=== PATIENT | female | born 1965 | race American Indian/Alaskan Native ===

== ENCOUNTER 2018-02-20 12:47 | Outpatient (CLI) | payer MEDICAID, SELFPAY ==
--- NOTE | 2018-02-20 12:09 | DI.RAD_ITS ---
SYMPTOMS/DIAGNOSIS: RT KNEE WEAKNESS, PAIN, M25.861 RIGHT KNEE: Three views were obtained. No bony or soft tissue abnormality seen.
== END 2018-02-20 13:07 ==
PROVIDERS: PCP Nurse Practitioner Family; Visit Provider Nurse Practitioner Family
DX: M25.561 Pain in right knee (principal); M25.861 Other specified joint disorders, right knee
CPT/HCPCS: 73562

== ENCOUNTER 2018-03-20 09:13 | Outpatient (CLI) | payer MEDICAID, SELFPAY ==
--- NOTE | 2018-03-20 09:06 | DI.RAD_ITS ---
SYMPTOM/DIAGNOSIS: PAIN RIGHT KNEE: AP and lateral and bilateral Merchant projections are provided. No bony or joint abnormality is seen.
== END 2018-03-20 09:33 ==
PROVIDERS: PCP Nurse Practitioner Family; Visit Provider Orthopaedic Surgery
DX: M25.561 Pain in right knee (principal)
CPT/HCPCS: 73562

== ENCOUNTER 2018-03-23 11:49 | Emergency (ER) | payer MEDICAID, SELFPAY ==
[2018-03-23 11:54] VITALS: BP 154/101; PULSE 75; RESP 24; TEMP 36.4; O2SAT 97
[2018-03-23 12:00] VITALS: RESP 19; RESP 8
[2018-03-23] MEDS: Albuterol/Ipratropium 3 ML UPD VIAL 9 ML UPD (12:00)
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
[2018-03-23] MEDS: methylPREDNISolone SUCC 125 MG VIAL IM (12:05)
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
--- NOTE | 2018-03-23 12:15 | DI.RAD_ITS ---
SYMPTOMS/DIAGNOSIS: SEVERE COUGH, ASTHMA PA AND LATERAL CHEST: Comparison is made with December,. The heart size is normal. The lungs are well inflated and clear. No infiltrate or effusion is seen. IMPRESSION: Negative chest x-ray.
[2018-03-23 12:30] VITALS: PULSE 70; TEMP 36.6; O2SAT 98
--- NOTE | 2018-03-23 13:07 | DI.VRAD_ITS ---
EXAM: XR Chest, 2 Views EXAM DATE/TIME: 03/23/2018 11:57 AM CLINICAL HISTORY: 52 years old, female; Signs and symptoms; Cough; Patient HX: Severe cough x 3 days, asthma TECHNIQUE: XR of the chest, 2 views. COMPARISON: CR CHEST 2 VIEWS PA,LAT 12/19/2015 6:48 PM FINDINGS: Lungs: Unremarkable. No consolidation. Pleural space: Unremarkable. No pleural effusion. No pneumothorax. Heart/Mediastinum: Unremarkable. No cardiomegaly. Bones/joints: Unremarkable. IMPRESSION: No acute findings. Dictated and Authenticated by: Jerry Flor MD. Ordering:PRINCE NEWMAN MD
[2018-03-23] MEDS: Albuterol/Ipratropium 3 ML UPD VIAL 9 ML (20:02)
== END 2018-03-23 13:15 | disposition home or self-care (01) ==
PROVIDERS: Emergency Provider Student in an Organized Health Care Education/Training Program; PCP Nurse Practitioner Family
DX: J45.901 Unspecified asthma with (acute) exacerbation (principal); I10 Essential (primary) hypertension; E11.9 Type 2 diabetes mellitus without complications; Z79.84 Long term (current) use of oral hypoglycemic drugs; F17.210 Nicotine dependence, cigarettes, uncomplicated
CPT/HCPCS: 93005; 94640; 96372; 99284; 71046; 93010; J2930; J7620

== ENCOUNTER 2018-03-28 11:38 | Emergency (ER) | payer MEDICAID, SELFPAY ==
[2018-03-28 11:42] VITALS: BP 155/97; PULSE 72; RESP 16; TEMP 36.1; O2SAT 99
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
[2018-03-28] MEDS: Acetaminophen 325 MG TAB 650 MG PO (12:00)
[2018-03-28] MEDS: Ibuprofen 600 MG TAB PO (12:04)
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
[2018-03-28 13:12] VITALS: BP 155/97; PULSE 72; RESP 16; TEMP 36.1; O2SAT 99
== END 2018-03-28 13:07 | disposition home or self-care (01) ==
PROVIDERS: Emergency Provider Physician Assistant; PCP Nurse Practitioner Family
DX: M25.541 Pain in joints of right hand (principal)
CPT/HCPCS: 29125; 99283; 73130; 99282; L3807

== ENCOUNTER 2018-07-12 11:25 | Outpatient (REF) | payer MEDICAID, SELFPAY | END 2018-07-12 11:45 | LOC: NCHCN 11:25 | PROVIDERS: PCP Nurse Practitioner Family; Visit Provider Nurse Practitioner Family | DX: N89.8 Other specified noninflammatory disorders of vagina (principal) | CPT/HCPCS: 87480; 87510; 87660 ==

== ENCOUNTER 2018-12-19 17:18 | Emergency (ER) | payer MEDICAID, SELFPAY ==
[2018-12-19 17:26] VITALS: BP 124/92; PULSE 80; RESP 16; TEMP 36.2; O2SAT 97
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
== END 2018-12-19 18:51 | disposition home or self-care (01) ==
PROVIDERS: Emergency Provider Nurse Practitioner Family
DX: B37.0 Candidal stomatitis (principal); E11.9 Type 2 diabetes mellitus without complications; Z79.84 Long term (current) use of oral hypoglycemic drugs; I10 Essential (primary) hypertension
CPT/HCPCS: 99283

== ENCOUNTER 2019-01-03 06:26 | Emergency (ER) | payer MEDICAID, SELFPAY ==
[2019-01-03 06:29] VITALS: BP 151/77; PULSE 97; RESP 20; TEMP 36.4; O2SAT 97
--- NOTE | 2019-01-03 06:34 | W.ED.GENAD ---
Discharge Plan Disposition Patient Disposition: HOME Condition: Improving Discharge Details Chief Complaint: RespSymp Clinical Impression: Asthma exacerbation in COPD, Cough Primary Care Provider: None,None ED Provider: Jessica Villegas Home Meds and New Rx's Prescriptions: New prednisone 20 mg tablet See Rx Instructions .ROUTE .COMPLEX Qty: 18 RF: 0 doxycycline hyclate 100 mg tablet 100 mg PO BID 5 Days Qty: 10 RF: 0 Continued omeprazole [Prilosec] 40 MG capsule,delayed release(DR/EC) 40 mg PO DAILY RF: 0 Flovent HFA 120 PUFF HFA aerosol inhaler 2 puff Inhalation BID RF: 0 risperidone 1 MG tablet 1 mg PO DAILY RF: 0 metformin 500 mg tablet extended release 24 hr 1,000 mg PO BID RF: 0 cyclobenzaprine 10 MG tablet 10 mg PO Q8H PRN (Reason: Muscle Spasm) Qty: 15 RF: 0 nystatin 100,000 unit/mL suspension 500,000 unit PO Q6H Qty: 200 RF: 0 clonazepam [Klonopin] 1 mg Tablet 1 mg PO TID RF: 0 Discharge Instructions Instructions: COPD (Chronic Obstructive Pulmonary Disease) (ED), Acute Cough (ED) Additional Instructions: Take the steroids and antibiotics until finished. Use the albuterol inhaler as needed and directed for wheezing or shortness of breath. Take Hycodan syrup 5mL orally every 4-6 hours as needed for cough. Drink plenty of fluids and get plenty of rest. You will receive a call from care management regarding a follow up appointment with a primary care doctor next week. Return immediately to the emergency department with any worsening or new concerning symptoms. Discharge Data Discharge Physician: Jessica Villegas Medical Decision Making <Ran Crawford DO - Last Filed: 01/03/19 07:57> This is a 53-year-old female with a past medical history of COPD, hypertension, high cholesterol who presents today for evaluation of 3 days of cough with productive sputum, fevers and chills, mild shortness of breath. She denies any cardiac history in the past. Physical exam demonstrates notable wheezes throughout, no significant hypoxemia, mild tachypnea. Oxygen saturations appear stable. Radial pulses equal bilaterally. She did have a small speck of blood in her most recent coughing episode, but otherwise denies any other hemoptysis. No history of PEs. Physical exam appears clinically consistent with COPD exacerbation. Differential also does include pneumonia. ACS less likely. Will perform cardiac work-up, give breathing treatments, mildly hydrate, get an x-ray and reassess. EKG at this time is benign with no evidence of significant ACS. 7:56 AM Laboratory work-up is returned relatively benign, significant white count or leukocytosis. VBG is normal, electrolytes and renal function stable. Troponin normal, d-dimer is elevated. We will add a CT angios for PE evaluation. Pending these results and continue treatments the patient will be signed out to my colleague Dr. Villegas for final disposition peer EKG 6: 33 Rate 96, intervals normal, sinus rhythm, notable Q waves in lead II, III and aVF. Inverted T wave in lead III. No significant ST elevations or depressions. Review of prior EKG from 03/21 reveals equivalent findings. <Jessica Villegas, - Last Filed: 01/03/19 12:22> Please see Dr. Crawford's note for initial presentation, exam and plan. Patient is a 53-year-old female with history of diabetes, hypertension, obesity, depression, PTSD, anxiety and COPD who presents for cough with yellow sputum and shortness of breath for the past 3 days. She admits to yellow sputum with blood-tinged this morning. She was given 3 nebs, Solu-Medrol and small bolus of IV fluids per Dr. Crawford. Labs reviewed and note an elevated d-dimer, mildly elevated BNP, normal troponin. EKG noted Q waves in inferior leads and T wave inversion in lead III but no acute ST elevation or depression and unchanged from previous EKG. Case endorsed to follow-up on CT chest and final disposition. Upon my assessment, patient denies any relief of her symptoms. Apparently patient was seen at [facility] yesterday for the same symptoms and states she was given steroids and one neb treatment and no prescriptions upon discharge. She has diffuse wheezing and rhonchi throughout. Patient offered another neb treatment but declines. She is frequently coughing and notes pain with coughing up on exam. Will give nebulized lidocaine and reassess. 0920 --patient admits to some chest pain while receiving nebulized lidocaine. Will stop at this time. CT chest negative for any acute findings. Patient feels much better and she is requesting to go home. She has an allergy to codeine and states that she has received Hycodan syrup before for her cough and requests a dose. 2 doses given for home. Respiratory also gave patient an Acapella to help with her mucus congestion. She was given albuterol inhaler for home, a prescription for steroids as well as a prescription for doxycycline due to her smoking history. Patient states that she did not her primary care doctor. Her previous doctor was Padmini Gaines but she moved. Patient placed on care management list to help arrange for follow-up appointment with her primary care doctor's office in 1 week for COPD. Patient also stated that she was aware that she had a history of asthma but not a history of COPD. Discussed with respiratory and PFT ordered upon discharge to help with diagnosis. Medical Records Medical records reviewed: Yes I reviewed the patient's medical records. Imaging Data Radiologic Study: Radiologist's impression: CT ANGIOGRAPHY OF THE CHEST: CT angiography was performed with multi slice acquisition and multi planar and 3D reconstruction. Routine examination was performed. No priors for comparison. There is atherosclerosis of the thoracic aorta. No evidence of a thoracic aortic dissection. Heart size is within normal limits. No significant pericardial effusion is seen. No evidence of right ventricular dysfunction is present. No pleural effusion, pneumothorax or significant thoracic adenopathy is appreciated. There is no evidence of a pulmonary embolus. There are atelectatic changes seen in the lungs. No focal consolidating infiltrates are present. The tracheobronchial tree is unremarkable. In the upper abdomen there are bilateral adrenal nodules. The patient is status post cholecystectomy. Degenerative changes are seen in the spine. There is patient motion artifact present. IMPRESSION: No evidence of a pulmonary embolus, thoracic dissection or aneurysm. Lab Data Lab results reviewed: Yes I reviewed the patient's lab results. ECG Data Attestation: I personally reviewed and interpreted this ECG (s) as follows: HPI <Ran Crawford DO - Last Filed: 01/03/19 07:57> General Date/Time Provider Initiated Documentation: 01/03/19 06:27. HPI Narrative: This is a 53-year-old female with past medical history of COPD, diabetes, GERD hypertension and high cholesterol who presents today for evaluation of shortness of breath. She has a regular tobacco user, she notes for the last 3 days she has had a cough with productive sputum, occasional fever and chills, notable shortness of breath. She denies any significant chest tightness, chest heaviness, or significant pleuritic chest pain. She does admit to a single small speckle of blood on her most recent episode of productive cough, but denies any mando hemoptysis or any other abnormality otherwise. Denies PE risk factors such as recent long car rides, immobilization, recent surgery, prior history of DVT or PE, family history of PE or DVT, morbid obesity, exogenous estrogen and smoking, history of cancer. She denies any recent hospitalizations or antibiotic use. She denies any other complaints. Patient has been taking breathing treatments at home but has had significant improvement. No other modifying factors. Related Data Home Medications Medication Instructions Recorded Confirmed Flovent HFA 2 puff INHALATION BID 12/28/13 01/03/19 omeprazole [Prilosec] 40 mg PO DAILY 12/28/13 01/03/19 risperidone 1 mg PO DAILY 12/28/13 01/03/19 cyclobenzaprine 10 mg PO Q8H PRN #15 tab 08/29/16 01/03/19 metformin 500 mg tablet,extended 1,000 mg PO BID tab 03/20/18 01/03/19 release 24 hr nystatin 500,000 unit PO Q6H #200 ml 12/19/18 01/03/19 clonazepam [Klonopin] 1 mg PO TID 01/03/19 01/03/19 doxycycline hyclate 100 mg PO BID 5 Days #10 tab 01/03/19 prednisone See Rx Instructions .ROUTE 01/03/19 .COMPLEX #18 tab Previous Rx's Medication Instructions Recorded cyclobenzaprine 10 mg PO Q8H PRN #15 tab 08/29/16 nystatin 500,000 unit PO Q6H #200 ml 12/19/18 doxycycline hyclate 100 mg PO BID 5 Days #10 tab 01/03/19 prednisone See Rx Instructions .ROUTE 01/03/19 .COMPLEX #18 tab Allergies Allergy/AdvReac Type Severity Reaction Status Date / Time sulfamethoxazole Allergy Severe Anaphylaxsi Verified 01/03/19 06:35 [From Bactrim] s trimethoprim [From Bactrim] Allergy Severe Anaphylaxsi Verified 01/03/19 06:35 s povidone-iodine Allergy Intermediate Hives Verified 01/03/19 06:35 [From Betadine] soap [From Betadine] Allergy Intermediate Hives Verified 01/03/19 06:35 ginseng Allergy Mild Hives Verified 01/03/19 06:35 terconazole [From Terazol 3] Allergy Unknown unknown Verified 01/03/19 06:35 acetaminophen [From Percocet] AdvReac Intermediate vomiting Verified 01/03/19 06:35 oxycodone HCl [From Percocet] AdvReac Intermediate vomiting Verified 01/03/19 06:35 nicotine [From Nicoderm CQ] AdvReac Mild Topical Verified 01/03/19 06:35 Irritation latex powdered gloves AdvReac Mild rash Uncoded 01/03/19 06:35 General Stated Complaint: RespSymp PATRICIA: 3 Review of Systems <Ran Crawford DO - Last Filed: 01/03/19 07:57> Review of Systems All systems reviewed & are unremarkable except as noted in HPI and below PFSH <Ran Crawford DO - Last Filed: 01/03/19 07:57> Social History Smoking/Tobacco Use Status: Current every day Alcohol Intake: never Drug use: Occasionally Substance use type: marijuana Do you feel safe at home: Yes Do you feel safe in your relationship?: Yes Exam <Ran Crawford DO - Last Filed: 01/03/19 07:57> Narrative Exam Narrative: 1.Const: Well-nourished, Well-developed, appearing stated age 2.Eyes: PERRL, no conjunctival injection, and symmetrical lids. 3.ENT: Atraumatic external nose and ears. Moist MM. Neck: Symmetric, trachea midline, No thyromegaly. 4.CVS: +S1/S2, No murmurs or gallops. Peripheral pulses 2+ and equal in all extremities. Brisk capillary refill in all extremities. Radial pulses +2 bilaterally. 5.RESP: Mild tachypnea, notable wheezes throughout, no significant crackles. No rhonchi 6.GI: Soft, Nontender/Nondistended, No hepatosplenomegaly. No guarding or rebound. 7.MSK: Normocephalic/Atraumatic, Extremities w/o deformity or ttp No cyanosis or clubbing, Normal movement of all extremities. No calf tenderness 8.Skin: Warm, Dry. No rashes or lesions. 9.Neuro: thread winder automatic II-XII grossly intact. Sensation grossly intact, no focal neurologic deficits. 10.Psych: (AAO) x3. Appropriate mood and affect Course <Ran Crawford DO - Last Filed: 01/03/19 07:57> Vital Signs Temperature 36.4 C L 01/03/19 06:29 Pulse 97 H 01/03/19 06:29 Respiratory Rate 20 01/03/19 06:29 Blood Pressure 151/77 H 01/03/19 06:29 Pulse Oximetry 97 01/03/19 06:29 Temperature 36.4 C L 01/03/19 06:29 Temperature Source Temporal Artery Scan 01/03/19 06:29 Pulse 97 H 01/03/19 06:29 Respiratory Rate 20 01/03/19 06:29 Respiratory Effort Labored 01/03/19 06:29 Blood Pressure 151/77 H 01/03/19 06:29 Pulse Oximetry 97 01/03/19 06:29 Oxygen Delivery Method Room Air 01/03/19 06:29 Oxygen Flow Rate 0 01/03/19 06:29 Pain Level 3 01/03/19 06:29 Sign Out <Ran Crawford DO - Last Filed: 01/03/19 07:57> Sign Out Data: Sign Out Comment: COPD exacerbation. Pending CTA for evaluation of PE. Vital signs stable. Last updated by Ran Crawford DO at 01/03/19 07:59
[2019-01-03 06:49] VITALS: PULSE 83; RESP 20; RESP 4; O2SAT 99
[2019-01-03] MEDS: Albuterol/Ipratropium 3 ML UPD VIAL 9 ML UPD (06:49)
[2019-01-03 06:50] LABS: BE (Venous) 1.9 mmol/L (-3-3); HCO3 (Venous) 27 mmol/L (22-28); O2 Sat (Venous) 71 % (70-80); TCO2 (Venous) 24 mmol/L (22-29); pCO2 (Venous) 43 mm/Hg (34-47); pO2 (Venous) 36 mm/Hg (28-44)
[2019-01-03] MEDS: methylPREDNISolone SUCC 125 MG VIAL IVP (06:50)
[2019-01-03] MEDS: Normal Saline 1,000 ML 1000 ML IV (06:55)
[2019-01-03 07:03] LABS: Abs Immature Grans 0.04 k/cumm (0.0-0.09); Absolute Basophil Count 0.01 k/cumm (0.0-0.2); Absolute Eosinophil Count 0.03 k/cumm (0.0-0.7); Absolute Lymphocyte Count 0.99 k/cumm (1.2-3.4); Absolute Monocyte Count 1.18 k/cumm (0.11-0.7); Absolute Neutrophil Count 7.68 k/cumm (1.2-6.7); Basophils % 0.1; Eosinophils % 0.3; HCT 44.1 % (36.0-46.0); HGB 15.2 g/dL (12.0-15.5); Immature Grans % 0.4; Mean Corp. HGB Concentration 34.5 g/dL (32.0-36.0); Mean Corpuscular Hemoglobin 32.5 pg (27.0-33.0); Mean Corpuscular Volume 94.2 fL (80-95); Mean Platelet Volume 9.8 fL (8.0-11.0); Monocytes % 11.9; Neutrophils % 77.3; Platelet Count 235 x1000/uL (130-400); RBC 4.68 m/cumm (4.00-5.20); RBC Distribution Width 13.2 % (11.7-14.6); White Blood Cell Count 9.93 k/cumm (4.4-10.8)
[2019-01-03 07:14] LABS: ALT 13 U/L (12-78); AST 7 U/L (15-37); Albumin 3.6 g/dL (3.4-5.0); Alkaline Phosphatase 40 U/L (46-116); Anion Gap 9.8 mmol/L (3-11); BUN 12 mg/dL (7-18); Bilirubin, Total 0.3 mg/dL (0.2-1.0); CO2 26.2 mmol/L (21.0-32.0); CREATININE 1.01 mg/dL (0.55-1.02); Calcium 9.3 mg/dL (8.5-10.1); Chloride 102 mmol/L (98-107); Estimated GFR 57.12 (mL/min/1.73m2); Glucose 186 mg/dL (70-100); NT-proBNP 513 pg/mL; Potassium 4.1 mmol/L (3.5-5.1); Sodium 138 mmol/L (136-145); Total Protein 7.7 g/dL (6.4-8.2); Troponin I < 0.05 ng/mL (0.00-0.06)
[2019-01-03] MEDS: MAGNESIUM SULFATE 2 GM/50 ML BAG IVPB (07:14)
[2019-01-03 07:25] LABS: D-Dimer 1000 ng/mlFEU (<500)
--- NOTE | 2019-01-03 07:39 | DI.CT_ITS ---
SYMPTOM/DIAGNOSIS: HEMOPTYSIS, COUGH CT ANGIOGRAPHY OF THE CHEST: CT angiography was performed with multi slice acquisition and multi planar and 3D reconstruction. Routine examination was performed. No priors for comparison. There is atherosclerosis of the thoracic aorta. No evidence of a thoracic aortic dissection. Heart size is within normal limits. No significant pericardial effusion is seen. No evidence of right ventricular dysfunction is present. No pleural effusion, pneumothorax or significant thoracic adenopathy is appreciated. There is no evidence of a pulmonary embolus. There are atelectatic changes seen in the lungs. No focal consolidating infiltrates are present. The tracheobronchial tree is unremarkable. In the upper abdomen there are bilateral adrenal nodules. The patient is status post cholecystectomy. Degenerative changes are seen in the spine. There is patient motion artifact present. IMPRESSION: No evidence of a pulmonary embolus, thoracic dissection or aneurysm.
--- NOTE | 2019-01-03 07:58 | NUR.NOTE ---
Nursing Note: Pt resting in stretcher. DI staff at bedside with wheelchair to transport patient to x-ray. Pt requested to walk. Steady gait noted
[2019-01-03] MEDS: Omnipaque 350 MG/ML 100 ML BTL IJ (08:16)
[2019-01-03 08:42] VITALS: BP 155/85; PULSE 88; RESP 18; O2SAT 91
--- NOTE | 2019-01-03 09:24 | NUR.NOTE ---
Nursing Note: PT reported right sided chest discomfort while using the nebulized lidocaine. MD Villegas made aware. Orders received to stop the neb treatment.
[2019-01-03] MEDS: Albuterol HFA 8 GM 60 PUFF INH IH (10:35)
[2019-01-03 10:36] VITALS: BP 142/93; PULSE 83; RESP 14; TEMP 36.7; O2SAT 92
--- NOTE | 2019-01-03 13:06 | NUR.NOTE ---
Nursing Note: Confirmed with [facility] that the patient was still current as a patient at their office. Referral faxed for follow up from the Emergency Dept. Nuvia Styles.
== END 2019-01-03 10:37 | disposition home or self-care (01) ==
PROVIDERS: Student in an Organized Health Care Education/Training Program; Emergency Provider Physician Assistant
DX: R06.02 Shortness of breath (principal); J45.901 Unspecified asthma with (acute) exacerbation; J44.9 Chronic obstructive pulmonary disease, unspecified; F17.210 Nicotine dependence, cigarettes, uncomplicated; R79.1 Abnormal coagulation profile; R07.9 Chest pain, unspecified; E11.9 Type 2 diabetes mellitus without complications; Z79.84 Long term (current) use of oral hypoglycemic drugs
CPT/HCPCS: 36415; 71275; 80053; 82805; 93005; 94640; 96361; 96365; 96375; 99285; 83880; 84484; 85025; 85379; 93010; J2930; J3490; J7620

== ENCOUNTER 2019-02-13 13:41 | Outpatient (REF) | payer MEDICAID, SELFPAY ==
--- NOTE | 2019-02-13 11:30 | SKI_PTH ---
PATIENT: Chika Santos LOC: [facility] U#:[id number] AGE/SX: 53/F ROOM: RE02/13/[address]: Ottoniel Jovel : 1965 BED: DIS: 02/13/2019 SPEC #: [id number] RECD: 02/13/19 18:00 STATUS: ISELA SPENCE #: [id number] CHRISTINE: 02/13/19 11:[address]: Ottoniel Jovel DEPT: Surgical Specimen RECD BY: Asha Meraz Tissues: 1 - SKIN BIOPSY(SHAVE/PUNCH) Procedures: SKIN LEVEL 4 Comments: [id number]
== END 2019-02-13 14:01 ==
LOC: NCHCN 13:41
PROVIDERS: PCP Nurse Practitioner Family; Visit Provider Nurse Practitioner Family
DX: L91.8 Other hypertrophic disorders of the skin (principal)
CPT/HCPCS: 80048; 80061; 85027; 82043; 82565; 82570; 84156; 84443; 88305

== ENCOUNTER 2019-02-13 15:16 | Outpatient (REF) | payer MEDICAID, SELFPAY ==
[2019-02-13 18:56] LABS: HCT 42.6 % (36.0-46.0); HGB 14.3 g/dL (12.0-15.5); Mean Corp. HGB Concentration 33.6 g/dL (32.0-36.0); Mean Corpuscular Hemoglobin 32.1 pg (27.0-33.0); Mean Corpuscular Volume 95.7 fL (80-95); Mean Platelet Volume 9.7 fL (8.0-11.0); Platelet Count 264 x1000/uL (130-400); RBC 4.45 m/cumm (4.00-5.20); RBC Distribution Width 13.1 % (11.7-14.6); White Blood Cell Count 6.67 k/cumm (4.4-10.8)
[2019-02-13 19:10] LABS: PROTEIN 9.4 mg/dL
[2019-02-13 19:14] LABS: COMMENT (LAB VIEW ONLY) 63.24 mg/dL; Microalb ug/mg Crea 6.8 ug/mg Cr
[2019-02-13 19:46] LABS: Anion Gap 8.4 mmol/L (3-11); BUN 9 mg/dL (7-18); CO2 27.6 mmol/L (21.0-32.0); CREATININE 0.96 mg/dL (0.55-1.02); Calculated LDL 176 mg/dL; Chloride 101 mmol/L (98-107); Cholesterol 259 mg/dL (50-200); Glucose 107 mg/dL (70-100); HDL Cholesterol 45 mg/dL (40-60); Potassium 3.9 mmol/L (3.5-5.1); Sodium 137 mmol/L (136-145); TSH (W/Ref FT4) 1.75 uIU/mL (0.36-3.74); Triglyceride 191 mg/dL (30-150)
[2019-02-13 20:49] LABS: COMMENT (LAB VIEW ONLY) 62.64 mg/dL; Prot/Crea Ur Ratio 0.15
== END 2019-02-13 15:36 ==
LOC: NCHCN 15:16
PROVIDERS: PCP Nurse Practitioner Family; Visit Provider Nurse Practitioner Family
DX: E11.9 Type 2 diabetes mellitus without complications (principal); I10 Essential (primary) hypertension; E78.5 Hyperlipidemia, unspecified
CPT/HCPCS: 80048; 80061; 85027; 82043; 82565; 82570; 84156; 84443

== ENCOUNTER 2019-02-17 00:54 | Outpatient (CLI) | payer MEDICAID, SELFPAY ==
--- NOTE | 2019-02-17 14:00 | DI.US_ITS ---
SYMPTOMS/DIAGNOSIS: PELVIC PAIN, R10.2 PELVIC ULTRASOUND: A transabdominal and transvaginal examination was carried out. The patient is status post hysterectomy. The ovaries are not visualized. The right kidney measures 10.7 x 4.3 x 5.4 cm, the left kidney measures 11.8 x 4.6 x 5.2 cm. Both kidneys are acoustically normal. SUMMARY: The patient is status post hysterectomy. Neither the right nor left ovary is identified.
== END 2019-02-17 01:14 ==
PROVIDERS: PCP Nurse Practitioner Family; Visit Provider Nurse Practitioner Family
DX: R10.2 Pelvic and perineal pain (principal); Z90.710 Acquired absence of both cervix and uterus
CPT/HCPCS: 76830; 76856

== ENCOUNTER 2019-03-24 10:02 | Outpatient (REF) | payer MEDICAID, SELFPAY ==
[2019-04-03 15:58] LABS: Creatinine, U 61.2 mg/dL; Specific Gravity 1.008; pH 6.5
[2019-04-03 16:22] LABS: Codeine Not Detected ng/mL (Cutoff: 25); Comment Normal
[2019-04-03 16:23] LABS: 6-monoacetylmorphine Not Detected ng/mL (Cutoff: 25); Dihydrocodeine Not Detected ng/mL (Cutoff: 25); Hydrocodone Not Detected ng/mL (Cutoff: 25); Hydromorphone Not Detected ng/mL (Cutoff: 25); Morphine Not Detected ng/mL (Cutoff: 25); Norhydrocodone Not Detected ng/mL (Cutoff: 25)
[2019-04-03 16:24] LABS: Fentanyl Not Detected ng/mL (Cutoff: 2); Hydromorphone-3-beta-glucuroni Not Detected ng/mL (Cutoff: 100); Meperidine Not Detected ng/mL (Cutoff: 25); Naloxone Not Detected ng/mL (Cutoff: 25); Norfentanyl Not Detected ng/mL (Cutoff: 2); Normeperidine Not Detected ng/mL (Cutoff: 25); Noroxycodone Not Detected ng/mL (Cutoff: 25); Noroxymorphone Not Detected ng/mL (Cutoff: 25)
[2019-04-03 16:25] LABS: EDDP Not Detected ng/mL (Cutoff: 25); Methadone Not Detected ng/mL (Cutoff: 25); O-desmethyltramadol Not Detected ng/mL (Cutoff: 25); Propoxyphene Not Detected ng/mL (Cutoff: 25); Tramadol Not Detected ng/mL (Cutoff: 25)
[2019-04-03 16:26] LABS: Buprenorphine Not Detected ng/mL (Cutoff: 5); N-desmethyltapentadol Not Detected ng/mL (Cutoff: 50); Norbuprenorphine Not Detected ng/mL (Cutoff: 5); Tapentadol Not Detected ng/mL (Cutoff: 25)
[2019-04-03 16:29] LABS: Opioid Interpretation See Comments
[2019-04-03 16:30] LABS: Amphetamines See Comments ng/mL (Cutoff: 500); Barbiturates Negative ng/mL (Cutoff: 200); Cocaine Negative ng/mL (Cutoff: 150)
[2019-04-03 16:31] LABS: Alpha-Hydroxyalprazolam Not Detected (Cutoff: 10); Alpha-OH-alprazolam Glucuronid Not Detected (Cutoff: 50); Alprazolam Not Detected (Cutoff: 10); Chlordiazepoxide Not Detected (Cutoff: 10); Clobazam Not Detected (Cutoff: 10); N-Desmethylclobazam Not Detected (Cutoff: 200); Phencyclidine Negative ng/mL (Cutoff: 25); Tetrahydrocannabinol Negative ng/mL (Cutoff: 50)
[2019-04-03 16:32] LABS: 2-Hydroxy Ethyl Flurazepam Not Detected (Cutoff: 10); Alpha-Hydroxy Midazolam Not Detected (Cutoff: 10); Diazepam Not Detected (Cutoff: 10); Flurazepam Not Detected (Cutoff: 10); Lorazepam Not Detected (Cutoff: 10); Lorazepam Glucuronide Not Detected (Cutoff: 50); Midazolam Not Detected (Cutoff: 10); Oxazepam Glucuronide Not Detected (Cutoff: 50); Prazepam Not Detected (Cutoff: 10)
[2019-04-03 16:33] LABS: Alpha-Hydroxy Triazolam Not Detected (Cutoff: 10); Temazepam Not Detected (Cutoff: 10); Temazepam Glucuronide Not Detected (Cutoff: 50); Triazolam Not Detected (Cutoff: 10); Zolpidem Phenyl-4-Carboxy acid Not Detected (Cutoff: 10)
[2019-04-03 16:40] LABS: Clonazepam Present (Cutoff: 10)
[2019-04-03 16:43] LABS: Benzodiazepines Interpretation See Comments
[2019-04-04 08:20] LABS: Amphetamine 6466 ng/mL (Cutoff: 25); MDA (Ecstasy Metabolite) Negative ng/mL (Cutoff: 25); MDMA (Ecstasy) Negative ng/mL (Cutoff: 25); Methamphetamine Negative ng/mL (Cutoff: 25); Phentermine Negative ng/mL (Cutoff: 25); Pseudoephedrine/Ephedrine Negative ng/mL (Cutoff: 25)
[2019-04-04 08:22] LABS: Amphetamines Interpretation Positive
== END 2019-03-24 10:22 ==
LOC: LBN 10:02
PROVIDERS: PCP Nurse Practitioner Family; Visit Provider Nurse Practitioner Family
DX: M54.5 Low back pain (principal); G89.29 Other chronic pain
CPT/HCPCS: 80307; 80324; 80364

== ENCOUNTER 2019-04-06 09:32 | Emergency (ER) | payer MEDICAID, SELFPAY ==
[2019-04-06 09:38] VITALS: BP 151/105; PULSE 63; RESP 16; TEMP 36.6; O2SAT 98
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
[2019-04-06] MEDS: Ketorolac 30 MG/ML VIAL IM (10:00)
== END 2019-04-06 10:13 | disposition home or self-care (01) ==
PROVIDERS: Emergency Provider Emergency Medicine; PCP Nurse Practitioner Family
DX: M54.5 Low back pain (principal); L03.011 Cellulitis of right finger
CPT/HCPCS: 96372; 99284; J1885

== ENCOUNTER 2019-08-14 12:19 | Outpatient (REF) | payer MEDICAID, SELFPAY ==
[2019-08-14 13:14] LABS: HGB 14.3 g/dL (12.0-15.5); Mean Corp. HGB Concentration 33.3 g/dL (32.0-36.0); Mean Corpuscular Volume 96.2 fL (80-95); Platelet Count 288 x1000/uL (130-400); RBC 4.47 m/cumm (4.00-5.20); White Blood Cell Count 8.58 k/cumm (4.4-10.8)
[2019-08-14 13:15] LABS: Anion Gap 8.2 mmol/L (3-11); BUN 11 mg/dL (7-18); CO2 29.8 mmol/L (21.0-32.0); CREATININE 0.85 mg/dL (0.55-1.02); Calcium 8.8 mg/dL (8.5-10.1); Chloride 104 mmol/L (98-107); Glucose 83 mg/dL (74-106); Potassium 4.4 mmol/L (3.5-5.1); Sodium 142 mmol/L (136-145)
== END 2019-08-14 12:39 ==
LOC: NCHCN 12:19
PROVIDERS: PCP Nurse Practitioner Family; Visit Provider Nurse Practitioner Family
DX: G47.00 Insomnia, unspecified (principal); R25.2 Cramp and spasm; R82.90 Unspecified abnormal findings in urine
CPT/HCPCS: 80048; 85027

== ENCOUNTER 2019-12-10 09:17 | Outpatient (REF) | payer MEDICAID, SELFPAY ==
[2019-12-10 16:18] LABS: Bilirubin Negative (Negative); Blood Negative (Negative); Clarity Sl Cloudy (Clear); Glucose Negative (Negative); Ketones Trace mg/dL (Negative); Leukocyte Esterase Trace (Negative); Nitrite Negative (Negative); Urobilinogen 0.2 EU/dL (Up TO 0.2)
[2019-12-10 16:44] LABS: RBC Negative HPF (0-2); WBC 0-2 HPF (0-5)
[2019-12-10 16:45] LABS: Bacteria Moderate HPF (Negative); C & S Indicated? No/Sq. Contamination; Epithelial Cells Many HPF (Negative)
[2019-12-11 09:47] LABS: HBs Antibody, Quant <3.1 mIU/mL (See Note); Hepatitis B Surface Ab Negative (See Note)
[2019-12-11 09:57] LABS: Hepatitis B Surface Ag Negative (Negative)
[2019-12-11 10:36] LABS: Hepatitis C Ab w Rflx HCV PCR Negative (Negative)
[2019-12-11 10:56] LABS: HIV-1/2 Ag & Ab Screen Negative (Negative)
[2019-12-11 11:25] LABS: Syphilis Serology (RPR) Negative (Negative)
[2019-12-11 13:52] LABS: Chlamydia Result Negative (Negative); GC Result Negative (Negative)
== END 2019-12-10 09:37 ==
LOC: NCHCN 09:17
PROVIDERS: PCP Nurse Practitioner Family; Visit Provider Nurse Practitioner Family
DX: Z11.3 Encounter for screening for infections with a predominantly sexual mode of transmission (principal); Z11.59 Encounter for screening for other viral diseases; Z11.4 Encounter for screening for human immunodeficiency virus [HIV]; G47.00 Insomnia, unspecified; R25.2 Cramp and spasm; R82.90 Unspecified abnormal findings in urine
CPT/HCPCS: 86706; 86803; 87340; 87389; 87491; 87591; 81003; 81015; 86592

== ENCOUNTER 2019-12-25 10:27 | Outpatient (REF) | payer MEDICAID, SELFPAY ==
[2019-12-25 21:02] LABS: HCT 42.1 % (36.0-46.0); HGB 14.2 g/dL (12.0-15.5); Mean Corp. HGB Concentration 33.7 g/dL (32.0-36.0); Mean Corpuscular Hemoglobin 32.3 pg (27.0-33.0); Mean Corpuscular Volume 95.7 fL (80-95); Mean Platelet Volume 10.1 fL (8.0-11.0); Platelet Count 303 x1000/uL (130-400); White Blood Cell Count 9.48 k/cumm (4.4-10.8)
[2019-12-25 21:10] LABS: Albumin 3.4 g/dL (3.4-5.0); Anion Gap 9.7 mmol/L (3-11); BUN 15 mg/dL (7-18); CO2 27.3 mmol/L (21.0-32.0); CREATININE 1.03 mg/dL (0.55-1.02); Calcium 8.9 mg/dL (8.5-10.1); Chloride 101 mmol/L (98-107); Estimated GFR 55.63 (mL/min/1.73m2); Glucose 126 mg/dL (74-106); Magnesium 1.5 mg/dL (1.8-2.4); PHOSPHORUS 4.2 mg/dL (2.6-4.7); Potassium 4.3 mmol/L (3.5-5.1); Sodium 138 mmol/L (136-145)
== END 2019-12-25 10:47 ==
LOC: NCHCN 10:27
PROVIDERS: PCP Nurse Practitioner Family; Visit Provider Nurse Practitioner Family
DX: R25.2 Cramp and spasm (principal)
CPT/HCPCS: 80048; 80069; 85027; 83735

== ENCOUNTER 2020-01-15 22:14 | Outpatient (REF) | payer MEDICAID, SELFPAY ==
[2020-01-15 15:23] LABS: Anion Gap 9.3 mmol/L (3-11); BUN 13 mg/dL (7-18); CO2 26.7 mmol/L (21.0-32.0); CREATININE 1.13 mg/dL (0.55-1.02); Chloride 101 mmol/L (98-107); Estimated GFR 49.99 (mL/min/1.73m2); Glucose 155 mg/dL (74-106); Sodium 137 mmol/L (136-145)
[2020-01-15 16:40] LABS: Magnesium 1.9 mg/dL (1.8-2.4)
[2020-01-18 06:34] LABS: SARS-CoV-2 RNA Undetected (Undetected)
== END 2020-01-15 22:34 ==
LOC: NCHCN 22:14
PROVIDERS: PCP Nurse Practitioner Family; Visit Provider Nurse Practitioner Family
DX: R05 Cough (principal); I10 Essential (primary) hypertension; E83.42 Hypomagnesemia
CPT/HCPCS: 80048; U0003; 83735

== ENCOUNTER 2020-03-16 11:22 | Outpatient (REF) | payer MEDICAID, SELFPAY ==
[2020-03-16 19:10] LABS: Anion Gap 6.4 mmol/L (3-11); BUN 11 mg/dL (7-18); CO2 29.6 mmol/L (21.0-32.0); CREATININE 1.02 mg/dL (0.55-1.02); Chloride 101 mmol/L (98-107); Estimated GFR 56.26 (mL/min/1.73m2); Glucose 105 mg/dL (74-106); Potassium 4.8 mmol/L (3.5-5.1); Sodium 137 mmol/L (136-145)
[2020-03-16 19:38] LABS: Hemoglobin A1C 6.3 % (<5.7)
== END 2020-03-16 11:42 ==
LOC: NCHCN 11:22
PROVIDERS: PCP Nurse Practitioner Family; Visit Provider Nurse Practitioner Family
DX: E11.9 Type 2 diabetes mellitus without complications (principal); I10 Essential (primary) hypertension; N25.9 Disorder resulting from impaired renal tubular function, unspecified
CPT/HCPCS: 80048; 83036

== ENCOUNTER 2020-03-29 00:38 | Outpatient (CLI) | payer MEDICAID, SELFPAY ==
--- NOTE | 2020-03-29 | DI.CT_ITS ---
EXAM: CT CHEST W CLINICAL HISTORY: PANLOBULAR EMPHYSEMA,J43.1,SMOKER,F17.210,COUGH,R05,DYSPNEA, TECHNIQUE: COMPARISON: CT CT CHEST PE CTA from 01/03/2019 FINDINGS: CT examination of chest was performed with bolus infusion of 70 cc of Omnipaque 350. Images obtained through the upper abdomen show hepatic steatosis and a prior cholecystectomy. There is a [address] in diameter left adrenal nodule and 18 millimeter in diameter right adrenal nodule, these are unc hanged from prior chest CT of January 2019 and at that time on an early arterial phase examination [place] low attenuation consistent with bilateral adrenal adenomas. Visualized portions of kidneys and pancreas appear normal. No mediastinal adenopathy is seen, there is no evidence thoracic aortic aneurysm or dissection. No e vidence pulmonary embolic disease. Tracheobronchial tree appears intact. There are predominantly li near areas of presumed scarring bilaterally. No consolidation or mass. No significant intrapulmonar y nodule. No pleural effusion. Moderate central lobular emphysema noted. IMPRESSION: Central lobular pulmonary emphysematous changes and pulmonary scarring. No evidence of acute process . Stable small bilateral adrenal adenomas. RADIATION DOSE DELIVERED: 1,001.65mGy.cm Total DLP
[2020-03-29 13:23] LABS: CREATININE 0.96 mg/dL (0.55-1.02)
[2020-03-29] MEDS: Omnipaque 350 MG/ML 100 ML BTL IJ (14:30)
[2020-03-29] MEDS: Normal Saline - Diluent 50 ML VIAL IV (14:31)
[2020-03-29] MEDS: Normal Saline Flush 10 ML SYR IVP (14:32)
== END 2020-03-29 00:58 ==
PROVIDERS: PCP Nurse Practitioner Family; Visit Provider Nurse Practitioner Family
DX: J43.1 Panlobular emphysema (principal); F17.210 Nicotine dependence, cigarettes, uncomplicated; R05 Cough; D35.02 Benign neoplasm of left adrenal gland; D35.01 Benign neoplasm of right adrenal gland; N25.9 Disorder resulting from impaired renal tubular function, unspecified
CPT/HCPCS: 71260; 82565; J3490

== ENCOUNTER 2020-04-08 10:15 | Outpatient (REF) | payer MEDICAID, SELFPAY ==
--- NOTE | 2020-04-08 09:15 | PAPFT_PTH ---
PAT[facility]: Ch[facility] Santos [id number] AGE/SX: 54/F ROOM: RE04/08/[address]: Ottoniel Jovel : 1965 BED: DIS: 04/08/2020 SPEC #: [id number] RECD: 04/08/20 17:45 STATUS: ISELA REQ #: [id number] CHRISTINE: 04/08/20 09:[address]: Ottoniel Jovel DEPT: [facility] Cytology RECD BY: Asha Meraz Tissues: 1 - CX/ENDOCX FOR PAP SMEARS Procedures: PAP THIN PREP/UVM Screening HPV DNA PROBE Comments: [id number] ([facility])
== END 2020-04-08 10:35 ==
LOC: NCHCN 10:15
PROVIDERS: PCP Nurse Practitioner Family; Visit Provider Nurse Practitioner Family
DX: Z00.00 Encounter for general adult medical examination without abnormal findings (principal); Z12.4 Encounter for screening for malignant neoplasm of cervix; Z11.51 Encounter for screening for human papillomavirus (HPV)
CPT/HCPCS: 88142; 87624

== ENCOUNTER 2020-04-12 00:41 | Outpatient (CLI) | payer MEDICAID, SELFPAY ==
--- NOTE | 2020-04-12 | DI.US_ITS ---
EXAM: US HERNIA CLINICAL HISTORY: HERNIA,K46.9 TECHNIQUE: Ultrasound performed using standard protocol. COMPARISON: US US PELVIS TRANSVAGINAL from 02/17/2019 FINDINGS: Ultrasound examination was performed to evaluate question ???bulging??? in right abdomen. There is n o evidence of a hernia in the region surveyed, examination was somewhat limited due to the patient's body habitus. If there is a high clinical suspicion of hernia or mass, additional evaluation with CT would be recommended. IMPRESSION: DATA REPOSITORY:
== END 2020-04-12 01:01 ==
PROVIDERS: PCP Nurse Practitioner Family; Visit Provider Nurse Practitioner Family
DX: K46.9 Unspecified abdominal hernia without obstruction or gangrene (principal)
CPT/HCPCS: 76857

== ENCOUNTER 2020-07-22 15:26 | Outpatient (REF) | payer MEDICAID, SELFPAY ==
[2020-07-22 15:46] LABS: Abs Immature Grans 0.04 10^3/uL (0.0-0.06); Absolute Basophil Count 0.08 10^3/uL (0.0-0.2); Absolute Eosinophil Count 0.22 10^3/uL (0.0-0.7); Absolute Lymphocyte Count 3.11 10^3/uL (1.2-3.4); Absolute Monocyte Count 1.01 10^3/uL (0.1-0.8); Absolute Neutrophil Count 5.79 10^3/uL (1.2-6.7); Basophils % 0.8; Eosinophils % 2.1; HCT 45.1 % (36.0-46.0); HGB 14.8 g/dL (11.2-15.7); Immature Grans % 0.4; Lymphocytes % 30.3; MCH 31.2 pg (27.0-33.0); MCHC 32.8 % (32.0-36.0); MCV 94.9 fL (80-95); MPV 9.9 fL (8.0-11.0); Monocytes % 9.9; Neutrophils % 56.5; Nucleated RBC 0 %; Platelet Count 310 10^3/uL (130-400); RBC 4.75 10^6/uL (3.93-5.22); RDW 13.1 % (11.7-14.6); RDW-SD 46.4 fL; WBC 10.25 10^3/uL (4.4-10.8)
[2020-07-22 16:05] LABS: Hemoglobin A1C 6.9 % (<5.7)
[2020-07-22 16:18] LABS: Iron 77 ug/dL (50-170); Total Iron Binding Capacity 331 ug/dL (250-450); Transferrin Sat 23 % (15-50)
[2020-07-22 16:19] LABS: ALT 40 U/L (14-59); AST 20 U/L (15-37); Albumin 3.8 g/dL (3.4-5.0); Alkaline Phosphatase 64 U/L (46-116); Anion Gap 9.2 mmol/L (3-11); BUN 10 mg/dL (7-18); Bilirubin, Total 0.4 mg/dL (0.2-1.0); CO2 29.8 mmol/L (21.0-32.0); CREATININE 0.8 mg/dL (0.55-1.02); Calcium 9.2 mg/dL (8.5-10.1); Calculated LDL 92 mg/dL (<100); Chloride 100 mmol/L (98-107); Cholesterol 176 mg/dL (<200); Glucose 114 mg/dL (74-106); HDL Cholesterol 44 mg/dL (40-60); Potassium 4.1 mmol/L (3.5-5.1); Sodium 139 mmol/L (136-145); Total Protein 7.4 g/dL (6.4-8.2); Triglyceride 203 mg/dL (<150)
== END 2020-07-22 15:27 | disposition home or self-care (01) ==
LOC: NCHCN 15:26
PROVIDERS: PCP Nurse Practitioner Family; Visit Provider Nurse Practitioner Family
DX: E83.42 Hypomagnesemia (principal); E11.9 Type 2 diabetes mellitus without complications; I10 Essential (primary) hypertension; Z68.41 Body mass index [BMI] 40.0-44.9, adult
CPT/HCPCS: 80053; 80061; 83036; 83540; 83550; 83735; 85025

== ENCOUNTER 2020-08-08 11:38 | Emergency (ER) | payer MEDICAID, SELFPAY ==
[2020-08-08 11:53] VITALS: BP 158/110; PULSE 70; RESP 16; TEMP 36.7; O2SAT 98
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
== END 2020-08-08 12:54 | disposition home or self-care (01) ==
PROVIDERS: Emergency Provider Physician Assistant; PCP Nurse Practitioner Family
DX: S61.412A Laceration without foreign body of left hand, initial encounter (principal); W26.0XXA Contact with knife, initial encounter
CPT/HCPCS: 12001; 90471

== ENCOUNTER 2020-10-15 11:20 | Outpatient (REF) | payer MEDICAID, SELFPAY ==
[2020-10-15 16:15] LABS: Hemoglobin A1C 7.1 % (<5.7)
[2020-10-15 16:29] LABS: Anion Gap 7.1 mmol/L (3-11); BUN 10 mg/dL (7-18); CO2 28.9 mmol/L (21.0-32.0); CREATININE 0.9 mg/dL (0.55-1.02); Calcium 9.2 mg/dL (8.5-10.1); Chloride 102 mmol/L (98-107); Ferritin 27 ng/mL (8-252); Glucose 117 mg/dL (74-106); Potassium 4.3 mmol/L (3.5-5.1); Sodium 138 mmol/L (136-145)
== END 2020-10-15 11:21 | disposition home or self-care (01) ==
LOC: NCHCN 11:20
PROVIDERS: PCP Nurse Practitioner Family; Visit Provider Nurse Practitioner Family
DX: R63.5 Abnormal weight gain (principal); R25.2 Cramp and spasm; R73.09 Other abnormal glucose; R79.89 Other specified abnormal findings of blood chemistry
CPT/HCPCS: 80048; 82728; 83036; 84443

== ENCOUNTER 2020-11-25 16:48 | Outpatient (REF) | payer MEDICAID, SELFPAY ==
[2020-11-27 14:14] LABS: COVID-19 RT-PCR UVMMC Result Negative (Negative)
== END 2020-11-25 16:49 | disposition home or self-care (01) ==
LOC: LBN 16:48
PROVIDERS: PCP Nurse Practitioner Family; Visit Provider Physician Assistant Medical
DX: Z20.822 Contact with and (suspected) exposure to COVID-19 (principal); R05 Cough
CPT/HCPCS: U0003

== ENCOUNTER 2020-11-28 21:40 | Emergency (ER) | payer MEDICAID, SELFPAY ==
--- NOTE | 2020-11-28 21:45 | RT.EKG_ITS ---
APPROVED REPORT Exam: Resting ECG Reason for Exam: SOB, Patient Location: E HR:73 bpm ECG Measurements Heart Rate 73 AXIS IA 183 P 40 QRSd 87 QRS 35 QT 397 T 42 QTc 437 Conclusion Sinus rhythm...normal P axis, V-rate 60- 99 Nonspecific T abnormalities, lateral leads...T <-0.10mV, I aVL V5 V6
[2020-11-28 22:03] VITALS: BP 138/66; PULSE 78; RESP 20; TEMP 36.3; O2SAT 95
--- NOTE | 2020-11-28 22:15 | DI.RAD_ITS ---
Exam(s) XR CHEST 2V PA LATERAL EXAM: XR CHEST 2V PA LATERAL CLINICAL HISTORY: Cough, R/O Pneumonia. TECHNIQUE: 2D digital imaging was performed. COMPARISON: Prior chest x-ray 03/23/2018 FINDINGS: Heart size is normal. The mediastinum is not widened. Lungs are clear. No obvious infiltrates evident on the frontal view. However, on the lateral view t here are some increased markings posteriorly in upper lobe, possibly early infiltrate. There are no pleural effusions. IMPRESSION: Very subtle increased markings in the posterior segment of 1 of the upper lobes seen only on the late ral view. Not evident on the frontal view. Followup recommend rule out developing subtle infiltrate . DATA REPOSITORY: RADIATION DOSE DELIVERED:
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
[2020-11-28 22:58] VITALS: PULSE 82; RESP 18; RESP 4; RESP 5; O2SAT 95
[2020-11-28] MEDS: Albuterol/Ipratropium 3 ML UPD VIAL UPD (22:58)
[2020-11-28 23:04] LABS: Abs Immature Grans 0.14 10^3/uL (0.0-0.06); Absolute Basophil Count 0.05 10^3/uL (0.0-0.2); Absolute Eosinophil Count 0.04 10^3/uL (0.0-0.7); Absolute Monocyte Count 1.34 10^3/uL (0.1-0.8); Absolute Neutrophil Count 8.16 10^3/uL (1.2-6.7); Basophils % 0.4; Eosinophils % 0.3; HCT 42.1 % (36.0-46.0); HGB 13.8 g/dL (11.2-15.7); Lymphocytes % 28.6; MCH 31.4 pg (27.0-33.0); MCHC 32.8 % (32.0-36.0); MCV 95.7 fL (80-95); MPV 9.4 fL (8.0-11.0); Monocytes % 9.8; Neutrophils % 59.9; Nucleated RBC 0 %; Platelet Count 271 10^3/uL (130-400); RDW 13.2 % (11.7-14.6); RDW-SD 46.7 fL; WBC 13.63 10^3/uL (4.4-10.8)
[2020-11-28 23:17] LABS: ALT 34 U/L (14-59); AST 13 U/L (15-37); Albumin 3.3 g/dL (3.4-5.0); Alkaline Phosphatase 51 U/L (46-116); Anion Gap 9.4 mmol/L (3-11); BUN 15 mg/dL (7-18); Bilirubin, Total 0.3 mg/dL (0.2-1.0); CO2 26.6 mmol/L (21.0-32.0); Calcium 8.5 mg/dL (8.5-10.1); Chloride 104 mmol/L (98-107); Estimated GFR 57.35 (mL/min/1.73m2); Glucose 217 mg/dL (74-106); Potassium 3.8 mmol/L (3.5-5.1); Sodium 140 mmol/L (136-145); Total Protein 7.2 g/dL (6.4-8.2)
[2020-11-28] MEDS: Amoxicillin 875/Clav. 125 TAB PO (23:47)
--- NOTE | 2020-11-29 00:18 | DI.VRAD_ITS ---
PROCEDURE INFORMATION: Exam: XR Chest Exam date and time: 11/28/2020 10:25 PM Age: 55 years old Clinical indication: Pain; Other: ? Pneumonia cough TECHNIQUE: Imaging protocol: XR of the chest. Views: 2 views. COMPARISON: CT CHEST W 03/29/2020 2:22 PM FINDINGS: Lungs: Lungs are adequately inflated and symmetric. No focal consolidation or pulmonary edema. Tapering hazy opacity of the lung bases attributed to overlying soft tissue artifact. Pleural spaces: No visible pleural effusion. No pneumothorax. Heart/Mediastinum: Cardiomediastinal contours within normal limits. Bones/joints: No acute osseous finding. IMPRESSION: No acute cardiopulmonary finding. Dictated and Authenticated by: Esvin Nava MD. Ordering:LITTLE Harris MD
== END 2020-11-29 00:30 | disposition home or self-care (01) ==
PROVIDERS: Emergency Provider Registered Nurse Emergency; PCP Nurse Practitioner Family
DX: J06.9 Acute upper respiratory infection, unspecified (principal); F17.210 Nicotine dependence, cigarettes, uncomplicated
CPT/HCPCS: 80053; 93005; 94640; 99283; 71046; 85025; 93010; J7620

== ENCOUNTER 2021-01-17 15:38 | Outpatient (REF) | payer MEDICAID, SELFPAY | END 2021-01-17 15:39 | disposition home or self-care (01) | LOC: NCHCN 15:38 | PROVIDERS: PCP Nurse Practitioner Family; Visit Provider Physician Assistant Medical | DX: N76.0 Acute vaginitis (principal) | CPT/HCPCS: 87480; 87510; 87660 ==

== ENCOUNTER 2021-02-01 14:15 | Outpatient (REF) | payer MEDICAID, SELFPAY | END 2021-02-01 14:16 | disposition home or self-care (01) | LOC: NCHCN 14:15 | PROVIDERS: PCP Nurse Practitioner Family; Visit Provider Physician Assistant Medical | DX: N76.0 Acute vaginitis (principal) | CPT/HCPCS: 87480; 87510; 87660 ==

== ENCOUNTER 2021-04-08 16:18 | Outpatient (REF) | payer MEDICAID, SELFPAY ==
[2021-04-08 19:09] LABS: Abs Immature Grans 0.05 10^3/uL (0.0-0.06); Absolute Basophil Count 0.08 10^3/uL (0.0-0.2); Absolute Eosinophil Count 0.35 10^3/uL (0.0-0.7); Absolute Lymphocyte Count 2.87 10^3/uL (1.2-3.4); Absolute Monocyte Count 0.83 10^3/uL (0.1-0.8); Absolute Neutrophil Count 6.17 10^3/uL (1.2-6.7); Basophils % 0.8; Eosinophils % 3.4; HCT 43.6 % (36.0-46.0); HGB 14.1 g/dL (11.2-15.7); Immature Grans % 0.5; Lymphocytes % 27.7; MCHC 32.3 % (32.0-36.0); MCV 95.8 fL (80-95); MPV 10.1 fL (8.0-11.0); Neutrophils % 59.6; Nucleated RBC 0 %; Platelet Count 272 10^3/uL (130-400); RBC 4.55 10^6/uL (3.93-5.22); RDW 13.4 % (11.7-14.6); RDW-SD 47.4 fL; WBC 10.35 10^3/uL (4.4-10.8)
[2021-04-08 19:38] LABS: ALT 29 U/L (14-59); AST 20 U/L (15-37); Albumin 3.6 g/dL (3.4-5.0); Alkaline Phosphatase 52 U/L (46-116); Anion Gap 9.6 mmol/L (3-11); BUN 15 mg/dL (7-18); Bilirubin, Total 0.4 mg/dL (0.2-1.0); CO2 27.4 mmol/L (21.0-32.0); CREATININE 0.9 mg/dL (0.55-1.02); Calcium 9.4 mg/dL (8.5-10.1); Calculated LDL 86 mg/dL (<100); Chloride 104 mmol/L (98-107); Cholesterol 155 mg/dL (<200); Glucose 103 mg/dL (74-106); HDL Cholesterol 39 mg/dL (40-60); Magnesium 1.7 mg/dL (1.8-2.4); Potassium 4.2 mmol/L (3.5-5.1); Sodium 141 mmol/L (136-145); Total Protein 7.1 g/dL (6.4-8.2); Triglyceride 152 mg/dL (<150)
== END 2021-04-08 16:19 | disposition home or self-care (01) ==
LOC: NCHCN 16:18
PROVIDERS: PCP Nurse Practitioner Family; Visit Provider Physician Assistant Medical
DX: E11.9 Type 2 diabetes mellitus without complications (principal)
CPT/HCPCS: 80053; 80061; 83036; 83735; 85025

== ENCOUNTER 2021-08-19 00:15 | Outpatient (CLI) | payer MEDICAID, SELFPAY ==
--- NOTE | 2021-08-19 12:00 | DI.MAMMO_ITS ---
Exam(s) MAMMO SCREENING EXAM: MAMMO SCREENING CLINICAL HISTORY: SCREENING, HEALTH MAINTENANCE EXAM, Z00.8 TECHNIQUE: Mammograms were interpreted according to the usual protocol including computer analysis w [employer] CAD system, tomosynthesis and C-view imaging. COMPARISON: FINDINGS: The breasts are of moderate density with fairly symmetrical distribution of fibroglandular tissue. N o dominant mass or clumped microcalcification is identified in either breast. The current examinatio n is compared with previous examination of March 2017 and there has been no gross interval change i n appearance comparison with the prior study. IMPRESSION: No specific evidence of malignancy at this time. Routine screening examinations are suggested at yea rly intervals in this age group according to the ACS ACR guidelines. BI-RADS Category 1 - Negative Breast Density - Category B - Scattered areas of fibroglandular density
== END 2021-08-19 00:35 ==
PROVIDERS: PCP Nurse Practitioner Family; Visit Provider Physician Assistant Medical
DX: Z12.31 Encounter for screening mammogram for malignant neoplasm of breast (principal)
CPT/HCPCS: 77063; 77067

== ENCOUNTER 2022-01-02 13:54 | Outpatient (REF) | payer MEDICAID, SELFPAY | END 2022-01-02 13:55 | disposition home or self-care (01) | LOC: NCHCN 13:54 | PROVIDERS: PCP Nurse Practitioner Family; Visit Provider Physician Assistant Medical | DX: R33.9 Retention of urine, unspecified (principal) | CPT/HCPCS: 87086 ==

== ENCOUNTER 2022-02-01 11:34 | Outpatient (REF) | payer MEDICAID, SELFPAY ==
[2022-02-01 17:52] LABS: ALT 50 U/L (14-59); AST 34 U/L (15-37); Albumin 3.4 g/dL (3.4-5.0); Alkaline Phosphatase 46 U/L (46-116); Anion Gap 8.6 mmol/L (3-11); BUN 10 mg/dL (7-18); Bilirubin, Total 0.5 mg/dL (0.2-1.0); CO2 27.4 mmol/L (21.0-32.0); CREATININE 0.9 mg/dL (0.55-1.02); Chloride 105 mmol/L (98-107); Estimated GFR 74.57 (mL/min/1.73m2); Glucose 111 mg/dL (74-106); Magnesium 1.7 mg/dL (1.8-2.4); Potassium 3.9 mmol/L (3.5-5.1); Sodium 141 mmol/L (136-145); TSH (W/Ref FT4) 1.86 uIU/mL (0.36-3.74); Total Protein 7.5 g/dL (6.4-8.2)
[2022-02-01 18:11] LABS: Abs Immature Grans 0.03 10^3/uL (0.0-0.06); Absolute Basophil Count 0.05 10^3/uL (0.0-0.2); Absolute Eosinophil Count 0.17 10^3/uL (0.0-0.7); Absolute Lymphocyte Count 2.32 10^3/uL (1.2-3.4); Absolute Monocyte Count 0.82 10^3/uL (0.1-0.8); Absolute Neutrophil Count 6.07 10^3/uL (1.2-6.7); Basophils % 0.5; Eosinophils % 1.8; HCT 44.6 % (36.0-46.0); HGB 14.9 g/dL (11.2-15.7); Immature Grans % 0.3; Lymphocytes % 24.5; MCH 31.8 pg (27.0-33.0); MCHC 33.4 % (32.0-36.0); MCV 95 fL (80-95); MPV 10.6 fL (8.0-11.0); Monocytes % 8.7; Neutrophils % 64.2; Platelet Count 270 10^3/uL (130-400); RBC 4.69 10^6/uL (3.93-5.22); RDW-SD 45.3 fL; WBC 9.46 10^3/uL (4.4-10.8)
== END 2022-02-01 11:35 | disposition home or self-care (01) ==
LOC: NCHCN 11:34
PROVIDERS: PCP Nurse Practitioner Family; Visit Provider Physician Assistant Medical
DX: R07.89 Other chest pain (principal); E11.9 Type 2 diabetes mellitus without complications; I10 Essential (primary) hypertension
CPT/HCPCS: 80053; 83735; 84443; 85025

== ENCOUNTER → 2022-02-27 01:33 | Outpatient (CLI) | payer MEDICAID, SELFPAY ==
--- NOTE | 2022-02-27 08:00 | ETT_ITS ---
APPROVED REPORT Exam: Exercise Treadmill Patient Location: Out-Patient Room/Bed: Stress Nurse: Magui Marie RN Ordering Provider:NATHALIE FELDMAN, Contact Number: [phone] BMI: 45.49 Baseline Rhythm: Sinus Tachycardia Indications: EXERTIONAL CHEST PAIN Medical History Medical History: HTN, HLD, Hypomagnesmia, GERD, Obesity, Chest pain, Tobacco abuse, ETOH abuse, COPD, DM II, Dyspnea Cardiac Medications: Amlodipine, Lisinopril, Lovastatin, Metoformin, Propranolol, Prednisone, Albuter ol Allergies: Cyproheptadine, Iodine, Codeine, Protonix, Percocet, Latex, Sulfamethoxazole, Trimethoprim Cardiac Risk Factors: HTN, Hyperlipidemia, DM, Asthma, COPD, Smoking (current), Obesity Previous Cardiac Procedures: None Pretest Chest Pain Characteristics: No chest pain Exercise History: Sedentary Physical Disabilities: Knees I can't walk on an incline Lung Sounds: Clear to auscultation Heart Sounds: Regular Stress Test Details Test: Exercise stress testing was performed using a modified Bhanu protocol. Rest Stress HR Resting HR Supine: 110 bpm Max Heart Rate (APMHR): 163 bpm Resting HR Standin bpm Target HR (85% APMHR): 138 bpm Max HR Achieved: 145 bpm % of APMHR: 88 Recovery HR: 107 bpm HR response to stress: Accelerated HR response to stress Comment: Tachycardiac at baseline. Propranolol held for 48 hrs prior to test. BP Resting BP Supine: 132/88 mmHg Resting BP Standin/88 mmHg Max BP: 146/82 mmHg Recovery BP: 112/82 mmHg BP response to stress: Normal blood pressure response to stress. ECG Resting ECG: Sinus Tachycardia Ectopy: PVCs Stress ECG: Sinus Tachycardia ST Change: No significant ST segment changes noted Arrhythmia: PVCs Recovery ECG: Sinus Tachycardia Recovery ST Change: No significant ST segment changes noted Recovery Arrhythmia: PVCs Clinical Reason for Termination: Knee pain Stress Symptoms: General Fatigue Exercise duration: 3 min27 sec Exercise capacity: 2.39 METs Palafox Treadmill Score: 2.8 Rate Pressure Product: 23054 Stress ECG Conclusion 1. The resting electrocardiogram showed vertical axis, otherwise normal 2. Patient exercised on a modified protocol and completed a workload of 2.39 METS, stopping due to fa tigue 3. Resting sinus tachycardia. Accelerated heart rate response to exercise. The patient achieved 88% of predicted heart rate for age 4. There was no electrocardiographic evidence of myocardial ischemia 5. There were no significant dysrhythmias Palafox Treadmill Score is 2.8 which is Moderate risk. Stress Test Summary STAGE Time (mins) Speed (mph) Grade (%) HR BP SpO2 SYMPTOMS METS Supine 110 132/88 Standing 115 120/88 96% 0 3 1.7 0 138 146/82 95% 2.3 1/2 6 1.7 5 my knees are going to buckle 3.4 1 min recovery 136 114/80 3 min recovery 111 132/80 6 min recovery 107 112/82 Patient started walking using the modified bhanu protocol, which was further modified into stage 2 du e to patient stating she is unable to walk on any incline. For stage 2 speed was increased to 2.4 mph with no incline. Patient denies any chest pain or shortness of breath during testing period.
== END ==
PROVIDERS: Visit Provider Physician Assistant Medical
DX: R07.89 Other chest pain (principal)
CPT/HCPCS: 93017

== ENCOUNTER 2022-04-07 13:31 | Outpatient (REF) | payer MEDICAID, SELFPAY ==
[2022-04-07 15:37] LABS: Abs Immature Grans 0.05 10^3/uL (0.0-0.06); Absolute Basophil Count 0.07 10^3/uL (0.0-0.2); Absolute Eosinophil Count 0.25 10^3/uL (0.0-0.7); Absolute Lymphocyte Count 3.04 10^3/uL (1.2-3.4); Absolute Monocyte Count 1.04 10^3/uL (0.1-0.8); Basophils % 0.6; Eosinophils % 2.3; HGB 13.9 g/dL (11.2-15.7); Immature Grans % 0.5; Lymphocytes % 27.8; MCHC 33.1 % (32.0-36.0); MCV 97 fL (80-95); MPV 10.5 fL (8.0-11.0); Monocytes % 9.5; Neutrophils % 59.3; Platelet Count 285 10^3/uL (130-400); RBC 4.34 10^6/uL (3.93-5.22); RDW 12.7 % (11.7-14.6); RDW-SD 45.4 fL; WBC 10.95 10^3/uL (4.4-10.8)
[2022-04-07 15:39] LABS: Absolute Neutrophil Count 6.49 10^3/uL (1.2-6.7)
[2022-04-07 15:54] LABS: Hemoglobin A1C 6.4 % (<5.7)
[2022-04-07 16:10] LABS: ALT 32 U/L (14-59); AST 20 U/L (15-37); Albumin 3.3 g/dL (3.4-5.0); Alkaline Phosphatase 56 U/L (46-116); Anion Gap 7.5 mmol/L (3-11); BUN 12 mg/dL (7-18); Bilirubin, Total 0.3 mg/dL (0.2-1.0); CO2 28.5 mmol/L (21.0-32.0); Calcium 9.2 mg/dL (8.5-10.1); Chloride 104 mmol/L (98-107); Estimated GFR 65.71 (mL/min/1.73m2); Glucose 87 mg/dL (74-106); Magnesium 1.9 mg/dL (1.8-2.4); Potassium 4.2 mmol/L (3.5-5.1); Sodium 140 mmol/L (136-145); Total Protein 7.3 g/dL (6.4-8.2)
== END 2022-04-07 13:32 | disposition home or self-care (01) ==
LOC: NCHCN 13:31
PROVIDERS: PCP Physician Assistant Medical; Visit Provider Physician Assistant Medical
DX: R00.2 Palpitations (principal); R06.2 Wheezing; R05.1 Acute cough; E11.9 Type 2 diabetes mellitus without complications
CPT/HCPCS: 80053; 83036; 83735; 85025

== ENCOUNTER → 2022-04-10 01:42 | Outpatient (CLI) | payer MEDICAID, SELFPAY ==
--- NOTE | 2022-04-10 | DI.RAD_ITS ---
Exam(s) XR CHEST 2V PA LATERAL EXAM: XR CHEST 2V PA LATERAL CLINICAL HISTORY: ACUTE COUGH, R05.1. TECHNIQUE: 2D digital imaging was performed. COMPARISON: CR,XR XR CHEST 2V PA LATERAL from 11/28/2020 FINDINGS: 2 views: Heart size is normal. The mediastinum is not widened. Lungs are clear. No infiltrates nor pleural effusions. IMPRESSION: No acute pulmonary findings. DATA REPOSITORY: RADIATION DOSE DELIVERED:
== END ==
PROVIDERS: PCP Physician Assistant Medical; Visit Provider Physician Assistant Medical
DX: R05.1 Acute cough (principal)
CPT/HCPCS: 71046

== ENCOUNTER 2022-05-08 08:54 | Outpatient (CLI) | payer MEDICAID, SELFPAY ==
--- NOTE | 2022-05-08 09:09 | W.CARDEVENT ---
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 Rhythm throughout was sinus with an average heart rate 80. Minimum was 42, maximum 128 There were very rare isolated atrial and ventricular ectopic beats There was no atrial fibrillation, no supraventricular tachycardia, no high-grade AV block, no pauses greater than 3 seconds Patient symptoms were reported. Most of these corresponded to sinus rhythm. Several corresponded to isolated premature ventricular contractions
== END 2022-05-08 08:55 | disposition home or self-care (01) ==
LOC: CARDOPNVT 08:54
PROVIDERS: PCP Physician Assistant Medical; Visit Provider Internal Medicine Cardiovascular Disease
DX: R00.2 Palpitations (principal)
CPT/HCPCS: 93248

== ENCOUNTER 2022-07-05 15:53 | Outpatient (REF) | payer MEDICAID, SELFPAY ==
[2022-07-05 15:38] LABS: Cholesterol 209 mg/dL (<200); HDL Cholesterol 34 mg/dL (40-60); Magnesium 1.7 mg/dL (1.8-2.4); Triglyceride 451 mg/dL (<150)
[2022-07-05 16:15] LABS: LDL CHOLESTEROL 116 mg/dL (<100)
== END 2022-07-05 15:54 | disposition home or self-care (01) ==
LOC: NCHCN 15:53
PROVIDERS: PCP Physician Assistant Medical; Visit Provider Physician Assistant Medical
DX: E78.5 Hyperlipidemia, unspecified (principal); E83.42 Hypomagnesemia
CPT/HCPCS: 80061; 83721; 83735

== ENCOUNTER 2022-07-07 13:27 | Outpatient (REF) | payer MEDICAID, SELFPAY ==
[2022-07-10 20:48] LABS: Pancreatic Elastase, F >500 mcg/g
== END 2022-07-07 13:28 | disposition home or self-care (01) ==
LOC: NCHCN 13:27
PROVIDERS: PCP Physician Assistant Medical; Visit Provider Physician Assistant Medical
DX: R19.7 Diarrhea, unspecified (principal)
CPT/HCPCS: 82656

== ENCOUNTER 2022-11-21 13:41 | Outpatient (REF) | payer MEDICAID, SELFPAY ==
[2022-11-21 15:24] LABS: ALT 27 U/L (14-59); AST 24 U/L (15-37); Albumin 3.5 g/dL (3.4-5.0); Alkaline Phosphatase 61 U/L (46-116); Anion Gap 10.3 mmol/L (3-11); BUN 10 mg/dL (7-18); Bilirubin, Total 0.4 mg/dL (0.2-1.0); CO2 28.7 mmol/L (21.0-32.0); CREATININE 0.9 mg/dL (0.55-1.02); Calcium 9.2 mg/dL (8.5-10.1); Calculated LDL 154 mg/dL (<100); Chloride 101 mmol/L (98-107); Cholesterol 257 mg/dL (<200); Glucose 130 mg/dL (74-106); HDL Cholesterol 34 mg/dL (40-60); Potassium 4.4 mmol/L (3.5-5.1); Sodium 140 mmol/L (136-145); Total Protein 7.4 g/dL (6.4-8.2); Triglyceride 349 mg/dL (<150)
[2022-11-21 21:22] LABS: Magnesium 1.9 mg/dL (1.8-2.4)
[2022-11-21 21:34] LABS: Hemoglobin A1C 8.2 % (<5.7)
== END 2022-11-21 13:42 | disposition home or self-care (01) ==
LOC: NCHCN 13:41
PROVIDERS: PCP Physician Assistant Medical; Visit Provider Physician Assistant Medical
DX: E83.42 Hypomagnesemia (principal); E78.5 Hyperlipidemia, unspecified; E11.9 Type 2 diabetes mellitus without complications
CPT/HCPCS: 80053; 80061; 83036; 83735

== ENCOUNTER 2022-12-22 15:03 | Outpatient (REF) | payer MEDICAID, SELFPAY | END 2022-12-22 15:04 | disposition home or self-care (01) | LOC: NCHCN 15:03 | PROVIDERS: PCP Physician Assistant Medical; Visit Provider Physician Assistant Medical | DX: R10.2 Pelvic and perineal pain (principal); N76.0 Acute vaginitis | CPT/HCPCS: 87480; 87510; 87660 ==

== ENCOUNTER 2023-03-06 11:36 | Outpatient (REF) | payer MEDICAID, SELFPAY ==
[2023-03-06 15:49] LABS: ALT 18 U/L (14-59); AST 16 U/L (15-37); Albumin 3.2 g/dL (3.4-5.0); Alkaline Phosphatase 66 U/L (46-116); Anion Gap 6.3 mmol/L (3-11); BUN 7 mg/dL (7-18); Bilirubin, Total 0.3 mg/dL (0.2-1.0); CO2 29.7 mmol/L (21.0-32.0); Calcium 9.2 mg/dL (8.5-10.1); Calculated LDL 88 mg/dL (<100); Chloride 98 mmol/L (98-107); Cholesterol 195 mg/dL (<200); Glucose 168 mg/dL (74-106); HDL Cholesterol 33 mg/dL (40-60); Magnesium 1.9 mg/dL (1.8-2.4); Sodium 134 mmol/L (136-145); Total Protein 7.5 g/dL (6.4-8.2); Triglyceride 373 mg/dL (<150)
[2023-03-06 15:57] LABS: Hemoglobin A1C 7.7 % (<5.7)
== END 2023-03-06 11:37 | disposition home or self-care (01) ==
LOC: NCHCN 11:36
PROVIDERS: PCP Physician Assistant Medical; Visit Provider Physician Assistant Medical
DX: E11.9 Type 2 diabetes mellitus without complications (principal); E78.5 Hyperlipidemia, unspecified; E83.42 Hypomagnesemia; R33.9 Retention of urine, unspecified
CPT/HCPCS: 80053; 80061; 83036; 83735; 87086

== ENCOUNTER 2023-05-03 13:58 | Emergency (ER) | payer MEDICAID, SELFPAY ==
[2023-05-03 14:06] VITALS: BP 114/76; PULSE 79; RESP 16; O2SAT 98
--- NOTE | 2023-05-03 14:15 | DI.RAD_ITS ---
Exam(s) XR ANKLE LT COMPLETE EXAM: XR ANKLE LT COMPLETE CLINICAL HISTORY: slip on ice. TECHNIQUE: 2D digital imaging was performed. COMPARISON: No exams were available for comparison FINDINGS: 3 views No evidence of fracture or widening of the ankle mortise. Talar dome unremarkable. No obvious degen erative changes. Moderate size inferior calcaneal spur noted. No osseous tarsal coalition. No prom inent soft tissue swelling. IMPRESSION: No acute osseous findings in the ankle. DATA REPOSITORY: RADIATION DOSE DELIVERED:
--- NOTE | 2023-05-03 14:15 | DI.RAD_ITS ---
Exam(s) XR FOOT LT COMPLETE EXAM: XR FOOT LT COMPLETE CLINICAL HISTORY: slip on ice, midfoot pain swelling. TECHNIQUE: 2D digital imaging was performed. COMPARISON: No exams were available for comparison FINDINGS: 3 views No evidence of fracture or diastasis of the Lisfranc joint. Mild degenerative changes are noted in t he great toe metatarsophalangeal joint. No pes planus. Inferior calcaneal spur noted. No osseous l esions nor erosions. IMPRESSION: Mild moderate degenerative changes at the metatarsophalangeal joint of the great toe. No other signi ficant osseous findings in the foot. No fracture evident. DATA REPOSITORY: RADIATION DOSE DELIVERED:
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
[2023-05-03] MEDS: Ketorolac 15 MG/ML VIAL IM (14:38)
== END 2023-05-03 15:31 | disposition home or self-care (01) ==
PROVIDERS: Emergency Provider Emergency Medicine; PCP Physician Assistant Medical
DX: S93.602A Unspecified sprain of left foot, initial encounter; W00.0XXA Fall on same level due to ice and snow, initial encounter; E11.9 Type 2 diabetes mellitus without complications; I10 Essential (primary) hypertension; Z79.899 Other long term (current) drug therapy; K21.9 Gastro-esophageal reflux disease without esophagitis; Z72.0 Tobacco use
CPT/HCPCS: 96372; 99284; 73610; 73630; 99283; J1885

== ENCOUNTER 2023-07-06 14:58 | Outpatient (REF) | payer MEDICAID, SELFPAY ==
[2023-07-06 15:15] LABS: Abs Immature Grans 0.04 10^3/uL (0.0-0.06); Absolute Basophil Count 0.08 10^3/uL (0.0-0.2); Absolute Eosinophil Count 0.38 10^3/uL (0.0-0.7); Absolute Lymphocyte Count 3.34 10^3/uL (1.2-3.4); Absolute Monocyte Count 0.76 10^3/uL (0.1-0.8); Absolute Neutrophil Count 4.96 10^3/uL (1.2-6.7); Basophils % 0.8; HCT 43.6 % (36.0-46.0); HGB 14.6 g/dL (11.2-15.7); Immature Grans % 0.4; Lymphocytes % 34.9; MCHC 33.5 % (32.0-36.0); MCV 90 fL (80-95); MPV 9.9 fL (8.0-11.0); Monocytes % 7.9; Platelet Count 281 10^3/uL (130-400); RBC 4.86 10^6/uL (3.93-5.22); RDW 13.2 % (11.7-14.6); RDW-SD 43.4 fL; WBC 9.56 10^3/uL (4.4-10.8)
[2023-07-06 15:53] LABS: Hemoglobin A1C 6.1 % (<5.7)
== END 2023-07-06 14:59 | disposition home or self-care (01) ==
LOC: NCHCN 14:58
PROVIDERS: PCP Physician Assistant Medical; Visit Provider Physician Assistant Medical
DX: I10 Essential (primary) hypertension (principal); E11.9 Type 2 diabetes mellitus without complications
CPT/HCPCS: 83036; 85025

== ENCOUNTER 2023-09-29 08:03 | Emergency (ER) | payer MEDICAID, SELFPAY ==
--- NOTE | 2023-09-29 08:00 | RT.EKG_ITS ---
APPROVED REPORT Exam: Resting ECG Reason for Exam: hurts to breathe Patient Location: E HR:71 bpm ECG Measurements Heart Rate 71 AXIS TX 220 P 67 QRSd 90 QRS 50 QT 404 T 10 QTc 439 Conclusion Sinus rhythm. 71 no stemi
[2023-09-29 08:06] VITALS: BP 155/91; PULSE 66; RESP 18; TEMP 36.2; O2SAT 99
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
[2023-09-29 08:30] VITALS: BP 155/91; PULSE 66; RESP 18; TEMP 36.2; O2SAT 99
[2023-09-29 08:54] LABS: HCT 44.3 % (36.0-46.0); HGB 14.7 g/dL (11.2-15.7); MCH 30.6 pg (27.0-33.0); MCHC 33.2 % (32.0-36.0); MCV 92 fL (80-95); MPV 9.3 fL (8.0-11.0); Platelet Count 279 10^3/uL (130-400); RBC 4.81 10^6/uL (3.93-5.22); RDW 12.8 % (11.7-14.6); RDW-SD 43.6 fL; WBC 10.03 10^3/uL (4.4-10.8)
[2023-09-29 08:54] LABS: Bilirubin Negative (Negative); Blood Negative (Negative); Clarity Clear (Clear); Glucose Negative (Negative); Ketones Negative (Negative); Leukocyte Esterase Trace (Negative); Nitrite Negative (Negative); Specific Gravity 1.015 (1.005-1.025); Urobilinogen 0.2 mg/dL (Up to 0.2); pH 6.5 (5-8)
[2023-09-29] MEDS: Ketorolac 15 MG/ML VIAL IVP (08:56)
[2023-09-29 09:04] LABS: WBC 0-2 HPF (0-5)
[2023-09-29 09:05] LABS: Bacteria Rare HPF (Negative); C & S Indicated? No; Crystals Negative HPF (Negative); Epithelial Cells Rare HPF (Negative); Mucus Negative (Negative); RBC Negative HPF (0-2)
[2023-09-29 09:10] LABS: ALT 22 U/L (14-59); AST 13 U/L (15-37); Albumin 3.4 g/dL (3.4-5.0); Alkaline Phosphatase 65 U/L (46-116); Anion Gap 6.1 mmol/L (3-11); BUN 9 mg/dL (7-18); Bilirubin, Total 0.3 mg/dL (0.2-1.0); CO2 29.9 mmol/L (21.0-32.0); Chloride 102 mmol/L (98-107); Glucose 92 mg/dL (74-106); Lipase 66 U/L (16-77); Potassium 4.2 mmol/L (3.5-5.1); Sodium 138 mmol/L (136-145); Total Protein 7.6 g/dL (6.4-8.2)
--- NOTE | 2023-09-29 09:19 | DI.CT_ITS ---
Exam(s) CT ABDOMEN PELVIS WO EXAM: CT ABDOMEN PELVIS WO CLINICAL HISTORY: hematuria, L sided flank pain, RUQ tenderness. TECHNIQUE: Imaging Protocol: Axial computed tomography images with coronal and sagittal reformatted images were created and reviewed CONTRAST MATERIAL: Intravenous: none Oral: None COMPARISON: CT CT CHEST PE CTA from 01/03/2019 FINDINGS: VISUALIZED LUNG BASES: There is subpleural scarring in the lateral basal segment of the left lower lo be noted on the uppermost image of this study, not previously present on the study of 2019. No pleur al effusions.. ABDOMEN: There is no ascites. LIVER: There are no obvious focal hepatic lesions evident of this noninfused study. GALLBLADDER/BILIARY: Gallbladder surgically absent. CBD is not dilated. PANCREAS: No evidence of pancreatic mass nor dilatation of the pancreatic duct. SPLEEN: Spleen is not enlarged. No obvious intrasplenic lesions. ADRENALS: There hypodense nodules in both adrenal glands again noted, these appearing unchanged from January 2019 and therefore most probably benign adenomas. KIDNEYS:No cysts evident. No solid renal masses. No calculi nor hydronephrosis. . ABDOMINAL AORTA: Calcified but not enlarged. Common iliac arteries are also calcified but not enlarg ed. LYMPH NODES: There is no retroperitoneal nor paraaortic adenopathy. ABDOMINAL WALL: Anterior abdominal hernia mesh. No active hernia seen at this time. No abnormal flu id collections. GI: There is no evidence of bowel obstruction, free air, nor abscess. PELVIS: LYMPH NODES: There is no intrapelvic nor inguinal adenopathy. GI: Appendix not seen. No evidence of appendicitis.Sigmoid diverticuli. No evidence of acute divert iculitis. Fat halo sign line evident throughout the colon and distal small bowel loops. URINARY BLADDER: No calculi nor obvious masses evident REPRODUCTIVE: Uterus surgically absent. No abnormal adnexal masses. No free fluid in the pelvis. OSSEOUS: No fractures. No significant osseous lesions. IMPRESSION: 1. No evidence of urinary tract calculi nor obstruction of the urinary tracts. No calculi seen in th e urinary bladder. 2. Previous cholecystectomy and hysterectomy. Appendix not seen and may be surgically absent. No ev idence of bowel obstruction. 3. There is a fat halo sign throughout the entire colon as well as some small bowel loops. This may be within normal limits but can also be associated with chronic inflammatory bowel disease. 4. Anterior abdominal hernia mesh. No hernia nor abnormal fluid collection. RADIATION DOSE DELIVERED: 1,153.84mGy.cm Total DLP DATA REPOSITORY: All CT scans at this facility are submitted to the National Radiology Data Registry (NRDR) Dose Index Registry (DIR) with the [employer] (ACR). RADIATION OPTIMIZATION: All CT scans at this facility use at least one of these dose optimization te chniques: automated exposure control; mA and/or kV adjustment per patient size (includes targeted exa ms where dose is matched to clinical indication); or iterative reconstruction.
--- NOTE | 2023-09-29 09:25 | DI.RAD_ITS ---
Exam(s) XR CHEST 2V PA LATERAL EXAM: XR CHEST 2V PA LATERAL CLINICAL HISTORY: pain to L ribs with cough. TECHNIQUE: 2D digital imaging was performed. COMPARISON: CR XR CHEST 2V PA LATERAL from 04/10/2022 FINDINGS: 2 views: Heart size is normal. The mediastinum is not widened. Lungs are clear. No infiltrates nor pleural effusions. IMPRESSION: No acute pulmonary findings. DATA REPOSITORY: RADIATION DOSE DELIVERED:
--- NOTE | 2023-09-29 09:43 | DI.VRAD_ITS ---
PROCEDURE INFORMATION: Exam: XR Chest Exam date and time: 09/29/2023 9:20 AM Age: 58 years old Clinical indication: Other: Pain to L ribs with cough TECHNIQUE: Imaging protocol: Radiologic exam of the chest. Views: 2 views. COMPARISON: CR XR CHEST 2V PA LATERAL 12/12/2021 09:34 FINDINGS: Lungs: Lungs are clear with no infiltrate or nodule. Pleural spaces: Unremarkable. No pleural effusion. No pneumothorax. Heart/Mediastinum: Cardiomediastinal silhouette is normal. Vasculature: Aortic calcification. Bones/joints: Unremarkable. IMPRESSION: No active cardiopulmonary disease. Dictated and Authenticated by: Jerald Hernandez MD. Ordering:STEPHANIE Akers MD
--- NOTE | 2023-09-29 09:46 | DI.VRAD_ITS ---
PROCEDURE INFORMATION: Exam: CT Abdomen And Pelvis Without Contrast Exam date and time: 09/29/2023 9:17 AM Age: 58 years old Clinical indication: Other: Hematuria, L sided flank pain, ruq tenderness TECHNIQUE: Imaging protocol: Computed tomography of the abdomen and pelvis without contrast. COMPARISON: US PELVIS TRANSVAGINAL 17/02/2019 13:15 FINDINGS: Lungs: Visualized lung bases are clear. Liver: Normal. No mass or intrahepatic biliary ductal dilatation. Gallbladder and bile ducts: Gallbladder has been removed. Pancreas: Normal. No mass or ductal dilation. Spleen: Normal. No splenomegaly. Adrenal glands: 2.1 cm right adrenal nodule and 2.1 cm left adrenal nodule. Kidneys and ureters: Normal. No hydronephrosis, calculus, cyst or mass. Stomach and bowel: Unremarkable. No significant dilatation or obstruction. No mucosal thickening or visible mass. Appendix: No evidence of appendicitis. Intraperitoneal space: Unremarkable. No free air. No significant fluid collection. Vasculature: Mild aortoiliac atherosclerosis. Lymph nodes: No enlarged retroperitoneal or mesenteric lymph nodes. Urinary bladder: No mass or wall thickening. Reproductive: Uterus is absent. No adnexal cyst or mass. Bones/joints: Unremarkable. No acute fracture. No lytic lesion. Soft tissues: Previous ventral hernia repair. IMPRESSION: No acute abnomality in the abdomen or pelvis. No renal calculus or obstruction. Bilateral adrenal adenomas noted. Dictated and Authenticated by: Jerald Hernandez MD. Ordering:STEPHANIE Akers MD
[2023-09-29 10:04] VITALS: BP 148/84; PULSE 66; RESP 18; TEMP 36.2; O2SAT 99
--- NOTE | 2023-09-29 10:16 | NUR.NOTE ---
Referral faxed to PCP for back pain, for next available appt. Nursing Note:
== END 2023-09-29 10:05 | disposition home or self-care (01) ==
PROVIDERS: Emergency Provider Nurse Practitioner Family; PCP Physician Assistant Medical
DX: D35.02 Benign neoplasm of left adrenal gland (principal); D35.01 Benign neoplasm of right adrenal gland; M62.830 Muscle spasm of back; J44.9 Chronic obstructive pulmonary disease, unspecified; I10 Essential (primary) hypertension; E78.5 Hyperlipidemia, unspecified; E11.9 Type 2 diabetes mellitus without complications; Z90.49 Acquired absence of other specified parts of digestive tract; Z90.710 Acquired absence of both cervix and uterus; Z79.85 Long-term (current) use of injectable non-insulin antidiabetic drugs; F17.210 Nicotine dependence, cigarettes, uncomplicated
CPT/HCPCS: 36415; 80053; 83690; 85027; 93005; 96374; 99285; 71046; 74176; 81003; 81015; 93010; 99284; J1885

== ENCOUNTER 2024-01-22 16:11 | Outpatient (REF) | payer MEDICAID, SELFPAY ==
--- OUTSIDE RECORDS SUMMARY | 2024-01-22 16:14 | XMS_ITS | Encounter Summary ---
Author Organization [facility] Address [address] [place] [address] Care Team Providers Care Clinical Appeals Rn Name Role Phone Unknown, Provider Primary Care Provider [phone] Debbie Webber RESTORATIVE AIDE Unavailable [phone] Encounter Details Date Type Department Care Team (Late st Contact Info) Description 12/10/[address] [facility] Pathology & Laboratory Medicine - [facility] [address] [place] [address] Outr Resulting Lab, Provider Social History Tobacco Use Types Packs/Day Years Used Date Smoking Tobacco: Never Assessed Sex and Gender Information Value Date Recorded Sex Assigned at Not on file Gender Identity Not on file Sexual Orientation Not on file documented as of this encounter Plan of Treatment Not on file documented as of this encounter Procedures Procedure Name Priority Date/Time Associated Diagnosis Comments HEPATITIS C AB W REFLEX TO HCV RNA BY PCR Routine 12/10/2019 9:00 EDT HEPATITIS B SURFACE ANTIBODY Routine 12/10/2019 9:00 EDT HEPATITIS B SURFACE ANTIGEN Routine 12/10/2019 9:00 EDT documented in this encounter Results * HEPATITIS B SURFACE ANTIBODY (12/10/2019 9:00 EDT) Hep B Surface Ab, Quantitative <3.1 See Note mIU/mL 12/11/2019 9:43 EDT [facility] Comment: Reference Range for Hep B Surface Ab, Quant: Positive: >= 10.0 mIU/mL Negative: ??< 10.0 mIU/mL Patient is presumed to not be immune to infection with Hepatitis B Virus. Hep B Surface Ab, Qualitative Negative See Note 12/11/2019 9:43 EDT [facility] Comment: Reference Range for Hep B Surface Ab, Qual: Unvaccinated: ??Negative Vaccinated: ??Positive Blood VENOUS BLOOD / Unknown 12/10/2019 9:00 EDT 12/10/2019 21:13 EDT Provider Outr Resulting Lab CHEMISTRY & BLOOD GAS ORDERABLES [facility] [address] [place] [address] * HEPATITIS B SURFACE ANTIGEN (12/10/2019 9:00 EDT) Hep B Surface Ag Negative Negative 12/11/2019 9:51 EDT [facility] Blood VENOUS BLOOD / Unknown 12/10/2019 9:00 EDT 12/10/2019 21:13 EDT Provider Outr Resulting Lab CHEMISTRY & BLOOD GAS ORDERABLES Performing Organization Address [facility]/ZIP Co de Phone Number [facility] [address] [place] [address] * HEPATITIS C AB W REFLEX TO HCV RNA BY PCR (12/10/2019 9:00 EDT) Hep C Antibody Negative Negative 12/11/2019 10:32 EDT [facility] Blood VENOUS BLOOD / Unknown 12/10/2019 9:00 EDT 12/10/2019 21:12 EDT Provider Outr Resulting Lab CHEMISTRY & BLOOD GAS ORDERABLES Performing Organization Address [place]/[facility]/ZIP Co de Phone Number [facility] [address] [place] [address] documented in this encounter Visit Diagnoses Not on filedocumented in this encounter Care Teams Clinical Appeals Rn Relationship Specialty Start Date End Date Unknown, Provider, PCP - General 02/18/19 Debbie Webber NP [address] [place] [address] [address] [place] [id number] 02/18/19 documented as of this encounter
--- OUTSIDE RECORDS SUMMARY | 2024-01-22 16:14 | XMS_ITS | Encounter Summary ---
Author Organization [facility] Address [address] [place] [address] Care Team Providers Care Substation Technician Name Role Phone Leandro Cullen MD Primary Care Provider [phone] Encounter Details Date Type Department Care Team (Late st Contact Info) Description 09/01/2011 Results Only [facility] - [facility] ([facility] [place] [facility]) [address], [place] [id number] Isidro Pulido, DO [address] [facility] ,[address] [place], [place] [id number] Social History Tobacco Use Types Packs/Day Years Used Date Smoking Tobacco: Never Assessed Sex and Gender Information Value Date Recorded Sex Assigned at Not on file Gender Identity Not on file Sexual Orientation Not on file documented as of this encounter Plan of Treatment Not on file documented as of this encounter Procedures Procedure Name Priority Date/Time Associated Diagnosis Comments SURGICAL PATHOLOGY Routine 09/01/2011 0:00 EDT documented in this encounter Results * SURGICAL PATHOLOGY (09/01/2011 0:00 EDT) Pathology Report: SURGICAL PATHOLOGY REPORT Reports generated via electronic interface contain original data; however they are lacking the format of the original report. Caution should be taken when reading/interpreti ng unformatted reports. Name: ? PRISCILLA SANTOS ? Accession #: ? [id number] ? : ? 1965 (Age: 45) ??F ? Collect Date: ? 09/01/2011 ? Location: ? [facility] ? Receive Date: ? 09/01/2011 ? Provider: ISIDRO PULIDO DO Copy to: JOHNATHAN ROMERO [employer] LOAN [employer]ER ? Final Pathologic Diagnosis: A. ?Colon, 60 cm, polyp, biopsy: 1. ?Hyperplastic polyp. B. ?Colon, 40 cm, polyp, biopsy: 1. ?Surface hyperplastic changes. ??See comment. C. ?Colon, 20 cm, polyp, biopsies: 1. ?Hyperplastic polyp. Comment: ? Deeper levels were examined on specimen (B). ??(Rob Boyd/cali Document reviewed and electronically signed by: ANDREA PERDOMO MD Report ??Date: 09/05/2011 16:40 By the signature above, the attending physician certifies that he/she has personally conducted a gross and/or microscopic examination of the described specimens and rendered or confirmed the above diagnosis. Specimen(s) Received: A. ?Polyp at 60 cm (#1) B. ? Polyp at 40 cm (#2) C. ? Polyp at 20 cm (#3) Clinical History: ? Hx of hyperplastic polyps Gross Description: ? Received in formalin labelled Priscilla Santos and 1 ??polyp at 60 cm is a portion of pepe soft tissue which measures 0.6 x 0.2 cm. ??The margin is inked in black. ??The specimen is bisected and submitted entirely as (A1). Received in formalin labelled Priscilla Santos and 2 ??polyp at 40 cm is a pepe fragment of soft tissue which measures 0.5 x 0.2 x 0.1 cm. ??The specimen is bisected and submitted entirely as (B). Received in formalin labelled Priscilla Santos and 3 ??polyp at 20 cm are two pepe, polypoid fragments of skin which measures 0.3 x 0.2 x 0.2 cm and 0.2 x 0.1 x 0.1 cm. ??Submitted entirely as (C). ??(Dr. Quinones)/kmm ?? End of Report SINAI GONZALEZ 09/01/2011 09/01/2011 16: 30 EDT Isidro Pulido DO PATHOLOGY ORDER JAELYN SINAI GONZALEZ [address] [place] [address] documented in this encounter Visit Diagnoses Not on filedocumented in this encounter Care Teams Substation Technician Relationship Specialty Start Date End Date Leandro Cullen MD [address] [place] [address] PCP - General 08/01/11 09/03/11 documented as of this encounter
--- OUTSIDE RECORDS SUMMARY | 2024-01-22 16:14 | XMS_ITS | Encounter Summary ---
Author Organization [facility] Address [address] [place] [address] Care Team Providers Care Form Presser Name Role Phone Debbie Webber NP Primary Care Provider [phone] Encounter Details Date Type Department Care Team (Late st Contact Info) Description 02/13/2019 Results Only [facility] [place] [facility] [phone] Ernesto Crawford, DNP [address] [place] [address] Social History Tobacco Use Types Packs/Day Years Used Date Smoking Tobacco: Never Assessed Sex and Gender Information Value Date Recorded Sex Assigned at Not on file Gender Identity Not on file Sexual Orientation Not on file documented as of this encounter Plan of Treatment Not on file documented as of this encounter Procedures Procedure Name Priority Date/Time Associated Diagnosis Comments SURGICAL PATHOLOGY Routine 02/13/2019 21 :58 EDT documented in this encounter Results * SURGICAL PATHOLOGY (02/13/2019 21:58 EDT) Pathology Report: SURGICAL PATHOLOGY REPORT Reports generated via electronic interface contain original data; however they are lacking the format of the original report. Caution should be taken when reading/interpret ing unformatted reports. Name: ? PRISCILLA SANTOS ? Accession #: ? [id number] ? : ? 1965 (Age: 53) ??F ? Collect Date: ? 02/13/2019 ? Location: ? [facility] ? Receive Date: ? 02/13/2019 ? Provider: ERNESTO JOVEL DNP Copy to: ? Final Pathologic Diagnosis: SKIN OF CHEST, LEFT ANTERIOR, SHAVE BIOPSY: - Acrochordon. ?? Document reviewed and electronically signed by: MARIA DEL ROSARIO PITT MD Report ??Date: 02/14/2019 15:54 By the signature above, the attending physician certifies that he/she has personally conducted a gross and/or microscopic examination of the described specimens and rendered or confirmed the above diagnosis. Specimen(s) Received: Skin lesion left anterior chest Clinical History: Fax results to [phone]; clinical diagnosis code: ??L98.9, Z00.00 Gross Description: ? Received in formalin labelled with proper patient identification (initials G, L) and L anterior chest is a pale pepe-white skin shave that measures 0.3 x 0.2 x 0.1 cm that has a raised pale pepe papule that measures 0.2 x 0.2 x 0.1 cm. The margin is inked blue and the specimen is submitted intact in 1. [facility] 02/14/2019 8:27 AM End of Report [facility] 02/13/2019 21:5 8 EDT 02/13/2019 21:58 EDT Ernesto Jovel DNP PATHOLOGY ORDERAB LES [facility] [address] [place] [address] documented in this encounter Visit Diagnoses Not on filedocumented in this encounter Care Teams Form Presser Relationship Specialty Start Date End Date Debbie Webber NP [address] [place] [phone] PCP - General 09/04/11 02/17/19 documented as of this encounter
--- OUTSIDE RECORDS SUMMARY | 2024-01-22 16:14 | XMS_ITS | Encounter Summary ---
[place] [address] Care Team Providers Care Produce Inspector Name Role Phone Mi Tyler Primary Care Provider [phone] Encounter Details Date Type Department Care Team (Latest Contact Info) Description 09/10/2022 Travel Social History Tobacco Use Types Packs/Day Years Used Date Smoking Tobacco: Every Day Cigarettes 1 47 Smokeless Tobacco: Never Alcohol Use Standard Drinks/Week Comments No 0 (1 standard drink = 0.6 oz pur e alcohol) Sex and Gender Information Value Date Recorded Sex Assigned at Female 09/10/2022 6:48 AM EDT Gender Identity Female 09/10/2022 6:48 AM EDT Sexual Orientation Straight 09/10/2022 6: 48 AM EDT documented as of this encounter Plan of Treatment Not on file documented as of this encounter Visit Diagnoses Not on filedocumented in this encounter Care Teams Produce Inspector Relationship Specialty Start Date End Date Mi Tyler PA [address] [place] [address] PCP - General Family Medicine 05/05/21 documented as of this encounter
--- OUTSIDE RECORDS SUMMARY | 2024-01-22 16:14 | XMS_ITS | Encounter Summary ---
Author Organization [facility] Address [facility] [place] [address] Care Team Providers Care Correction Officer Supervisor Name Role Phone Mi Tyler Primary Care Provider [phone] Reason for Visit * Reason Comments Establish Care Palpitations Encounter Details Date Type Department Care Team (Late st Contact Info) Description 09/14/2022 2:40 PM EDT Office Visit Cardiology at [address] [place] [address] Francis Flood MD [facility] [place] [address] Palpitations Social History Tobacco Use Types Packs/Day Years Used Date Smoking Tobacco: Every Day Cigarettes 0.5 47 Smokeless Tobacco: Never Tobacco Cessation:Ready to Q uit: Not Asked; Counseling Given: Not Answered Alcohol Use Standard Drinks/Week Comments No 0 (1 standard drink = 0.6 oz pur e alcohol) Sex and Gender Information Value Date Recorded Sex Assigned at Female 09/10/2022 6:48 AM EDT Gender Identity Female 09/10/2022 6:48 AM EDT Sexual Orientation Straight 09/10/2022 6: 48 AM EDT documented as of this encounter Last Filed Vital Signs Vital Sign Reading Time Taken Comments Blood Pressure 112/77 09/14/2022 2:56 PM EDT Pulse 72 09/14/2022 2:56 PM EDT ECG Temperature - - Respiratory Rate - - Oxygen Saturation - - Inhaled Oxygen Concentration - - Weight 108.5 kg (239 lb 3.2 oz) 09/14/2022 2:56 PM EDT Height 152.4 cm (5') 09/14/2022 2:56 PM EDT Body Mass Index 46.72 09/14/2022 2:56 PM EDT documented in this encounter Progress Notes * Francis Flood MD - 09/14/2022 2:40 PM EDT Images from the original note were not included. CARDIOLOGY NEW OUTPATIENT PRIMARY CARE PROVIDER: HEATH Flores PROBLEM LIST: Patient Active Problem List Diagnosis ??? Palpitations ??? Chronic diarrhea ??? Urinary retention ??? Psoriasis-eczema overlap condition ??? Chronic pain syndrome ??? Hearing loss, left ??? Borderline personality disorder ??? Asthma-COPD overlap syndrome ??? BRENT and COPD overlap syndrome ??? Nicotine dependence, cigarettes, uncomplicated ??? Marijuana use ??? Anxiety ??? Type 2 diabetes mellitus ??? Panlobular emphysema ??? Posttraumatic stress disorder ??? Umbilical hernia ??? Osteoarthrosis ??? Memory impairment ??? Gastroesophageal reflux disease ??? ADHD (attention deficit hyperactivity disorder), combined type ??? Acanthosis nigricans ??? Morbid obesity ??? Essential hypertension ??? Bipolar disorder Cyclothymic disorder ??? Fibromyalgia ??? Hyperlipidemia ??? Tobacco user cigarette MEDICATIONS: Current Outpatient Medications Medication Instructions ??? clotrimazole (LOTRIMIN) 1 % Cream 1 Dose, Topical (Top), 2 TIMES DAILY PRN ??? dextroamphetamine-amphetamine (Adderall XR) 10 mg ER 24 hr capsule 10 mg, afternoon ??? dextroamphetamine-amphetamine XR (Adderall XR) 20 mg ER 24 hr capsule 20 mg, Oral, DAILY, am ??? hydrOXYzine (ATARAX) 25 mg, Oral, 2 TIMES DAILY PRN ??? ipratropium-albuteroL (Duoneb) 0.5 mg-3 mg(2.5 mg base)/3 mL Solution for Nebulization 3 mLs, Nebulization, 4 TIMES DAILY ??? lisinopriL (Prinivil;Zestril) 20 mg Tablet TAKE 1 TABLET BY MOUTH DAILY ??? magnesium oxide (Mag-Ox) 400 mg (241.3 mg magnesium) Tablet 1 tablet, Oral, DAILY ??? omeprazole (PriLOSEC) 40 mg Capsule, Delayed Release(E.C.) TAKE 1 CAPSULE BY MOUTH DAILY ??? ProAir HFA 90 mcg/actuation HFA Aerosol Inhaler 2 puffs, Inhalation, EVERY 4 HOURS PRN, Use with spacer ??? propranoloL (INDERAL) 40 mg, Oral, 2 TIMES DAILY ??? RED YEAST RICE ORAL 1 Dose, Oral, DAILY ??? risperiDONE (RISPERDAL) 4 mg, Oral, NIGHTLY ??? SITagliptin phosphate (JANUVIA) 100 mg, Oral, DAILY Subjective: Patient ID: Chika Santos is a 56 y.o. female. HPI: 56 f presents on referral from gp for palpitations. Patient has a rather lengthy history of tachypalpitations, which are somewhat increasing in frequency over the past several months. She had a Holter performed late last year for such, which was without significant findings. She notes the tachypalpitations to last for several minutes, and can be associated with chest pressure and LH. No abortive maneuvers trialed. These episodes occur perhaps a couple times per week to month. The associated symptoms and palpitations seem to coincide chronic nyha ii dyspnea. No angina Objective: BP 112/77 (BP Location (NBP): Right arm, Patient Position: Sitting, BP Cuff Sizes: Large Adult (32-43 cm)) Pulse 72 Comment: ECG Ht 152.4 cm (5') Wt 108.5 kg (239 lb 3.2 oz) BMI 46.72 kg/m?? Gen: pleasant female in NAD Cor: rrr, s1/s2 of nl character and amplitude, no m/r/g. Estimated RAP not elevated. Carotids without bruit. Pulm: CTAB. Normal diaphragmatic movement without use of accessory muscles EKG: nsr with pvc ETT 02/2022: 3 minutes on treadmill. Stopped due to knee pain. No ekg changes Assessment and Plan: Palpitations Palpitation cause has not been clearly defined yet, per patient. I think a 30 day monitor would confirm/refute presence of an arrhythmia-symptom link. further management pending such RTC pending ELR Francis Flood MD documented in this encounter Miscellaneous Notes * Assessment & Plan Note - Francis Flood MD - 09/20/2022 8:17 AM EDT Associated Problem(s): Palpitations Palpitation cause has not been clearly defined yet, per patient. I think a 30 day monitor would confirm/refute presence of an arrhythmia-symptom link. further management pending such documented in this encounter Plan of Treatment Not on file documented as of this encounter Visit Diagnoses Diagnosis Palpitations documented in this encounter Care Teams Correction Officer Supervisor Relationship Specialty Start Date End Date Mi Tyler PA [address] [place] [address] PCP - General Family Medicine 05/05/21 documented as of this encounter
--- OUTSIDE RECORDS SUMMARY | 2024-01-22 16:14 | XMS_ITS | Data Portability ---
Author Organization [facility] Address [address] [place] [address] Care Team Providers Care Vp Patient Name Role Phone NATHALIE FELDMAN Primary Care Provider Assessment No assessment recorded. Plan of Treatment Reminders Order Date Submit Date Provider Last Modified By Organization Details Last Modified Time Details Appointments Follow Up 30 2023 09:00A M Not available Not available Not available Lab CBC w/ auto diff 2023 024 [facility] (Registration ), [address] [place] [address] [place], [address], 07/06/2023 15:23:15 HbA1c (hemog lobin A1c), blood [address] [facility] (Registration ), [address] [place] [address] [place], [address], 12/03/2023 12:52:54 hemogl obin A1C, finger stick [address], [address] [place] [address], [address], 10/16/2023 15:57:13 magnes ium, serum or plasma [address] [facility] (Registration ), [address] [place] [address] [place], [address], 01/22/2024 11:22:15 HbA1c (hemog lobin A1c), blood [address] [facility] (Registration ), [address] [place] [address] [place], [address], 01/22/2024 11:22:15 microa lbumin , urine [address], [address] [place] [address], [place], [address], 01/22/2024 11:20:45 lipid panel, serum [address] [facility] (Registration ), [address] [place] [address] [place], [address], 01/22/2024 11:22:15 CMP, serum or plasma [address] [facility] (Registration ), [address] [place] [address] [place], [address], 01/22/2024 11:22:15 Referral dermat charlieogis t referr al 2023 [email or web address] Juan Alberto Nuñez MD, [address] [place] [address] B, [place], [address], 01/16/2024 12:49:33 Procedures None record ed. Surgeries None record ed. Imaging None record ed. Medication Orders celeco xib 200 mg capsul e 2023 [facility] #[id number], [address] [place] [address], [id number], 10/01/2023 10:50:16 Victoz a 3-Xavier 0.6 mg/0.1 mL (18 mg/3 mL) subcut aneous pen inject or 2023 [facility] #68329, [address] [place] [address], [id number], 07/06/2023 09:05:52 cyclob enzapr ine 10 mg tablet 04/05/ 2024 04/15/2 024 [facility] #97007, [address] [place] [address], [id number], 09/17/2023 08:57:51 Rybels us 3 mg tablet 2023 024 [email or web address] [facility] #02416, [address] [place] [address], [id number], 10/01/2023 09:58:40 lisino pril 20 mg tablet 2023 024 [facility] #47611, [address] [place] [address], [id number], 12/19/2023 11:36:56 propra nolol 40 mg tablet 2023 [facility]24 [facility]43357, [address] [place] [address], [id number], 09/17/2023 16:20:35 lovast atin 20 mg tablet 2023 024 [facility] #18379, [address] [place] [address], [id number], 09/17/2023 08:57:53 ketoro lac 10 mg tablet 2023 024 [facility] #85030, [address] [place] [address], [id number], 01/22/2024 06:17:31 ketoro lac 60 mg/2 mL intram uscula r soluti on 2023 024 [email or web address] [facility] #53465, [address] [place] [address], [id number], 01/22/2024 06:17:33 lisino pril 10 mg tablet 2023 024 [facility] #45756, [address] [place], [place], [id number], 10/16/2023 15:57:31 Victoz a 3-Xavier 0.6 mg/0.1 mL (18 mg/3 mL) subcut aneous pen inject or 2023 024 [facility] #93465, [address] [place], [place], [id number], 10/16/2023 15:57:31 doxycy ashby hyclat e 100 mg capsul e 2023 024 [facility], [address] [place] [address], [id number], 01/22/2024 11:20:47 triamc inolon e aceton kb 0.5 % topica l cream 2023 024 [email or web address] [facility], [address] [place] [address], [id number], 01/22/2024 11:22:15 Patient TargetsNo targets recorded. Patient Instructions Encounter Date Encounter Id Patient Instructions Last Modified By Organization Details Last Modified Time 10/01/2023 [id number] You received a TORADOL injection today. This is an anti-inflammtory /pain medicine. After 11am tomorrow (10/01), start oral ketorolac (pill version of Toradol) every 6 hours for the next 5 days. Do NOT take any NSAIDS (ibuprofen/Advil /Motrin or naproxen/Aleve today or for the 5 days you are taking to ketorolac. As we discussed, this medicine can increase your blood pressure and bleeding risk, and affect your kidneys. Your kidney function looked very good last week, your blood pressure is under good control, and you do not have underlying stomach/GI issues. Schedule a follow up office visit next week for re-evaluation, which you can cancel if you are feeling completely better. Please do consider letting us refer you to physical therapy to try to address the underlying muscular issues that are likely causing your back pain. [email or web address] Not available 10/01/2023 11:10:45 Reason for Referral Secondary Teacher Referral for C andidal intertrigo Referring Physician: Nathalie Feldman, Family Medicine, Encounter Date: 10/16/2023 Results Created Date Observation Date Name Description Value Unit Range Abnormal Flag LastModifiedBy Organization Detail LastModifiedTime 07/06/19 24 07/06/2023 COMPL ETE BLOOD COUNT W/DIF F WBC 9.56 10_3/ uL 4.4-10 .8 normal Not Available [address] [place], [address] 07/06/2023 15:23:15 07/06/1907/06/2023 COMPL ETE BLOOD COUNT W/DIF F RBC 4.86 10_6/ uL 3.93-5 .22 normal Not Available [address] [place], [address] 07/06/2023 15:23:15 07/06/19 24 07/06/2023 COMPL ETE BLOOD COUNT W/DIF F HGB 14.6 g/dL 11.2-1 5.7 normal Not Available [address] [place], [address] 07/06/2023 15:23:15 07/06/19 24 07/06/2023 COMPL ETE BLOOD COUNT W/DIF F HCT 43.6 % 36.0-4 6.0 normal Not Available [address] [place], [address] 07/06/2023 15:23:15 07/06/19 24 07/06/2023 COMPL ETE BLOOD COUNT W/DIF F MCV 90 fL 80-95 normal Not Available [facility] [address] [place], [address] 07/06/2023 15:23:15 07/06/19 24 07/06/2023 COMPL ETE BLOOD COUNT W/DIF F MCH 30.0 pg 27.0-3 3.0 normal Not Available [address] [place], [address] 07/06/2023 15:23:15 07/06/19 24 07/06/2023 COMPL ETE BLOOD COUNT W/DIF F MCHC 33.5 % 32.0-3 6.0 normal Not Available [address] [place], [address] 07/06/2023 15:23:15 07/06/19 24 07/06/2023 COMPL ETE BLOOD COUNT W/DIF F RDW 13.2 % 11.7-1 4.6 normal Not Available [address] [place], [address] 07/06/2023 15:23:15 07/06/19 24 07/06/2023 COMPL ETE BLOOD COUNT W/DIF F platelet count 281 10_3/ uL 130-40 0 normal Not Available [address] [place], [address] 07/06/2023 15:23:15 07/06/19 24 07/06/2023 COMPL ETE BLOOD COUNT W/DIF F MPV 9.9 fL 8.0-11 .0 normal Not Available [address] [place], [address] 07/06/2023 15:23:15 07/06/19 24 07/06/2023 COMPL ETE BLOOD COUNT W/DIF F neutrophils % 52.0 Not Available [address] [place], [address] 07/06/2023 15:23:15 07/06/19 24 07/06/2023 COMPL ETE BLOOD COUNT W/DIF F lymphocytes % 34.9 Not Available [address] [place], [address] 07/06/2023 15:23:15 07/06/19 24 07/06/2023 COMPL ETE BLOOD COUNT W/DIF F monocytes % 7.9 Not Available Kody tatum [address] [place], [address] 07/06/2023 15:23:15 07/06/19 24 07/06/2023 COMPL ETE BLOOD COUNT W/DIF F eosinophils % 4.0 Not Available [address] [place], [address] 07/06/2023 15:23:15 07/06/19 24 07/06/2023 COMPL ETE BLOOD COUNT W/DIF F basophils % 0.8 Not Available Kody jonolilly [address] [place], [address] 07/06/2023 15:23:15 07/06/19 24 07/06/2023 COMPL ETE BLOOD COUNT W/DIF F immature grans % 0.4 Not Available [address] [place], [address] 07/06/2023 15:23:15 07/06/19 24 07/06/2023 COMPL ETE BLOOD COUNT W/DIF F nucleated RBC 0.0 % 0.0-0. 3 normal Not Available [address] [place], [address] 07/06/2023 15:23:15 07/06/19 24 07/06/2023 COMPL ETE BLOOD COUNT W/DIF F absolute neutrophil count 4.96 10_3/ uL 1.2-6. 7 normal Not Available [address] [place], [address] 07/06/2023 15:23:15 07/06/19 24 07/06/2023 COMPL ETE BLOOD COUNT W/DIF F absolute lymphocyte count 3.34 10_3/ uL 1.2-3. 4 normal Not Available [address] [place], [address] 07/06/2023 15:23:15 07/06/19 24 07/06/2023 COMPL ETE BLOOD COUNT W/DIF F absolute monocyte count 0.76 10_3/ uL 0.1-0. 8 normal Not Available [address] [place], [address] 07/06/2023 15:23:15 07/06/19 24 07/06/2023 COMPL ETE BLOOD COUNT W/DIF F absolute eosinophil count 0.38 10_3/ uL 0.0-0. 7 normal Not Available [address] [place], [address] 07/06/2023 15:23:15 07/06/19 24 07/06/2023 COMPL ETE BLOOD COUNT W/DIF F absolute basophil count 0.08 10_3/ uL 0.0-0. 2 normal Not Available [address] [place], [address] 07/06/2023 15:23:15 07/06/19 24 07/06/2023 HEMOG LOBIN A1C hemoglobin A1C 6.1 % <5.7 high Not Available [address] [place], [address] 07/06/2023 15:57:24 09/29/19 24 09/29/2023 URINA LYSIS color Yellow yellow Not Available [address] [place], [address] 09/29/2023 09:02:21 09/29/19 24 09/29/2023 URINA LYSIS clarity Clear clear Not Available [address] [place], [address] 09/29/2023 09:02:21 09/29/19 24 09/29/2023 URINA LYSIS specific gravity 1.015 1.005- 1.025 normal Not Available [address] [place], [address] 09/29/2023 09:02:21 09/29/19 24 09/29/2023 URINA LYSIS pH 6.5 5-8 normal Not Available [address] [place], [address] 09/29/2023 09:02:21 09/29/19 24 09/29/2023 URINA LYSIS leukocyte esterase Trace negati ve abnormal Not Available [address] [place], [address] 09/29/2023 09:02:21 09/29/19 24 09/29/2023 URINA LYSIS nitrite Negati ve negati ve Not Available [address] [place], [address] 09/29/2023 09:02:21 09/29/19 24 09/29/2023 URINA LYSIS protein Negati ve mg/dL neg-tr anam Not Available [address] [place], [address] 09/29/2023 09:02:21 09/29/19 24 09/29/2023 URINA LYSIS glucose Negati ve mg/dL negati ve Not Available [address] [place], [address] 09/29/2023 09:02:21 09/29/19 24 09/29/2023 URINA LYSIS ketones Negati ve mg/dL negati ve Not Available [address] [place], [address] 09/29/2023 09:02:21 09/29/19 24 09/29/2023 URINA LYSIS urobilinogen 0.2 mg/dL up to 0.2 Not Available [address] [place], [address] 09/29/2023 09:02:21 09/29/1909/29/2023 URINA LYSIS bilirubin Negati ve negati ve Not Available [address] [place], [address] 09/29/2023 09:02:21 09/29/1909/29/2023 URINA LYSIS blood Negati ve negati ve Not Available [address] [place], [address] 09/29/2023 09:02:21 09/29/19 24 09/29/2023 COMPL ETE BLOOD COUNT NO DIFF WBC 10.03 10_3/ uL 4.4-10 .8 normal Not Available [address] [place], [address] 09/29/2023 09:03:21 09/29/19 24 09/29/2023 COMPL ETE BLOOD COUNT NO DIFF RBC 4.81 10_6/ uL 3.93-5 .22 normal Not Available [address] [place], [address] 09/29/2023 09:03:21 09/29/19 24 09/29/2023 COMPL ETE BLOOD COUNT NO DIFF HGB 14.7 g/dL 11.2-1 5.7 normal Not Available [address] [place], [address] 09/29/2023 09:03:21 09/29/1925 0909/29/2023 COMPL ETE BLOOD COUNT NO DIFF HCT 44.3 % 36.0-4 6.0 normal Not Available [address] [place], [address] 09/29/2023 09:03:21 09/29/19 24 09/29/2023 COMPL ETE BLOOD COUNT NO DIFF MCV 92 fL 80-95 normal Not Available [facility] [address] [place], [address] 09/29/2023 09:03:21 09/29/19 24 09/29/2023 COMPL ETE BLOOD COUNT NO DIFF MCH 30.6 pg 27.0-3 3.0 normal Not Available [address] [place], [address] 09/29/2023 09:03:21 09/29/19 24 09/29/2023 COMPL ETE BLOOD COUNT NO DIFF MCHC 33.2 % 32.0-3 6.0 normal Not Available [address] [place], [address] 09/29/2023 09:03:21 09/29/19 24 09/29/2023 COMPL ETE BLOOD COUNT NO DIFF RDW 12.8 % 11.7-1 4.6 normal Not Available [address] [place], [address] 09/29/2023 09:03:21 09/29/19 24 09/29/2023 COMPL ETE BLOOD COUNT NO DIFF platelet count 279 10_3/ uL 130-40 0 normal Not Available [address] [place], [address] 09/29/2023 09:03:21 09/29/19 24 09/29/2023 COMPL ETE BLOOD COUNT NO DIFF MPV 9.3 fL 8.0-11 .0 normal Not Available [address] [place], [address] 09/29/2023 09:03:21 09/29/19 24 09/29/2023 URINA LYSIS color Yellow yellow Not Available [facility] [address] [place], [address] 09/29/2023 09:07:23 09/29/19 24 09/29/2023 URINA LYSIS clarity Clear clear Not Available Kirill carr [address] [place], [address] 09/29/2023 09:07:23 09/29/19 24 09/29/2023 URINA LYSIS specific gravity 1.015 1.005- 1.025 normal Not Available [address] [place], [address] 09/29/2023 09:07:23 09/29/19 24 09/29/2023 URINA LYSIS pH 6.5 5-8 normal Not Available Kirill carr [address] [place], [address] 09/29/2023 09:07:23 09/29/19 24 09/29/2023 URINA LYSIS leukocyte esterase Trace negati ve abnormal Not Available [address] [place], [address] 09/29/2023 09:07:23 09/29/19 24 09/29/2023 URINA LYSIS nitrite Negati ve negati ve Not Available [address] [place], [address] 09/29/2023 09:07:23 09/29/19 24 09/29/2023 URINA LYSIS protein Negati ve mg/dL neg-tr anam Not Available [address] [place], [address] 09/29/2023 09:07:23 09/29/19 24 09/29/2023 URINA LYSIS glucose Negati ve mg/dL negati ve Not Available [address] [place], [address] 09/29/2023 09:07:23 09/29/19 24 09/29/2023 URINA LYSIS ketones Negati ve mg/dL negati ve Not Available [address] [place], [address] 09/29/2023 09:07:23 09/29/19 24 09/29/2023 URINA LYSIS urobilinogen 0.2 mg/dL up to 0.2 Not Available [address] [place], [address] 09/29/2023 09:07:23 09/29/19 24 09/29/2023 URINA LYSIS bilirubin Negati ve negati ve Not Available [address] [place], [address] 09/29/2023 09:07:23 09/29/19 24 09/29/2023 URINA LYSIS blood Negati ve negati ve Not Available [address] [place], [address] 09/29/2023 09:07:23 09/29/19 24 09/29/2023 MICRO SCOPI C FINDI NGS WBC 0-2 hpf 0-5 Not Available [address] [place], [address] 09/29/2023 09:07:24 09/29/19 24 09/29/2023 MICRO SCOPI C FINDI NGS RBC Negati ve hpf 0-2 Not Available [address] [place], [address] 09/29/2023 09:07:24 09/29/19 24 09/29/2023 MICRO SCOPI C FINDI NGS epithelial cells Rare hpf negati ve Not Available [address] [place], [address] 09/29/2023 09:07:24 09/29/19 24 09/29/2023 MICRO SCOPI C FINDI NGS bacteria Rare hpf negati ve Not Available [address] [place], [address] 09/29/2023 09:07:24 09/29/19 24 09/29/2023 MICRO SCOPI C FINDI NGS crystals Negati ve hpf negati ve Not Available [address] [place], [address] 09/29/2023 09:07:24 09/29/19 24 09/29/2023 MICRO SCOPI C FINDI NGS mucus Negati ve negati ve Not Available [address] [place], [address] 09/29/2023 09:07:24 09/29/19 24 09/29/2023 MICRO SCOPI C FINDI NGS C S indicated? No Not Available [facility] [place], [address] 09/29/2023 09:07:24 09/29/19 24 09/29/2023 COMPR EHENS MCKENZIE METAB OLIC PANEL calcium 9.0 mg/dL 8.5-10 .1 normal Not Available [address] [place], [address] 09/29/2023 09:16:23 09/29/19 24 09/29/2023 COMPR EHENS MCKENZIE METAB OLIC PANEL glucose 92 mg/dL 74-106 normal Not Available [address] [place], [address] 09/29/2023 09:16:23 09/29/19 24 09/29/2023 COMPR EHENS MCKENZIE METAB OLIC PANEL BUN 9 mg/dL 7-18 normal Not Available [address] [place], [address] 09/29/2023 09:16:23 09/29/19 24 09/29/2023 COMPR EHENS MCKENZIE METAB OLIC PANEL creatinine 1.0 mg/dL 0.55-1 .02 normal Not Available [address] [place], [address] 09/29/2023 09:16:23 09/29/19 24 09/29/2023 COMPR EHENS MCKENZIE METAB OLIC PANEL estimated GFR 64.90 mL/min /1.73m 2 Not Available [address] [place], [address] 09/29/2023 09:16:23 09/29/19 24 09/29/2023 COMPR EHENS MCKENZIE METAB OLIC PANEL total protein 7.6 g/dL 6.4-8. 2 normal Not Available [address] [place], [address] 09/29/2023 09:16:23 09/29/19 24 09/29/2023 COMPR EHENS MCKENZIE METAB OLIC PANEL albumin 3.4 g/dL 3.4-5. 0 normal Not Available [address] [place], [address] 09/29/2023 09:16:23 09/29/19 24 09/29/2023 COMPR EHENS MCKENZIE METAB OLIC PANEL bilirubin, total 0.3 mg/dL 0.2-1. 0 normal Not Available [address] [place], [address] 09/29/2023 09:16:23 09/29/19 24 09/29/2023 COMPR EHENS MCKENZIE METAB OLIC PANEL alk phos 65 U/L 46-116 normal Not Available [address] [place], [address] 09/29/2023 09:16:23 09/29/19 24 09/29/2023 COMPR EHENS MCKENZIE METAB OLIC PANEL sodium 138 mmol/ L 136-14 5 normal Not Available [address] [place], [address] 09/29/2023 09:16:23 09/29/19 24 09/29/2023 COMPR EHENS MCKENZIE METAB OLIC PANEL potassium 4.2 mmol/ L 3.5-5. 1 normal Not Available [address] [place], [address] 09/29/2023 09:16:23 09/29/19 24 09/29/2023 COMPR EHENS MCKENZIE METAB OLIC PANEL chloride 102 mmol/ L 98-107 normal Not Available [address] [place], [address] 09/29/2023 09:16:23 09/29/19 24 09/29/2023 COMPR EHENS MCKENZIE METAB OLIC PANEL CO2 29.9 mmol/ L 21.0-3 2.0 normal Not Available [address] [place], [address] 09/29/2023 09:16:23 09/29/19 24 09/29/2023 COMPR EHENS MCKENZIE METAB OLIC PANEL anion gap 6.1 mmol/ L 3-11 normal Not Available [address] [place], [address] 09/29/2023 09:16:23 09/29/19 24 09/29/2023 COMPR EHENS MCKENZIE METAB OLIC PANEL AST 13 U/L 15-37 low Not Available [facility] [address] [place], [address] 09/29/2023 09:16:23 09/29/19 24 09/29/2023 COMPR EHENS MCKENZIE METAB OLIC PANEL ALT 22 U/L 14-59 normal Not Available [facility] [address] [place], [address] 09/29/2023 09:16:23 09/29/19 24 09/29/2023 LIPAS E lipase 66 U/L 16-77 normal Not Available [facility] [address] [place], [address] 09/29/2023 09:16:23 10/16/19 24 10/16/2023 hemog lobin A1C, finge rstic k hemoglobin A1C 6.1 % <5.7 Not Available [facility] [address] [place], [address], 10/14/2023 20:14:17 01/22/20 24 01/22/2024 micro album in, urine microalbumin 0 mg/dL Not Available [facility] [address] [place], [address], 01/22/2024 09:40:52 09/29/19 24 09/29/2023 godfrey winston Name: Chika Santos Unit #: [id number] Loc: ER Orderi [facility] er: Accjames t #: [id number] Status : REG ER Primar y Care Provid er: Praveen serrano,Destiny JOE Date of Exa m: Sex: F : 1965 Age: 58 Exam(s ) PROCED URE INFORM ATION: Exam: XR Chest Exam date and time: 024 9:20 AM Age: 58 years old Clinic al indica tion: Other: Pain to L ribs with cough TECHNI QUE: Imagin g protoc ol: Radiol ogic exam of the chest. Views: 2 views. COMPAR ULISES: CR XR CHEST 2V PA LATERA L 2021 09:34 FINDIN GS: Lungs: Lungs are clear with no infilt rate or nodule . Pleura l spaces : Unrema rkable . No pleura l effusi on. No pneumo thorax . Heart/ Medias tinum: Cardio medias tinal silhou ette is normal . Vascul ature: Aortic calcif icatio n. Bones/ joints : Unrema rkable . IMPRES BART: No active cardio pulmon shweta diseas e. Dictat ed and Authen ticate d by: Errol Hernandez MD. Orderi ng:Steph garrido MD Access ion#=[id number] Ordere d By: CC: ------ ------ ------ ------ ------ ------ ------ ------ ------ ------ ------ ------ ---- Dictat ed By: Report s vrad [id number] Transc ribed By: Freda Merge 919 This is privil eged, confid ential inform ation intend ed only for the provid er named. Any use or distri bution by any person other than this provid er is strict ly prohib ited. If you receiv e this report in error, please notify us immedi ately at and return the origin al report to us at the addres s above. Thank- you. [email or web address] [facility] [address], [place], [address] 10/01/2023 08:56:09 09/29/19 24 09/29/2023 vrad repor t Patien t Name: Chika Santos Unit #: [id number] Loc: ER Orderi ng Provid er: Accoun t #: [id number] Status : REG ER Primar y Care Provid er: Praveen serrano,Destiny JOE Date of Exa m: Sex: F : 1965 Age: 58 Exam(s ) PROCED URE INFORM ATION: Exam: CT Abdome n And Pelvis Withou t Contra st Exam date and time: 024 9:17 AM Age: 58 years old Clinic al indica tion: Other: Hematu sanjuanita, L sided flank pain, ruq tender ness TECHNI QUE: Imagin g protoc ol: Comput ed tomogr aphy of the abdome n and pelvis withou t contra st. COMPAR ULISES: US PELVIS TRANSV AGINAL 2018 13:15 FINDIN GS: Lungs: Visual ized lung bases are clear. Liver: Normal . No mass or intrah epatic biliar y ductal dilata tion. Gallbl adder and bile ducts: Gallbl adder has been remove d. Pancre as: Normal . No mass or ductal dilati on. Spleen : Normal . No spleno megaly . Adrena l glands : 2.1 cm right adrena l nodule and 2.1 cm left adrena l nodule . Kidney s and ureter s: Normal . No hydron ephros is, calcul us, cyst or mass. Stomac h and bowel: Unrema rkable . No signif icant dilata tion or obstru ction. No mucosa l thicke gena or visibl e mass. Append ix: No eviden ce of append icitis . Intrap eriton eal space: Unrema rkable . No free air. No signif icant fluid collec tion. Vascul ature: Mild aortoi liac athero sclero sis. Lymph nodes: No enlarg ed retrop eriton eal or mesent rhonda lymph nodes. Urinar y bladde r: No mass or wall thicke gena. Reprod uctive : Uterus is absent . No adnexa l cyst or mass. Bones/ joints : Unrema rkable . No acute fractu re. No lytic lesion . Soft tissue s: Previo us ventra l hernia repair . IMPRES BART: No acute abnoma lity in the abdome n or pelvis . No renal calcul us or obstru ction. Bilate ral adrena l adenom as noted. Dictat ed and Authen ticate d by: Errol Hernandez MD. Orderi ng:Steph garrido MD Access ion#=[id number] Ordere d By: CC: ------ ------ ------ ------ ------ ------ ------ ------ ------ ------ ------ ------ ---- Dictat ed By: Report s vrad [id number] Transc ribed By: Freda Sanchez 916 This is privil eged, confid ential inform ation intend ed only for the provid er named. Any use or distri bution by any person other than this provid er is strict ly prohib ited. If you receiv e this report in error, please notify us immedi bijally at and return the origin al report to us at the addres s above. Thank- you. [email or web address] [facility] [address] [place] [address] [place], [address] 10/01/2023 08:56:09 09/29/19 24 09/29/2023 x-ray imagi ng repor t Patievelyne t Name: Chika Santos Unit #: [id number] Loc: ER Orderi ng Provid er: Leslie Valenzuela Accoun t #: [id number] Status : DEP ER Primar y Care Provid er: Praveen serrano,Destiny Cintron PA Date of Exa m: Sex: F Admiss ion Date: : 1965 Age: 58 Exam(s ) XR CHEST 2V PA LATERA L EXAM: XR CHEST 2V PA LATERA L CLINIC AL HISTOR Y: pain to L ribs with cough. TECHNI QUE: 2D digita l imagin g was perfor med. COMPAR ULISES: CR XR CHEST 2V PA LATERA L from 2021 FINDIN GS: 2 views: Heart size is normal . The medias tinum is not widene d. Lungs are clear. No infilt rates nor pleura l effusi ons. IMPRES BART: No acute pulmon shweta findin gs. DATA REPOSI TORY: RADIAT ION DOSE DELIVE RED: Ordere d By: Leslie Valenzuela CC: ------ ------ ------ ------ ------ ------ ------ ------ ------ ------ ------ ------ - Dictat ed By: Rosendo Tuttle M.D. [id number] Transc ribed By: Marry WILCOX,Toya pollo [id number] This is privil eged, confid ential inform ation intend ed only for the provid er named. Any use or distri bution by any person other than this provid er is strict ly prohib ited. If you receiv e this report in error, please notify us immedi bijally at and return the origin al report to us at the addres s above. Thank- you. [email or web address] [facility] [address], [place], [address] 10/01/2023 08:56:10 09/29/19 24 09/29/2023 CT imagi ng repor t Patievelyne t Name: Chika Santos Unit #: [id number] Loc: ER Orderi ng Provid er: Leslie Valenzuela Accoun t #: [id number] Status : DEP ER Primar y Care Provid er: Praveen serrano,Destiny JOE Date of Exa m: Sex: F : 1965 Age: 58 Exam(s ) a CT:CT abdome n pelvis wo Exam(s ) CT ABDOME N PELVIS WO EXAM: CT ABDOME N PELVIS WO CLINIC AL HISTOR Y: hematu sanjuanita, L sided flank pain, RUQ tender ness. TECHNI QUE: Imagin g Protoc ol: Axial comput ed tomogr aphy images with stewart l and sagitt al reform atted images were create d and review ed CONTRA ST MATERI AL: Intrav enous: none Oral: None COMPAR ULISES: CT CT CHEST PE CTA from 2018 WHIT GS: VISUAL IZED LUNG BASES: There is subple ural scarri ng in the latera l basal segmen t of the left lower lobe noted on the upperm ost image of this study, not previo usly presen t on the study of 2019. No pleura l effusi ons.. ABDOME N: There is no ascite s. LIVER: There are no obviou s focal hepati c lesion s eviden t of this noninf used study. GALLBL ADDER/ BILIAR Y: Gallbl adder surgic ally absent . CBD is not dilate d. PANCRE : No eviden ce of pancre atic mass nor dilata tion of the pancre atic duct. SPLEEN : Spleen is not enlarg ed. No obviou s intras plenic lesion s. ADRENA LS: There hypode nse nodule s in both adrena l glands again noted, these appear ing unchan ged from January 2019 and theref ore most probab ly benign adenom as. KIDNEY S:No cysts eviden t. No solid renal masses . No calcul i nor hydron ephros is. . ABDOMI NAL AORTA: Calcif ied but not enlarg ed. Common iliac arteri es are also calcif ied but not enlarg ed. LYMPH NODES: There is no retrop eriton eal nor paraao rtic adenop athy. ABDOMI NAL WALL: Anteri or abdomi nal hernia mesh. No active hernia seen at this time. No abnorm al fluid collec tions. GI: There is no eviden ce of bowel obstru ction, free air, nor absces s. PELVIS : LYMPH NODES: There is no intrap elvic nor inguin al adenop athy. GI: Append ix not seen. No eviden ce of append icitis .Sigmo id divert iculi. No eviden ce of acute divert iculit is. Fat halo sign line eviden t throug hout the colon and distal small bowel loops. URINAR Y BLADDE R: No calcul i nor obviou s masses eviden t REPROD UCTIVE : Uterus surgic ally absent . No abnorm al adnexa l masses . No free fluid in the pelvis . OSSEOU S: No fractu res. No signif icant osseou s lesion s. IMPRES BART: 1. No eviden ce of urinar y tract calcul i nor obstru ction of the urinar y tracts . No calcul i seen in the urinar y bladde r. 2. Previo us cholec ystect gary and hyster ectomy . Append ix not seen and may be surgic ally absent . No eviden ce of bowel obstru ction. 3. There is a fat halo sign throug hout the entire colon as well as some small bowel loops. This may be within normal limits but can also be associ ated with chroni c inflam matory bowel diseas e. 4. Anteri or abdomi nal hernia mesh. No hernia nor abnorm al fluid collec tion. RADIAT ION DOSE DELIVE RED: 1,153. 84mGy. cm Total DLP DATA REPOSI TORY: All CT scans at this facili ty are submit chandrakant to the Nation al Radiol ogy Data Regist ry (NRDR) Dose Index Regist ry (DIR) with the [place] n[place] of Radiol ogy (ACR). RADIAT ION OPTIMI ZATION : All CT scans at this facili ty use at least one of these dose optimi zation techni ques: automa chandrakant exposu re contro l; mA and/or kV adjust ment per patien t size (inclu nakita target ed exams where dose is matche d to clinic al indica tion); or iterat mckenzie recons tructi on. 0427-0 004: Total DLP = 0.00 mGy-cm Ordere d By: Leslie Valenzuela CC: ------ ------ ------ ------ ------ ------ ------ ------ ------ ------ ------ ------ ---- Dictat ed By: Rosendo Tuttle M.D. 1829 Transc ribed By: Marry WILCOX,Toya abad 1829 This is privil eged, confid ential inform ation intend ed only for the provid er named. Any use or distri bution by any person other than this provid er is strict ly prohib ited. If you receiv e this report in error, please notify us immedi ately at [phone] and return the origin al report to us at the addres s above. Thank- you. [email or web address] [facility] [address] [place], [address] 10/01/2023 08:56:10 Result Notes None recorded. Problems Name Status Onset Date Resolution Date Notes Provider Name and Address Organization Details Recorded Time Essential hypertension Active 201601/08/2023 - Comments only - Nathalie Feldman PA-C - - HTN Today's BP well WNLs. To continue on PROPRANOLOL 40mg BID and LISINOPRIL 20mg QD as RXd. Problem Code: I10; Problem Code Type: ICD-10; Not Available [facility] 3 04:03:15 Type 2 diabetes mellitus without complication Active 201605/22/2022 - Comments only - Nathalie Feldman PA-C - As per patient request, [facility] Will plan to repeat HBA1C in 3m as monitoring. Problem Code: E11.9; Problem Code Type: ICD-10; Not Available [facility] 3 04:03:15 Panacinar emphysema Active 2016 Problem Code: J43.1; Problem Code Type: ICD-10; Not Available [facility] 3 04:03:15 Gastroesophag eal reflux disease without esophagitis Active 201604/09/2022 - Comments only - Nathalie Feldman PA-C - Offered for patient to trial alternative PPI therapy for improved symptom control, however, she is opting to continue with PRILOSEC 40mg QD as RXd for now. Problem Code: K21.9; Problem Code Type: ICD-10; Not Available [facility] 3 04:03:15 Posttraumatic stress disorder Active 201611/21/2022 - Comments only - Nathalie Feldman PA-C - - CYCLOTHYMIC DISORDER, PTSD, BPD, INSOMNIA Patient encouraged to touch base with [facility] RXing provider re: desire to increase TRAZODONE. She will otherwise continue on current treatment regimen (RISPERDAL, ADDERALL XR, HYDROXYZINE) as RXd. Problem Code: F43.10; Problem Code Type: ICD-10; Not Available [facility] 3 04:03:15 Tobacco dependence caused by cigarettes Active 201608/10/2020 - Comments only - Leandro Mendes MD - He is precontemplat mckenzie. Discussed her motivation to quit, including wound healing. Problem Code: F17.210; Problem Code Type: ICD-10; Not Available [facility] 3 04:03:15 Adult health examination Active 201605/18/2021 - Comments only - Nathalie Feldman PA-C - Mammogram order reprinted to allow for scheduling at [facility] at next available. Problem Code: Z00.00; Problem Code Type: ICD-10; Not Available [facility] 3 04:03:16 Acquired absence of cervix and uterus Active 2016 Problem Code: Z90.710; Problem Code Type: ICD-10; Not Available [facility] 3 04:03:16 Hyperlipidemi a Active 201601/08/2023 - Comments only - Nathalie Feldman PA-C - Maintained on LOVASTATIN 20mg QD. Will plan to repeat lipid profile and CMP in early March as monitoring. Problem Code: E78.5; Problem Code Type: ICD-10; Not Available [facility] 3 04:03:16 Otitis media Completed 201605/28/2017 Problem Code: H66.90; Problem Code Type: ICD-10; Not Available [facility] 3 04:03:16 Wheezing Active 2017 Problem Code: R06.2; Problem Code Type: ICD-10; Not Available [facility] 3 04:03:16 Body mass index 40+ - severely obese Active 2017 Problem Code: Z68.41; Problem Code Type: ICD-10; Not Available [facility] 3 04:03:16 Cough Completed 201710/15/2017 Problem Code: R05; Problem Code Type: ICD-10; Not Available [facility] 3 04:03:16 Insomnia Active 2017 Problem Code: G47.00; Problem Code Type: ICD-10; Not Available [facility] 3 04:03:16 Dyspnea Completed 201704/02/2018 Problem Code: R06.02; Problem Code Type: ICD-10; Not Available [facility] 3 04:03:17 Upper respiratory tract infection caused by Influenza A Completed 201807/21/2018 Problem Code: J09.x2; Problem Code Type: ICD-10; Not Available [facility] 3 04:03:17 Otitis media Completed 201807/21/2018 Problem Code: H66.90; Problem Code Type: ICD-10; Not Available [facility] 3 04:03:17 Attention deficit hyperactivity disorder, predominantly hyperactive impulsive type Active 2018 Problem Code: F90.1; Problem Code Type: ICD-10; Not Available [facility] 3 04:03:17 Borderline personality disorder Active 201802/01/2022 - Comments only - Nathalie Feldman PA-C - - CYCLOTHYMIC DISORDER, PTSD, BPD Well established with [facility]. To continue on current treatment regimen (RISPERDAL, ADDERALL XR, SEROQUEL, KLONOPIN) as RXd by specialty service provider. Problem Code: F60.3; Problem Code Type: ICD-10; Not Available [facility] 3 04:03:17 Localized eruption of skin Completed 201808/04/2018 Problem Code: R21; Problem Code Type: ICD-10; Not Available [facility] 3 04:03:17 Acute vaginitis Completed 201808/11/2018 Problem Code: N76.0; Problem Code Type: ICD-10; Not Available [facility] 3 04:03:18 Dyspnea Completed 201808/15/2018 Problem Code: R06.02; Problem Code Type: ICD-10; Not Available [facility] 3 04:03:18 Acute upper respiratory infection Completed 201808/22/2018 08/08/2018 - Comments only - Alaina Hayward APRN - Sxs for 24 hours, assume viral. Exacerbating poorly controlled COPD. Problem Code: J06.9; Problem Code Type: ICD-10; Not Available [facility] 3 04:03:18 Low back pain Active 201802/01/2022 - Comments only - Nathalie Feldman PA-C - Once patient has completed requested cardiac testing, will reconsider to trial previously RXd MOBIC 7.5mg QD. Problem Code: M54.5; Problem Code Type: ICD-10; Not Available [facility] 3 04:03:18 Hearing loss of left ear Active 2018 Problem Code: H91.92; Problem Code Type: ICD-10; Not Available [facility] 3 04:03:18 Disorder of skin and/or subcutaneous tissue Completed 201802/27/2019 Problem Code: L98.9; Problem Code Type: ICD-10; Not Available [facility] 3 04:03:18 Polyp of colon Active 2011 Problem Code: K63.5; Problem Code Type: ICD-10; Not Available [facility] 3 04:03:18 Muscle pain Completed 202008/30/2020 08/23/2020 - Comments only - Sherry Carmona APRN RN, L.AC - No bony tenderness. No JOSE ANGEL or exam findings indicating XR or other imaging at this time. Sxs most c/w piriformis syndrome. We discussed OTC topical analgesics, ice, heat and stretching. Problem Code: M79.18; Problem Code Type: ICD-10; Not Available [facility] 3 04:03:19 Localized eruption of skin Completed 202008/30/2020 08/23/2020 - Comments only - Sherry Carmona APRN, RN, L.AC - No s/s c/w infectious process. Most c/w contact dermatitis. We discussed use of mask ear loop extenders to reduce contact of mask loop fabric with skin, I printed a picture of this product, available at [employer]. Return precautions discussed. Problem Code: R21; Problem Code Type: ICD-10; Not Available [facility] 3 04:03:19 Counseling Completed 202001/17/2021 01/03/2021 - Comments only - Nathalie Feldman PA-C - Old records from previous provider reviewed. Problem Code: Z71.89; Problem Code Type: ICD-10; Not Available [facility] 3 04:03:19 Tinea pedis Completed 202001/17/2021 01/03/2021 - Comments only - Nathalie Feldman PA-C - Will treat with RXd CLOTRIMAZOLE 1% CREAM BID Problem Code: B35.3; Problem Code Type: ICD-10; Not Available [facility] 3 04:03:19 Cyclothymia Active 202009/29/2022 - Comments only - Nathalie Feldman PA-C - Patient encouraged to touch base with [facility] RXing provider re: desire to RS TRAZODONE at time of next scheduled visit. She will otherwise continue on current treatment regimen (RISPERDAL, ADDERALL XR, HYDROXYZINE) as RXd. Problem Code: F34.0; Problem Code Type: ICD-10; Not Available [facility] 3 04:03:19 Acute vaginitis Completed 202001/31/2021 01/17/2021 - Comments only - Nathalie Feldman PA-C - While awaiting results of today's VPS, will treat empirically with RXd DIFLUCAN 150mg x 1. Will reconsider FARXIGA as component of antiglycemic regimen if with recurren vaginal complaints. Problem Code: N76.0; Problem Code Type: ICD-10; Not Available [facility] 3 04:03:20 Acute vaginitis Completed 202002/15/2021 02/09/2021 - Comments only - Nathalie Feldman PA-C - Improved, although not fully resolved. Given GI issues, will forgo further ABX treatment at present. Chika agrees to continue with OTC DESITIN +/- VAGISIL +/- ice for symptomatic relief. Although she declines offered PRODUCT/INDUSTRY CONSULTANT refer today, she agrees to reconsider if sxs ongoing with 2 week recheck. Problem Code: N76.0; Problem Code Type: ICD-10; Not Available [facility] 3 04:03:20 Chronic pain syndrome Active 202009/29/2022 - Comments only - Nathalie Feldman PA-C - Patient to begin on RXd CELEBREX @ 200mg QD (h/o GERD on PPI; failed NAPROXEN, DICLOFENAC, IBUPROFEN, MELOXICAM). Problem Code: G89.4; Problem Code Type: ICD-10; Not Available [facility] 3 04:03:20 Localized eruption of skin Completed 202003/08/2021 02/23/2021 - Comments only - Nathalie Feldman PA-C - Suspect eczema > psoriasis. Will treat with RFd TRIAMCINOLONE 0.5% CREAM BID. Problem Code: R21; Problem Code Type: ICD-10; Not Available [facility] 3 04:03:20 Spasm Completed 202004/22/2021 Problem Code: R25.2; Problem Code Type: ICD-10; Not Available [facility] 3 04:03:20 Disorder of skin and/or subcutaneous tissue Completed 202004/22/2021 04/11/2021 - Comments only - Nathalie Feldman PA-C - - RASH PX continues to support DX eczema > psoriasis, however, in that Chika experienced better effect with use of topical antifungal therapy than routinely TRIAMCINOLONE 0.5% CREAM, will trial PO treatment with KETOCONAZOLE 200mg QD x 14d. OK to supplement with HYDROXYZINE 25mg BID PRN itch. Problem Code: L98.9; Problem Code Type: ICD-10; Not Available [facility] 3 04:03:20 Blood in urine Completed 202005/09/2021 04/25/2021 - Comments only - Nathalie Feldman PA-C - Resolved. Will continue to monitor and maintain low index to schedule for outpatient CT imaging if recurrent. Problem Code: R31.9; Problem Code Type: ICD-10; Not Available [facility] 3 04:03:21 Cough Completed 202005/09/2021 04/25/2021 - Comments only - Nathalie Feldman PA-C - Patient reassured PX findings fairly benign. Suggested patient to treat with OTC MUCINEX and RFd XOPENEX MDI PRN for relief of congestion and wheeze respectively. Will consider for repeat COVID testing +/- CXR if sxs prove ongoing. Problem Code: R05; Problem Code Type: ICD-10; Not Available [facility] 3 04:03:21 Psoriasis Active 2020 Problem Code: L40.8; Problem Code Type: ICD-10; Not Available [facility] 3 04:03:21 Lumbosacral radiculopathy Completed 202006/01/2021 05/18/2021 - Comments only - Nathalie Feldman PA-C - Suspect lumbosacral radiculopathy @ L5-S1/2 level. Will reconsider to schedule for imaging studies as confirmation with future visits. For acute management, if with good response to today's TORADOL injection, patient to call tomorrow to obtain RX 10mg PO Q6h PRN (#20 with no RFs) to use as alternative to IBUPROFEN. Additionally, will ask that Chika begin on LYRICA to titrate to 25mg BID. Problem Code: M54.16; Problem Code Type: ICD-10; Not Available [facility] 3 04:03:21 Furuncle Completed 202106/19/2023 Problem Code: L02.92; Problem Code Type: ICD-10; NATHALIE FELDMAN PA-C [address], [place], [address] , [facility]. 4 07:38:13 Retention of urine Completed 202101/16/2022 Problem Code: R33.9; Problem Code Type: ICD-10; Not Available [facility] 3 04:03:22 Stomatitis Completed 202101/14/2022 01/13/2022 - Comments only - Zahraa JOE - Prescription for nystatin swish and spit 5 mL 4 times a day for 10 to 14 days. Advised to replace her toothbrush and tongue brush. Patient handout given on thrush. Discussed signs and symptoms to return or contact PCP. Patient understands and agrees with plan. Not Available [facility] 3 04:03:22 Chest pain Active 202103/01/2022 - Comments only - Nathalie Feldman PA-C - Recent stress testing OK. In an effort to better control palpitation sxs, to increase PROPRANOLOL to 60mg BID. Problem Code: R07.89; Problem Code Type: ICD-10; Not Available [facility] 3 04:03:22 Acute pharyngitis Completed 202103/15/2022 03/01/2022 - Comments only - Nathalie Feldman PA-C - In office strep, flu, and COVID testing NEGATIVE. Will cover for left OM with RXd ZITHROMAX as ZPAK. Patient encouraged to continue to use OTC MUCINEX and PROAIR MDI PRN for relief of PM chest congestion and SOB/wheeze respectively. Problem Code: J02.9; Problem Code Type: ICD-10; Not Available [facility] 3 04:03:22 Cough Active 202104/09/2022 - Comments only - Nathalie Feldman PA-C - While awaiting results of today's laboratory testing and requested CXR, patient to begin on RXd PREDNISONE as directed on extended taper. OK to continue to supplement with OTC MUCINEX +/- ALBUTEROL MDI PRN for relief of chest congestive sxs and wheezing/bron choconstricti on respectively. Problem Code: R05.1; Problem Code Type: ICD-10; Not Available [facility] 3 04:03:23 Did not wait for treatment Completed 202106/19/2023 03/27/2022 - Comments only - Ling Kingston SALES DEPARTMENT SUPERVISOR - Patient left [facility] before provider able to assess. Attempted to reach patient by phone, voicemail box full. Problem Code: Z53.21; Problem Code Type: ICD-10; NATHALIE FELDMAN PA-C [address], [place], [address] , [facility]. 4 07:38:03 Palpitations Active 202108/28/2022 - Comments only - Nathalie Feldman PA-C - As per patient request, [place] [facility] [place] [facility]. To continue on PROPRANOLOL 40mg BID (did not tolerate increase in dose) and LISINOPRIL 20mg QD as RXd. Problem Code: R00.2; Problem Code Type: ICD-10; Not Available [facility] 3 04:03:23 Hypomagnesemi a Active 202108/28/2022 - Comments only - Nathalie Feldman PA-C - Patient now tolerating OTC MAGNESIUM supplement without ASE concerns. Will plan to repeat magnesium level with next set of labs as monitoring. Problem Code: E83.42; Problem Code Type: ICD-10; Not Available [facility] 3 04:03:23 Diarrhea Active 202201/08/2023 - Comments only - Nathalie Feldman PA-C - - CHRONIC DIARRHEA Patient to f/u for colonoscopy as rescheduled in late March ([facility]). In the interim, to continue to use OTC IMMODIUM PRN for symptom control. Problem Code: R19.7; Problem Code Type: ICD-10; Not Available [facility] 3 04:03:23 General examination of patient Active 2022 Problem Code: Z00.8; Problem Code Type: ICD-10; Not Available [facility] 3 04:03:24 Tinnitus of left ear Active 2022 Problem Code: H93.12; Problem Code Type: ICD-10; Not Available [facility] 3 04:03:24 Peripheral vascular disease Active 202211/21/2022 - Comments only - Nathalie Feldman PA-C - With concern for PVD contributing to claudication and poor cirulation, will refer to [facility] for ABIs Problem Code: I73.9; Problem Code Type: ICD-10; Not Available [facility] 3 04:03:24 Pelvic and perineal pain Active 202212/22/2022 - Comments only - Nathalie Feldman PA-C - In-office U/A OK (NEGATIVE for blood). Assuming benign findings with today's collected VPS, will consider to schedule for pelvic x-ray. Problem Code: R10.2; Problem Code Type: ICD-10; Not Available [facility] 3 04:03:24 Cough Completed 202201/19/2023 01/08/2023 - Comments only - Nathalie Feldman PA-C - Given patient responded well to in-office updraft treatment, will forgo PO steroid dosing at this time. Instead, will treat with RXd ZITHROMAX as ZPAK and ask that Chika continue to use ALBUTEROL via MDI +/- nebulizer liberally. Will consider to obtain CXR +/- laboratory testing (CBC, CMP) if sxs fail to improve as expected over course of this upcoming weekend. 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 201807/22/2020 Problem Code: F52.31; Problem Code Type: ICD-10; Not Available [facility] 3 04:03:25 Disorder of tongue Completed 201804/29/2019 Problem Code: K14.8; Problem Code Type: ICD-10; Not Available [facility] 3 04:03:26 Acute exacerbation of chronic obstructive pulmonary disease Completed 201912/09/2019 Problem Code: J44.1; Problem Code Type: ICD-10; Not Available [facility] 3 04:03:26 Spasm Completed 201907/22/2020 Problem Code: R25.2; Problem Code Type: ICD-10; Not Available [facility] 3 04:03:26 Localized eruption of skin Completed 201907/22/2020 Problem Code: R21; Problem Code Type: ICD-10; Not Available [facility] 3 04:03:26 Jones - lesion Completed 201709/12/2017 Problem Code: L84; Problem Code Type: ICD-10; Not Available [facility] 3 04:03:27 Headache Completed 201702/27/2019 Problem Code: R51; Problem Code Type: ICD-10; Not Available [facility] 3 04:03:27 Arthropathy of right knee joint Completed 201702/27/2019 Problem Code: M25.861; Problem Code Type: ICD-10; Not Available [facility] 3 04:03:27 Nocturnal enuresis Completed 201907/22/2020 Problem Code: N39.44; Problem Code Type: ICD-10; Not Available [facility] 3 04:03:27 Hernia of abdominal cavity Completed 201902/09/2021 Problem Code: K46.9; Problem Code Type: ICD-10; Not Available [facility] 3 04:03:28 Abnormal urine Completed 201911/03/2019 Problem Code: R82.90; Problem Code Type: ICD-10; Not Available [facility] 3 04:03:28 Screening for malignant neoplasm of breast Completed 201804/29/2019 Problem Code: Z12.39; Problem Code Type: ICD-10; Not Available [facility] 3 04:03:28 Idiopathic osteoarthriti s Completed 201602/28/2023 Problem Code: M19.91; Problem Code Type: ICD-10; Not Available [facility] 3 04:03:29 Onychomycosis due to dermatophyte Completed 201702/27/2019 Problem Code: B35.1; Problem Code Type: ICD-10; Not Available [facility] 3 04:03:29 Insect bite Completed 202012/01/2020 Not Available [facility] 3 04:03:29 Atopic dermatitis Completed 202012/01/2020 Problem Code: L20.9; Problem Code Type: ICD-10; Not Available [facility] 3 04:03:29 Nausea Completed 201609/12/2017 Problem Code: R11.0; Problem Code Type: ICD-10; Not Available [facility] 3 04:03:30 Nicotine dependence Completed 201802/27/2019 Problem Code: F17.209; Problem Code Type: ICD-10; Not Available [facility] 3 04:03:30 Adjustment disorder Completed 201909/12/2019 Problem Code: F43.20; Problem Code Type: ICD-10; Not Available [facility] 3 04:03:30 Abnormal weight gain Completed 202002/09/2021 Problem Code: R63.5; Problem Code Type: ICD-10; Not Available [facility] 3 04:03:30 Diarrhea Completed 201706/24/2020 Problem Code: R19.7; Problem Code Type: ICD-10; Not Available [facility] 3 04:03:31 Umbilical hernia Completed 201602/27/2019 Problem Code: K42.9; Problem Code Type: ICD-10; Not Available [facility] 3 04:03:31 Acute exacerbation of chronic obstructive pulmonary disease Completed 201702/09/2021 Problem Code: J44.1; Problem Code Type: ICD-10; Not Available [facility] 3 04:03:31 Localized eruption of skin Completed 201702/20/2018 Problem Code: R21; Problem Code Type: ICD-10; Not Available [facility] 3 04:03:32 Intertrigo Completed 201712/17/2017 Problem Code: L30.4; Problem Code Type: ICD-10; Not Available [facility] 3 04:03:32 Swollen abdomen Completed 201906/24/2020 Not Available [facility] 3 04:03:32 Amnesia Completed 201602/09/2021 Problem Code: R41.3; Problem Code Type: ICD-10; Not Available [facility] 3 04:03:32 Hand pain Completed 202012/01/2020 Problem Code: M79.643; Problem Code Type: ICD-10; Not Available [facility] 3 04:03:33 Dyspnea Completed 201907/22/2020 Problem Code: R06.00; Problem Code Type: ICD-10; Not Available [facility] 3 04:03:33 Fatigue Completed 201804/29/2019 Problem Code: R53.83; Problem Code Type: ICD-10; Not Available [facility] 3 04:03:33 Follicular cysts of skin and subcutaneous tissue Completed 201802/09/2021 Problem Code: L72.9; Problem Code Type: ICD-10; Not Available [facility] 3 04:03:34 Suicidal thoughts Completed 201802/09/2021 Problem Code: R45.851; Problem Code Type: ICD-10; Not Available [facility] 3 04:03:34 Migraine without aura, not refractory Completed 201602/27/2019 Problem Code: G43.009; Problem Code Type: ICD-10; Not Available [facility] 3 04:03:34 Chest pain Completed 201702/27/2019 Problem Code: R07.9; Problem Code Type: ICD-10; Not Available [facility] 3 04:03:34 Pelvic and perineal pain Completed 201804/29/2019 Problem Code: R10.2; Problem Code Type: ICD-10; Not Available [facility] 3 04:03:35 Itching of skin Completed 201804/29/2019 Problem Code: L29.8; Problem Code Type: ICD-10; Not Available [facility] 3 04:03:35 Right upper quadrant pain Completed 201708/23/2017 Problem Code: R10.11; Problem Code Type: ICD-10; Not Available [facility] 3 04:03:35 Pain in thoracic spine Completed 201802/28/2023 Problem Code: M54.89; Problem Code Type: ICD-10; Not Available [facility] 3 04:03:36 Pain of breast Completed 201907/22/2020 Problem Code: N64.4; Problem Code Type: ICD-10; Not Available [facility] 3 04:03:36 Contact dermatitis Completed 201902/09/2021 Problem Code: L25.9; Problem Code Type: ICD-10; Not Available [facility] 3 04:03:36 Arthropathy of joint of hand Completed 201602/09/2021 Problem Code: M12.849; Problem Code Type: ICD-10; Not Available [facility] 3 04:03:37 Eczema Completed 201907/25/2019 Problem Code: L30.9; Problem Code Type: ICD-10; Not Available [facility] 3 04:03:37 Generalized abdominal pain Completed 201906/24/2020 Problem Code: R10.84; Problem Code Type: ICD-10; Not Available [facility] 3 04:03:37 Diarrhea Completed 202009/16/2020 Problem Code: R19.7; Problem Code Type: ICD-10; Not Available [facility] 3 04:03:38 Pain of breast Completed 201604/13/2017 Problem Code: N64.4; Problem Code Type: ICD-10; Not Available [facility] 3 04:03:38 Severe obesity Completed 201609/12/2017 Problem Code: E66.01; Problem Code Type: ICD-10; Not Available [facility] 3 04:03:38 Venereal disease screening Completed 201906/24/2020 Problem Code: Z11.3; Problem Code Type: ICD-10; Not Available [facility] 3 04:03:39 Family problems Completed 201704/29/2019 Problem Code: Z63.79; Problem Code Type: ICD-10; Not Available [facility] 3 04:03:39 Noninflammato ry disorder of the vagina Completed 201802/28/2023 Problem Code: N89.8; Problem Code Type: ICD-10; Not Available [facility] 3 04:03:39 Pain of right lower leg Completed 201906/24/2020 Problem Code: M79.661; Problem Code Type: ICD-10; Not Available [facility] 3 04:03:40 Candidiasis of skin Completed 202203/02/2023 02/16/2023 - Comments only - Nathalie Feldman PA-C - Will treat with RXd TERBINAFINE CREAM BID. Otherwise patient encouraged to keep area as clean and dry as posssible (consider dental chairside assistant on low after showering) to promote skin healing. Problem Code: B37.2; Problem Code Type: ICD-10; Not Available [facility] 4 05:34:22 Candidiasis of skin Completed 202203/20/2023 03/08/2023 - Comments only - Nathalie Feldman PA-C - Given lack of response to topical antifungal treatments to present, will cover with RXd DIFLUCAN 100mg QD x 7d. Chika will otherwise continue efforts to keep the area clean and dry (consider dental chairside assistant after showering) and use OTC zinc oxide containing DESITIN to promote skin healing. Problem Code: B37.2; Problem Code Type: ICD-10; Not Available [facility] 4 05:34:22 Bilateral adenoma of adrenal glands Active [address] abdomen/pelvi s at [facility] 09/29/23 ADRIANA PADILLA, OWNER/PHOTOGRAPHER-BC [address], [place], [address] , [facility] - [facility] 4 18:59:52 Chronic eczema Active 2023 ARNOLDO DICKERSON LPN null, [place] - [facility] 4 09:13:42 Problem Notes None recorded. Procedures Surgical History None recorded. Imaging Results Imaging Date Name Status LastModified by Organiz ation Details LastModified Time 09/29/2023 vrad report completed [address] [place], [id number] 10/01/2023 08:56:09 09/29/2023 vrad report completed [address] [place], [id number] 10/01/2023 08:56:09 09/29/2023 x-ray imaging report completed [address] [place], [id number] 10/01/2023 08:56:10 09/29/2023 CT imaging report completed [address] [place], [id number] 10/01/2023 08:56:10 Procedure Notes None recorded. Medical Equipment None Reported. Allergies Allergen ID Allergen Name Allergen Category Reaction Reaction Severity Criticality Documentation Date Start Date Code Code System Note Provider Name and Address Organization Details Recorded Time Bactrim medicatio n Not available Not available Not available 04/13/20232016 51870 9 RxNorm Not Available [facility] 3 16:11:46 iodine medicatio n Not available Not available Not available 04/13/20232016 5933 RxNorm Not Available [facility] 3 16:11:47 simvastat in medicatio n rash moderate Not available 04/13/20232019 58979 RxNorm rash Not Available [facility] 3 16:11:47 Augmentin medicatio n Not available Not available Not available 04/13/20232016 90698 2 RxNorm Not Available [facility] 3 16:11:47 codeine medicatio n vomiting moderate Not available 04/13/20232017 2670 RxNorm vomit ing Aller gyCod e: '0040 17707 32'; Aller gyNam e: 'CODE INE'; Aller gyCon ceptT ype: 'NDC' ; Not Available [facility] 3 16:11:47 Betadine medicatio n rash moderate Not available 04/13/20232016 70903 0 RxNorm skin rash Aller gyRea ction : 'skin rash' ; Aller gyCod e: '0053 37942 80'; Aller gyNam e: 'BETA DINE' ; Aller gyCon ceptT ype: 'NDC' ; Not Available [facility] 3 16:11:47 Protonix medicatio n other moderate Not available 04/13/20232016 58602 4 RxNorm sick Aller gyRea ction : 'sick '; Aller gyCod e: '8852 57'; Aller gyNam e: 'PROT MILDRED' ; Aller gyCon ceptT ype: 'RX Norm' ; Not Available [facility] 3 16:11:47 cyprohept adine hydrochlo ride medicatio n Not available Not available Not available 04/13/20232016 65800 2 RxNorm Aller gyCod e: '8660 21'; Aller gyNam e: 'CYPR OHEPT ADINE HCL'; Aller gyCon ceptT ype: 'RX Norm' ; Not Available [facility] 3 16:11:47 71577 Rybelsus medicatio n rash moderate low 10/16/2023 34434 45 RxNorm Dulce Maria garrido LPN [facility], [place] - [facility]. 4 14:44:29 Medications Name Sig Start Date Stop Date Status Note LastModified by Organization Details LastModified Time Hydromet 5 mg-1.5 mg/5 mL oral syrup 5 mL prn q 6 hrs 11/16 completed Not Available Not Available Not Available celecoxib 200 mg capsule TAKE 1 CAPSULE BY MOUTH EVERY DAY 09/30 completed Not Available Not Available Not Available cyclobenz aprine 10 mg tablet TAKE 1 TABLET BY MOUTH TWICE DAILY NEEDED FOR MUSCLE PAIN active Not Available Not Available No t Available Inderal LA 80 mg capsule,e xtended release take 1 tablet every morning 09/22 completed this replaces proprano lol 40mg QHS Not Available Not Available Not Available fluconazo le 100 mg tablet TAKE 1 TABLET BY MOUTH ONCE DAILY 05/16 completed Not Available Not Available Not Available hydrocort isone 0.5 % topical cream apply twice a day to affected area 07/22 completed Not Available Not Available Not Available terbinafi ne HCl 1 % topical cream APPLY 1 GRAM TO THE AFFECTED AREA TWICE DAILY NEEDED FOR GROIN RASH 05/16 completed Not Available Not Available Not Available metformin 500 mg tablet Take 1 tablet by mouth twice a day 11/25 completed Not Available Not Available Not Available diclofena c 3 % topical gel apply to affected area BID 04/19 completed Not Available Not Available Not Available Adderall 20 mg tablet NEKHS 09/30 completed Not Available Not Available Not Available nystatin 100,000 unit/mL oral suspensio n Take 5 ml by mouth four times a day Swish and hold in mouth for 30 to 60 seconds, then swallow 01/25 completed Not Available Not Available Not Available prednison e 10 mg tablet Take 4 tablet by mouth as directed 4 tab qd for 4 days, 3 tab qd for 3 days, 2 tab qd for 2 days, 1 tab qd po x1 day. 05/22 completed Not Available Not Available Not Available doxycycli ne hyclate 100 mg capsule Take 1 capsule twice a day by oral route for 7 days. 2023 active Not Available Not Available Not Avai lable propranol ol 80 mg tablet Take 1 tab by mouth twice daily 2017 active this replaces proprano lol 80mg dose Not Available Not Available Not Available ipratropi um 0.5 mg-albute rol 3 mg (2.5 mg base)/3 mL nebulizat ion soln Take 3 ml using nebulize r every four hours as needed 2021 active Not Available Not Available Not Avai lable clindamyc in HCl 300 mg capsule Take 1 capsule by mouth twice a day 12/29 completed Not Available Not Available Not Available albuterol sulfate 2.5 mg/3 mL (0.083 %) solution for nebulizat ion Inhale 1 ampul every four to six hours as needed 10/20 completed Not Available Not Available Not Available trazodone 50 mg tablet 3 tablet by mouth at bedtime 06/17 completed prescrib ed by [facility] Not Available Not Available Not Available triamcino lone acetonide 0.5 % topical cream Apply a small amount to affected area twice a day scalp, under skin folds. 2023 active Not Available Not Available Not Avai lable ketoconaz ole 200 mg tablet Take 1 tablet by mouth once a day 04/22 completed Not Available Not Available Not Available Risperdal 1 mg tablet Take 1 tab by mouth every morning. Take two by mouth every evening 10/17 completed Not Available Not Available Not Available azithromy daysi 250 mg tablet Take 1 tablet by mouth once a day Take 2 tablets on day 1. 05/16 completed Not Available Not Available Not Available ibuprofen 800 mg tablet Take 1 tablet by mouth three times a day as needed 2019 active Not Available Not Available Not Avai lable Risperdal 2 mg tablet Take 1 tab by mouth QHS 2016 active Not Available Not Available Not Avai lable nystatin 100,000 unit/gram topical ointment APPLY TOPICALL Y TO THE AFFECTED AREA TWICE DAILY 05/29 completed Not Available Not Available Not Available risperido ne 4 mg tablet TAKE ONE TABLET BY MOUTH AT BEDTIME active Not Available Not Available No t Available hydrocodo ne 5 mg-acetam inophen 325 mg tablet Take 1/2 tablet Q8H PRN 02/20 completed Not Available Not Available Not Available prazosin 1 mg capsule Take one capsule at HS 07/05 completed Not Available Not Available Not Available meloxicam 15 mg tablet Take 1 tablet by mouth once a day 04/07 completed Not Available Not Available Not Available lisinopri l 20 mg tablet TAKE 1 TABLET BY MOUTH EVERY DAY active Not Available Not Available No t Available prednison e 20 mg tablet Take 2 tablet by mouth once a day 11/30 completed Not Available Not Available Not Available lovastati n 40 mg tablet Take 1 tablet by mouth every night 03/24 completed Not Available Not Available Not Available quetiapin e 200 mg tablet Take 1 tablet by mouth at bedtime 2021 active Not Available Not Available Not Avai lable clonazepa m 1 mg tablet TAKE 1 TABLET BY MOUTH DAILY 05/29 completed Not Available Not Available Not Available clindamyc in HCl 150 mg capsule Take 3 capsule by mouth three times a day 450 mg PO TID x 7 days 07/06 completed Not Available Not Available Not Available Diflucan 150 mg tablet Take 1 tablet by mouth single dose 01/18 completed Not Available Not Available Not Available propranol ol 60 mg tablet Take 1 tablet by mouth twice a day 2020 active Not Available Not Available Not Avai lable hydroxyzi ne HCl 50 mg tablet Take 1 tablet by mouth three times a day as needed 10/15 completed Not Available Not Available Not Available amlodipin e 5 mg tablet Take 1 tablet by mouth once a day 11/25 completed Not Available Not Available Not Available omeprazol e 40 mg capsule,d elayed release TAKE 1 CAPSULE BY MOUTH EVERY DAY active Not Available Not Available No t Available quetiapin e 100 mg tablet Take 1 tablet by mouth at bedtime 08/25 completed Not Available Not Available Not Available triamcino lone acetonide 0.1 % topical cream APPLY A SMALL AMOUNT TOPICALL Y TO THE AFFECTED AREA TWICE DAILY NEEDED UNDER SKIN FOLD FOR ECZEMA TWICE DAILY 01/21 completed 0.1% does not work, will be switched to 0.5% cream Not Available Not Available Not Available Medrol 4 mg tablet take per package instruct ions 06/27 completed Not Available Not Available Not Available simvastat in 40 mg tablet Take 1 tab by mouth daily at bedtime 07/25 completed Not Available Not Available Not Available Adderall XR 20 mg capsule,e xtended release TAKE ONE CAPSULE BY MOUTH EVERY DAY; COMBINE WITH 10MG CAPSULE FOR TOTAL DAILY DOSE OF 30MG active Not Available Not Available No t Available ketorolac 10 mg tablet TAKE 1 TABLET BY MOUTH EVERY 6 HOURS FOR 5 DAYS FOR LOWER BACK PAIN 01/21 completed Not Available Not Available Not Available Macrobid 100 mg capsule Take 1 cap by mouth twice daily 12/17 completed Not Available Not Available Not Available Zofran 4 mg tablet take 1 tablet Q8H PRN 05/29 completed Not Available Not Available Not Available Tessalon Perles 100 mg capsule take 1 tab po TID prn cough 03/26 completed Not Available Not Available Not Available clonidine HCl 0.2 mg tablet 05/16 completed Not Available Not Available Not Available propranol ol 40 mg tablet Take 1 tablet by mouth twice a day 2023 active Not Available Not Available Not Avai lable magnesium oxide 400 mg (241.3 mg magnesium ) tablet TAKE ONE TABLET BY MOUTH EVERY DAY active Not Available Not Available No t Available hydrocodo ne-homatr opine 5 mg-1.5 mg tablet 5 ml po HS prn for coughing - enough for 4 days 05/29 completed Not Available Not Available Not Available trazodone 100 mg tablet TAKE TWO TABLETS BY MOUTH EVERY EVENING AT BEDTIME active Not Available Not Available No t Available Flagyl 500 mg tablet Take 1 tablet by mouth twice a day 02/05 completed Not Available Not Available Not Available baclofen 10 mg tablet TAKE 1-2 TABLETS BY MOUTH TWICE DAILY NEEDED FOR PAIN 01/02 completed Not Available Not Available Not Available cephalexi n 500 mg capsule Take one tab by mouth three times daily. 04/18 completed Not Available Not Available Not Available diphenhyd ramine 25 mg capsule Take one tab PO BID prn 07/22 completed Not Available Not Available Not Available neomycin- polymyxin -dexameth 3.5 mg/mL-10, 000 unit/mL-0 .1% eye drops SHAKE WELL AND INSTILL 1 DROP INTO BOTH EYES FOUR TIMES DAILY FOR 7 DAYS. 05/16 completed Not Available Not Available Not Available Cipro 500 mg tablet 1 tablet by mouth twice a day 01/05 completed Not Available Not Available Not Available nystatin 100,000 unit/gram topical cream apply twice daily to affected area: groin, breast. 12/17 completed Not Available Not Available Not Available lisinopri l 10 mg tablet TAKE ONE TABLET BY MOUTH EVERY DAY active Not Available Not Available No t Available prednison e 50 mg tablet take 1 tablet PO QD 03/28 completed [facility] Not Available Not Available Not Available polymyxin B sulfate 10,000 unit-trim ethoprim 1 mg/mL eye drops INSTILL 1 DROP IN BOTH EYES FOUR TIMES DAILY FOR 5 TO 7 DAYS 05/16 completed Not Available Not Available Not Available indometha daysi 50 mg capsule Take 1 tablet BID for back pain. Take with food. 05/05 completed Not Available Not Available Not Available nicotine 21 mg/24 hr daily transderm al patch Apply to hairless skin daily, rotate sites 07/17 completed Not Available Not Available Not Available Risperdal 3 mg tablet Take 1 tab by mouth QHS 2016 active Not Available Not Available Not Avai lable Magnesium -Oxide 400 mg tablet Take 1 tablet by mouth once a day 01/03 completed Not Available Not Available Not Available Adderall XR 10 mg capsule,e xtended release TAKE ONE CAPSULE BY MOUTH EVERY DAY IN THE MORNING WITH 20MG CAPSULE FOR TOTAL DAILY DOSE OF 30MG active Not Available Not Available No t Available Actos 15 mg tablet 1 tab po qd. Cannot take metformi n. DC glipizid e 02/25 completed Not Available Not Available Not Available cephalexi n 500 mg tablet Take 1 tab by mouth two times daily for 6 more days 03/22 completed Not Available Not Available Not Available hydroxyzi ne HCl 25 mg tablet TAKE ONE TO TWO TABLETS BY MOUTH TWICE A DAY NEEDED active Not Available Not Available No t Available Imitrex 100 mg tablet Take 1 tab as needed for headache . May repeat x1 after 2 hr. Do not exceed 200mg in a 24 hrs period. 12/17 completed Not Available Not Available Not Available nystatin 100,000 unit/gram topical powder APPLY TOPICALL Y TO THE AFFECTED AREA TWICE DAILY 07/06 completed Not Available Not Available Not Available fluocinol one 0.01 % topical solution Apply to skin twice a day 2020 active Not Available Not Available Not Avai labmayur irbesarta n 150 mg tablet Take 0.5 tab by mouth daily 2018 active Not Available Not Available Not Avjovi labmayur lovastati n 20 mg tablet TAKE ONE TABLET BY MOUTH EVERY DAY active Not Available Not Available No t Available albuterol sulfate HFA 90 mcg/actua tion aerosol inhaler INHALE 1 TO 2 PUFFS BY MOUTH EVERY 4 TO 6 HOURS NEEDED FOR WHEEZING active Not Available Not Available No t Available Adderall 7.5 mg tablet One tab PO BID per MHS 07/05 completed Not Available Not Available Not Available ketorolac 60 mg/2 mL intramusc ular solution inject 2l now 01/21 completed Not Available Not Available Not Available dextroamp hetamine- amphetami ne ER 30 mg 24hr capsule,e xtend release TAKE 1 CAPSULE BY MOUTH EVERY DAY IN THE MORNING 05/16 completed Not Available Not Available Not Available fluocinon kb 0.05 % topical cream Apply 1 a small amount to affected area twice a day 02/22 completed Not Available Not Available Not Available clotrimaz ole 1 % topical cream APPLY SMALL AMOUNT TOPICALL Y TO THE AFFECTED AREA TWICE DAILY 05/29 completed Not Available Not Available Not Available irbesarta n 300 mg tablet take one po qd 05/29 completed Not Available Not Available Not Available glipizide 5 mg tablet Take 1 tab by mouth twice daily 01/22 completed Not Available Not Available Not Available naproxen 500 mg tablet Take 1 tab by mouth twice daily as needed for H/A. Take with food 01/16 completed Not Available Not Available Not Available tobramyci n 0.3 %-dexamet hasone 0.1 % eye drops,jonathon pension SHAKE WELL AND INSTILL 1 DROP INTO BOTH EYES FOUR TIMES A DAY FOR 7 DAYS 05/16 completed Not Available Not Available Not Available hydroxyzi ne pamoate 25 mg capsule TAKE 1 CAPSULE BY MOUTH DAILY NEEDED FOR ACUTE ANXIETY. MAY TAKE 2 CAPSULES IF NEEDED 05/29 completed Not Available Not Available Not Available Adderall XR 25 mg capsule,e xtended release 1 tab qd in morning for ADHD 2018 active prescrib ed by [facility] Not Available Not Available Not Available BD Ultra-Fin e Mini Pen Needle 31 gauge x 3/16 ONE EVERY DAY FOR VICTOZA active Not Available Not Available No t Available Flovent HFA 110 mcg/actua tion aerosol inhaler Inhale 2 puff twice a day with spacer. Rinse mouth after each use 04/07 completed Not Available Not Available Not Available BreatheRi te MDI Spacer Use in conjunct ion with albutero l inhaler. 11/26 completed Not Available Not Available Not Available Lyrica 25 mg capsule TAKE 1 TAB BY MOUTH AT BEDTIME x 1 WEEK THEN INCREASE TO TWICE DAILY 06/17 completed Not Available Not Available Not Available red yeast rice 600 mg capsule 12/22 completed Not Available Not Available Not Available OneTouch UltraMini kit Test blood glucose daily as directed . (Dispens e 1 glucomet er) 06/13 completed DX: E11.9 Not Available Not Available Not Available Advair HFA 230 mcg-21 mcg/actua tion aerosol inhaler Inhale 1 puff by mouth twice daily 05/29 completed Not Available Not Available Not Available Xopenex HFA 45 mcg/actua tion aerosol inhaler Inhale 2 puff using inhaler every six hours as needed 04/27 completed Not Available Not Available Not Available Januvia 100 mg tablet 05/16 completed Not Available Not Available Not Available Symbicort 160 mcg-4.5 mcg/actua tion HFA aerosol inhaler 1 inhalati on by mouth twice daily 06/24 completed Not Available Not Available Not Available FreeStyle Lite Strips TEST ONCE DAILY 08/13 completed Not Available Not Available Not Available Voltaren 1 % topical gel apply twice daily to affected area as needed 03/09 completed Not Available Not Available Not Available diclofena c 1.5 % topical drops apply to affected area twice a day 07/22 completed Not Available Not Available Not Available Dulera 200 mcg-5 mcg/actua tion HFA aerosol inhaler Inhale 2 inhalati ons by mouth twice daily 11/04 completed Not Available Not Available Not Available Chantix Continuin g Month Box 1 mg tablet Take 1 tab by mouth twice daily 12/17 completed Not Available Not Available Not Available Chantix Starting Month Box 0.5 mg (11)-1 mg (42) tablets in dose pack 0.5mg qd x3, then 0.5mg bid x4, then 1mg bid 06/24 completed Not Available Not Available Not Available OneTouch Delica Lancets 30 gauge test twice daily. E11.9 2016 active Not Available Not Available Not Avai lable Victoza 3-Xavier 0.6 mg/0.1 mL (18 mg/3 mL) subcutane ous pen injector INJECT 1.8MG UNDER THE SKIN ONCE DAILY active Not Available Not Available No t Available Breo Ellipta 100 mcg-25 mcg/dose powder for inhalatio n Inhale 1 puff once a day 06/17 completed [facility] Not Available Not Available Not Available Farxiga 10 mg tablet Take 1/2 tablet by mouth once a day 02/08 completed Not Available Not Available Not Available Anoro Ellipta 62.5 mcg-25 mcg/actua tion powder for inhalatio n Inhale 1 puff using inhaler once a day 01/03 completed Not Available Not Available Not Available Trulicity 0.75 mg/0.5 mL subcutane ous pen injector 1 pen injector subcutan eously once a week 11/21 completed Not Available Not Available Not Available Spiriva Respimat 2.5 mcg/actua tion solution for inhalatio n 2 puffs once daily 08/27 completed Not Available Not Available Not Available Saxenda 3 mg/0.5 mL (18 mg/3 mL) subcutane ous pen injector Inject 0.6 mg subcutan eously once a day Increase dose by 0.6 mg weekly as tolerate d to a max dose of 3.0 mg daily 01/13 completed Not Available Not Available Not Available Stiolto Respimat 2.5 mcg-2.5 mcg/actua tion solution for inhalatio n 2 puffs daily (increas ed potency) 11/04 completed Not Available Not Available Not Available Bevespi Aerospher e 9 mcg-4.8 mcg HFA aerosol inhaler 2 inhalati ons BID 03/30 completed Not Available Not Available Not Available Trelegy Ellipta 100 mcg-62.5 mcg-25 mcg powder for inhalatio n 1 puff once daily (has failed Spiriva and Qvar) 06/24 completed Not Available Not Available Not Available Qvar RediHaler 40 mcg/actua tion HFA breath activated aerosol 1 puff ih twice daily 07/22 completed Not Available Not Available Not Available pen needle, diabetic, safety 31 gauge x 3/16 Use 1 needle subcutan eously once a day FOR VICTOZA 2023 active Not Available Not Available Not Avai lable Rybelsus 3 mg tablet Take 1 tablet by mouth once a day for diabetes . Take with <4 oz water 30 min before first food/dri nk/med. 09/30 completed Not Available Not Available Not Available Vitals Date Recorded Body height Oxygen saturation Oxygen saturation in Arterial blood by Pulse oximetry Heart rate Body mass index (BMI) Body weight Systolic blood pressure Diastolic blood pressure Provider Name and Address Organization Details Last Updated DateTime 4 153.67 cm 96 % 96 % 78 /min 42.3 kg/m2 10514.3 2 g 114 mm[Hg] 70 mm[Hg] PEDRO RIOJAS MA [facility] 4 08:14:21 Date Recorded Body height Body mass index (BMI) Body weight Heart rate Systolic blood pressure Diastolic blood pressure Provider Name and Address Organization Details Last Updated DateTime 4 153.67 cm 42.1 kg/m2 72283.4 5 g 72 /min 108 mm[Hg] 76 mm[Hg] SAUL MANUEL RN [facility] 4 08:27:21 Date Recorded Body height Body mass index (BMI) Body weight Body temperature Heart rate Systolic blood pressure Diastolic blood pressure Provider Name and Address Organization Details Last Updated DateTime 4 153.67 cm 41.5 kg/m2 56374.4 g 96.4 [degF] 88 /min 110 mm[Hg] 70 mm[Hg] Dulce Maria garrido [employer] [facility] 4 09:55:34 Date Recorded Body height Body mass index (BMI) Body weight Heart rate Systolic blood pressure Diastolic blood pressure Provider Name and Address Organization Details Last Updated DateTime 4 153.67 cm 41.6 kg/m2 83158.3 9 g 75 /min 102 mm[Hg] 60 mm[Hg] Dulce Maria garrido [employer] [facility] 4 14:43:28 Date Recorded Body height Body mass index (BMI) Body weight Heart rate Body temperature Systolic blood pressure Diastolic blood pressure Provider Name and Address Organization Details Last Updated DateTime 4 152.4 cm 42.1 kg/m2 19437.4 6 g 68 /min 97.3 [degF] 104 mm[Hg] 66 mm[Hg] ARNOLDO DICKERSON LPN [facility] 4 09:09:40 Social History Question Answer Notes LastModified by Organizat ion Details LastModified Time Tobacco Smoking Status Current Every Day Smoker ROOPA SAHU, [facility] 05/29/2023 08:00:26 What Was The Date Of Your Most Recent Tobacco Screening? 10/01/2023 [email or web address] Information not available 10/01/2023 What Is Your Current Pack Years? 30ormorepack years Information not available 05/29/2023 At What Age Did You Start Smoking Tobacco? 6 Information not available 05/29/2023 How Much Tobacco Do You Smoke? 0.5 PPD Information not available 05/29/2023 Has Tobacco Cessation Counseling Been Provided? No Information not available 05/29/2023 How Many Years Have You Smoked Tobacco? 52 [email or web address] Information not available 10/01/2023 Do You Or Have You Ever Used Any Other Forms Of Tobacco Or Nicotine? No Information not available 05/29/2023 Sex: Female Functional Status None recorded. Mental Status None recorded. Family History Relationship Description Onset Age of this Age Resolved Age Notes Mother Family history of malignant neoplasm of uterus Paternal Grandmother Family history of heart failure Notes:*Problem: 2 kids - [place] only to daughter, not son Medical History No medical history recorded. Gynecological HistoryNo gynecological history recorded. Obstetrics History GPAL:G 0 P 0 0 0 0 Immunizations Vaccine Type Date Status Provider Name and Address Organization Details Recorded Time Hep B, adolescent or pediatric 05/07/2017 completed Not Available [facility] 04/13/2023 06:16:25 Tdap 08/08/2020 completed Not Available [facility] 06:16:26 Tdap 10/19/2014 completed Not Available [facility] 06:16:26 Influenza, split virus, quadrivalent, PF 03/08/2021 completed Not Available [facility] 04/13/2023 06:16:26 Influenza, split virus, quadrivalent, PF 05/22/2022 completed Not Available [facility] 04/13/2023 06:16:26 COVID-19, mRNA, LNP-S, PF, 100 mcg/0.5mL dose or 50 mcg/0.25mL dose 06/17/2021 completed Not Available [facility] 04/13/2023 06:16:26 COVID-19, mRNA, LNP-S, PF, 100 mcg/0.5mL dose or 50 mcg/0.25mL dose 10/12/2020 completed Not Available [facility] 04/13/2023 06:16:26 COVID-19, mRNA, LNP-S, PF, 100 mcg/0.5mL dose or 50 mcg/0.25mL dose 11/09/2020 completed Not Available [facility] 04/13/2023 06:16:26 COVID-19, mRNA, LNP-S, bivalent, PF, 30 mcg/0.3 mL dose 05/22/2022 completed Not Available [facility] 04/13/20 06:16:26 pneumococcal polysaccharide PPV23 03/04/2008 completed Not Available [facility] 2022 06:16:26 Hep B, adult 03/08/2021 completed Not Available [facility] 04/13/2023 06:16:27 Hep B, adult 03/16/2020 completed Not Available [facility] 04/13/2023 06:16:27 Hep A, adult 03/16/2020 completed Not Available [facility] 04/13/2023 06:16:27 Hep A, adult 05/07/2017 completed Not Available [facility] 04/13/2023 06:16:27 influenza, unspecified formulation 02/10/2014 completed Not Available [facility] 04/13/2023 06:16:27 influenza, unspecified formulation 03/06/2023 completed ROOPA Ames, [facility] 05/26/2023 20:27:38 Influenza, split virus, quadrivalent, PF 03/06/2023 completed Not Available [facility] 06/15/2023 05:33:04 Pneumococcal conjugate PCV20, polysaccharide [id number] conjugate, adjuvant, PF 03/06/2023 completed Not Available [facility] 06/15/2023 05:33:04 Past Encounters Encounter ID Performer Location Encounter Start Date Encounter Closed Date Diagnosis/Indication Diagnosis SNOMED-CT Code [id number] MYRANDA STAPLES [address] [address] 05/16/2023 09:14:42 05/16/2023 09:49:08 Intertrigo [id number] NATHALIE FELDMAN PA-C [address] [address] 05/29/2023 07:48:40 05/29/2023 08:41:36 Candidal intertrigo [id number] NATHALIE FELDMAN PA-C [address] [address] 07/06/2023 08:06:56 07/06/2023 09:15:46 Essential hypertension 62328973 Hyperlipidemia 27914539 Type 2 claudio betes mellitus without complication 553728227 Candidal intertrigo 2661 [address]83[address] Pain of le ft hip joint 592630710296621 [id number] NATHALIE FELDMAN PA-C [address] [address] 09/07/2023 08:06:23 09/07/2023 09:47:45 Essential hypertension 45228306 Hyperlipidemia 83106438 Type 2 claudio betes mellitus without complication 278957324 Chronic pain syndrome 37 3574588 Candidal intertrigo 2661 [address] [id number] ADRIANA PADILLA, [facility]-[address] [address] 10/01/2023 09:27:34 10/01/2023 11:23:55 Low back pain 004918748 Bilateral adenoma of adrenal glands 763885767502157 00 [id number] NATHALIE FELDMAN PA-C [address] [address] 10/16/2023 14:34:38 10/16/2023 15:45:41 Type 2 diabetes mellitus without complication 921726562 Chronic back pain 247078 002 Bilateral adenoma of adrenal glands 111821288817762 00 Hyperlipidemia 21162706 Essential hypertension 55951676 Candidal intertrigo 2661 46910 [id number] NATHALIE FELDMAN PA-C [address] [address] 01/22/2024 08:50:39 01/22/2024 10:04:59 Type 2 diabetes mellitus without complication 264741692 Hyperlipidemia 73384315 Essential hypertension 72111593 Candidal intertrigo 2661 44630 Hypomagnesemia 839254401 Chronic eczema 27245814 Furuncle of groin 603905 03 Health Concerns Section Related Observation LastModified by Organization Detai ls LastModified Time None Recorded Concern Status LastModified by Organization Details LastModified Time None Recorded Advance Directives Directive None Recorded Payers Encounter Date Sequence Insurance Name Policy Number Policy Richard Covered Member ID Richard Member ID Guarantor Name 07/06/2023 1 [employer] ([employer]ICAID) Chika Santos [id number] Chika Santos 09/07/2023 1 [employer] ([employer]ICA[employer]) Chika Santos [id number] Chika Santos 10/01/2023 1 [employer] ([employer]ICAID) Chika Santos [id number] Chika Santos 10/16/2023 1 [facility] (MEDICAID) Chika Santos [id number] Chika Santos 01/22/2024 1 [facility] (MEDICAID) Chika Santos [id number] Chika Santos Notes Date Note Type Note Provider Name and Address Organization Details Recorded Time 07/06/2023 text/html HPI Notes: 57y/o female presenting for 3m f/u DM2, HTN, HPL, chronic diarrhea, and bipolar disorder. [address], [place], [address], [facility] 07/06/2023 09:05:57 09/07/2023 text/html HPI Notes: 57y/o female presenting for f/u DM2, HTN, HPL, and chronic pain. [address], [place], [address], [facility] 09/17/2023 08:57:38 10/01/2023 text/html HPI Notes: Seen at [facility] ED 09/29/23 for L mid/low back pain, which responded well to IV Toradol. ED workup reassuring, including CBC, CMP, lipase, urinalysis, EKG, and CT abd/pelvis, and her symptoms were attributed to muscle spasm. She was discharged with instructions to use cyclobenzaprine and topical Biofreeze, both of which she has at home. She continues with up to 8/10 pain just to the left of her lower thoracic/upper lumbar spine at the level of her waist. She reports some radiation into her L buttock, but no radiation into her hip of leg, no numbness/tingling. She has tried cyclobenzaprine twice, also ibuprofen, Tylenol, heat, and Biofreeze without significant improvement She is not taking prescribed celecoxib, as she did not find this effective, so I have removed it from her medication list. She is not interested in physical therapy at this time. ADRIANA CAO, [facility]- [address], [place], [address], [facility] 10/01/2023 19:01:53 10/16/2023 text/html HPI Notes: 58y/o female presenting for f/u DM2, HTN, HPL, and chronic pain. Chika sought evaluation via [facility] ED 09/29/23 with c/o atraumatic sharp, left sided back back x 3 days. Following ED evaluation to include laboratory testing (U/A, CBC, CMP, lipase), EKG, CXR, and abdominal and pelvic CT imaging, Chika was treated with IV TORADOL for management of back spasms. Seen in f/u via [facility] on 10/01/23, at which point she declined PT referral, however, was accepting of ongoing treatment with TORADOL (60mg IM in-office followed by 10mg PO Q6h PRN). On presentation today, Chika reports sxs have stabilized. [address], [place], [address], [facility]. 10/16/2023 15:57:36 01/22/2024 text/html HPI Notes: 58y/o female presenting for 3m f/u DM2, HTN, HPL, and chronic pain. Patient reports painful ?boil to labia x 3 days. Denies fever, N/V, or other more systemic signs of illness. [address], [place], [address], [facility]. 01/22/2024 11:22:15 OBGyn Episode No OBEpisode recorded.
--- OUTSIDE RECORDS SUMMARY | 2024-01-22 16:14 | XMS_ITS | Encounter Summary ---
Author Organization [facility] Address [address] [place] [address] Care Team Providers Care Operating Engineer Name Role Phone Unavailable Primary Care Provider Unavailabl e Encounter Details Date Type Department Care Team (Late st Contact Info) Description 10/18/2001 Results Only [facility] [address] [place] [address] Johnathan Webber, OMID [address] [place] [address] Social History Tobacco Use Types Packs/Day Years Used Date Smoking Tobacco: Never Assessed Sex and Gender Information Value Date Recorded Sex Assigned at Not on file Gender Identity Not on file Sexual Orientation Not on file documented as of this encounter Plan of Treatment Not on file documented as of this encounter Procedures Procedure Name Priority Date/Time Associated Diagnosis Comments CYTOPATHOLOGY Routine 10/18/2001 0:00 EDT documented in this encounter Results * CYTOPATHOLOGY (10/18/2001 0:00 EDT) Pathology Report: CYTOPATHOLOGY REPORT Reports generated via electronic interface contain original data; however they are lacking the format of the original report. Caution should be taken when reading/interpreti ng unformatted reports. Name: ? PRISCILLA SANTOS ? Accession #: ? [id number] : ? 1965 (Age: 36) ??F ?Collect Date: ? 10/18/2001 Location: ? [facility] ? Receive Date: ? 10/22/2001 Provider: ?JOHNATHAN WEBBER [employer]KER Copy to: ? Specimen/Source: ?Conventional Pap Test, Vagina Last Menstrual Period: ? Previous Gynecologic Pathology: ? KOFFI: years ago Treatment History: ? Hysterectomy: ? SPECIMEN ADEQUACY ? Satisfactory for Evaluation - assessment of transformation zone component not applicable ( e.g. atrophy, vaginal sample, hysterectomy) - scant squamous epithelial component GENERAL CATEGORIZATION ? Negative for Intraepithelial Lesion or Malignancy ? Document reviewed and electronically signed by: ? Claude Bunn, CHARLA(ASCP) ? Report Date: ??10/25/2001 10:07 End of Report SINAI GONZALEZ 10/18/2001 10/22/2001 Johnathan Webber NP PATHOLOGY ORDERABLES Performing Organization Address City/State/[facility] [[email or web address]] Co de Phone Number SINAI GONZALEZ [address] [place] [address] documented in this encounter Visit Diagnoses Not on filedocumented in this encounter
--- OUTSIDE RECORDS SUMMARY | 2024-01-22 16:14 | XMS_ITS | Encounter Summary ---
Author Organization [facility] [place] [address] Care Team Providers Care Xm1 Tank Driver Name Role Phone Mi Tyler Primary Care Provider [phone]- [phone] Reason for Referral * Consultation (Routine) - Closed Specialty Diagnoses / Procedures Referred By Contwm t Referred To Contact Cardiology Diagnoses Palpitations PALPITATIONS. PT REQUESTS . Mi Tyler PA [address] [place] [address] Uriel Panda MD [facility] [place] [address] Referral ID Status Reason Start Date Expiration Date V isits Requested Visits Authorized [id number] Closed Consult, Test & Treat 06/12/2022 06/12/2023 1 1 Encounter Details Date Type Department Care Team (Late st Contact Info) Description 06/12/2022 Transcribe Orders eDH Incoming Referrals [phone] Mi Tyler PA [address] [place] [address] Palpitations Social History Tobacco Use Types Packs/Day [...] as of this encounter Plan of Treatment Scheduled Referrals Name Type Priority Associated Diagnoses Order Schedule Referral to Cardiology Outpatient Referral Routine Palpitations Ordered: 06/12/2022 documented as of this encounter Visit Diagnoses Diagnosis Palpitations documented in this encounter Care Teams Xm1 Tank Driver Relationship Specialty Start Date End Date Mi Tyler PA [address] [place] [address] PCP - General Family Medicine 05/05/21 documented as of this encounter
--- OUTSIDE RECORDS SUMMARY | 2024-01-22 16:14 | XMS_ITS | Encounter Summary ---
Author Organization [facility] Address [address] [place] [address] Care Team Providers Care Oracle Business Analyst Name Role Phone Unknown, Provider Primary Care Provider [phone] Debbie Webber MATERIALS COORDINATOR Unavailable [phone] Encounter Details Date Type Department Care Team (Late st Contact Info) Description 12/10/2019 Lab Requisition [facility] Pathology & Laboratory Medicine - [address] [address] Outr Resulting Lab, Provider Social History Tobacco [...] Procedure Name Priority Date/Time Associated Diagnosis Comments CHLAMYDIA/N. GONORRHOEAE AMPLIFIED NUCLEIC ACID Routine 12/10/2019 9:00 EDT documented in this encounter Results * CHLAMYDIA/N. GONORRHOEAE AMPLIFIED RNA (12/10/2019 9:00 EDT) Neisseria gonorrhoeae Result Negative Negative 12/11/2019 13:48 EDT [facility] Chlamydia trachomatis Result Negative Negative 12/11/2019 13:48 EDT [facility] Urine 12/10/2019 9:00 EDT 12/10/2019 23:08 EDT Narrative [facility] - 12/11/2019 13:48 EDT A first catch urine specimen is acceptable for detection of Gonorrhea and Chlamydia, but might detect up to 10% fewer infections when compared with vaginal and endocervical swab samples. Provider Outr Resulting Lab MICROBIOLOGY - GENERAL ORDERABLES [facility] [address] [place] [address] documented in this encounter Visit Diagnoses Not on filedocumented in this encounter Care Teams Oracle Business Analyst Relationship Specialty Start Date End Date Unknown, Provider, PCP - General 02/18/19 Debbie Webber NP [address] [place] [address] [address] [place] [address] 02/18/19 documented as of this encounter
--- OUTSIDE RECORDS SUMMARY | 2024-01-22 16:14 | XMS_ITS | Encounter Summary ---
Author Organization [facility] [place] [address] Care Team Providers Care Intelligence Support Officer Name Role Phone Ottoniel Jovel DNP Primary Care Provider [phone] Encounter Details Date Type Department Care Team (Late st Contact Info) Description 11/23/2020 Refill Dermatology at [address] [place] [address] Mayela Bell, HAT MENDER Social History Tobacco Use Types Packs/Day Years [...] on filedocumented in this encounter Care Teams Intelligence Support Officer Relationship Specialty Start Date End Date Ottoniel Jovel DNP PCP - General Family Medicine 03/25/19 05/04/21 documented as of this encounter
--- OUTSIDE RECORDS SUMMARY | 2024-01-22 16:14 | XMS_ITS | Encounter Summary ---
[place] [address] Care Team Providers Care Pattern Ruler Name Role Phone Mi Tyler Primary Care Provider [phone]- [phone] Encounter Details Date Type Department Care Team (Late st Contact Info) Description 10/27/2021 Tele[place] [phone] Candie Santana Social History Tobacco Use Types Packs/Day Years [...] AM EDT documented as of this encounter Miscellaneous Notes * Telephone Encounter - Candie Santana - 10/27/2021 8:57 AM EDT call to sched pft Dr Restrepo documented in this encounter Plan of Treatment Not on file documented as of this encounter Visit Diagnoses Not on filedocumented in this encounter Care Teams Pattern Ruler Relationship Specialty Start Date End Date Mi Tyler PA [address] [place] [address] PCP - General Family Medicine 05/05/21 documented as of this encounter
--- OUTSIDE RECORDS SUMMARY | 2024-01-22 16:14 | XMS_ITS | Encounter Summary ---
Author [facility] [place] [address] Care Team Providers Care Um Specialist Name Role Phone Mi Tyler Primary Care Provider [phone]- [phone] Reason for Visit * Reason Onset Date Comments Referral 08/28/2022 Encounter Details Date Type Department Care Team (Late st Contact Info) Description 08/28/2022 Telephone Cardiology at [address] [place] [address] Yulia Rico, event management consultant Social History Tobacco Use Types Packs/Day Years [...] encounter Miscellaneous Notes * Telephone Encounter - Yulia Rico, RN - 08/28/2022 10:25 AM EDT Chika called back. She would still like to see a um specialist. She accepts an appointment September 14 at 2:[address] [facility] Cardiology clinic with Dr. Flood. * Telephone Encounter - Yulia Rico, RN - 08/28/2022 10:12 AM EDT Incoming documents by fax from PCP in [place], [place], were added to Chika's record. Chika was referred to cardiology at Dr. Galen Panda in May. There has not been an appointment scheduled. The central scheduler for sent a letter stating referral was received but they were unsuccessful in setting up an appointment. Chika's outgoing message on her primary phone does not identify her. Message left for call back to [phone] Questions to discuss: 1. Do you still want to see a um specialist? 2. Are you already seeing a um specialist at a non- practice? 3. Do you want to see a um specialist here at the [facility]? documented in this encounter Plan of Treatment Not on file documented as of this encounter Visit Diagnoses Not on filedocumented in this encounter Care Teams Um Specialist Relationship Specialty Start Date End Date Mi Tyler PA [address] [place] [address] PCP - General Family Medicine 05/05/21 documented as of this encounter
--- OUTSIDE RECORDS SUMMARY | 2024-01-22 16:14 | XMS_ITS | Encounter Summary ---
[place] [address] Care Team Providers Care Outreach Rep Name Role Phone Mi Tyler Primary Care Provider [phone]- [phone] Encounter Details Date Type Department Care Team (Late st Contact Info) Description 06/09/2021 Telephone [place] [phone] Mary Jo Pino Social History Tobacco Use Types Packs/Day Years [...] on filedocumented in this encounter Care Teams Outreach Rep Relationship Specialty Start Date End Date Mi Tyler PA [address] [place] [address] PCP - General Family Medicine 05/05/21 documented as of this encounter
--- OUTSIDE RECORDS SUMMARY | 2024-01-22 16:14 | XMS_ITS | Encounter Summary ---
Author Organization [facility] Address [address] [place] [address] Care Team Providers Care Radio Operator Name Role Phone Debbie Webber NP Primary Care Provider [phone] Encounter Details Date Type Department Care Team (Late st Contact Info) Description 04/24/2012 Results Only [facility] [phone] Debbie Webber NP [address] [facility] [address] [place] [address] Social History Tobacco Use Types [...] on filedocumented in this encounter Care Teams Radio Operator Relationship Specialty Start Date End Date Debbie Webber NP [address] [facility] [address] [place] [id number] PCP - General 09/04/11 02/17/19 documented as of this encounter
--- OUTSIDE RECORDS SUMMARY | 2024-01-22 16:14 | XMS_ITS | Continuity of Care Document ---
Author Organization [facility] Address [address] [place] [address] Care Team Providers Care Manual Lathe Machinist Name Role Phone ZAID FELDMANEMELYNGrace Primary Care Provider Assessment No assessment recorded. Plan of Treatment Reminders Order Date Submit Date Provider Last Modified By Organization Details Last Modified Time Details Appointments Follow Up 30 2023 09:00A M Not available Not available Not available Lab magnesium , serum or plasma [address] [facility] (Registration ), [address] [place] [address] [place], [address], 01/22/2024 11:22:15 HbA1c (hemoglob in A1c), blood [address] [facility] (Registration ), [address] [place] [address] [place], [address], 01/22/2024 11:22:15 microalbu min, urine [address], [address] [place], [address], 01/22/2024 11:20:45 lipid panel, serum [address] [facility] (Registration ), [address] [place] [address] [place], [address], 01/22/2024 11:22:15 CMP, serum or plasma [address] [facility] (Registration ), [address] [place] [address] [place], [address], 01/22/2024 11:22:15 Referral None recorded. Procedures None recorded. Surgeries None recorded. Imaging None recorded. Medication Orders doxycycli ne hyclate 100 mg capsule 2023 024 [facility], [address] [place], [address], 01/22/2024 11:20:47 triamcino lone acetonide 0.5 % topical cream 2023 024 [email or web address] [facility], [address] [place], [address], 01/22/2024 11:22:15 Patient TargetsNo targets recorded. Patient InstructionsNo instructions recorded. Reason for Referral Skate Hop Referral for C andidal intertrigo Referring Physician: Mi Feldman, Family Medicine, Encounter Date: 10/16/2023 Results Created Date Observation Date Name Description Value Unit Range Abnormal Flag LastModifiedBy Organization Detail LastModifiedTime 01/22/20 24 01/22/2024 micro album in, urine microalbumin 0 mg/dL Not Available [address], [address], 01/22/2024 09:40:52 Result Notes None recorded. Problems Name Status Onset Date Resolution Date Notes Provider Name and Address Organization Details Recorded Time Essential hypertension Active 201601/08/2023 - Comments only - Mi Feldman PA-C - - HTN Today's BP well WNLs. To continue on PROPRANOLOL 40mg BID and LISINOPRIL 20mg QD as RXd. Problem Code: I10; Problem Code Type: ICD-10; Not Available [facility] 3 04:03:15 Type 2 diabetes mellitus without complication Active 201605/22/2022 - Comments only - Mi Feldman PA-C - As per patient request, will d/c from [facility]. Will plan to repeat HBA1C in 3m as monitoring. Problem Code: E11.9; Problem Code Type: ICD-10; Not Available [facility] [place] 3 04:03:15 Panacinar emphysema Active 2016 Problem Code: J43.1; Problem Code Type: ICD-10; Not Available [facility] [place] 3 04:03:15 Gastroesophag eal reflux disease without esophagitis Active 201604/09/2022 - Comments only - Mi Feldman PA-C - Offered for patient to trial alternative PPI therapy for improved symptom control, however, she is opting to continue with PRILOSEC 40mg QD as RXd for now. Problem Code: K21.9; Problem Code Type: ICD-10; Not Available [facility] [place] 3 04:03:15 Posttraumatic stress disorder Active 201611/21/2022 - Comments only - Mi Feldman PA-C - - CYCLOTHYMIC DISORDER, PTSD, BPD, INSOMNIA Patient encouraged to touch base with [facility] RX[facility] provider re: desire to increase TRAZODONE. She will otherwise continue on current treatment regimen (RISPERDAL, ADDERALL XR, HYDROXYZINE) as RXd. Problem Code: F43.10; Problem Code Type: ICD-10; Not Available [facility] [place] 3 04:03:15 Tobacco dependence caused by cigarettes Active 201608/10/2020 - Comments only - Leandro Mendes MD - He is precontemplat johnny. Discussed her motivation to quit, including wound healing. Problem Code: F17.210; Problem Code Type: ICD-10; Not Available [facility] [place] 3 04:03:15 Adult health examination Active 201605/18/2021 - Comments only - Mi Feldman PA-C - Mammogram order reprinted to allow for scheduling at [facility] at next available. Problem Code: Z00.00; Problem Code Type: ICD-10; Not Available [facility] [place] 3 04:03:16 Acquired absence of cervix and uterus Active 2016 Problem Code: Z90.710; Problem Code Type: ICD-10; [facility] 04:03:16 Hyperlipidemi a Active 201601/08/2023 - Comments only - Mi Feldman PA-C - Maintained on LOVASTATIN 20mg QD. Will plan to repeat lipid profile and CMP in early March as monitoring. Problem Code: E78.5; Problem Code Type: ICD-10; Not Available [facility] 3 04:03:16 Otitis media Completed 201605/28/2017 Problem Code: H66.90; Problem Code Type: ICD-10; Not Available [facility] 3 04:03:16 Wheezing Active 2017 Problem Code: R06.2; Problem Code Type: ICD-10; Not Available [facility] 3 04:03:16 Body mass index 40+ - severely obese Active 2017 Problem Code: Z68.41; Problem Code Type: ICD-10; Not Available [facility] 3 04:03:16 Cough Completed 201710/15/2017 Problem Code: R05; Problem Code Type: ICD-10; Not Available [facility] 3 04:03:16 Insomnia Active 2017 Problem Code: G47.00; Problem Code Type: ICD-10; Not Available [facility] 3 04:03:16 Dyspnea Completed 201704/02/2018 Problem Code: R06.02; Problem Code Type: ICD-10; Not Available [facility] 3 04:03:17 Upper respiratory tract infection caused by Influenza A Completed 201807/21/2018 Problem Code: J09.x2; Problem Code Type: ICD-10; Not Available [facility] 3 04:03:17 Otitis media Completed 201807/21/2018 Problem Code: H66.90; Problem Code Type: ICD-10; Not Available [facility] 3 04:03:17 Attention deficit hyperactivity disorder, predominantly hyperactive impulsive type Active 2018 Problem Code: F90.1; Problem Code Type: ICD-10; Not Available [facility] 3 04:03:17 Borderline personality disorder Active 201802/01/2022 - Comments only - Mi Feldman PA-C - - CYCLOTHYMIC DISORDER, PTSD, BPD Well established with NES. To continue on current treatment regimen (RISPERDAL, ADDERALL XR, SEROQUEL, KLONOPIN) as RXd by specialty service provider. Problem Code: F60.3; Problem Code Type: ICD-10; Not Available [facility] 3 04:03:17 Localized eruption of skin Completed 201808/04/2018 Problem Code: R21; Problem Code Type: ICD-10; Not Available [facility] [place] 3 04:03:17 Acute vaginitis Completed 201808/11/2018 Problem Code: N76.0; Problem Code Type: ICD-10; Not Available [facility] 3 04:03:18 Dyspnea Completed 201808/15/2018 Problem Code: R06.02; Problem Code Type: ICD-10; Not Available [facility] 3 04:03:18 Acute upper respiratory infection Completed 201808/22/2018 08/08/2018 - Comments only - Alaina Hayward COMPUTER VIDEO GAME DESIGNER - Sxs for 24 hours, assume viral. Exacerbating poorly controlled COPD. Problem Code: J06.9; Problem Code Type: ICD-10; Not Available [facility] 3 04:03:18 Low back pain Active 201802/01/2022 - Comments only - Mi Feldman PA-C - Once patient has completed requested cardiac testing, will reconsider to trial previously RXd MOBIC 7.5mg QD. Problem Code: M54.5; Problem Code Type: ICD-10; Not Available [facility] 3 04:03:18 Hearing loss of left ear Active 2018 Problem Code: H91.92; Problem Code Type: ICD-10; Not Available [facility] [place] 3 04:03:18 Disorder of skin and/or subcutaneous tissue Completed 201802/27/2019 Problem Code: L98.9; Problem Code Type: ICD-10; Not Available [facility] [place] 3 04:03:18 Polyp of colon Active 2011 Problem Code: K63.5; Problem Code Type: ICD-10; Not Available [facility] 3 04:03:18 Muscle pain Completed 202008/30/2020 08/23/2020 - Comments only - Sherry Carmona APRN, RN, L.AC - No bony tenderness. No JOSE ANGEL or exam findings indicating XR or other imaging at this time. Sxs most c/w piriformis syndrome. We discussed OTC topical analgesics, ice, heat and stretching. Problem Code: M79.18; Problem Code Type: ICD-10; Not Available [facility] 3 04:03:19 Localized eruption of skin Completed 202008/30/2020 08/23/2020 - Comments only - Sherry Carmona APRN, RN, L.AC - No s/s c/w infectious process. Most c/w contact dermatitis. We discussed use of mask ear loop extenders to reduce contact of mask loop fabric with skin, I printed a picture of this product, available at [employer]. Return precautions discussed. Problem Code: R21; Problem Code Type: ICD-10; Not Available [facility] 3 04:03:19 Counseling Completed 202001/17/2021 01/03/2021 - Comments only - Mi Feldman PA-C - Old records from previous provider reviewed. Problem Code: Z71.89; Problem Code Type: ICD-10; Not Available [facility] 3 04:03:19 Tinea pedis Completed 202001/17/2021 01/03/2021 - Comments only - Mi Feldman PA-C - Will treat with RXd CLOTRIMAZOLE 1% CREAM BID Problem Code: B35.3; Problem Code Type: ICD-10; Not Available [facility] 3 04:03:19 Cyclothymia Active 202009/29/2022 - Comments only - Mi Feldman PA-C - Patient encouraged to touch base with [facility] RXing provider re: desire to RS TRAZODONE at time of next scheduled visit. She will otherwise continue on current treatment regimen (RISPERDAL, ADDERALL XR, HYDROXYZINE) as RXd. Problem Code: F34.0; Problem Code Type: ICD-10; Not Available [facility] [place] 3 04:03:19 Acute vaginitis Completed 202001/31/2021 01/17/2021 - Comments only - Mi Feldman PA-C - While awaiting results of today's VPS, will treat empirically with RXd DIFLUCAN 150mg x 1. Will reconsider FARXIGA as component of antiglycemic regimen if with recurren vaginal complaints. Problem Code: N76.0; Problem Code Type: ICD-10; Not Available [facility] 3 04:03:20 Acute vaginitis Completed 202002/15/2021 02/09/2021 - Comments only - Mi Feldman PA-C - Improved, although not fully resolved. Given GI issues, will forgo further ABX treatment at present. Chika agrees to continue with OTC DESITIN +/- VAGISIL +/- ice for symptomatic relief. Although she declines offered CRYSTALIZER OPERATOR refer today, she agrees to reconsider if sxs ongoing with 2 week recheck. Problem Code: N76.0; Problem Code Type: ICD-10; Not Available [facility] 3 04:03:20 Chronic pain syndrome Active 202009/29/2022 - Comments only - Mi Feldman PA-C - Patient to begin on RXd CELEBREX @ 200mg QD (h/o GERD on PPI; failed NAPROXEN, DICLOFENAC, IBUPROFEN, MELOXICAM). Problem Code: G89.4; Problem Code Type: ICD-10; Not Available [facility] 3 04:03:20 Localized eruption of skin Completed 202003/08/2021 02/23/2021 - Comments only - Mi Feldman PA-C - Suspect eczema > psoriasis. Will treat with RFd TRIAMCINOLONE 0.5% CREAM BID. Problem Code: R21; Problem Code Type: ICD-10; Not Available [facility] [place] 3 04:03:20 Spasm Completed 202004/22/2021 Problem Code: R25.2; Problem Code Type: ICD-10; Not Available [facility] 3 04:03:20 Disorder of skin and/or subcutaneous tissue Completed 202004/22/2021 04/11/2021 - Comments only - Mi Feldman PA-C - - RASH PX continues to support DX eczema > psoriasis, however, in that Chika experienced better effect with use of topical antifungal therapy than routinely TRIAMCINOLONE 0.5% CREAM, will trial PO treatment with KETOCONAZOLE 200mg QD x 14d. OK to supplement with HYDROXYZINE 25mg BID PRN itch. Problem Code: L98.9; Problem Code Type: ICD-10; Not Available [facility] 3 04:03:20 Blood in urine Completed 202005/09/2021 04/25/2021 - Comments only - Mi Feldman PA-C - Resolved. Will continue to monitor and maintain low index to schedule for outpatient CT imaging if recurrent. Problem Code: R31.9; Problem Code Type: ICD-10; Not Available [facility] 3 04:03:21 Cough Completed 202005/09/2021 04/25/2021 - Comments only - Mi Feldman PA-C - Patient reassured PX findings fairly benign. Suggested patient to treat with OTC MUCINEX and RFd XOPENEX MDI PRN for relief of congestion and wheeze respectively. Will consider for repeat COVID testing +/- CXR if sxs prove ongoing. Problem Code: R05; Problem Code Type: ICD-10; Not Available [facility] 3 04:03:21 Psoriasis Active 2020 Problem Code: L40.8; Problem Code Type: ICD-10; Not Available [facility] 3 04:03:21 Lumbosacral radiculopathy Completed 202006/01/2021 05/18/2021 - Comments only - Mi Feldman PA-C - Suspect lumbosacral radiculopathy @ [...] M54.16; Problem Code Type: ICD-10; Not Available [facility] [place] 3 04:03:21 Furuncle Completed 202106/19/2023 Problem Code: L02.92; Problem Code Type: ICD-10; MI FELDMAN PA-C [address], [place], [address] , [facility] 4 07:38:13 Retention of urine Completed 202101/16/2022 Problem Code: R33.9; Problem Code Type: ICD-10; Not Available [facility] [place] 3 04:03:22 Stomatitis Completed 202101/14/2022 01/13/2022 - Comments only - Zahraa JOE - Prescription for nystatin swish and spit 5 mL 4 times a day for 10 to 14 days. Advised to replace her toothbrush and tongue brush. Patient handout given on thrush. Discussed signs and symptoms to return or contact PCP. Patient understands and agrees with plan. Not Available [facility] [place] 3 04:03:22 Chest pain Active 202103/01/2022 - Comments only - Mi Feldman PA-C - Recent stress testing OK. In an effort to better control palpitation sxs, to increase PROPRANOLOL to 60mg BID. Problem Code: R07.89; Problem Code Type: ICD-10; Not Available [facility] [place] 3 04:03:22 Acute pharyngitis Completed 202103/15/2022 03/01/2022 - Comments only - Mi Feldman PA-C - In office strep, flu, and COVID testing NEGATIVE. Will cover for left OM with RXd ZITHROMAX as ZPAK. Patient encouraged to continue to use OTC MUCINEX and PROAIR MDI PRN for relief of PM chest congestion and SOB/wheeze respectively. Problem Code: J02.9; Problem Code Type: ICD-10; Not Available [facility] [place] 3 04:03:22 Cough Active 202104/09/2022 - Comments only - Mi Feldman PA-C - While awaiting results of today's laboratory testing and requested CXR, patient to begin on RXd PREDNISONE as directed on extended taper. OK to continue to supplement with OTC MUCINEX +/- ALBUTEROL MDI PRN for relief of chest congestive sxs and wheezing/bron choconstricti on respectively. Problem Code: R05.1; Problem Code Type: ICD-10; Not Available [facility] [place] 3 04:03:23 Did not wait for treatment Completed 202106/19/2023 03/27/2022 - Comments only - Ling Kingston HORSE IDENTIFIER - Patient left [facility] before provider able to assess. Attempted to reach patient by phone, voicemail box full. Problem Code: Z53.21; Problem Code Type: ICD-10; MI FELDMAN PA-C [address], [place], [address] , [place] - [facility] 4 07:38:03 Palpitations Active 202108/28/2022 - Comments only - Mi Feldman PA-C - As per patient request, will change cardiology referral from [facility] to [facility]. To continue on PROPRANOLOL 40mg BID (did not tolerate increase in dose) and LISINOPRIL 20mg QD as RXd. Problem Code: R00.2; Problem Code Type: ICD-10; Not Available [facility] [place] 3 04:03:23 Hypomagnesemi a Active 202108/28/2022 - Comments only - Mi Feldman PA-C - Patient now tolerating OTC MAGNESIUM supplement without ASE concerns. Will plan to repeat magnesium level with next set of labs as monitoring. Problem Code: E83.42; Problem Code Type: ICD-10; Not Available [facility] [place] 3 04:03:23 Diarrhea Active 202201/08/2023 - Comments only - Mi Feldman PA-C - - CHRONIC DIARRHEA Patient to f/u for colonoscopy as rescheduled in late March ([facility]). In the interim, to continue to use OTC IMMODIUM PRN for symptom control. Problem Code: R19.7; Problem Code Type: ICD-10; Not Available [facility] 3 04:03:23 General examination of patient Active 2022 Problem Code: Z00.8; Problem Code Type: ICD-10; Not Available [facility] [place] 3 04:03:24 Tinnitus of left ear Active 2022 Problem Code: H93.12; Problem Code Type: ICD-10; Not Available [facility] 3 04:03:24 Peripheral vascular disease Active 202211/21/2022 - Comments only - Mi Feldman PA-C - With concern for PVD contributing to claudication and poor cirulation, will refer to [facility] Surgery for ABIs Problem Code: I73.9; Problem Code Type: ICD-10; Not Available [facility] 3 04:03:24 Pelvic and perineal pain Active 202212/22/2022 - Comments only - Mi Feldman PA-C - In-office U/A OK (NEGATIVE for blood). Assuming benign findings with today's collected VPS, will consider to schedule for pelvic x-ray. 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 201807/22/2020 Problem Code: F52.31; Problem Code Type: ICD-10; Not Available [facility] 3 04:03:25 Disorder of tongue Completed 201804/29/2019 Problem Code: K14.8; Problem Code Type: ICD-10; Not Available [facility] 3 04:03:26 Acute exacerbation of chronic obstructive pulmonary disease Completed 201912/09/2019 Problem Code: J44.1; Problem Code Type: ICD-10; Not Available [facility] 3 04:03:26 Spasm Completed 201907/22/2020 Problem Code: R25.2; Problem Code Type: ICD-10; Not Available [facility] 3 04:03:26 Localized eruption of skin Completed 201907/22/2020 Problem Code: R21; Problem Code Type: ICD-10; Not Available [facility] 3 04:03:26 [place] - lesion Completed 201709/12/2017 Problem Code: L84; Problem Code Type: ICD-10; Not Available [facility] 3 04:03:27 Headache Completed 201702/27/2019 Problem Code: R51; Problem Code Type: ICD-10; Not Available [facility] 3 04:03:27 Arthropathy of right knee joint Completed 201702/27/2019 Problem Code: M25.861; Problem Code Type: ICD-10; Not Available [facility] [place] 3 04:03:27 Nocturnal enuresis Completed 201907/22/2020 Problem Code: N39.44; Problem Code Type: ICD-10; Not Available [facility] [place] 3 04:03:27 Hernia of abdominal cavity Completed 201902/09/2021 Problem Code: K46.9; Problem Code Type: ICD-10; Not Available [facility] 3 04:03:28 Abnormal urine Completed 201911/03/2019 Problem Code: R82.90; Problem Code Type: ICD-10; Not Available [facility] 3 04:03:28 Screening for malignant neoplasm of breast Completed 201804/29/2019 Problem Code: Z12.39; Problem Code Type: ICD-10; Not Available [facility] 3 04:03:28 Idiopathic osteoarthriti s Completed 201602/28/2023 Problem Code: M19.91; Problem Code Type: ICD-10; Not Available [facility] 3 04:03:29 Onychomycosis due to dermatophyte Completed 201702/27/2019 Problem Code: B35.1; Problem Code Type: ICD-10; Not Available [facility] 3 04:03:29 Insect bite Completed 202012/01/2020 Not Available [facility] 3 04:03:29 Atopic dermatitis Completed 202012/01/2020 Problem Code: L20.9; Problem Code Type: ICD-10; Not Available [facility] 3 04:03:29 Nausea Completed 201609/12/2017 Problem Code: R11.0; Problem Code Type: ICD-10; Not Available [facility] 3 04:03:30 Nicotine dependence Completed 201802/27/2019 Problem Code: F17.209; Problem Code Type: ICD-10; Not Available [facility] 3 04:03:30 Adjustment disorder Completed 201909/12/2019 Problem Code: F43.20; Problem Code Type: ICD-10; Not Available [facility] 3 04:03:30 Abnormal weight gain Completed 202002/09/2021 Problem Code: R63.5; Problem Code Type: ICD-10; [facility] Available [facility] 3 04:03:30 Diarrhea Completed 201706/24/2020 Problem Code: R19.7; Problem Code Type: ICD-10; Not Available [facility] 3 04:03:31 Umbilical hernia Completed 201602/27/2019 Problem Code: K42.9; Problem Code Type: ICD-10; Not Available [facility] 3 04:03:31 Acute exacerbation of chronic obstructive pulmonary disease Completed 201702/09/2021 Problem Code: J44.1; Problem Code Type: ICD-10; Not Available [facility] 3 04:03:31 Localized eruption of skin Completed 201702/20/2018 Problem Code: R21; Problem Code Type: ICD-10; Not Available [facility] 3 04:03:32 Intertrigo Completed 201712/17/2017 Problem Code: L30.4; Problem Code Type: ICD-10; Not Available [facility] 3 04:03:32 Swollen abdomen Completed 201906/24/2020 Not Available [facility] 3 04:03:32 Amnesia Completed 201602/09/2021 Problem Code: R41.3; Problem Code Type: ICD-10; Not Available [facility] 3 04:03:32 Hand pain Completed 202012/01/2020 Problem Code: M79.643; Problem Code Type: ICD-10; Not Available [facility] 3 04:03:33 Dyspnea Completed 201907/22/2020 Problem Code: R06.00; Problem Code Type: ICD-10; Not Available [facility] 3 04:03:33 Fatigue Completed 201804/29/2019 Problem Code: R53.83; Problem Code Type: ICD-10; Not Available [facility] 3 04:03:33 Follicular cysts of skin and subcutaneous tissue Completed 201802/09/2021 Problem Code: L72.9; Problem Code Type: ICD-10; Not Available [facility] 3 04:03:34 Suicidal thoughts Completed 201802/09/2021 Problem Code: R45.851; Problem Code Type: ICD-10; Not Available [facility] 3 04:03:34 Migraine without aura, not refractory Completed 201602/27/2019 Problem Code: G43.009; Problem Code Type: ICD-10; Not Available [facility] 3 04:03:34 Chest pain Completed 201702/27/2019 Problem Code: R07.9; Problem Code Type: ICD-10; Not Available [facility] 3 04:03:34 Pelvic and perineal pain Completed 201804/29/2019 Problem Code: R10.2; Problem Code Type: ICD-10; Not Available [facility] 3 04:03:35 Itching of skin Completed 201804/29/2019 Problem Code: L29.8; Problem Code Type: ICD-10; Not Available [facility] 3 04:03:35 Right upper quadrant pain Completed 201708/23/2017 Problem Code: R10.11; Problem Code Type: ICD-10; Not Available [facility] 3 04:03:35 Pain in thoracic spine Completed 201802/28/2023 Problem Code: M54.89; Problem Code Type: ICD-10; Not Available [facility] 3 04:03:36 Pain of breast Completed 201907/22/2020 Problem Code: N64.4; Problem Code Type: ICD-10; Not Available [facility] 3 04:03:36 Contact dermatitis Completed 201902/09/2021 Problem Code: L25.9; Problem Code Type: ICD-10; Not Available [facility] 3 04:03:36 Arthropathy of joint of hand Completed 201602/09/2021 Problem Code: M12.849; Problem Code Type: ICD-10; Not Available [facility] 3 04:03:37 Eczema Completed 201907/25/2019 Problem Code: L30.9; Problem Code Type: ICD-10; Not Available [facility] 3 04:03:37 Generalized abdominal pain Completed 201906/24/2020 Problem Code: R10.84; Problem Code Type: ICD-10; Not Available [facility] 3 04:03:37 Diarrhea Completed 202009/16/2020 Problem Code: R19.7; Problem Code Type: ICD-10; Not Available [facility] 3 04:03:38 Pain of breast Completed 201604/13/2017 Problem Code: N64.4; Problem Code Type: ICD-10; Not Available [facility] 3 04:03:38 Severe obesity Completed 201609/12/2017 Problem Code: E66.01; Problem Code Type: ICD-10; Not Available [facility] 3 04:03:38 Venereal disease screening Completed 201906/24/2020 Problem Code: Z11.3; Problem Code Type: ICD-10; Not Available [facility] 3 04:03:39 Family problems Completed 201704/29/2019 Problem Code: Z63.79; Problem Code Type: ICD-10; Not Available [facility] 3 04:03:39 Noninflammato ry disorder of the vagina Completed 201802/28/2023 Problem Code: N89.8; Problem Code Type: ICD-10; Not Available [facility] 3 04:03:39 Pain of right lower leg Completed 201906/24/2020 Problem Code: M79.661; Problem Code Type: ICD-10; Not Available [facility] 3 04:03:40 Candidiasis of skin Completed 202203/02/2023 02/16/2023 - Comments only - Mi Feldman PA-C - Will treat with RXd TERBINAFINE CREAM BID. Otherwise patient encouraged to keep area as clean and dry as posssible (consider hair clipper power on low after showering) to promote skin healing. Problem Code: B37.2; Problem Code Type: ICD-10; Not Available [facility] 4 05:34:22 Candidiasis of skin Completed 202203/20/2023 03/08/2023 - Comments only - Mi Feldman PA-C - Given lack of response to topical antifungal treatments to present, will cover with RXd DIFLUCAN 100mg QD x 7d. Chika will otherwise continue efforts to keep the area clean and dry (consider hair clipper power after showering) and use OTC zinc oxide containing DESITIN to promote skin healing. Problem Code: B37.2; Problem Code Type: ICD-10; Not Available [facility] 4 05:34:22 Bilateral adenoma of adrenal glands Active [address] abdomen/pelvi s at [facility] ED 09/29/23 ADRIANA PADILLA, SALES CONSULTANT RESIDENTIAL MANAGER- [address], [place], [address] , [facility] 4 18:59:52 Chronic eczema Active 2023 ARNOLDO DICKERSON LPN [facility], [place] - [facility] 4 09:13:42 Problem Notes None recorded. Medical Equipment None Reported. Allergies Allergen ID Allergen Name Allergen Category Reaction Reaction Severity Criticality Documentation Date Start Date Code Code System Note Provider Name and Address Organization Details Recorded Time Bactrim medicatio n Not available Not available Not available 04/13/20232016 92446 9 RxNorm Not Available [facility] 3 16:11:46 71704 iodine medicatio n Not available Not available Not available 04/13/20232016 5933 RxNorm Not Available [facility] 3 16:11:47 simvastat in medicatio n rash moderate Not available 04/13/20232019 15586 RxNorm rash Not Available [facility] 3 16:11:47 Augmentin medicatio n Not available Not available Not available 04/13/20232016 71359 2 RxNorm Not Available [facility] 3 16:11:47 codeine medicatio n vomiting moderate Not available 04/13/20232017 2670 RxNorm vomit ing Aller gyCod e: '0040 26967 32'; Aller gyNam e: 'CODE INE'; Aller gyCon ceptT ype: 'NDC' ; Not Available [facility] 3 16:11:47 Betadine medicatio n rash moderate Not available 04/13/20232016 76986 0 RxNorm skin rash Aller gyRea ction : 'skin rash' ; Aller gyCod e: '0053 55513 80'; Aller gyNam e: 'BETA DINE' ; Aller gyCon ceptT ype: 'NDC' ; Not Available [facility] 3 16:11:47 Protonix medicatio n other moderate Not available 04/13/20232016 56629 4 RxNorm sick Aller gyRea ction : 'sick '; Aller gyCod e: '8852 57'; Aller gyNam e: 'PROT MILDRED' ; Aller gyCon ceptT ype: 'RX Norm' ; Not Available [facility] 3 16:11:47 cyprohept adine hydrochlo ride medicatio n Not available Not available Not available 04/13/20232016 83463 2 RxNorm Aller gyCod e: '8660 21'; Aller gyNam e: 'CYPR OHEPT ADINE HCL'; Aller gyCon ceptT ype: 'RX Norm' ; Not Available [facility] 3 16:11:47 71976 Rybelsus medicatio n rash moderate low 10/16/2023 63717 45 RxNorm Dulce Maria garrido, [place], [place] - [facility]. 14:44:29 Medications Name Sig Start Date Stop [...] Not Available Not Available Not Avai lable irbesarta n 150 mg tablet Take 0.5 tab by mouth daily 2018 active Not Available Not Available Not Avai lable lovastati n 20 mg tablet TAKE ONE [...] for ADHD 2018 active prescrib ed by [facility] Not Available Not Available Not Available BD [...] completed Not Available Not Available Not Available [employer] UltraMini kit Test blood glucose daily as [...] 1 puff once a day 06/17 completed [facility] PUL[facility]OL OGY Not Available Not Available Not [...] Not Available Vitals Date Recorded Body height Body mass index (BMI) Body weight Heart rate Body temperature Systolic blood pressure Diastolic blood pressure Provider Name and Address Organization Details Last Updated DateTime 4 152.4 cm 42.1 kg/m2 34240.4 6 g 68 /min 97.3 [degF] 104 mm[Hg] 66 mm[Hg] ARNOLDO DICKERSON LPN [place] - [facility]. 4 09:09:40 Social History Question Answer Notes LastModified by Organizat ion Details LastModified Time Tobacco Smoking Status Current Every Day Smoker PEDRO RIOJAS MA [facility], [place] - [facility]. 05/29/2023 08:00:26 What Was The Date Of Your Most Recent Tobacco Screening? 10/01/2023 [email or web address] Information not available 10/01/2023 What Is Your Current Pack Years? 30ormorepack years Information not available 05/29/2023 At What Age Did You Start Smoking Tobacco? 6 Information not available 05/29/2023 How Much Tobacco Do You Smoke? 0.5 PPD Information not available 05/29/2023 Has Tobacco Cessation Counseling Been Provided? No Information not available 05/29/2023 How Many Years Have You Smoked Tobacco? 51 [email or web address] Information not available 10/01/2023 Do You Or [...] adolescent or pediatric 05/07/2017 completed Not Available [facility] 04/13/2023 06:16:25 Tdap 08/08/2020 completed Not Available [facility] 06:16:26 Tdap 10/19/2014 completed Not Available [facility] 06:16:26 Influenza, split virus, quadrivalent, PF 03/08/2021 completed [facility] 04/13/2023 06:16:26 Influenza, split virus, quadrivalent, PF 05/22/2022 completed Not Available [facility] 04/13/2023 06:16:26 COVID-19, mRNA, LNP-S, PF, 100 mcg/0.5mL dose or 50 mcg/0.25mL dose 06/17/2021 completed Not Available [facility] 04/13/2023 06:16:26 COVID-19, mRNA, LNP-S, PF, 100 mcg/0.5mL dose or 50 mcg/0.25mL dose 10/12/2020 completed Not Available [facility] 04/13/2023 06:16:26 COVID-19, mRNA, LNP-S, PF, 100 mcg/0.5mL dose or 50 mcg/0.25mL dose 11/09/2020 completed Not Available [facility] 04/13/2023 06:16:26 COVID-19, mRNA, LNP-S, bivalent, PF, 30 mcg/0.3 mL dose 05/22/2022 completed Not Available [facility] 04/13/20 06:16:26 pneumococcal polysaccharide PPV23 03/04/2008 completed Not Available [facility] 2022 06:16:26 Hep B, adult 03/08/2021 completed Not Available [facility] 04/13/2023 06:16:27 Hep B, adult 03/16/2020 completed Not Available [facility] 04/13/2023 06:16:27 Hep A, adult 03/16/2020 completed [facility] 04/13/2023 06:16:27 Hep A, adult 05/07/2017 completed Not Available [facility] 04/13/2023 06:16:27 influenza, unspecified formulation 02/10/2014 completed Not Available [facility] 04/13/2023 06:16:27 influenza, unspecified formulation 03/06/2023 completed Ortiz Walker MA [facility], [facility] 05/26/2023 20:27:38 Influenza, split virus, quadrivalent, PF 03/06/2023 completed Not Available [facility] 06/15/2023 05:33:04 Pneumococcal conjugate PCV20, polysaccharide [id number] conjugate, adjuvant, PF 03/06/2023 completed Not Available [facility] 06/15/2023 05:33:04 Past Encounters Encounter ID Performer Location Encounter Start Date Encounter Closed Date Diagnosis/Indication Diagnosis SNOMED-CT Code [id number] MI FELDMAN PA-C [address] [address] 01/22/2024 08:50:39 01/22/2024 10:04:59 Type 2 diabetes mellitus without complication 124981689 Hyperlipidemia 28686198 Essential hypertension 90630456 Candidal intertrigo 2661 88049 Hypomagnesemia 669674700 Chronic eczema 58551945 Furuncle of groin 777876 03 Health Concerns Section Related Observation LastModified by Organization Detai ls LastModified Time None Recorded Concern Status LastModified by Organization Details LastModified Time None Recorded Payers Encounter Date Sequence Insurance Name Policy Number Policy Richard Covered Member ID Richard Member ID Guarantor Name 01/22/2024 1 [facility] (MEDICAID) Chika Socorro Santos [id number] Chika Santos Notes Date Note Type Note Provider Name and Address Organization Details Recorded Time 01/22/2024 text/html HPI Notes: 58y/o female presenting for 3m f/u DM2, HTN, HPL, and chronic pain. Patient reports painful ?boil to labia x 3 days. Denies fever, N/V, or other more systemic signs of illness. MI FELDMAN PA-C [address], [place], [address], [facility] - [facility]. 01/22/2024 11:22:15 OBGyn Episode No OBEpisode recorded.
--- OUTSIDE RECORDS SUMMARY | 2024-01-22 16:14 | XMS_ITS | Encounter Summary ---
[place] [address] Care Team Providers Care Gericare Aide Teacher Name Role Phone Mi Tyler Primary Care Provider [phone] Encounter Details Date Type Department Care Team (Latest Contact Info) Description 11/21/2023 10:49 AM EDT - 11/21/2023 11:59 PM EDT Hospital [place] [id number] Discharge Disposition: Home Social History Tobacco Use Types Packs/Day Years Used Date Smoking Tobacco: Every Day Cigarettes 0.5 47 Smokeless Tobacco: Never Alcohol Use Standard Drinks/Week Comments No 0 (1 standard drink = 0.6 oz pur e alcohol) Sex and Gender Information Value Date Recorded Sex Assigned at Female 09/10/2022 6:48 AM EDT Gender Identity Female 09/10/2022 6:48 AM EDT Sexual Orientation Straight 09/10/2022 6: 48 AM EDT documented as of this encounter Medications at Time of Discharge Medication Sig Dispensed Refills Start Date End Date magnesium oxide (Mag-Ox) 400 mg (241.3 mg magnesium) Tablet Take 1 tablet by mouth daily. 07/13/2022 dextroamphetamine-amphe tamine (Adderall XR) 10 mg ER 24 hr capsule 10 mg. afternoon 08/24/2022 dextroamphetamine-amphe tamine XR (Adderall XR) 20 mg ER 24 hr capsule Take 20 mg by mouth daily. am 08/24/2022 SITagliptin phosphate (Januvia) 100 mg tablet Take 100 mg by mouth daily. RED YEAST RICE ORAL Take 1 Dose by mouth daily. clotrimazole (LOTRIMIN) 1 % Cream Apply 1 Dose topically 2 times daily as needed. ipratropium-albuteroL (Duoneb) 0.5 mg-3 mg(2.5 mg base)/3 mL Solution for Nebulization Take 3 mLs by nebulization 4 times daily. ProAir HFA 90 mcg/actuation HFA Aerosol InhalerIndications:Asth ma-COPD overlap syndrome Inhale 2 puffs into the lungs every 4 hours as needed for Wheezing or Cough. Use with spacer 3 Inhaler 5 10/28/2020 hydrOXYzine (Atarax) 25 mg tablet Take 25 mg by mouth 2 times daily as needed for Itching. 05/11/2020 lisinopriL (Prinivil;Zestril) 20 mg Tablet TAKE 1 TABLET BY MOUTH DAILY 08/21/2020 omeprazole (PriLOSEC) 40 mg Capsule, Delayed Release(E.C.) TAKE 1 CAPSULE BY MOUTH DAILY 08/27/2020 risperiDONE (RisperDAL) 4 mg tablet Take 4 mg by mouth nightly. 10/12/2020 propranoloL (Inderal) 40 mg Tablet Take 40 mg by mouth 2 times daily. 03/19/2019 documented as of this encounter Plan of Treatment Not on file documented as of this encounter Procedures Procedure Name Priority Date/Time Associated Diagnosis Comments SURGICAL PATHOLOGY REPORT Routine 11/21/2023 8:19 AM EDT documented in this encounter Results * Surgical Pathology Report (11/21/2023 8:19 AM EDT) Final Diagnosis [id number] ? Location: [facility] The signing pathologist has (i) examined the relevant preparation(s) for the specimen(s) and (ii) rendered or confirmed the diagnosis(es). . ?Surgical Pathology DIAGNOSIS A - Duodenal bx, biopsy: - ??Duodenal mucosa with gastric heterotopia - Separate fragment of ?? duodenal mucosa within normal limits, including preserved villous architecture. - Separate fragments of ?? gastric antral gland mucosa with nonspecific reactive gastropathy, possible ?? contaminant from Part B. B - Antrum bx, biopsy: - ??Gastric antral gland mucosa with nonspecific reactive gastropathy. C - Distal esophagus bx, biopsy: - ??Esophageal squamous mucosa, within normal limits. D - Random colon bx, biopsy: - Colonic mucosa with patchy mildly increased lamina propria eosinophils, see Discussion. E - Colon polyp (transverse), excision: - ??Fragments of tubular adenoma. F - Descending colon polyp, excision: - ??Fragments of hyperplastic polyp. G - Sigmoid colon polyp bx, biopsy: - ??Fragments of hyperplastic polyp. H - Rectal polyp, excision: - ??Fragments of hyperplastic polyp. CR-PX Electronically signed by: ?Erick WILCOX PhD, Graciela Verified: ??11/26/2023 14:03 ??Pathologist Performed at: ??-[facility] Dept. of Pathology, [place] [address] Associate Professor Of History: Kelly Farr MD, FCAP, ??CLIA Certificate: [id number] DISCUSSION D - The increase in lamina propria eosinophils is non-specific; infection (especially parasitic), drug reaction or allergic reaction are considerations. SPECIMEN(S) SUBMITTED A - Duodenal bx, biopsy B - Antrum bx, biopsy C - Distal esophagus bx, biopsy D - Random colon bx, biopsy E - Colon polyp (transverse), excision F - Descending colon polyp, excision . SPECIMEN(S) SUBMITTED G - Sigmoid colon polyp bx, biopsy H - Rectal polyp, excision Referring Identifier: ??[id number] CARBON COPY: Mi Tyler CLINICAL INFORMATION Chronic diarrhea, colon polyps SPECIMEN PROCESSING A - Labeled/Fixative : Duodenal BX, formalin. Quantity/Size: Six, averaging 0.3 cm. Tissue Description: Soft, pink tissues. Sections/Process ing: Submitted in toto ??in 2 cassettes labeled A1-A2. B - Labeled/Fixative : Antrum BX, formalin. Quantity/Size: Two, averaging 0.3 cm. Tissue Description: Soft, pepe-white tissues. Sections/Process ing: Submitted in toto ??in 1 cassette labeled B1. C - Labeled/Fixative : Distal esophagus BX, formalin. Quantity/Size: Two, averaging 0.3 cm. Tissue Description: Soft, pink-white tissues. Sections/Process ing: Submitted in toto ??in 1 cassette labeled C1. D - Labeled/Fixative : Random colon biopsy, formalin. Quantity/Size: Multiple, ranging from 0.2 to 0.5 cm. Tissue Description: Soft, pepe-pink tissues. Sections/Process ing: Submitted in toto ??in 2 cassettes labeled D1-D2. E - Labeled/Fixative : Transverse colon polyp, formalin. Quantity/Size: Two, averaging 0.3 cm. Tissue Description: Soft, pink tissues. Sections/Process ing: Submitted in toto ??in 1 cassette labeled E1. F - Labeled/Fixative : Descending colon polyp, formalin. Quantity/Size: Three, averaging 0.5 cm. Tissue Description: Soft, pink tissues. Sections/Process ing: Submitted in toto ??in 1 cassette labeled F1. G - Labeled/Fixative : Sigmoid colon polyp, formalin. Quantity/Size: Two, 0.3 and 0.5 cm. Tissue Description: Soft, pepe-pink tissues. Sections/Process ing: Submitted in toto ??in 1 cassette labeled G1. H - Labeled/Fixative : Rectal polyp, formalin. Quantity/Size: Two, averaging 0.2 cm. Tissue Description: Soft, pepe-pink tissues. Sections/Process ing: Submitted in toto ??in 1 cassette labeled H1. ??sns 11/26/2023 2:03 PM EDT [facility] GI Biopsy 11/21/2023 8:19 AM EDT 11/21/2023 8:19 AM EDT GI Biopsy 11/21/2023 8:19 AM EDT 11/21/2023 8:19 AM EDT GI Biopsy 11/21/2023 8:19 AM EDT 11/21/2023 8:19 AM EDT GI Biopsy 11/21/2023 8:19 AM EDT 11/21/2023 8:19 AM EDT GI Biopsy 11/21/2023 8:19 AM EDT 11/21/2023 8:19 AM EDT GI Biopsy 11/21/2023 8:19 AM EDT 11/21/2023 8:19 AM EDT GI Biopsy 11/21/2023 8:19 AM EDT 11/21/2023 8:19 AM EDT GI Biopsy 11/21/2023 8:19 AM EDT 11/21/2023 8:19 AM EDT Isidro Marino DO PATHOLOGY/CYT OLOGY ORDERABLES [facility] [place] [address] documented in this encounter Visit Diagnoses Not on filedocumented in this encounter Care Teams Gericare Aide Teacher Relationship Specialty Start Date End Date Mi Tyler PA [address] [place] [address] PCP - General Family Medicine 05/05/21 documented as of this encounter
--- OUTSIDE RECORDS SUMMARY | 2024-01-22 16:14 | XMS_ITS | Encounter Summary ---
Author Organization [facility] Address [address] [place] [address] Care Team Providers Care Painter Rough Name Role Phone Unavailable Primary Care Provider Unavailabl e Encounter Details Date Type Department Care Team (Late st Contact Info) Description 05/01/2006 Results Only [facility] [address] [place] [address] Omar Childs MD [facility] [address] [place], [place] [id number] Social History Tobacco Use Types Packs/Day Years Used Date Smoking Tobacco: Never Assessed Sex and Gender Information Value Date Recorded Sex Assigned at Not on file Gender Identity Not on file Sexual Orientation Not on file documented as of this encounter Plan of Treatment Not on file documented as of this encounter Procedures Procedure Name Priority Date/Time Associated Diagnosis Comments CYTOPATHOLOGY Routine 05/01/2006 0:00 EST documented in this encounter Results * CYTOPATHOLOGY (05/01/2006 0:00 EST) Pathology Report: CYTOPATHOLOGY REPORT Reports generated via electronic interface contain original data; however they are lacking the format of the original report. Caution should be taken when reading/interpreti ng unformatted reports. Name: ? PRISCILLA SANTOS ? Accession #: ? [id number] : ? 1965 (Age: 40) ??F ?Collect Date: ? 05/01/2006 Location: ? [facility] ? Receive Date: ? 05/03/2006 Provider: ?OMAR CHILDS MD Copy to: ? Specimen/Source: ?ThinPrep Pap Test, Vagina, processed on [employer] ThinPrep Imaging System, with manual evaluation Last Menstrual Period: ? Treatment History: ? ANGIE/BSO: 1994 for dysplasia ? SPECIMEN ADEQUACY ? Satisfactory for Evaluation - assessment of transformation zone component not applicable ( e.g. atrophy, vaginal sample, hysterectomy) GENERAL CATEGORIZATION ? Negative for Intraepithelial Lesion or Malignancy ? Document reviewed and electronically signed by: ? Dulce Maria White, SCT(ASCP) ? Report Date: ??05/09/2006 16:58 End of Report [facility] 05/01/2006 05/03/2006 Omar Childs MD PATHOLOGY ORDERABLES [facility] [address] [place] [address] documented in this encounter Visit Diagnoses Not on filedocumented in this encounter
--- OUTSIDE RECORDS SUMMARY | 2024-01-22 16:14 | XMS_ITS | Encounter Summary ---
Author Organization [facility] Address [facility] [place] [address] Care Team Providers Care Clinic Business Manager Name Role Phone Mi Tyler Primary Care Provider [phone] Encounter Details Date Type Department Care Team (Late st Contact Info) Description 10/18/2022 Telephone Cardiology at [address] [place] [address] [facility] [place] [address] Social History Tobacco Use Types Packs/Day Years [...] Telephone Encounter - Yulia Rico, RN - 10/18/2022 11:06 AM EDT Chika canceled the appointment to apply heart monitor at [facility] 10/17/22 - cited transportation issues. documented in this encounter Plan of Treatment Not on file documented as of this encounter Visit Diagnoses Not on filedocumented in this encounter Care Teams Clinic Business Manager Relationship Specialty Start Date End Date Mi Tyler PA [address] [place] [address] PCP - General Family Medicine 05/05/21 documented as of this encounter
--- OUTSIDE RECORDS SUMMARY | 2024-01-22 16:14 | XMS_ITS | Referral Summary ---
Author Organization [facility] Address [address] [place] [address] Care Team Providers Care Forge Utility Worker Name Role Phone Unknown, Provider Primary Care Provider [phone] Debbie Webber WEIGHT INSPECTOR Unavailable [phone] Allergies Active Allergy Reactions Criticality Noted Date Comments Povidone-Iodine Hives 05/15/2012 Codeine Nausea And Vomiting 05/15/2012 Cephalexin Rash 05/15/2012 Other - See Comments Itching 05/15/2012 Powered Gloves Oxycodone-Acetaminophen Nausea Only 05/15/2012 Sulfa (Sulfonamide Antibiotics) Shortness Of Breath 05/15/2012 Medications Medication Sig Dispensed Refills Start Date End Date Status propranolol (INDERAL) 40 mg tablet Take 40 mg by mouth at bedtime. Active amphetamine-dextroamp hetamine (ADDERALL) 20 mg tablet Take 20 mg by mouth 2 times daily. Active risperiDONE (RISPERDAL) 1 mg tablet Take 1 mg by mouth at bedtime. Active clonAZEPAM (KLONOPIN) 1 mg tablet Take 1 mg by mouth at bedtime. Active omeprazole (PRILOSEC) 20 mg capsule Take 20 mg by mouth daily. Active LEVALBUTEROL HCL (XOPENEX INHL) Inhale as directed as needed. Active FLUTICASONE PROPIONATE (FLOVENT HFA INHL) Inhale as directed as needed. Active Social History Tobacco Use Types Packs/Day Years Used Date Smoking Tobacco: Never Assessed Interpersonal Safety Answer Date Record ed Physically Hurt Never 01/04/2020 Verbally Threaten Not on file 01/04/2020 Sex and Gender Information Value Date Recorded Sex Assigned at Not on file Gender Identity Not on file Sexual Orientation Not on file Last Filed Vital Signs Vital Sign Reading Time Taken Comments Blood Pressure - - Pulse - - Temperature - - Respiratory Rate - - Oxygen Saturation - - Inhaled Oxygen Concentration - - Weight 125.8 kg (277 lb 5.4 oz) 05/21/2012 1119 EST weight taken from H&P Height 156 cm (5' 1.42) 05/21/2012 111 9 EST Body Mass Index 51.69 05/21/2012 1119 EST Plan of Treatment Not on file Procedures Procedure Name Priority Date/Time Associated Diagnosis Comments HEPATITIS C AB W REFLEX TO HCV RNA BY PCR Routine 12/10/2019 9:00 EDT from Last 3 Months or Most Recently Relevant to Health Maintenance Results * HEPATITIS C AB W REFLEX TO HCV RNA BY PCR (12/10/2019 9:00 EDT) Hep C Antibody Negative Negative 12/11/2019 10:32 EDT [facility] Blood VENOUS BLOOD / Unknown 12/10/2019 9:00 EDT 12/10/2019 21:12 EDT Provider Outr Resulting Lab CHEMISTRY & BLOOD GAS ORDERABLES [facility] [address] [place] [address] from Last 3 Months or Most Recently Relevant to Health Maintenance Care Teams Forge Utility Worker Relationship Specialty Start Date End Date Unknown, Provider, PCP - General 02/18/19 Debbie Webber NP [address] [place] [id number] 02/18/19
--- OUTSIDE RECORDS SUMMARY | 2024-01-22 16:14 | XMS_ITS | Encounter Summary ---
Author Organization [facility] Address [address] [place] [address] Care Team Providers Care Project Engineering Director Name Role Phone Unknown, Provider Primary Care Provider [phone] Debbie Webber MACHINE FITTER Unavailable [phone] Encounter Details Date Type Department Care Team (Late st Contact Info) Description 11/26/2020 Lab Requisition [facility] Pathology & Laboratory Medicine - [address] [address] Outr Resulting Lab, Provider Social History Tobacco [...] Procedure Name Priority Date/Time Associated Diagnosis Comments ZZCOVID-19 TEST [facility] PCR Today 11/25/2020 16:20 EDT COVID-19 TESTING Routine 11/25/2020 16:2 0 EDT documented in this encounter Results * COVID-19 TEST [facility] PCR (11/25/2020 16:20 EDT) Swab ENTIRE NASOPHARYNX / Unknown 11/25/2020 16:20 EDT 11/26/2020 15:52 EDT Provider Outr Resulting Lab MICROBIOLOGY - GENERAL ORDERABLES [facility] [address] [place] [address] * COVID-19 TESTING (11/25/2020 16:20 EDT) COVID-19 rt-PCR Result Negative Negative 11/27/2020 14:09 EDT [facility] Comment: This test has not been FDA cleared or approved. This test has been authorized by FDA under an EUA for use by authorized laboratories. This test has been authorized only for detection of nucleic acid from 2019-nCoV, not for any other viruses or pathogens. This test is only authorized for the duration of the declaration that circumstances exist justifying the authorization of emergency use of in vitro diagnostic tests for detection and/or diagnosis of 2019-nCoV under section 564(b)(1) of Act, 21 U.S.C ?? 360bbb-3(b) (1), unless the authorization is terminated or revoked sooner. Negative results do not preclude 2019-nCoV infection and should not be used as the sole basis for treatment or other patient management decisions. Negative results must be combined with clinical observations, patient history, and epidemiological information. This test was developed and its performance characteristics determined by [facility]. It has not been cleared or approved by the US Food and Drug Administration. FDA does not require this test to go through premarket FDA review. This test is used for clinical purposes. It should not be regarded as investigational or for research. This laboratory is certified under the Clinical Laboratory Improvement Amendments (CLIA) as qualified to perform high complexity clinical laboratory testing. This test is based on the [facility] COVID-19 Emergency Use Authorization (EUA) assay, with minor modification as defined by the FDA Performed on the [employer] 7 Flex RT-PCR System. Performing Lab [facility] 11/27/2020 14:09 EDT [facility] Swab 11/25/2020 16:2 0 EDT 11/26/2020 15:52 EDT Provider Outr Resulting Lab MICROBIOLOGY - GENERAL ORDERABLES Performing Organization Address [facility] Co de Phone Number [facility] [address] [place] [address] documented in this encounter Visit Diagnoses Not on filedocumented in this encounter Care Teams Project Engineering Director Relationship Specialty Start Date End Date Unknown, Provider, PCP - General 02/18/19 Debbie Webber NP [address] [place] [address] [address] [place] [id number] 02/18/19 documented as of this encounter
--- OUTSIDE RECORDS SUMMARY | 2024-01-22 16:14 | XMS_ITS | Clinical Summary ---
Author Organization [place] [address] Care Team Providers Care Cotton Chopper Name Role Phone Mi Tyler Primary Care Provider [phone] Allergies Active Allergy Reactions Criticality Noted Date Comments Adhesive Tape Rash Medium 08/28/2022 Amoxicillin-Pot Clavulanate Other (See Comments) Medium 08/28/2022 unspecified Cephalexin Rash Medium 05/15/2012 Codeine Nausea And Vomiting Medium 05/15/2012 Cyproheptadine Other (See Comments) Medium 08/28/2022 unspecified Ginseng Other (See Comments) Medium 08/28/2022 unspecified Umeclidinium Hives Medium 10/18/2020 Iodine Hives High Pantoprazole Other (See Comments) Medium 08/28/2022 unspecified Tiotropium Pitman Other (See Comments) Medium 021 Mouth sores Sulfa (Sulfonamide Antibiotics) Shortness Of Breath High 05/15/2012 Terconazole Other (See Comments) Medium 08/28/2022 unspecified Medications Medication Sig Dispensed Refills Start Date End Date Status hydrOXYzine (Atarax) 25 mg tablet Take 25 mg by mouth 2 times daily as needed for Itching. 05/11/2020 Active lisinopriL (Prinivil;Zestril) 20 mg Tablet TAKE 1 TABLET BY MOUTH DAILY 08/21/2020 Active omeprazole (PriLOSEC) 40 mg Capsule, Delayed Release(E.C.) TAKE 1 CAPSULE BY MOUTH DAILY 08/27/2020 Active risperiDONE (RisperDAL) 4 mg tablet Take 4 mg by mouth nightly. 10/12/2020 Active propranoloL (Inderal) 40 mg Tablet Take 40 mg by mouth 2 times daily. 03/19/2019 Active ProAir HFA 90 mcg/actuation HFA Aerosol InhalerIndications: Asthma-COPD overlap syndrome Inhale 2 puffs into the lungs every 4 hours as needed for Wheezing or Cough. Use with spacer 3 Inhaler 5 10/28/2020 Active SITagliptin phosphate (Januvia) 100 mg tablet Take 100 mg by mouth daily. Active RED YEAST RICE ORAL Take 1 Dose by mouth daily. Active clotrimazole (LOTRIMIN) 1 % Cream Apply 1 Dose topically 2 times daily as needed. Active ipratropium-albuter oL (Duoneb) 0.5 mg-3 mg(2.5 mg base)/3 mL Solution for Nebulization Take 3 mLs by nebulization 4 times daily. Active magnesium oxide (Mag-Ox) 400 mg (241.3 mg magnesium) Tablet Take 1 tablet by mouth daily. 07/13/2022 Active dextroamphetamine-a mphetamine (Adderall XR) 10 mg ER 24 hr capsule 10 mg. afternoon 08/24/2022 Ac tive dextroamphetamine-a mphetamine XR (Adderall XR) 20 mg ER 24 hr capsule Take 20 mg by mouth daily. am 08/24/2022 Active Active Problems Problem Noted Date Diagnosed Date Chronic diarrhea 08/28/2022 Palpitations 08/28/2022 Assessment & Plan (09/20/2022 8:19 AM EDT): Palpitation cause has not been clearly defined yet, per patient. I think a 30 day monitor would confirm/refute presence of an arrhythmia-symptom link. further management pending such Urinary retention 08/28/2022 Psoriasis-eczema overlap condition 08/28/2022 Chronic pain syndrome 08/28/2022 Hearing loss, left 08/28/2022 Borderline personality disorder 08/28/2022 Asthma-COPD overlap syndrome 09/30/2020 BRENT and COPD overlap syndrome 09/30/2020 Nicotine dependence, cigarettes, uncomplicated 0 09/30/2020 Marijuana use 09/30/2020 Anxiety 09/30/2020 Type 2 diabetes mellitus 06/21/2017 Panlobular emphysema 06/21/2017 Posttraumatic stress disorder 06/21/2017 Umbilical hernia 06/21/2017 Osteoarthrosis 06/21/2017 Memory impairment 06/21/2017 Gastroesophageal reflux disease 06/21/2017 ADHD (attention deficit hype ractivity disorder), combined type 12/26/2013 Acanthosis nigricans 12/26/2013 Morbid obesity 12/26/2013 Essential hypertension 12/26/2013 Bipolar disorder 12/26/2013 Overview (08/28/2022): Cyclothymic disorder Fibromyalgia 12/26/2013 Hyperlipidemia 12/26/2013 Tobacco user 12/26/2013 Overview (08/28/2022): cigarette Resolved Problems Problem Noted Date Diagnosed Date Resolved Date Chest pain 08/28/2022 09/14/2022 Overview (08/28/2022): External, unspecified Nocturnal hypoxemia 09/30/2020 08/29/19 23 Tobacco abuse counseling 09/30/2020 Onychomycosis 06/21/2017 08/28/2022 Migraine 06/21/2017 08/28/2022 Intertrigo 01/27/2014 08/28/2022 Depression 12/26/2013 08/28/2022 Encounters Date Type Department Care Team Description 11/21/2023 10:49 AM EDT - 11/21/2023 11:59 PM EDT Hospital [place] [address] Discharge Disposition: Home from Last 3 Months Family History Medical History Relation Comments Myocardial Infarction Paternal Grandmother Relation Status Comments Paternal Grandmother Social History Tobacco Use Types Packs/Day Years [...] Orientation Straight 09/10/2022 6: 48 AM EDT Last Filed Vital Signs Vital Sign Reading Time Taken Comments Blood Pressure 112/77 09/14/2022 2:56 PM EDT Pulse 72 09/14/2022 2:56 PM EDT ECG Temperature 36.9 ??C (98.4 ??F) 12/26/2013 1 1:24 AM EDT Respiratory Rate 16 12/26/2013 2:00 PM EDT Oxygen Saturation 99% 12/26/2013 2:00 PM EDT Inhaled Oxygen Concentration - - Weight 108.5 kg (239 lb 3.2 oz) 09/14/2022 2:56 PM EDT Height 152.4 cm (5') 09/14/2022 2:56 PM EDT Body Mass Index 46.72 09/14/2022 2:56 PM EDT Plan of Treatment Health Maintenance Due Date Last Done Comments CT Colonography 1965 Colonoscopy 1965 Colorectal Cancer Screening 1965 FIT DNA 1965 FIT 1965 Sigmoidoscopy (10 year) with FIT yearly 1965 Sigmoidoscopy 1965 Pneumococcal Vaccine: At-Ris k 5-64yrs (1 of 2 - PCV) 1970 DM Hemoglobin A1c 1974 DM Opthalmology Exam 1974 DM Urine Microalbumin yearly 1974 HIV screen 1982 Hepatitis C Screening 1982 Lipid Screening 1982 Hepatitis B vaccine (0-59 yrs) (1) 09/26/1983 Tdap adult 09/26/1983 Tetanus vaccine 09/26/1983 HPV test 1994 PAP Smear 1994 Breast Cancer Share Decision Needed 2004 Breast Cancer screening 2004 Zoster vaccine (1 of 2) 2014 DM Creatinine yearly 12/26/2014 12/26/2013 Covid-19 Vaccine (3 - season) 2023, 06/17/2021 Influenza (Flu) vaccine (1 o f 1 - Influenza standard series) 02/03/2024 Procedures Procedure Name Priority Date/Time Associated Diagnosis Comments SURGICAL PATHOLOGY REPORT Routine 11/21/2023 8:19 AM EDT BASIC METABOLIC PANEL Routine 12/26/2013 1:30 PM EDT from Last 3 Months or Most Recently Relevant to Health Maintenance Results * Surgical Pathology Report (11/21/2023 8:19 AM EDT) Final Diagnosis [id number] ? Location: [facility] The signing pathologist has [...] Graciela Verified: ??11/26/2023 14:03 ??Pathologist Performed at: ??-[facility] Dept. of Pathology, [place] [address] Plier Worker: Kelly Farr MD, AP, ??CLIA Certificate: [id number] DISCUSSION D - The increase in lamina [...] H - Rectal polyp, excision Referring Identifier: ??[id number] CARBON COPY: Mi Tyler CLINICAL INFORMATION Chronic [...] labeled H1. ??sns 11/26/2023 2:03 PM EDT [facility] GI Biopsy 11/21/2023 8:19 AM [...] EDT Isidro Marino DO PATHOLOGY/CYT OLOGY ORDERABLES [facility] [place] [address] * Basic Metabolic Panel (non-fasting) (12/26/2013 1:30 PM EDT) Pathologist [facility] Glucose 112 60 - 199 mg/dL [facility] Comment:Diabetes: >=200 mg/d L plus symptoms Blood Urea Nitrogen 13 8 - 18 mg/dL [facility] Creatinine 0.84 0.70 - 1.20 mg/dL [facility] Comment: Please note that the pediatric reference intervals supplied above were not validated at [facility]. Results from pediatric patients should be interpreted in conjunction to the patient's age, height and muscle mass. Sodium 135 135 - 145 mmol/L [facility] Potassium 4.2 3.5 - 5.0 mmol/L [facility] Comment: Please note: ??Patients with WBC >100,000 may have falsely elevated Potassium levels. ??For accurate Potassium quantification in these patients send serum separator tube (gold top) for subsequent determinations. ??Contact the Clinical Chemistry Laboratory if there are any questions. Chloride 98 98 - 107 mmol/L [facility] Carbon Dioxide 26 22 - 31 mmol/L [facility] Anion Gap 11 5 - 15 mmol/L [facility] Calcium 9.6 8.5 - 10.5 mg/dL [facility] Est Glomerular Filtration Rate >60 >=60 [facility] Comment: This estimated GFR (eGFR) value was calculated using the MDRD equation which has been validated on patients between the ages of 18 and 70. The MDRD should not be used to assess kidney function in patients < 18 years of age or in patients with extremes of body mass, or in patients with acute kidney failure. This value should be multiplied by 1.2 for patients. For further information please copy and paste the following links into your internet browser. [email or web address] [email or web address] Blood specimen (specimen) 12/26/2013 1:30 PM EDT 12/26/2013 1:47 PM EDT Narrative Resulting Agency Comment Spec In Lab Luis A Gudino MD CHEMISTRY ORDERABLES [facility] from Last 3 Months or Most Recently Relevant to Health Maintenance Advance Directives Documents on File Type Date Recorded Patient Silica Mixer Operator Expl anation Advance Directives and Living Will 08/21/2019 10:47 AM [place] Advance Directive Care Teams Cotton Chopper Relationship Specialty Start Date End Date Mi Tyler PA [address] [place] [address] PCP - General Family Medicine 05/05/21
--- OUTSIDE RECORDS SUMMARY | 2024-01-22 16:14 | XMS_ITS | Encounter Summary ---
Author Organization [facility] Address [address] [place] [address] Care Team Providers Care Field Crop Farmworker Name Role Phone Debbie Webber NP Primary Care Provider [phone] Encounter Details Date Type Department Care Team (Latest Contact Info) Description 02/13/2019 15:13 EDT - 02/13/2019 23:59 EDT Hospital Encounter [address] [address] Unknown, Provider, Discharge Disposition: Home or Self Care Social History Tobacco Use Types Packs/Day Years Used Date Smoking Tobacco: Never Assessed Sex and Gender Information Value Date Recorded Sex Assigned at Not on file Gender Identity Not on file Sexual Orientation Not on file documented as of this encounter Medications at Time of Discharge Medication Sig Dispensed Refills Start Date End Date amphetamine-dextroampheta mine (ADDERALL) 20 mg tablet Take 20 mg by mouth 2 times daily. clonAZEPAM (KLONOPIN) 1 mg tablet Take 1 mg by mouth at bedtime. FLUTICASONE PROPIONATE (FLOVENT HFA INHL) Inhale as directed as needed. LEVALBUTEROL HCL (XOPENEX INHL) Inhale as directed as needed. omeprazole (PRILOSEC) 20 mg capsule Take 20 mg by mouth daily. propranolol (INDERAL) 40 mg tablet Take 40 mg by mouth at bedtime. risperiDONE (RISPERDAL) 1 mg tablet Take 1 mg by mouth at bedtime. documented as of this encounter Discharge Disposition Disposition Code Departure Means Destination Home or Self Alf documented in this encounter Plan of Treatment Not on file documented as of this encounter Visit Diagnoses Not on filedocumented in this encounter Care Teams Field Crop Farmworker Relationship Specialty Start Date End Date Debbie Webber NP [address] [place] [address] [address] [place] [id number] PCP - General 09/04/11 02/17/19 documented as of this encounter
--- OUTSIDE RECORDS SUMMARY | 2024-01-22 16:14 | XMS_ITS | Encounter Summary ---
Author Organization [facility] Address [address] [place] [address] Care Team Providers Care Home Health Manager Name Role Phone Unavailable Primary Care Provider Unavailabl e Encounter Details Date Type Department Care Team (Late st Contact Info) Description 05/10/2010 Results Only [facility] Laboratory Services - [facility] ([facility] [address] [place], [place] [address] Johnathan Webber, SAP PORTAL ARCHITECT [address] [place] [address] Social History Tobacco Use Types [...] Priority Date/Time Associated Diagnosis Comments CYTOPATHOLOGY Routine 05/10/2010 0:00 EST documented in this encounter Results * CYTOPATHOLOGY (05/10/2010 0:00 EST) Pathology Report: CYTOPATHOLOGY REPORT ? Reports generated via electronic interface contain original data; ? however they are lacking the format of the original report. ? Caution should be taken when reading/interpreti ng unformatted reports. ? Name: ? PRISCILLA SANTOS ? Accession #: ? [id number] ? : ? 1965 (Age: 44) ??F ?Collect Date: ? 05/10/2010 ? Location: ? [facility] ? Receive Date: ? 05/11/2010 ? Provider: JOHNATHAN WEBBER SAP PORTAL ARCHITECT ? Copy to: ? Final Report ? SPECIMEN ADEQUACY ? Satisfactory for Evaluation ? - assessment of transformation zone component not applicable ( e.g. atrophy, ? vaginal sample, hysterectomy) ? GENERAL CATEGORIZATION ? Negative for Intraepithelial Lesion or Malignancy ? Previous Gynecologic Pathology: KOFFI: History of Dysplasia ? Treatment History: Hysterectomy: with history of dysplasia ? Specimen/Source: ??Pap Test, Cervix/Endocervix, ThinPrep Imaging System with ? manual evaluation ? Document reviewed and electronically signed by: ? Joann Calhoun, [place](ASCP)(IAC) ? Report ??Date: 05/17/2010 13:03 ? HPV with Pap Test ? Date Ordered: ? 05/17/2010 ? Status: ?? Signed Out ?Date Complete: ? 05/19/2010 ? By: ??System Interface ? Date Reported: ? 05/19/2010 ? Interpretation ? RESULT: Negative for HPV types 16, 18, 31, 33, 35, 39, 45, 51, 52, ? 56, 58, 59, and 68. ? Comments ? Document reviewed and electronically signed by: ? System Interface ? Report date: 05/19/2010 ? By the signature above, the attending physician certifies that he/she has ? personally conducted a gross and/or microscopic examination of the described ? specimens and rendered or confirmed the above diagnosis. ? End of Report ? [facility] 05/10/2010 05/11/2010 Johnathan Webber SAP PORTAL ARCHITECT PATHOLOGY ORDERABLES Performing Organization Address City/State/[facility] Co de Phone Number [facility] [address] [place] [address] documented in this encounter Visit Diagnoses Not on filedocumented in this encounter
--- OUTSIDE RECORDS SUMMARY | 2024-01-22 16:14 | XMS_ITS | Encounter Summary ---
Author Organization [facility] Address [address] [place] [address] Care Team Providers Care Director It Name Role Phone Unknown, Provider Primary Care Provider [phone] Debbie Webber ASSEMBLY LEADER Unavailable [phone] Encounter Details Date Type Department Care Team (Late st Contact Info) Description 12/10/[address] [facility] Pathology & Laboratory Medicine - [facility] [address] [place], [place] [id number] Outr Resulting Lab, Provider Social History Tobacco [...] Procedure Name Priority Date/Time Associated Diagnosis Comments HIV 1/2 ANTIGEN AND ANTIBODY, 4TH GENERATION Routine 12/10/2019 9:00 EDT documented in this encounter Results * HIV 1/2 ANTIGEN AND ANTIBODY, 4TH GENERATION (12/10/2019 9:00 EDT) HIV 1 and 2 Antibody/p24 Antigen, 4th Generation Negative Negative 12/11/2019 10:51 EDT [facility] Comment: If acute HIV-1 infection is suspected in a high risk ??patient, submit plasma specimen for HIV-1 RNA quantitation test. Fourth Generation assay performed on the Siemens Centaur. Blood VENOUS BLOOD / Unknown 12/10/2019 9:00 EDT 12/10/2019 21:12 EDT Provider Outr Resulting Lab IMMUNOLOGY A ND SEROLOGY ORDERABLES [facility] [address] [place] [address] documented in this encounter Visit Diagnoses Not on filedocumented in this encounter Care Teams Director It Relationship Specialty Start Date End Date Unknown, Provider, PCP - General 02/18/19 Debbie Webber NP [address] [place] [address] [address] [place] [address] 02/18/19 documented as of this encounter
--- OUTSIDE RECORDS SUMMARY | 2024-01-22 16:14 | XMS_ITS | Encounter Summary ---
Author Organization [facility] Address [address] [place] [address] Care Team Providers Care Safekeeping Clerk Name Role Phone Unavailable Primary Care Provider Unavailabl e Encounter Details Date Type Department Care Team (Late st Contact Info) Description 07/28/2011 Results Only [facility] Laboratory Services - [facility] [address] [place], [place] [id number] Isidro Pulido, DO [address] [facility] [address] [place] [address] Social History Tobacco Use Types Packs/Day Years Used Date Smoking Tobacco: Never Assessed Sex and Gender Information Value Date Recorded Sex Assigned at Not on file Gender Identity Not on file Sexual Orientation Not on file documented as of this encounter Plan of Treatment Not on file documented as of this encounter Procedures Procedure Name Priority Date/Time Associated Diagnosis Comments SURGICAL PATHOLOGY Routine 07/28/2011 0:00 EST documented in this encounter Results * SURGICAL PATHOLOGY (07/28/2011 0:00 EST) Pathology Report: SURGICAL PATHOLOGY REPORT Reports generated via electronic interface contain original data; however they are lacking the format of the original report. Caution should be taken when reading/interpreti ng unformatted reports. Name: ? PRISCILLA SANTOS ? Accession #: ? [id number] ? : ? 1965 (Age: 45) ??F ? Collect Date: ? 07/28/2011 ? Location: ? [facility] ? Receive Date: ? 07/28/2011 ? Provider: ISIDRO PULIDO DO Copy to: JOHNATHAN ROMERO LINK KNITTING MACHINE OPERATOR ? Final Pathologic Diagnosis: A. ?Colon, 35 cm, polyp, biopsies: 1. ?Hyperplastic polyp. B. ?Colon, 35 cm, polyp, biopsy: 1. ?Hyperplastic polyp. C. ?Colon, 25 cm, polyp, biopsies: 1. ?Hyperplastic polyp. D. ?Rectum, polyp, biopsy: 1. ?Hyperplastic polyp. E. ?Stomach, antrum, biopsies: 1. ?Antral-type mucosa with no specific pathologic features. F. ?Esophagus, distal, biopsies: 1. ?Squamous mucosa with no specific pathologic features. G. ?Stomach, body, biopsies: 1. ?Body-type mucosa with no specific pathologic features. Document reviewed and electronically signed by: SIOMARA STACK MD Report ??Date: 08/02/2011 15:36 By the signature above, the attending physician certifies that he/she has personally conducted a gross and/or microscopic examination of the described specimens and rendered or confirmed the above diagnosis. Specimen(s) Received: A. ?1A polyp 35 cm B. ? 1B polyp 35 cm bx C. ? Polyp 25 cm D. ? Rectal polyp E. ? Bx antrum F. ? Bx distal esoph G. ? Bx body of stomach Clinical History: ? Heme (+) stool/RUQ pain Gross Description: ? Received in formalin labelled Gerow, Priscilla and polyp 35 cm are two pink-pepe, irregular soft tissues, 0.2 x 0.2 x 0.2 cm and 0.7 x 0.5 x 0.3 cm. The presumed resection margin of the larger piece is inked black, this piece is trisected and entirely submitted as (A1) and the smaller fragment is submitted intact as (A2). Received in formalin labelled Gerow, Priscilla and polyp at 35 cm is a single, 1.3 x 1.2 x 0.9 cm, pepe-red, lobulated, polypoid tissue. ??The resection margin is inked black. ??The specimen is serially sectioned and entirely submitted as (B1) and (B2). Received in formalin labelled Gerow, Priscilla and polyp at 25 cm are two pink-pepe, irregular soft tissues, 0.4 x 0.2 x 0.1 cm and 0.6 x 0.4 x 0.3 cm. The margin of the larger piece is inked black, this piece is bisected and submitted as (C1) and the smaller piece is submitted intact as (C2). Received in formalin labelled Gerow, Priscilla and rectal polyp is a single, 0.6 x 0.5 x 0.2 cm, pink-pepe, irregular soft tissue. ??The presumed resection margin is inked black, the specimen is bisected and entirely submitted as (D). Received in formalin labelled Gerow, Priscilla and biopsy antrum are two pink-pepe, irregular soft tissues, 0.2 x 0.1 x 0.1 cm and 0.7 x 0.3 x 0.1 cm, submitted in toto as (E). Received in formalin labelled Gerow, Priscilla and biopsy distal esophagus are three pepe-white, irregular soft tissues ranging from 0.2 x 0.2 x 0.1 cm to 0.5 x 0.2 x 0.1 cm, submitted in toto as (F). Received in formalin labelled Gerow, Priscilla and body of stomach are two pink-pepe, irregular soft tissues, 0.1 x 0.1 x 0.1 cm and 0.6 x 0.2 x 0.1 cm, submitted in toto as (G). ([facility])/[facility] End of Report [facility]IN[facility] GONZALEZ 07/28/2011 07/28/2011 8:1 1 EST Isidro Pulido DO PATHOLOGY ORDER JAELYN [facility] [address] [place] [address] documented in this encounter Visit Diagnoses Not on filedocumented in this encounter
--- OUTSIDE RECORDS SUMMARY | 2024-01-22 16:14 | XMS_ITS | Encounter Summary ---
[place] [address] Care Team Providers Care Renal Dialysis Technician Name Role Phone Mi Tyler Primary Care Provider [phone] Encounter Details Date Type Department Care Team (Late st Contact Info) Description 08/28/2022 Abstract Cardiology at [address] [place] [address] Yulia Rico, RN Tobacco user Social History Tobacco Use Types Packs/Day Years Used Date Smoking Tobacco: Every Day Cigarettes 1 47 Smokeless Tobacco: Never Tobacco Cessation:Ready to [...] as of this encounter Visit Diagnoses Diagnosis Tobacco user Tobacco use disorder documented in this encounter Care Teams Renal Dialysis Technician Relationship Specialty Start Date End Date Mi Tyler PA [address] [place] [address] PCP - General Family Medicine 05/05/21 documented as of this encounter
--- OUTSIDE RECORDS SUMMARY | 2024-01-22 16:14 | XMS_ITS | Encounter Summary ---
Author Organization [facility] Address [address] [place] [address] Care Team Providers Care Software Writer Name Role Phone Debbie Webber NP Primary Care Provider [phone] Encounter Details Date Type Department Care Team (Late st Contact Info) Description 12/19/[address] [facility] Laboratory Services - [facility] ([facility]) [address] [place], [place] [address] Isidro Pulido, DO [address] [facility] ,[address] [place], [place] [id number] Social History Tobacco Use Types Packs/Day Years Used Date Smoking Tobacco: Never Assessed Sex and Gender Information Value Date Recorded Sex Assigned at Not on file Gender Identity Not on file Sexual Orientation Not on file documented as of this encounter Plan of Treatment Not on file documented as of this encounter Procedures Procedure Name Priority Date/Time Associated Diagnosis Comments SURGICAL PATHOLOGY Routine 12/19/2011 0:00 EDT documented in this encounter Results * SURGICAL PATHOLOGY (12/19/2011 0:00 EDT) Pathology Report: SURGICAL PATHOLOGY REPORT Reports generated via electronic interface contain original data; however they are lacking the format of the original report. Caution should be taken when reading/interpreti ng unformatted reports. Name: ? PRISCILLA SANTOS ? Accession #: ? [id number] ? : ? 1965 (Age: 46) ??F ? Collect Date: ? 12/19/2011 ? Location: ? [facility] ? Receive Date: ? 12/19/2011 ? Provider: ISIDRO PULIDO DO Copy to: DEBBIE WEBBER UI APPLICATION DEVELOPER ? Final Pathologic Diagnosis: ? Gallbladder, cholecystectomy: - Chronic cholecystitis. Document reviewed and electronically signed by: Simeon Barrera MD Report ??Date: 12/21/2011 14:46 By the signature above, the attending physician certifies that he/she has personally conducted a gross and/or microscopic examination of the described specimens and rendered or confirmed the above diagnosis. Specimen(s) Received: ? Gallbladder Clinical History: ? Biliary dyskinesia Gross Description: ? Received in formalin labelled Priscilla Santos and gallbladder is a 7.0 cm in length by 3.0 cm in diameter gallbladder, received closed, which includes a short segment of cystic duct which measures roughly 0.5 cm in length by 0.4 cm in diameter. ??The gallbladder contains dark green bile; however, there are no choleliths present. ??The gallbladder mucosa is pepe-dark green bile stained and velvety. ??The distal gallbladder wall is thickened over an area measuring roughly 1.0 cm in greatest dimension, with the thickness measuring up to 0.7 cm. The wall in this thickened area has a couple of smooth lined cystic structures within the muscularis which measure 0.5 cm and 0.1 cm in diameter. ??There are no contents within these cystic structures. ??The remaining gallbladder wall measures 0.2 cm in thickness. ??The serosa of the gallbladder is generally smooth, light yellow to pepe-white. ??The cystic duct margin (black inked and en face), along with a section of the distal gallbladder, including the thickened wall and cystic-like structures, as well as a section of upper gallbladder are submitted in one cassette. ??(Lissett Duran)/cali End of Report [facility] 12/19/2011 12/19/2011 16: 37 EDT Isidro Pulido DO PATHOLOGY ORDER JAELYN Performing Organization Address City/State/[facility] Co de Phone Number [facility] [address] [place] [address] documented in this encounter Visit Diagnoses Not on filedocumented in this encounter Care Teams Software Writer Relationship Specialty Start Date End Date Debbie Webber NP [address] [place] [address] [address] [place] [address] PCP - General 09/04/11 02/17/19 documented as of this encounter
--- OUTSIDE RECORDS SUMMARY | 2024-01-22 16:14 | XMS_ITS | Clinical Summary ---
Author Organization [facility] Address [address] [place] [address] Care Team Providers Care Wood Cut Engraver Name Role Phone Unknown, Provider Primary Care Provider [phone] Debbie Webber EMT I/85 Unavailable [phone] Allergies Active Allergy Reactions Criticality Noted Date [...] 51.69 05/21/2012 1119 EST Plan of Treatment Health Maintenance Due Date Last Done Comments Hepatitis B Vaccine (1 of 3 - 19+ 3-dose series) 09/25 COVID-19 Vaccine (2022- season) 2023 Hepatitis C Screen Completed 12/10/2019 Procedures Procedure Name Priority Date/Time Associated Diagnosis Comments HEPATITIS C AB W REFLEX TO HCV RNA BY PCR Routine 12/10/2019 9:00 EDT from Last 3 Months or Most Recently Relevant to Health Maintenance Results * HEPATITIS C AB W REFLEX TO HCV RNA BY PCR (12/10/2019 9:00 EDT) Hep C Antibody Negative Negative 12/11/2019 10:[address] [facility] Blood VENOUS BLOOD / Unknown 12/10/2019 9:00 EDT 12/10/2019 21:12 EDT Provider Outr Resulting Lab CHEMISTRY & BLOOD GAS ORDERABLES [facility] [address] [place] [address] from Last 3 Months or Most Recently Relevant to Health Maintenance Care Teams Wood Cut Engraver Relationship Specialty Start Date End Date Unknown, Provider, PCP - General 9/17/19 Debbie Webber NP [address] [place] [address] [address] [place] [phone] 02/18/19
--- OUTSIDE RECORDS SUMMARY | 2024-01-22 16:14 | XMS_ITS | Encounter Summary ---
Author Organization [facility] Address [address] [place] [address] Care Team Providers Care Bulk System Operator Name Role Phone Unavailable Primary Care Provider Unavailabl e Encounter Details Date Type Department Care Team (Late st Contact Info) Description 03/09/2009 Orders Only [facility] Laboratory Services - [facility] ([facility]) [address] [place], [place] [id number] Johnathan Webber, PEPPER CUTTER [address] [place] [address] Social History Tobacco Use Types [...] Priority Date/Time Associated Diagnosis Comments CYTOPATHOLOGY Routine 03/09/2009 0:00 EDT documented in this encounter Results * CYTOPATHOLOGY (03/09/2009 0:00 EDT) Pathology Report: CYTOPATHOLOGY REPORT ? Reports generated via electronic interface contain original data; ? however they are lacking the format of the original report. ? Caution should be taken when reading/interpreti ng unformatted reports. ? Name: ? PRISCILLA SANTOS ? Accession #: ? [id number] ? : ? 1965 (Age: 43) ??F ?Collect Date: ? 03/09/2009 ? Location: ? [facility] ? Receive Date: ? 03/09/2009 ? Provider: ?JOHNATHAN WEBBER NP ? Copy to: ? Specimen/Source: ?Pap Test, Vagina, ThinPrep Imaging System with manual ?? evaluation ? Last Menstrual Period: ? 1994 ? Treatment History: ? ANGIE/BSO: 1994 dysplagia ? Other: ? HPVA - HPV testing requested if ASC-US on the current ThinPrep Pap test. ? SPECIMEN ADEQUACY ? Satisfactory for Evaluation ? - assessment of transformation zone component not applicable ( e.g. atrophy, ? vaginal sample, hysterectomy) ? GENERAL CATEGORIZATION ? Negative for Intraepithelial Lesion or Malignancy ? Document reviewed and electronically signed by: ? Jessy Mark, CT(ASCP) ? Report Date: ??03/15/2009 14:03 ? End of Report ? [facility] 03/09/2009 03/09/2009 Johnatahn Webber PEPPER CUTTER PATHOLOGY ORDERABLES [facility] [address] [place] [address] documented in this encounter Visit Diagnoses Not on filedocumented in this encounter
--- OUTSIDE RECORDS SUMMARY | 2024-01-22 16:14 | XMS_ITS | Encounter Summary ---
Author Organization [facility] Address [address] [place] [address] Care Team Providers Care Manager Commission Name Role Phone Unknown, Provider Primary Care Provider [phone] Debbie Webber FRENCH DRAWER Unavailable [phone] Encounter Details Date Type Department Care Team (Late st Contact Info) Description 12/10/2019 Lab Requisition [facility] Pathology & Laboratory Medicine - [address] [address] Outr Resulting Lab, Provider Social History Tobacco [...] Procedure Name Priority Date/Time Associated Diagnosis Comments HOLD SST Today 12/10/2019 9:00 EDT SYPHILIS SEROLOGY Today 12/10/2019 9:00 EDT documented in this encounter Results * HOLD SST (12/10/2019 9:00 EDT) Hold Hold 12/10/2019 22:[address] [facility] Blood VENOUS BLOOD / Unknown 12/10/2019 9:00 EDT 12/10/2019 21:08 EDT Provider Outr Resulting Lab LAB INFO SER VICE AND SUPPORT & PHONE RESULT [facility] [address] [place] [address] * SYPHILIS SEROLOGY (12/10/2019 9:00 EDT) Syphilis Serology Negative Negative 12/11/2019 11:[address] [facility] Blood VENOUS BLOOD / Unknown 12/10/2019 9:00 EDT 12/10/2019 21:08 EDT Provider Outr Resulting Lab IMMUNOLOGY A ND SEROLOGY ORDERABLES Performing Organization Address City/State/[facility] Co de Phone Number [facility] [address] [place] [address] documented in this encounter Visit Diagnoses Not on filedocumented in this encounter Care Teams Manager Commission Relationship Specialty Start Date End Date Unknown, Provider, PCP - General 02/18/19 Debbie Webber NP [address] [place] [address] [address] [place] [address] 02/18/19 documented as of this encounter
--- OUTSIDE RECORDS SUMMARY | 2024-01-22 16:14 | XMS_ITS | Encounter Summary ---
Author Organization [facility] Address [address] [place] [address] Care Team Providers Care Client Services Director Name Role Phone Debbie Webber NP Primary Care Provider [phone] Encounter Details Date Type Department Care Team (Late st Contact Info) Description 04/24/2012 Results Only Imaging [facility] [phone] Debbie Webber NP [address] [facility] [address] [place] [address] Social History Tobacco Use Types [...] on filedocumented in this encounter Care Teams Client Services Director Relationship Specialty Start Date End Date Debbie Webber NP [address] [facility] [address] [place] [phone] PCP - General 09/04/11 02/17/19 documented as of this encounter
--- OUTSIDE RECORDS SUMMARY | 2024-01-22 16:15 | XMS_ITS | Encounter Summary ---
[place] [address] Care Team Providers Care Bank Courier Name Role Phone BeckaOttoniel balderas Jamesjolynn CARLEE Primary Care Provider [phone] Reason for Visit * Reason Onset Date Comments Prior Authorization 10/01/2020 fluticasone furoate-vilanteroL (Breo Ellipta) 100-25 mcg/dose Disk with Device Encounter Details Date Type Department Care Team (Late st Contact Info) Description 10/01/2020 Tele[place] [phone] Cuca Gonzales LNA Prior Authorization (fluticasone furoate-vilanteroL (Breo Ellipta) 100-25 mcg/dose Disk with Device ) Social History Tobacco Use Types Packs/Day Years Used Date Smoking Tobacco: Every Day Cigarettes 1 47 Alcohol Use Standard Drinks/Week Comments No 0 (1 standard drink = 0.6 oz pur e alcohol) Sex and Gender Information Value Date Recorded Sex Assigned at Female 09/10/2022 6:48 AM EDT Gender Identity Female 09/10/2022 6:48 AM EDT Sexual Orientation Straight 09/10/2022 6: 48 AM EDT documented as of this encounter Miscellaneous Notes * Telephone Encounter - Enma Howe, EDMUND - 10/01/2020 12:14 PM EDT Medication Prior Authorization for Primary [place] [address] DENIED: Breo Ellipta Case/Reference #: [id number] Additional Information from Insurance: The patient must have had a treatment failure to any 2 of the following: Advair HFA, Advair diskus, Dulera or Symbicort. * Telephone Encounter - Cuca Gonzales LNA - 10/01/2020 11:02 AM EDT Medication Prior Authorization for Primary [place] [address] Request received via: [employer] Patient: Chika Santos Patient : 1965 Insurance Company: [place] [employer] Sent via: [employer] Phone: [place]: [id number] Physician: Gurmeet Tam MD Medication Requested:fluticasone furoate-vilanteroL (Breo Ellipta) 100-25 mcg/dose Disk with Device Frequency/Sig: Inhale 1 puff into the lungs daily. 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 Prior medications trialed in this patient: Medication: QVar Medication: Albuterol Additional Notes: Allergy to Spiriva Respimat (tiotropium [place]) documented in this encounter Plan of Treatment Not on file documented as of this encounter Visit Diagnoses Not on filedocumented in this encounter Care Teams Bank Courier Relationship Specialty Start Date End Date Ottoniel Jovel DNP PCP - General Family Medicine 03/25/19 05/04/21 documented as of this encounter
--- OUTSIDE RECORDS SUMMARY | 2024-01-22 16:15 | XMS_ITS | Encounter Summary ---
[place] [address] Care Team Providers Care Underwriting Clerks Supervisor Name Role Phone Ottoniel Jovel DNP Primary Care Provider [phone] Reason for Visit * Reason Comments Skin Check * Consultation (Routine) - Closed Specialty Diagnoses / Procedures Referred By Wilfrid winston Referred To Contact Dermatology Diagnoses Unspecified contact dermatitis, unspecified cause Rash and other nonspecific skin eruption Contact Dermatitis, Rash; Est. Patient-Notes Received Procedures Consult Ottoniel Jovel DNP [address] [place] [address] Juan Alberto Nueñz MD [address] [place] [address], [facility] [place] [address] Referral ID Status Reason Start Date Expiration Date V isits Requested Visits Authorized [id number] Closed Consult, Test & Treat PCP Updated and/or Approved 09/16/2020 03/18/2021 6 6 Encounter Details Date Type Department Care Team (Late st Contact Info) Description 11/23/2020 11:30 AM EDT Office Visit Dermatology at [address] [address] Juan Alberto Nuñez MD [address] [place] [address], [facility] [place] [address] Dermatitis Social History Tobacco Use Types Packs/Day Years [...] AM EDT documented as of this encounter Progress Notes * Juan Alberto Nuñez MD - 11/23/2020 11:30 AM EDT Problem: Itching of scalp and behind ears Chika follows up and is now 55. For about a month she has had problems with itching in and behind her ears but also patchy areas within her scalp. She has been under a lot of stress recently as she is having to leave her apartment and has has not yet found a replacement apartment. Physical examination reveals a pleasant 55-year-old woman who has erythema on the postauricular scalp and erythema also within the conchal bowls and external auditory canals of both ears. She has some acne excoriae within her scalp, particularly on the occipital scalp areas. Assessment and plan: Seborrheic dermatitis, closely related to increasing stress about current living situation 1. Patient may be able to find an apartment in the [facility] which have just been refurbished, or an apartment will come become free as the prior [facility] apartment tenants moved back in to these new apartments. The patient has an application in. 2. For symptomatic treatment in the meantime, recommend that she begin applications of fluocinolone0.01% solution to itchy areas within the scalp and ears on a nightly basis. Dispense 60 mL with 2 refills. 3. Begin use of ketoconazole 2% shampoo lather up every other day when she shampoos, rinsing after 3 minutes. Dispense 120 mL with 2 refills. 4. Confirmed the patient suspicion that her current stress level is playing a major role with her itchy scalp condition. It sounds like the steps have been taken though to find resolution CC: Ottoniel Jovel APRN documented in this encounter Plan of Treatment Not on file documented as of this encounter Visit Diagnoses Diagnosis Dermatitis Contact dermatitis and other eczema, due to unspecified cause documented in this encounter Care Teams Underwriting Clerks Supervisor Relationship Specialty Start Date End Date Ottoniel Jovel DNP PCP - General Family Medicine 03/25/19 05/04/21 documented as of this encounter
--- OUTSIDE RECORDS SUMMARY | 2024-01-22 16:15 | XMS_ITS | Encounter Summary ---
[place] [address] Care Team Providers Care Spring Coiling Machine Setter Name Role Phone Ottoniel Jovel DNP Primary Care Provider [phone] Encounter Details Date Type Department Care Team (Late st Contact Info) Description 09/09/2020 [place] [phone] Mary Jo Pino Social History Tobacco Use [...] on filedocumented in this encounter Care Teams Spring Coiling Machine Setter Relationship Specialty Start Date End Date Ottoniel Jovel DNP PCP - General Family Medicine 03/25/19 05/04/21 documented as of this encounter
--- OUTSIDE RECORDS SUMMARY | 2024-01-22 16:15 | XMS_ITS | Encounter Summary ---
[place] [address] Care Team Providers Care Marketing Communications Associate Name Role Phone Debbie Webber APRN Primary Care Provider + Reason for Visit * Reason Comments Abdominal Pain Encounter Details Date Type Department Care Team (Late st Contact Info) Description 12/26/2013 11:04 AM EDT - 12/26/2013 2:40 PM EDT [place] [address] Elise Gudino MD [facility] [place] [address] Abundio Stapleton MD [facility] [place] [address] Chronic epigastric pain Discharge Disposition: Home Social History Tobacco Use [...] Sign Reading Time Taken Comments Blood Pressure 116/75 12/26/2013 2:00 PM EDT Pulse 96 12/26/2013 2:00 PM EDT Temperature 36.9 ??C (98.4 ??F) 12/26/2013 11:24 AM E DT Respiratory Rate 16 12/26/2013 2:00 PM EDT Oxygen Saturation 99% 12/26/2013 2:00 PM EDT Inhaled Oxygen Concentration - - Weight 110.2 kg (243 lb) 12/26/2013 11:24 AM EDT Height - - Body Mass Index - - documented in this encounter Discharge Instructions * Discharge Instructions* Abdiel English MD - 12/26/2013 2:33 PM EDT Images from the original note were not included. 1. Please follow-up with a career counselor for your stomach pain. 2. If you pain becomes suddenly worse, if you experience bloody vomiting or stools, or if you become feverish, please seek medical attention. Thank you for entrusting us with your care. [facility] Abdominal Pain: After Your Visit Your Care Instructions Abdominal pain has many possible causes. Some aren't serious and get better on their own in a few days. Others need more testing and treatment. If your pain continues or gets worse, you need to be rechecked and may need more tests to find out what is wrong. You may need surgery to correct the problem. Don't ignore new symptoms, such as fever, nausea and vomiting, urination problems, pain that gets worse, and dizziness. These may be signs of a more serious problem. Your doctor may have recommended a follow-up visit in the next 8 to 12 hours. If you are not getting better, you may need more tests or treatment. The doctor has checked you carefully, but problems can develop later. If you notice any problems ornew symptoms, get medical treatment right away. Follow-up care is a denis part of your treatment and safety. Be sure to make and go to all appointments, and call your doctor if you are having problems. It's also a good idea to know your test resultsand keep a list of the medicines you take. How can you care for yourself at home? ?? Rest until you feel better. ?? To prevent dehydration, drink plenty of fluids, enough so that your urine is light yellow or clear like water. Choose water and other caffeine-free clear liquids until you feel better. If you havekidney, heart, or liver disease and have to limit fluids, talk with your doctor before you increasethe amount of fluids you drink. ?? If your stomach is upset, eat mild foods, such as rice, dry toast or crackers, bananas, and applesauce. Try eating several small meals instead of two or three large ones. ?? Wait until 48 hours after all symptoms have gone away before you have spicy foods, alcohol, and drinks that contain caffeine. ?? Do not eat foods that are high in fat. ?? Avoid anti-inflammatory medicines such as aspirin, ibuprofen (Advil, Motrin), and naproxen (Aleve). These can cause stomach upset. Talk to your doctor if you take daily aspirin for another health problem. When should you call for help? Call 911 anytime you think you may need emergency care. For example, call if: ?? You passed out (lost consciousness). ?? You pass maroon or very bloody stools. ?? You vomit blood or what looks like coffee grounds. ?? You have new, severe belly pain. Call your doctor now or seek immediate medical care if: ?? Your pain gets worse, especially if it becomes focused in one area of your belly. ?? You have a new or higher fever. ?? Your stools are black and look like tar, or they have streaks of blood. ?? You have unexpected vaginal bleeding. ?? You have symptoms of a urinary tract infection. These may include: ?? Pain when you urinate. ?? Urinating more often than usual. ?? Blood in your urine. ?? You are dizzy or lightheaded, or you feel like you may faint. Watch closely for changes in your health, and be sure to contact your doctor if: ?? You are not getting better after 1 day (24 hours). Where can you learn more? Visit our health information library at [email or web address] You can also view health information on [employer], your personal patient account. Log in or sign up today. Enter E907 in the search box to learn more about Abdominal Pain: After Your Visit. ?? [id number] [employer]. Care instructions adapted under license by [facility]. This care instruction is for use with your licensed healthcare professional. If you have questions about a medical condition or this instruction, always ask your healthcare professional. Healthwise, [employer] disclaims any warranty or liability for your use of this information. Content Version: 9.9.630648; Last Revised: 2011 documented in this encounter Medications at Time of Discharge Medication Sig Dispensed Refills Start Date End Date ibuprofen (ADVIL;MOTRIN) 800 mg tablet 08/28/2022 amphetamine-dextroamphetamine (ADDERALL XR) 20 mg 24 hr capsule 10/26/200810/02 docusate sodium (DOK) 100 mg capsule 10/0308/28/2022 cyclobenzaprine (FLEXERIL) 10 mg tablet 0 10/26/2008 10/19/2020 propranolol (INDERAL) 40 mg tablet 200811/23/2020 LORazepam (ATIVAN) 1 mg tablet 10/26/2008 08/28/2022 magnesium citrate Soln solution 9 11/23/2020 lactulose (CEPHULAC) 10 gram packet 10/2611/23/2020 OXYcodone 10 mg Tab 10/26/2008 11/24/19 21 documented as of this encounter ED Notes * Elise Gudino MD - 12/26/2013 3:53 PM EDT Chief Complaint Patient presents with ??? Abdominal Pain HPI Comments: Chika Santos is a 48 yo female who presents with abdominal pain. She first noticed the pain 3 weeks ago. It was burning in nature, located in the epigastric region,and constant, however it went away after 5 days. About 4 days ago the pain came back. She describesthe pain this morning as sharp and burning, tracking along the epigastric area as well as the upperright and left quadrants. Eating makes the pain worse, saying that it feels like I swallowed glass. She notes nausea but no vomiting. Per the patient and her , a upper GI endoscopy performed3 years ago showed irritate mucosa but no ulcers. Additionally, she has had diarrhea during the last few days, occuring 3-4 times per day, ranging incolor from light brown to dark brown. Denies fatty stools or foul odors. The history is provided by the patient and the spouse. Allergies Allergen Reactions ??? Codeine Phosphate ??? Iodine ??? Oxycodone-Acetaminophen ??? Povidone-Iodine ??? Sulfa (Sulfonamide Antibiotics) CIS - Unknown Review of Systems Constitutional: Negative for fever, chills and unexpected weight change. HENT: Negative for neck pain. Respiratory: Negative for cough, chest tightness and shortness of breath. Cardiovascular: Negative for chest pain and palpitations. Gastrointestinal: As per HPI. Genitourinary: Negative for dysuria, hematuria, flank pain and pelvic pain. Musculoskeletal: Positive for arthralgias. Chronic joint pain from fibromyalgia. Neurological: Negative for dizziness and light-headedness. Physical Exam Constitutional: She is oriented to person, place, and time. She appears well- developed and well-nourished. HENT: Head: Normocephalic and atraumatic. Eyes: EOM are normal. Pupils are equal, round, and reactive to light. Neck: Normal range of motion. Cardiovascular: Normal rate, regular rhythm and normal heart sounds. Pulmonary/Chest: Breath sounds normal. No respiratory distress. Abdominal: There is tenderness. There is no rebound. There is pain upon light palpation in the upper left and right quadrants, with exquisite tendernessat the xiphoid process. The lower left and right quadrants are non-tender upon deep palpation. Bowel sounds are normoactive. Neurological: She is alert and oriented to person, place, and time. No cranial nerve deficit. Skin: Skin is warm. Procedures MDM Number of Diagnoses or Management Options Chronic epigastric pain: Diagnosis management comments: Mrs. Santos presents with burning and tenderness to the upper right and left abdominal quadrants. Given her history of fibromyalgia, this could very well be an exacerbation. However, it is also likely that she has worsened gastric irritation as seen 3 years ago, with po ssible ulcer at this point. Assessment: 48 yo female with upper right and left quadrant abdominal pain. Plan: 1. Labs: BMP, CBC, LFTs, lipase, stool occult blood, stool culture, urine analysis 2. Follow-up with gastroenterology for upper GI endoscopy ED Course: The patient was interviewed and examined. The labs above were ordered, and all were within normal limits save for a mildly elevated WBC count at 11.5 Because she was stable and there was no obvious cause of her discomfort, I discussed with the patient that scheduling an appointment with gastroenterology could be beneficial in order to better assess the etiology of her illness. She was stable as discharge and given instructions for follow-up. Abdiel English MD Resident 12/26/13 1356 History Social History ??? Marital Status: Single Spouse Name: N/A Number of Children: N/A ??? Years of Education: N/A Occupational History ??? Not on file. Social History Main Topics ??? Smoking status: Current Every Day Smoker -- 1.0 packs/day for 47 years Types: Cigarettes ??? Smokeless tobacco: Not on file ??? Alcohol Use: No ??? Drug Use: Yes Special: Marijuana ??? Sexually Active: Other Topics Concern ??? Do You Live Alone? No ??? Tobacco In Home Yes Social History Narrative ??? No narrative on file Patient Active Problem List Diagnosis Code ??? ADHD (attention deficit hyperactivity disorder), combined type 314.01 ??? Acanthosis nigricans 701.2 ??? Obese 278.00 ??? Depression 311 ??? Hypertension 401.9 ??? Bipolar disorder 296.80 ??? Fibromyalgia 729.1 ??? Elevated cholesterol 272.0 ATTENDING PHYSICIAN I have seen the patient and reviewed the resident's documentation and I agree with the details as written. The assessment and plan were formulated in discussion with me and I agree with them as documented. I also performed my own history and physical examination. Medical decision making in this note is my own. Pertinent History: Epigastric pain just below the xiphoid in a patient with an extensive history ofabdominal symptoms and surgeries. Pain is localized and not associated with infectious symptomatology. No radiation. Pertinent Exam Findings: There is a whole body the tenderness to palpation secondary to previously diagnosed fibromyalgia, but despite this the abdomen is actually benign. Laboratory/radiography: As above. Assessment MDM: Likely differential would include functional, hiatal hernia, GERD. No indication ofemergent intra-abdominal process. Also nonemergent R. morbid obesity and diabetes. Plan: Followup PCP. Elise Gudino MD 12/26/13 9540 documented in this encounter Miscellaneous Notes * Discharge Summary - Provider, Scanning - 12/29/2013 8:49 AM EDT * Miscellaneous - Provider, Scanning - 12/26/2013 7:45 PM EDT * ED Triage - Sadie Rosas RN - 12/26/2013 11:24 AM EDT Patient presents to [facility] ED with c/o abdominal pain, nausea and diarrhea. Pt states this began about 9 days ago, and for the past 3 days has not been able to eat , reporting a lump when she swallows. Pain begins in LUQ and moves to RUQ and lower abdomen and is intermittent, sharp and burning. patient has been taking Maalox and reports some black stool. A&Ox4, skin WPD documented in this encounter Plan of Treatment Not on file documented as of this encounter Procedures Procedure Name Priority Date/Time Associated Diagnosis Comments POCT STOOL OCCULT BLOOD Routine 12/26/2013 1:40 PM EDT HEMOGRAM STAT 12/26/2013 1:30 PM EDT DIFFERENTIAL, AUTOMATED STAT 12/26/2013 1:30 PM EDT BLUE TUBE HOLD Routine 12/26/2013 1:30 PM EDT CBC (WITH DIFF) STAT 12/26/2013 1:30 PM EDT LIPASE STAT 12/26/2013 1:30 PM EDT HEPATIC FUNCTION PANEL STAT 4 1:30 PM EDT BASIC METABOLIC PANEL Routine 12/26/2013 1:30 PM EDT STOOL CULTURE SCREEN ([facility]/CGP/APD/NLH) Routine 12/26/2013 1:26 PM EDT CAMPYLOBACTER ANTIGEN Routine 12/26/2013 1:26 PM EDT SHIGA TOXIN ASSAY Routine 12/26/2013 1:2 6 PM EDT URINALYSIS WITH REFLEX CULTURE STAT 12/26/2013 1:26 PM EDT STOOL CULTURE Routine 12/26/2013 1:26 PM EDT documented in this encounter Results * POCT Stool occult blood (12/26/2013 1:40 PM EDT) POC Fecal OB Negative POSITIVE POC Control Internal Controls Acceptable Elise Gudino MD POINT OF CARE TEST O RDERABLES * Blue Tube HOLD (12/26/2013 1:30 PM EDT) Pathologist [facility] Blue Hold Sample in lab. RAMU VALLESIUM Blood specimen (specimen) 12/26/2013 1:30 PM EDT 12/26/2013 1:47 PM EDT Elise Gudino MD HEMATOLOGY ORDERABLE S MIHAISERGIO MILLSENNIUM * (ABNORMAL) Differential, Automated (12/26/2013 1:30 PM EDT) Neutrophil % 78.3(H) 34.0 - 71.0 % CERNER MILLENNIUM Neutrophil Absolute 8.99(H) 1.50 - 6.30 x10(3)/mc L CERNER MILLENNIUM Lymph % 9.8(L) 19.0 - 53.0 % CERNER MILLENNIUM Lymphocytes Abs 1.1 1.0 - 3.6 x10(3)/mc L CERNER MILLENNIUM Monocyte % 10.5 4.0 - 13.0 % CERNER MILLENNIUM Monocyte Abs 1.2(H) 0.2 - 1.0 x10(3)/mc L CERNER MILLENNIUM Eos % 1.0 0.0 - 7.0 % CERNER MILLENNIUM Eosinophils Abs 0.1 0.0 - 0.5 x10(3)/mc L CERNER MILLENNIUM Basophil % 0.2 0.0 - 2.0 % CERNER MILLENNIUM Baso Absolute 0.0 0.0 - 0.2 x10(3)/mc L CERNER MILLENNIUM Immature Gran % 0.20 0.00 - 0.66 % CERNER MILLENNIUM Comment: Immature granulocytes(IG's)percentage and absolute count will include metamyelocytes, myelocytes, and promyelocytes. Blood smears from CBCs yielding IG's will be scanned manually for concordance. If this scan disagrees with the automated IG or if promyelocytes are noted, a manual differential will be performed. Immature Gran Absolute 0.02 0.00 - 0.05 x10(3)/mc L CERNER MILLENNIUM Blood specimen (specimen) 12/26/2013 1:30 PM EDT 12/26/2013 1:47 PM EDT Narrative Resulting Agency Comment Spec In Lab Elise Gudino MD HEMATOLOGY ORDERABLE S CERNER MILLENNIUM * (ABNORMAL) Hemogram (12/26/2013 1:30 PM EDT) White Blood Cell 11.5(H) 4.0 - 10.0 x10(3)/mc L CERNER MILLENNIUM Red Blood Cell 5.07 3.93 - 5.22 x10(6)/mc L CERNER MILLENNIUM Hemoglobin 16.4(H) 11.2 - 15.7 gm/dL CERNER MILLENNIUM Hematocrit 47.2(H) 34.0 - 45.0 % CERNER MILLENNIUM Mean Cell Volume 93.1 79.0 - 94.0 fL CERNER MILLENNIUM Mean Cell Hemoglobin 32.3(H) 26.6 - 32.2 pg CERNER MILLENNIUM Mean Cell Hemoglobin Concentration 34.7 32.0 - 36.5 gm/dL CERNER MILLENNIUM Platelet 254 145 - 370 x10(3)/mc L CERNER MILLENNIUM RDW Standard Deviation 44.6 35.0 - 46.0 fL CERNER MILLENNIUM RDW coefficient of variation 13.2 10.9 - 14.4 % CERNER MILLENNIUM Mean Platelet Volume 10.5 9.0 - 12.0 fL CERNER MILLENNIUM Blood specimen (specimen) 12/26/2013 1:30 PM EDT 12/26/2013 1:47 PM EDT Narrative Resulting Agency Comment Spec In Lab Elise Gudino MD HEMATOLOGY ORDERABLE S Performing Organization Address [facility]/ZIP Co de Phone Number [facility] GENEENNIUM * Lipase (12/26/2013 1:30 PM EDT) Lipase 36 0 - 60 unit/L CERNER MILLENNIUM Blood specimen (specimen) 12/26/2013 1:30 PM EDT 12/26/2013 1:47 PM EDT Narrative Resulting Agency Comment Spec In Lab Elise Gudino MD CHEMISTRY ORDERABLES Performing Organization Address [facility] Co de Phone Number [facility] * Hepatic Function Panel (12/26/2013 1:30 PM EDT) Protein, Total 7.3 6.4 - 8.3 gm/dL CERNER MILLENNIUM Albumin 4.0 3.2 - 5.2 gm/dL CERNER MILLENNIUM Aspartate Aminotransferase 19 0 - 30 unit/L CERNER MILLENNIUM Alanine Aminotransferase 22 0 - 30 unit/L CERNER MILLENNIUM Alkaline Phosphatase 61 40 - 104 unit/L CERNER MILLENNIUM Bilirubin, Total 0.6 0.2 - 1.3 mg/dL CERNER MILLENNIUM Bilirubin, Direct 0.1 0.0 - 0.3 mg/dL CERNER MILLENNIUM Blood specimen (specimen) 12/26/2013 1:30 PM EDT 12/26/2013 1:47 PM EDT Narrative Resulting Agency Comment Spec In Lab Elise Gudino MD CHEMISTRY ORDERABLES Performing Organization Address [facility] Co de Phone Number [facility] * Basic Metabolic Panel (non-fasting) (12/26/2013 1:30 PM EDT) Glucose 112 60 - 199 mg/dL CERNER MILLENNIUM Comment:Diabetes: >=200 mg/d L plus symptoms Blood Urea Nitrogen 13 8 - 18 mg/dL CERNER MILLENNIUM Creatinine 0.84 0.70 - 1.20 mg/dL CERNER MILLENNIUM Comment: Please note that the pediatric reference intervals supplied above were not validated at [facility]. Results from pediatric patients should be interpreted [...] the following links into your internet browser. [email or web address] Blood specimen (specimen) 12/26/2013 1:30 PM EDT 12/26/2013 1:47 PM EDT Narrative Resulting Agency Comment Spec In Lab Elise Gudino MD CHEMISTRY ORDERABLES RAMU CRESPO * Shiga Toxin Detection (12/26/2013 1:26 PM EDT) Shiga Toxin Assay ? Patient Name: CHIKA SANTOS ? Ordered By: ELISE GUDINO ? MR#: [id number] ?LOC: ??ED ? /Sex: ??1965 (48 years), ? Female ? PROCEDURE: Shiga Toxin Assay ?SOURCE: Stool ? COLLECTED: 12/26/2013 13:26 ? STARTED: 12/26/2013 13:56 ? FINAL REPORT ? Final Report ? Verified: 15:09 ? EIA Negative for Shiga Toxin 1 ? EIA Negative for Shiga Toxin 2 ? ___ ? ___ [facility] Stool specimen (specimen) 12/26/2013 1:26 PM EDT 12/26/2013 1:56 PM EDT Narrative Resulting Agency Comment Spec In Lab Elise Gudino MD MICROBIOLOGY - GENER AL ORDERABLES [facility] * Campylobacter Antigen (12/26/2013 1:26 PM EDT) Campylobacter Ag ? Patient Name: CHIKA SANTOS ? Ordered By: ELISE GUDINO ? MR#: [id number] ?LOC: ??ED ? /Sex: ??1965 (48 years), ? Female ? PROCEDURE: Campylobacter Antigen ?SOURCE: Stool ? COLLECTED: 12/26/2013 13:26 ? STARTED: 12/26/2013 13:56 ? FINAL REPORT ? Final Report ? Verified: 014 15:10 ? Immunoassay Negative for Campylobacter Antigen ? [facility] Stool specimen (specimen) 12/26/2013 1:26 PM EDT 12/26/2013 1:56 PM EDT Narrative Resulting Agency Comment Spec In Lab Elise Gudino MD MICROBIOLOGY - GENER AL ORDERABLES [facility] * Stool culture (12/26/2013 1:26 PM EDT) Stool Culture ? Patient Name: CHIKA SANTOS ? Ordered By: ELISE GUDINO ? MR#: [id number] ?LOC: ??ED ? /Sex: ??1965 (48 years), ? Female ? PROCEDURE: Stool Culture ?SOURCE: Stool ? COLLECTED: 12/26/2013 13:26 ? STARTED: 12/26/2013 13:56 ? FINAL REPORT ? Final Report ? Verified:01/10/20 14 12:04 ? Salmonella species, Group B isolated ? Identification performed by [facility], [place], [place]. ? PRELIMINARY REPORT ? Preliminary Report ? Verified:12/29/19 14 14:41 ? possible Salmonella species, Group B isolated ? Confirmation to follow. ? SUSCEPTIBILITY RESULTS ? Salmonella species ? _ ? RADHA Interp ? Ampicillin ?S ? Ciprofloxacin ? S ? Trimethoprim/Sulf a ?S ? S=Susceptible ??I=Intermediate ??R=Resistant ??NA=Not Applicable ? DDS=Dose dependent-suscept ible ??NS=Non-suscepti ble ? Patient: CHIKA SANTOS ? MR#: [id number] ? .Stool Culture ?Interpretive Results ? This specimen was screened for the presence of Salmonella, Shigella, E. ? coli 0157, Yersinia, Aeromonas ? and Plesiomonas. ? CERNER MILLENNIUM Stool specimen (specimen) 12/26/2013 1:26 PM EDT 12/26/2013 1:56 PM EDT Narrative Resulting Agency Comment Spec In Lab Elise Gudino MD MICROBIOLOGY - GENER AL ORDERABLES CERNER MILLENNIUM * (ABNORMAL) Urinalysis with microscopic (12/26/2013 1:26 PM EDT) Glucose, Urine Dipstick Negative Negative mg/dL CERNER MILLENNIUM Protein, Urine Dipstick Trace(A) Negative mg/dL CERNER MILLENNIUM Bilirubin, Urine Dipstick Negative Negative mg/dL CERNER MILLENNIUM Comment: Clinical correlation required for positive Urine Bilirubin results as false positive may occur with some drugs and drug related products. If a false positive is suspected a serum total bilirubin should be considered if clinically indicated. Urobilinogen, Urine Dipstick Normal Normal mg/dL CERNER MILLENNIUM pH, Urn (dipstick) 6.0 5.0 - 8.0 CERNER MILLENNIUM Blood, Urine Dipstick Negative Negative mg/dL CERNER MILLENNIUM Ketone, Urine Dipstick Negative Negative mg/dL CERNER MILLENNIUM Nitrite, Urine Dipstick Negative Negative CERNER MILLENNIUM Leukocytes, Urine Dipstick Negative Negative mcL CERNER MILLENNIUM Appearance, Urine Dipstick Hazy(A) Clear CERNER MILLENNIUM Specific [place] Urine Automated 1.019 1.002 - 1.030 CERNER MILLENNIUM Color, Urine Dipstick Yellow Yellow CERNER MILLENNIUM RBC, Urine 2 0 - 4 /HPF CERNER MILLENNIUM WBC, Urine <1 0 - 5 /HPF CERNER MILLENNIUM Bacteria, Urine Few /HPF CERN ER MILLENNIUM Budding Yeast, Urine Few /HPF CERNER MILLENNIUM Squamous Epithelial Cells, Urine 7(H) <=4 /HPF CERNER MILLENNIUM Hyaline Casts, Urine 2 0 - 2 /LPF CERNER MILLENNIUM Urine specimen (specimen) 12/26/2013 1:26 PM EDT 12/26/2013 1:48 PM EDT Narrative Resulting Agency Comment Spec In Lab Elise Gudino MD URINE ORDERABLES RAMU CRESPO documented in this encounter Visit Diagnoses Diagnosis Chronic epigastric pain Abdominal pain, epigastric ADHD (attention deficit hyperactivity disorder), combined type Attention deficit disorder with hyperactivity Acanthosis nigricans Acquired acanthosis nigricans Obese Obesity, unspecified Depression Depressive disorder, not elsewhere classified Hypertension Unspecified essential hypertension Bipolar disorder Bipolar disorder, unspecified Fibromyalgia Mylagia and myositis, unspecified documented in this encounter Care Teams Marketing Communications Associate Relationship Specialty Start Date End Date Debbie Webber APRN PCP - General 04/26/10 03/24/19 documented as of this encounter
--- OUTSIDE RECORDS SUMMARY | 2024-01-22 16:15 | XMS_ITS | Encounter Summary ---
Author Organization [facility] [place] [address] Care Team Providers Care Trust Manager Name Role Phone Ottoniel Jovel DNP Primary Care Provider [phone] Encounter Details Date Type Department Care Team (Late st Contact Info) Description 03/29/2020 Ancillary [place] [id number] Gurmeet Tam MD [facility] [place] [address] Social History Tobacco Use Types Packs/Day Years [...] Procedure Name Priority Date/Time Associated Diagnosis Comments FILM LIBRARY STORAGE ONLY CT CHEST Routine 03/29/2020 12:00 AM EDT documented in this encounter Results * Film Library- Storage Only CT Chest (03/29/2020 12:00 AM EDT) Narrative [facility] - 10/19/2020 9:28 PM EDT This exam is auto-finalizing. It's purpose is for storage only. Gurmeet Tam MD IMG FILM LIBRARY O RDERABLES [place], [place] documented in this encounter Visit Diagnoses Not on filedocumented in this encounter Care Teams Trust Manager Relationship Specialty Start Date End Date Ottoniel Jovel DNP PCP - General Family Medicine 03/25/19 05/04/21 documented as of this encounter
--- OUTSIDE RECORDS SUMMARY | 2024-01-22 16:15 | XMS_ITS | Encounter Summary ---
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 I have informed Pt that I have called the pharmacyto confirm the inhaler has processed through her insurance and is a $0 co-pay. I have instructed Ptto parts picker the inhaler adrianna and also request a pharmacist consultation. Pt verbally agrees to this plan. Ling Mtz RN Department of Pulmonary 5C, [facility] / Pager: [phone] documented in this encounter Plan of Treatment Not on file documented as of this encounter Visit Diagnoses Not on filedocumented in this encounter Care Teams Ship Pilot Dispatcher Relationship Specialty Start Date End Date Ottoniel Jovel DNP PCP - General Family Medicine 03/25/19 05/04/21 documented as of this encounter
--- OUTSIDE RECORDS SUMMARY | 2024-01-22 16:15 | XMS_ITS | Encounter Summary ---
[place] [address] Care Team Providers Care Billiard Player Name Role Phone Ottoniel Jovel DNP Primary Care Provider Encounter Details Date Type Department Care Team (Late st Contact Info) Description 08/24/2020 Telephone [place] [phone] Ling Miranda Social History Tobacco Use Types Packs/Day Years [...] on filedocumented in this encounter Care Teams Billiard Player Relationship Specialty Start Date End Date Ottoniel Jovel DNP PCP - General Family Medicine 03/25/19 05/04/21 documented as of this encounter
--- OUTSIDE RECORDS SUMMARY | 2024-01-22 16:15 | XMS_ITS | Encounter Summary ---
[place] [address] Care Team Providers Care Project Assistant Name Role Phone Ottoniel Jovel DNP Primary Care Provider [phone] Encounter Details Date Type Department Care Team (Late st Contact Info) Description 10/18/2020 [place] [phone] Ling Mtz RN Social History Tobacco Use Types Packs/Day Years [...] filedocumented in this encounter Care Teams Project Assistant Relationship Specialty Start Date End Date Ottoniel Jovel DNP PCP - General Family Medicine 03/25/19 05/04/21 documented as of this encounter
--- OUTSIDE RECORDS SUMMARY | 2024-01-22 16:15 | XMS_ITS | Encounter Summary ---
Author Organization [facility] [place] [address] Care Team Providers Care Appeals Coordinator Name Role Phone Ottoniel Jovel DNP Primary Care Provider [phone] Reason for Visit * Reason Onset Date Comments Other 10/19/2020 Medication updat es from OSH Encounter Details Date Type Department Care Team (Late st Contact Info) Description 10/19/2020 [place] [phone] Ling Mtz, RN Other (Medication updates from OSH) Social History Tobacco Use Types Packs/Day Years [...] Telephone Encounter - Ling Mtz RN - 10/19/2020 8:21 AM EDT I have attempted to make a list of all tried and failed inhaled medication for PA purposes, as follows: ?? Flovent HFA- Ineffective ?? Qvar-Inneffective ?? Symbicort-Ineffective ?? Advair-Developed rash ?? Dulera-Ineffective ?? Spiriva-Developed mouth/cancker sores ?? Incruse-Developed severe hives on head and back ?? Trelegy-Developed severe hives on head and back ?? Anoro-Developed severe hives on head and back Ling Mtz RN Department of Pulmonary 5C, [facility] / Pager: [phone] documented in this encounter Plan of Treatment Not on file documented as of this encounter Visit Diagnoses Not on filedocumented in this encounter Care Teams Appeals Coordinator Relationship Specialty Start Date End Date Ottoniel Jovel DNP PCP - General Family Medicine 03/25/19 05/04/21 documented as of this encounter
--- OUTSIDE RECORDS SUMMARY | 2024-01-22 16:15 | XMS_ITS | Encounter Summary ---
Author Organization [facility] [place] [address] Care Team Providers Care Talent Scout Name Role Phone Ottoniel Jovel DNP Primary Care Provider [phone] Reason for Visit * Reason Onset Date Comments Other 10/19/2020 LVM regarding Br eo & schedule f/u Encounter Details Date Type Department Care Team (Late st Contact Info) Description 10/19/2020 Telephone [place] [phone] Ling Mtz RN Other (LVM regarding Breo & schedule f/u) Social History Tobacco Use Types Packs/Day Years [...] Encounter - Ling Mtz RN - 10/19/2020 10:07 AM EDT I have Pt, LVM, in regards to the following: ?? Start Breo Ellipta immediately ?? Dr. Tam will hold off Incruse Ellipta replacement for now until follow up in attempt to only introduce 1 new inhaler at a time to monitor for side effects. Pt is to not to use Incruse Ellipta moving forward d/t side effects ?? I have given Pt department number to call to schedule follow up adrianna based on last OV note Ling Mtz RN Department of Pulmonary 5C, [facility] / Pager: [phone] documented in this encounter Plan of Treatment Not on file documented as of this encounter Visit Diagnoses Not on filedocumented in this encounter Care Teams Talent Scout Relationship Specialty Start Date End Date Ottoniel Jovel DNP PCP - General Family Medicine 03/25/19 05/04/21 documented as of this encounter
--- OUTSIDE RECORDS SUMMARY | 2024-01-22 16:15 | XMS_ITS | Encounter Summary ---
Author Organization [facility] [place] [address] Care Team Providers Care Detective Investigator Name Role Phone Ottoniel Jovel DNP Primary Care Provider Encounter Details Date Type Department Care Team (Latest Contact Info) Description 10/07/2019 9:34 PM EDT - 10/07/2019 11:59 PM EDT Hospital Encounter [place] [phone] Discharge Disposition: Home Social History Tobacco Use [...] Sig Dispensed Refills Start Date End Date propranoloL (Inderal) 40 mg Tablet Take 40 mg by mouth 2 times daily. 03/19/2019 albuteroL (PROVENTIL) 2.5 mg /3 mL (0.083 %) Solution for Nebulization Inhale into the lungs. 03/12/2019 08/28/2022 fluticasone propionate (FLOVENT) 220 mcg/actuation HFA Aerosol Inhaler Inhale into the lungs. 12/28/2013 10/19/2020 cyclobenzaprine (Flexeril) 10 mg Tablet Daily. 08/29/2016 11/23/2020 ibuprofen (ADVIL;MOTRIN) 800 mg tablet 10/26/2008 08/28/2022 amphetamine-dextroamphetam ine (ADDERALL XR) 20 mg 24 hr capsule 10/26/2008 10/19/2020 docusate sodium (DOK) 100 mg capsule 10/26/2008 08/28/2022 cyclobenzaprine (FLEXERIL) 10 mg tablet 10/26/2008 10/19/2020 propranolol (INDERAL) 40 mg tablet 10/26/2008 11/23/2020 LORazepam (ATIVAN) 1 mg tablet 10/26/2008 08/28/2022 magnesium citrate Soln solution 10/26/2008 11/23/2020 lactulose (CEPHULAC) 10 gram packet 10/26/2008 11/23/2020 OXYcodone 10 mg Tab 10/26/2008 11/24/19 21 documented as of this encounter Plan of Treatment Not on file documented as of this encounter Procedures Procedure Name Priority Date/Time Associated Diagnosis Comments COVID-19 PCR Routine 10/07/2019 10:45 AM EDT documented in this encounter Results * COVID-19 PCR (10/07/2019 10:45 AM EDT) SARS-CoV-2 RNA Not Detected Not Detected [facility] Comment: This result should be interpreted in combination with the clinical observations, patient history and epidemiological information. For testing of asymptomatic individuals, assay performance characteristics and clinical utility have not been evaluated. Testing for SARS-CoV-2 (Severe acute respiratory syndrome coronavirus 2, formerly known as 2019 novel coronavirus or 2019-nCoV) to aid in the diagnosis of COVID-19 is performed using the Blanco RealTime SARS-CoV-2 as authorized by the FDA Emergency Use Authorization (EUA). This EUA assay is intended for In-vitro Diagnostic (IVD) use with respiratory specimens such as nasopharyngeal swabs collected from individuals during the acute phase of infection. This assay is performed based on the instructions for use provided by the [employer] and additional guidance provided by CDC and FDA. Testing is performed in the [facility] Laboratory within the Department of Pathology and Laboratory Medicine at [facility], certified under the Clinical Laboratory Improvement Amendments of 1988 (CLIA), 42 U.S.C. ?? 263a, to perform high complexity tests. Assay performance has been verified according to clinical laboratory regulatory requirements. Test results are provided above. A result of Not Detected indicates that the viral RNA target is not present but does not preclude SARS-CoV-2 infection. False negative results may occur if a specimen is improperly collected, transported or handled; if amplification inhibitors are present; or if inadequate numbers of viral particles are present in the specimen. A result of Detected suggests a current or recent infection and the patient is presumed to be infected. As required or requested by public health authorities, positive specimens may be sent for additional testing. Positive and negative predictive values for this test are highly dependent on disease prevalence. A result of Invalid indicates that neither the viral RNA targets nor the internal control target was detected. An invalid result suggests the presence of inhibitors. Recollection is recommended in the case of an invalid result. 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
--- OUTSIDE RECORDS SUMMARY | 2024-01-22 16:15 | XMS_ITS | Encounter Summary ---
Author Organization [facility] [address] Care Team Providers Care Furniture Upholsterer Name Role Phone Ottoniel Jovel DNP Primary Care Provider [phone] Reason for Visit * Reason Onset Date Comments Medication Refill 10/01/2020 Nicotine Lozen ge Rx Encounter Details Date Type Department Care Team (Late st Contact Info) Description 10/01/2020 [place] [address] Gurmeet Tam MD [facility] [place] [address] Smoking greater than 40 pack years (Primary Dx); Asthma-COPD overlap syndrome Social History Tobacco Use Types Packs/Day Years [...] as of this encounter Visit Diagnoses Diagnosis Smoking greater than 40 pack years- Primary Tobacco use disorder Asthma-COPD overlap syndrome documented in this encounter Care Teams Furniture Upholsterer Relationship Specialty Start Date End Date Ottoniel Jovel DNP PCP - General Family Medicine 03/25/19 05/04/21 documented as of this encounter
--- OUTSIDE RECORDS SUMMARY | 2024-01-22 16:15 | XMS_ITS | Encounter Summary ---
[place] [address] Care Team Providers Care Building Construction Teacher Name Role Phone Ottoniel Jovel DNP Primary Care Provider [phone] Encounter Details Date Type Department Care Team (Late st Contact Info) Description 10/12/2020 [place] [phone] Stacie Hayes RN Social History Tobacco Use Types Packs/Day [...] encounter Miscellaneous Notes * Telephone Encounter - Stacie Hayes RN - 10/13/2020 12:26 PM EDT Called Chika to let her know the PA for Win [place] would be reviewed/resubmitted as she has triedand failed: Advair(rash) in 2019 Symbicort(not effective) * Telephone Encounter - Stacie Hayes RN - 10/12/2020 11:32 AM EDT Chika called. She has been using the advair for one week. She continues to use her rescue inhaler at least three times daily. She has a productive cough of white sputurm not all of the time She is not sure what inhalers she was using. Called the pharmacy, Chika is using Incruse Ellipta and albuterol. Called Chika back, advised to bean picker machine operator the advair. She stated she has used the advair in the past and it caused a rash. Prescribed by her PCP. At [facility]. Called her PCP, documented rash after using advair 04/2019. documented in this encounter Plan of Treatment Not on file documented as of this encounter Visit Diagnoses Not on filedocumented in this encounter Care Teams Building Construction Teacher Relationship Specialty Start Date End Date Ottoniel Jovel DNP PCP - General Family Medicine 03/25/19 05/04/21 documented as of this encounter
--- OUTSIDE RECORDS SUMMARY | 2024-01-22 16:15 | XMS_ITS | Encounter Summary ---
[place] [address] Care Team Providers Care Biodiesel Technology Manager Name Role Phone Ottoniel Jovel DNP Primary Care Provider Encounter Details Date Type Department Care Team (Late st Contact Info) Description 09/16/2020 Tele[place] [phone] Mary Jo Pino Social History Tobacco Use [...] on filedocumented in this encounter Care Teams Biodiesel Technology Manager Relationship Specialty Start Date End Date Ottoniel Jovel DNP PCP - General Family Medicine 03/25/19 05/04/21 documented as of this encounter
--- OUTSIDE RECORDS SUMMARY | 2024-01-22 16:15 | XMS_ITS | Encounter Summary ---
[place] [address] Care Team Providers Care Shuttler Car Name Role Phone Ottoniel Jovel DNP Primary Care Provider Encounter Details Date Type Department Care Team (Late st Contact Info) Description 08/26/2020 [place] [phone] Ling Miranda Social History Tobacco Use Types [...] on filedocumented in this encounter Care Teams Shuttler Car Relationship Specialty Start Date End Date Ottoniel Jovel DNP PCP - General Family Medicine 03/25/19 05/04/21 documented as of this encounter
--- OUTSIDE RECORDS SUMMARY | 2024-01-22 16:15 | XMS_ITS | Encounter Summary ---
Author Organization [facility] [place] [address] Care Team Providers Care Stock Letterer Name Role Phone Ottoniel Jovel DNP Primary Care Provider [phone] Encounter Details Date Type Department Care Team (Late st Contact Info) Description 10/04/2020 Orders [place] [address] Gurmeet Tam MD [facility] [place] [address] Social History Tobacco Use Types Packs/Day Years [...] on filedocumented in this encounter Care Teams Stock Letterer Relationship Specialty Start Date End Date Ottoniel Jovel DNP PCP - General Family Medicine 03/25/19 05/04/21 documented as of this encounter
--- OUTSIDE RECORDS SUMMARY | 2024-01-22 16:15 | XMS_ITS | Encounter Summary ---
[place] [address] Care Team Providers Care Can Carrier Name Role Phone Ottoniel Jovel CARLEE Primary Care Provider [phone] Reason for Visit * Reason Onset Date Comments Prior Authorization 10/01/2020 umeclidinium (Incruse Ellipta) 62.5 mcg/actuation Disk with Device Encounter Details Date Type Department Care Team (Late st Contact Info) Description 10/01/2020 [place] [phone] Cuca Gonzales LNA Prior Authorization (umeclidinium (Incruse Ellipta) 62.5 mcg/actuation Disk with Device ) Social History Tobacco [...] encounter Miscellaneous Notes * Telephone Encounter - Stephanie Tarango CMA - 10/01/2020 11:48 AM EDT Medication Prior Authorization for Primary Care Approved: Incruse Elpt Inh 62.5 Mcg Start Date: 10/01/20 End Date: 10/01/21 Case/Reference #: [id number] See Approval Letter in scanned documents. Additional Notes: * Telephone Encounter - Cuca Gonzales LNA - 10/01/2020 10:27 AM EDT Medication Prior Authorization for Primary [place] [address] Request received via: [employer] Patient: Chika Santos Patient : 1965 Insurance Company: [place] Medicaid Sent via: [employer] Phone: Montesinos: [id number] Physician: Gurmeet Tam MD Medication Requested: umeclidinium (Incruse Ellipta) 62.5 mcg/actuation Disk with Device Frequency/Sig: Inhale 62.5 mcg into the lungs daily. Disp: 3 each Refills: 3 Currently taking: no Diagnosis for this medication: BRENT and COPD overlap syndrome G47.33; J44.9 Prior medications trialed in this patient: Medication: QVar Medication: Albuterol Additional Notes: Allergy to Spiriva Respimat (tiotropium [place]) Progress Note 09/29/2020 from Gurmeet Tam MD [facility] sent with PA documented in this encounter Plan of Treatment Not on file documented as of this encounter Visit Diagnoses Not on filedocumented in this encounter Care Teams Can Carrier Relationship Specialty Start Date End Date Ottoniel Jovel DNP PCP - General Family Medicine 03/25/19 05/04/21 documented as of this encounter
--- OUTSIDE RECORDS SUMMARY | 2024-01-22 16:15 | XMS_ITS | Encounter Summary ---
[place] [address] Care Team Providers Care Pediatric Ophthalmologist Name Role Phone Ottoniel Jovel DNP Primary Care Provider [phone] Reason for Visit * Reason Onset Date Comments Prior Authorization 10/01/2020 Pa needed fo r Breo & Incruse Encounter Details Date Type Department Care Team (Late st Contact Info) Description 10/01/2020 Tele[place] [phone] Ling Mtz RN Prior Authorization (Pa needed for Breo & Incruse) Social History Tobacco Use Types Packs/Day Years [...] Telephone Encounter - Ling Mtz RN - 10/01/2020 10:07 AM EDT I have called [facility] in regards to MYD-H message received via Pt. [facility] tells me the Breo & Incruse will need a PA from insurance. I will submit the request to our PA department now. [facility] also tells me that the Nicotine Lozenge Rx will need to be re-written with dosing instructions and Qty adjustment per box. I will re-write Rx per [facility] request. Ling Mtz, MARIAM Department of Pulmonary 5C, [facility] / Pager: [phone] documented in this encounter Plan of Treatment Not on file documented as of this encounter Visit Diagnoses Not on filedocumented in this encounter Care Teams Pediatric Ophthalmologist Relationship Specialty Start Date End Date Ottoniel Jovel DNP PCP - General Family Medicine 03/25/19 05/04/21 documented as of this encounter
--- OUTSIDE RECORDS SUMMARY | 2024-01-22 16:15 | XMS_ITS | Encounter Summary ---
[place] [address] Care Team Providers Care Account Auditor Name Role Phone Ottoniel Jovel DNP Primary Care Provider Encounter Details Date Type Department Care Team (Late st Contact Info) Description 10/01/2020 Telephone [place] [phone] Mary Jo Pino Social History Tobacco Use [...] on filedocumented in this encounter Care Teams Account Auditor Relationship Specialty Start Date End Date Ottoniel Jovel DNP PCP - General Family Medicine 03/25/19 05/04/21 documented as of this encounter
--- OUTSIDE RECORDS SUMMARY | 2024-01-22 16:15 | XMS_ITS | Encounter Summary ---
[place] [address] Care Team Providers Care Skin Lifter Bacon Name Role Phone Ottoniel Jovel DNP Primary Care Provider [phone] Reason for Visit * Reason Onset Date Comments Prior Authorization 10/04/2020 PA denied fo r Breo Ellipta Encounter Details Date Type Department Care Team (Late st Contact Info) Description 10/04/2020 Tele[place] [phone] Ling Mtz RN Prior Authorization (PA denied for Breo Ellipta) Social History Tobacco Use Types [...] Telephone Encounter - Ling Mtz RN - 10/04/2020 10:22 AM EDT DENIED: Breo Ellipta ?? Case/Reference #: [id number] ?? Additional Information from Insurance: The patient must have had a treatment failure to any 2 of the following: Advair HFA, Advair diskus, Dulera or Symbicort. Pt has already tried and failed Symbicort, ineffective. MD will need to write new Rx for Dulera or Advair. I will reach out to MD for new Rx. Ling Mtz RN Department of Pulmonary 5C, [facility] / Pager: [phone] documented in this encounter Plan of Treatment Not on file documented as of this encounter Visit Diagnoses Not on filedocumented in this encounter Care Teams Skin Lifter Bacon Relationship Specialty Start Date End Date Ottoniel Jovel DNP PCP - General Family Medicine 03/25/19 05/04/21 documented as of this encounter
--- OUTSIDE RECORDS SUMMARY | 2024-01-22 16:15 | XMS_ITS | Encounter Summary ---
Author Organization [facility] [place] [address] Care Team Providers Care Lacquer Dipping Machine Operator Name Role Phone Debbie Webber APRN Primary Care Provider + Encounter Details Date Type Department Care Team (Late st Contact Info) Description 01/03/2019 Ancillary Procedure [place] [address] Gurmeet Tam MD [facility] [place] [address] Social History Tobacco Use Types Packs/Day Years [...] FILM LIBRARY STORAGE ONLY CT CHEST Routine 01/03/2019 12:00 AM EDT documented in this encounter Results * Film Library- Storage Only CT Chest (01/03/2019 12:00 AM EDT) Narrative [facility] - 10/19/2020 9:27 PM EDT This exam is auto-finalizing. It's purpose is for storage only. Gurmeet Tam MD IMG FILM LIBRARY O RDERABLES [place], [place] documented in this encounter Visit Diagnoses Not on filedocumented in this encounter Care Teams Lacquer Dipping Machine Operator Relationship Specialty Start Date End Date Debbie Webber APRN PCP - General 04/26/10 03/24/19 documented as of this encounter
--- OUTSIDE RECORDS SUMMARY | 2024-01-22 16:15 | XMS_ITS | Encounter Summary ---
[place] [address] Care Team Providers Care Employee Service Officer Name Role Phone Debbie Webber APRN Primary Care Provider + Reason for Visit * Reason Comments Skin Check Encounter Details Date Type Department Care Team (Late st Contact Info) Description 01/27/2014 10:30 AM EDT Office Visit [facility] [place] [address] [facility] [place] [id number] Juan Alberto Nuñez MD [address] [facility], [place] [address] Intertrigo (Primary Dx) Social History Tobacco Use Types Packs/Day Years [...] AM EDT documented as of this encounter Patient Instructions * Patient Instructions* Earlene Cade LPN - 01/27/2014 11:07 AM EDT Images from the original note were not included. [facility] Tinea Versicolor: After Your Visit Your Care Instructions Tinea versicolor is a skin infection caused by a yeast (fungus). It causes many small spots, usually on the chest and back. The spotted skin can be flaky or scaly. The spots do not pepe in the sun, sothey are assembler trim than the skin around them. Some spots may be darker than the skin around them. The yeast that causes tinea versicolor normally lives on your skin. But it becomes a problem only when warmth and humidity allow the yeast to grow rapidly and increase in number. Some people are morelikely to get tinea versicolor. It does not spread from person to person. Tinea versicolor usually gets better as you age. You can treat tinea versicolor with cream or ointment that kills the yeast. You may need pills to kill the fungus if the spots cover a lot of your body. Although treatment kills the yeast quickly, your skin may not return to normal for months after treatment. You can get this condition again after treatment. Follow-up care is a denis part of your treatment and safety. Be sure to make and go to all appointments, and call your doctor if you are having problems. It???s also a good idea to know your test results and keep a list of the medicines you take. How can you care for yourself at home? ?? Follow the directions for use of creams, shampoos, or solutions. You will probably need to use them for 1 to 2 weeks. If your skin gets irritated, stop using the product, and call your doctor. ?? To prevent tinea versicolor, use a cream, shampoo, or solution one time a month. Your doctor mayprescribe pills to prevent the spots from returning. ?? The medicine in the pills for tinea versicolor kills the yeast through your sweat. So you may want to exercise long enough to sweat after taking a pill. Then wait 12 hours before you shower. ?? Dry off well after bathing. Keep your skin clean and dry. ?? Always wear sunscreen on exposed skin. Make sure the sunscreen blocks ultraviolet rays (both UVAand UVB) and has a sun protection factor (SPF) of at least 15. Use it every day, even when it is cloudy. Some doctors may recommend a higher SPF, such as 30. ?? If you keep getting tinea versicolor, wash your clothes in very hot water to kill the yeast. When should you call for help? Call your doctor now or seek immediate medical care if: ?? Your skin is badly broken from scratching. ?? You have signs of infection such as: ?? Pain, warmth, or swelling in your skin. ?? Red streaks near a wound in your skin. ?? Pus coming from a wound in your skin. ?? A fever. Watch closely for changes in your health, and be sure to contact your doctor if: ?? Your home treatment does not help. ?? Your skin is irritated or red. Where can you learn more? Visit our [employer] information library at [email or web address] You can also view health information on [employer], your personal patient account. Log in or sign up today. Enter K490 in the search box to learn more about Tinea Versicolor: After Your Visit. ?? [id number] [employer]. Care instructions adapted under license by [facility]. This care instruction is for use with your licensed healthcare professional. If you have questions about a medical condition or this instruction, always ask your healthcare professional. [employer] disclaims any warranty or liability for your use of this information. Content Version: [id number]; Last Revised: April 18, 2011 documented in this encounter Progress Notes * Juan Alberto Nuñez MD - 01/27/2014 11:20 AM EDT Problem: Chronic intertrigo. Chika is a 48-year-old woman who has had, at least for 30 years, problems with intertrigo of the sub abdominal pannus and the submammary breasts. She states that this has been a problem for at least 30 years and she is barely able to get it healed up before it starts to breakdown again. It is quite painful, and there is serous oozing, fissuring, and cracking along the skin fold lines. She has used lotrisone cream, bag balm, corn starch, triamcinolone. She tried using cotton handkerchiefs, zinc oxide, numerous topicals, without really any significant lasting improvement. She states that when she gave to her son she weighed 135 pounds and now she is well above 200 pounds. Physical examination reveals a pleasant 48-year-old woman who has inflammation on the sub abdominal pannus and submammary chest. Today, she states she has just managed to get this cleared up recently with her lotrisone cream. There is no evidence of any steroidal atrophy. There is no active tinea or candidal infection today. Assessment and Plan: 1. Chronic intertrigo. a. Will refer patient to [facility] in consultation regarding a potential abdominoplasty/tummy tuck. b. Reviewed the numerous ways of treating and trying to control intertrigo in the meantime. c. Warned against chronic regular use of lotrisone cream. She uses it for short courses and then discontinue it appropriately. Return to clinic here will be p.r.n. COPY: Patricia Chandler Note: Spoke with Plastic Surgery and found that for her height of 5 feet and weight of 227 pounds, her BMI is 43. She would not qualify for a tummy tuck, abdominoplasty, unless her BMI is 35 or less. She needs to lose weight first. Patient is aware of this. Consultation with Plastic Surgery was therefore not scheduled today. documented in this encounter Plan of Treatment Not on file documented as of this encounter Visit Diagnoses Diagnosis Intertrigo- Primary Other specified erythematous condition documented in this encounter Care Teams Employee Service Officer Relationship Specialty Start Date End Date Debbie Webber APRN PCP - General 04/26/10 03/24/19 documented as of this encounter
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
--- OUTSIDE RECORDS SUMMARY | 2024-01-22 16:15 | XMS_ITS | Encounter Summary ---
[place] [address] Care Team Providers Care Stock Selector Name Role Phone Ottoniel Jovel DNP Primary Care Provider Encounter Details Date Type Department Care Team (Late st Contact Info) Description 10/19/2020 Telephone [place] [phone] Mary Jo Pino Social History Tobacco Use [...] filedocumented in this encounter Care Teams Stock Selector Relationship Specialty Start Date End Date Ottoniel Jovel DNP PCP - General Family Medicine 03/25/19 05/04/21 documented as of this encounter
--- OUTSIDE RECORDS SUMMARY | 2024-01-22 16:15 | XMS_ITS | Encounter Summary ---
[place] [address] Care Team Providers Care Metal Extrusion Supervisor Name Role Phone Ottoniel Jovel DNP Primary Care Provider [phone] Reason for Visit * Reason Onset Date Comments Prior Authorization 10/14/2020 Brevilma Dumont Encounter Details Date Type Department Care Team (Late st Contact Info) Description 10/14/2020 [place] [id number] Enma Howe CMA Prior Authorization (Win Dumont) Social History Tobacco Use Types Packs/Day Years [...] Miscellaneous Notes * Telephone Encounter - Enma Howe CMA - 10/18/2020 10:10 AM EDT Per [place] medicaid: member already has an approval on file until 10/14/2021. * Telephone Encounter - Enma Howe CMA - 10/14/2020 11:21 AM EDT Medication Prior Authorization for Primary Care [place] [address] Request received via: [employer] [employer] ?? Patient: Chika Santos ?? Patient : 1965 ?? Insurance Company: [place] medicaid ?? Sent via: [facility] ?? Montesinos:[id number] ? Physician: Gurmeet Tam MD ?? Medication Requested:fluticasone furoate-vilanteroL (Breo Ellipta) 100-25 mcg/dose Disk with Device Frequency/Sig: Inhale 1 puff into the lungs daily. Disp: 3 each Refills: 3 Currently taking: no ? 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 Prior medications trialed in this patient: Medication:??QVar Medication:??Albuterol?? Medication: Symbicort Approx Dates: 02/2019 Outcome/Adverse Reactions: inadequate response Medication: Qvar Approx Dates: 07/2020 Outcome/Adverse Reactions: inadequate response Medication: Trelegy Ellipta Approx Dates: 06/2020 Outcome/Adverse Reactions: inadequate response Additional Notes: Allergy to Spiriva Respimat (tiotropium [place]) ?? documented in this encounter Plan of Treatment Not on file documented as of this encounter Visit Diagnoses Not on filedocumented in this encounter Care Teams Metal Extrusion Supervisor Relationship Specialty Start Date End Date Ottoniel Jovel DNP PCP - General Family Medicine 03/25/19 05/04/21 documented as of this encounter
--- OUTSIDE RECORDS SUMMARY | 2024-01-22 16:15 | XMS_ITS | Encounter Summary ---
Author Organization [facility] [place] [address] Care Team Providers Care Director Of Cardiac Cath Lab Name Role Phone Ottoniel Jovel DNP Primary Care Provider [phone] Encounter Details Date Type Department Care Team (Late st Contact Info) Description 08/31/2020 Orders [place] [address] Jerald Restrepo MD [facility] [place] [address] Pulmonary emphysema, unspecified emphysema type (Primary Dx) Social History Tobacco Use Types [...] as of this encounter Visit Diagnoses Diagnosis Pulmonary emphysema, unspecified emphysema type- Primary documented in this encounter Care Teams Director Of Cardiac Cath Lab Relationship Specialty Start Date End Date Ottoniel Jovel DNP PCP - General Family Medicine 03/25/19 05/04/21 documented as of this encounter
--- OUTSIDE RECORDS SUMMARY | 2024-01-22 16:15 | XMS_ITS | Encounter Summary ---
[place] [address] Care Team Providers Care Tobacco Cutter Name Role Phone Ottoniel Jovel DNP Primary Care Provider [phone] Encounter Details Date Type Department Care Team (Late st Contact Info) Description 08/31/2020 Telephone [place] [phone] Mary Jo Pino Social History Tobacco Use [...] on filedocumented in this encounter Care Teams Tobacco Cutter Relationship Specialty Start Date End Date Ottoniel Jovel DNP PCP - General Family Medicine 03/25/19 05/04/21 documented as of this encounter
[2024-01-22 18:05] LABS: ALT 19 U/L (14-59); AST 14 U/L (15-37); Albumin 3.3 g/dL (3.4-5.0); Alkaline Phosphatase 63 U/L (46-116); Anion Gap 8.3 mmol/L (3-11); BUN 6 mg/dL (7-18); Bilirubin, Total 0.26 mg/dL (0.2-1.0); CO2 27.7 mmol/L (21.0-32.0); Chloride 103 mmol/L (98-107); Cholesterol 176 mg/dL (<200); Glucose 94 mg/dL (74-106); HDL Cholesterol 35 mg/dL (40-60); Magnesium 2.1 mg/dL (1.8-2.4); Potassium 4.3 mmol/L (3.5-5.1); Sodium 139 mmol/L (136-145); Total Protein 7.5 g/dL (6.4-8.2); Triglyceride 415 mg/dL (<150)
[2024-01-22 18:35] LABS: LDL CHOLESTEROL 93 mg/dL (<100)
[2024-01-22 18:43] LABS: Hemoglobin A1C 5.9 % (<5.7)
== END 2024-01-22 16:12 | disposition home or self-care (01) ==
LOC: NCHCN 16:11
PROVIDERS: PCP Physician Assistant Medical; Visit Provider Physician Assistant Medical
DX: E11.9 Type 2 diabetes mellitus without complications (principal); E78.5 Hyperlipidemia, unspecified
CPT/HCPCS: 80053; 80061; 83721; 83036; 83735

== ENCOUNTER 2024-04-21 10:29 | Emergency (ER) | payer MEDICAID, SELFPAY ==
[2024-04-21 10:45] VITALS: BP 122/86; PULSE 70; RESP 14; TEMP 36.7; O2SAT 96
--- OUTSIDE RECORDS SUMMARY | 2024-04-21 10:48 | XMS_ITS | Encounter Summary ---
[place] [address] Care Team Providers Care Phlebotomy Instructor Name Role Phone Mi Tyler Primary Care Provider [phone] Reason for Visit * Reason Onset Date Comments Referral 08/28/2022 Encounter Details Date Type Department Care Team (Late st Contact Info) Description 08/28/2022 Telephone Cardiology at [address] [place] [address] Yulia Rico, cancer program coordinator Social History Tobacco Use Types Packs/Day Years [...] She would still like to see a marine operations coordinator. She accepts an appointment September 14 at 2:40 pm at the [facility] clinic with Dr. Flood. * Telephone Encounter - Yulia Rico, RN - 08/28/2022 10:12 AM EDT Incoming documents by fax from PCP in [place], [place], were added to Chika's record. Chika was referred to cardiology at Dr. Galen Panda in May. There has not been an appointment scheduled. The shuttler car for sent a letter stating referral was received but they were unsuccessful in setting up an appointment. Chika's outgoing message on her primary phone does not identify her. Message left for call back to [phone] Questions to discuss: 1. Do you still want to see a marine operations coordinator? 2. Are you already seeing a marine operations coordinator at a non- practice? 3. Do you want to see a marine operations coordinator here at the [facility]? documented in this encounter Plan of Treatment Not on file documented as of this encounter Visit Diagnoses Not on filedocumented in this encounter Care Teams Phlebotomy Instructor Relationship Specialty Start Date End Date Mi Tyler PA [address] [place] [address] PCP - General Family Medicine 05/05/21 documented as of this encounter
--- OUTSIDE RECORDS SUMMARY | 2024-04-21 10:48 | XMS_ITS | Encounter Summary ---
Author Organization [facility] Address [address] [place] [address] Care Team Providers Care Media Reconciliation Specialist Name Role Phone Unknown, Provider Primary Care Provider Debbie Samuel FAMILY HELPER Unavailable [phone] Encounter Details Date Type Department Care Team (Late st Contact Info) Description 12/10/2019 Lab Requisition [facility] Pathology & Laboratory Medicine - [address] [address] Outr Resulting Lab, Provider Social History Tobacco Use Types Packs/Day Years Used Date Smoking Tobacco: Never Assessed Comments Unknown Sex and Gender Information Value Date Recorded Sex Assigned at Not on file Legal Sex Female 18:29 EST Gender Identity Not on file Sexual Orientation [...] 4th Generation Negative Negative 12/11/2019 10:51 EDT [facility] Comment: If acute HIV-1 infection is suspected in a high risk ??patient, submit plasma specimen for HIV-1 RNA quantitation test. Fourth Generation assay performed on the Siemens Job2Dayaur. Blood VENOUS BLOOD / Unknown 12/10/2019 9:00 EDT 12/10/2019 21:12 EDT us Provider Outr Resulting Lab IMMUNOLOGY AND SEROL OGY ORDERABLES Final Result [facility] [address] [place] [address] documented in this encounter Visit Diagnoses Not on filedocumented in this encounter Care Teams Media Reconciliation Specialist Relationship Specialty Start Date End Date Unknown, Provider, PCP - General 02/18/19 Debbie Webber NP [address] [place] [address] [address] [place] [address] 02/18/19 documented as of this encounter
--- OUTSIDE RECORDS SUMMARY | 2024-04-21 10:48 | XMS_ITS | Encounter Summary ---
Author Organization [facility] [place] [address] Care Team Providers Care Print Decorator Name Role Phone Mi Tyler Primary Care Provider [phone] Reason for Referral * Consultation (Routine) - Closed Specialty Diagnoses / Procedures Referred By Contwm t Referred To Contact Cardiology Diagnoses Palpitations PALPITATIONS. PT REQUESTS . Mi Tyler PA [address] [place] [address] Uriel Panda MD [facility] [address] Referral ID Status Reason Start Date Expiration Date V isits Requested Visits Authorized [id number] Closed Consult, Test & Treat 06/12/2022 06/12/2023 1 1 Encounter Details Date Type Department Care Team (Late st Contact Info) Description 06/12/2022 Transcribe Orders eDH Incoming Referrals [phone] Mi Tyler PA [address] [place] [address] Palpitations Social History Tobacco Use [...] Palpitations documented in this encounter Care Teams Print Decorator Relationship Specialty Start Date End Date Mi Tyler PA [address] [place] [address] PCP - General Family Medicine 05/05/21 documented as of this encounter
--- OUTSIDE RECORDS SUMMARY | 2024-04-21 10:48 | XMS_ITS | Clinical Summary ---
Author Organization [facility] [place] [address] Care Team Providers Care Emergency Veterinary Assistant Name Role Phone Mi Tyler Primary Care Provider [phone] Allergies Active Allergy Reactions Criticality Noted Date Comments Adhesive Tape Rash Medium 08/28/2022 Amoxicillin-Pot Clavulanate Other (See Comments) Medium 08/28/2022 unspecified Cephalexin Rash Medium 05/15/2012 Codeine Nausea And Vomiting Medium 05/15/2012 Cyproheptadine Other (See Comments) Medium 08/28/2022 unspecified Ginseng Other (See Comments) Medium 08/28/2022 unspecified Umeclidinium Hives Medium 10/18/2020 Iodine Hives High Pantoprazole Other (See Comments) Medium 08/28/2022 unspecified Tiotropium Tunica Other (See Comments) Medium 021 Mouth sores [...] 08/28/2022 Intertrigo 01/27/2014 08/28/2022 Depression 12/26/2013 08/28/2022 Family History Medical History Relation Comments Myocardial [...] Hepatitis B vaccine (0-59 yrs) (1) 09/26/1983 Tetanus/Diphtheria/Pertussis Vaccines (1 - Tdap) 09/26/1983 HPV test 1994 PAP Smear 1994 Breast Cancer Share Decision Needed 2004 Breast Cancer screening 2004 Zoster vaccine (1 of 2) 2014 DM Creatinine yearly 12/26/2014 12/26/2013 Covid-19 Vaccine (3 - season) 2024, 06/17/2021 Influenza (Flu) vaccine (1 o f 1 - Influenza standard series) 02/03/2024 Procedures Procedure Name Priority Date/Time Associated Diagnosis Comments BASIC METABOLIC PANEL Routine 12/26/2013 1:30 PM EDT from Last 3 Months or Most Recently Relevant to Health Maintenance Results * Basic Metabolic Panel (non-fasting) (12/26/2013 1:30 PM EDT) Glucose 112 60 - 199 mg/dL [facility] [employer] Comment:Diabetes: >=200 mg/d L plus symptoms Blood Urea Nitrogen 13 8 - 18 mg/dL [facility] Creatinine 0.84 0.70 - 1.20 mg/dL [facility] Comment: Please note that the pediatric reference intervals supplied above were not validated at [facility]. Results from pediatric patients should be interpreted [...] the following links into your internet browser. [email or web address] Blood specimen (specimen) 12/26/2013 1:30 PM EDT 12/26/2013 1:47 PM EDT Narrative Resulting Agency Comment Spec In Lab Luis A Gudino MD CHEMISTRY ORDERABLES [facility] from Last 3 Months or Most Recently Relevant to Health Maintenance Advance Directives Documents on File Type Date Recorded Patient Timber Hewer Expl anation Advance Directives and Living Will 08/21/2019 10:47 AM [place] Advance Directive Care Teams Emergency Veterinary Assistant Relationship Specialty Start Date End Date Mi Tyler PA [address] [place] [address] PCP - General Family Medicine 05/05/21
--- OUTSIDE RECORDS SUMMARY | 2024-04-21 10:48 | XMS_ITS | Encounter Summary ---
[place] [address] Care Team Providers Care High School Academic Coach Name Role Phone Mi Tyler Primary Care Provider [phone] Encounter Details Date Type Department Care Team (Late st Contact Info) Description 08/28/2022 Abstract Cardiology at [address] [place] [address] Yulia Rico, RN Tobacco user [...] disorder documented in this encounter Care Teams High School Academic Coach Relationship Specialty Start Date End Date Mi Tyler PA [address] [place] [address] PCP - General Family Medicine 05/05/21 documented as of this encounter
--- OUTSIDE RECORDS SUMMARY | 2024-04-21 10:48 | XMS_ITS | Encounter Summary ---
Author Organization [facility] Address [address] [place] [address] Care Team Providers Care Monitor And Storage Bin Tender Name Role Phone Unknown, Provider Primary Care Provider Debbie Samuel DRILLING ENGINEERING MANAGER Unavailable [phone] Encounter Details Date Type Department Care Team (Late st Contact Info) Description 12/10/2019 Lab Requisition [facility] Pathology & Laboratory Medicine - [address] [address] Outr Resulting Lab, Provider Social History Tobacco [...] Result Negative Negative 12/11/2019 13:48 EDT [facility] Chlamydia trachomatis Result Negative Negative 12/11/2019 13:48 EDT [facility] Urine 12/10/2019 9:00 EDT 12/10/2019 23:08 EDT Narrative [facility] - 12/11/2019 13:48 EDT A first catch urine specimen is acceptable for detection of Gonorrhea and Chlamydia, but might detect up to 10% fewer infections when compared with vaginal and endocervical swab samples. us Provider Outr Resulting Lab MICROBIOLOGY - GENER AL ORDERABLES Final Result [facility] [address] [place] [address] documented in this encounter Visit Diagnoses Not on filedocumented in this encounter Care Teams Monitor And Storage Bin Tender Relationship Specialty Start Date End Date Unknown, Provider, PCP - General 02/18/19 Debbie Webber NP [address] [place] [address] [address] [place] [address] 02/18/19 documented as of this encounter
--- OUTSIDE RECORDS SUMMARY | 2024-04-21 10:48 | XMS_ITS | Encounter Summary ---
Author Organization [facility] Address [address] [place] [address] Care Team Providers Care Cigarette Catcher Name Role Phone Unknown, Provider Primary Care Provider Debbie Samuel REED POLISHER Unavailable [phone] Encounter Details Date Type Department Care Team (Late st Contact Info) Description 12/10/2019 Lab Requisition [facility] Pathology & Laboratory Medicine - [address] [address] Outr Resulting Lab, Provider Social History Tobacco [...] <3.1 See Note mIU/mL 12/11/2019 9:43 EDT [facility] Comment: Reference Range for Hep B Surface Ab, Quant: Positive: >= 10.0 mIU/mL Negative: ??< 10.0 mIU/mL Patient is presumed to not be immune to infection with Hepatitis B Virus. Hep B Surface Ab, Qualitative Negative See Note 12/11/2019 9:43 EDT [facility] Comment: Reference Range for Hep B Surface Ab, Qual: Unvaccinated: ??Negative Vaccinated: ??Positive Blood VENOUS BLOOD / Unknown 12/10/2019 9:00 EDT 12/10/2019 21:13 EDT us Provider Outr Resulting Lab CHEMISTRY & BLOOD GA S ORDERABLES Final Result [facility] [address] [place] [address] * HEPATITIS B SURFACE ANTIGEN (12/10/2019 9:00 EDT) Hep B Surface Ag Negative Negative 12/11/2019 9:51 EDT [facility] Blood VENOUS BLOOD / Unknown 12/10/2019 9:00 EDT 12/10/2019 21:13 EDT us Provider Outr Resulting Lab CHEMISTRY & BLOOD GA S ORDERABLES Final Result [facility] [address] [place] [address] * HEPATITIS C AB W REFLEX TO HCV RNA BY PCR (12/10/2019 9:00 EDT) Hep C Antibody Negative Negative 12/11/2019 10:32 EDT [facility] Blood VENOUS BLOOD / Unknown 12/10/2019 9:00 EDT 12/10/2019 21:12 EDT us Provider Outr Resulting Lab CHEMISTRY & BLOOD GA S ORDERABLES Final Result [facility] [address] [place] [address] documented in this encounter Visit Diagnoses Not on filedocumented in this encounter Care Teams Cigarette Catcher Relationship Specialty Start Date End Date Unknown, Provider, PCP - General 02/18/19 Debbie Webber NP [address] [place] [address] [address] [place] [address] 02/18/19 documented as of this encounter
--- OUTSIDE RECORDS SUMMARY | 2024-04-21 10:48 | XMS_ITS | Encounter Summary ---
Author Organization [facility] Address [address] [place] [address] Care Team Providers Care Transcribing Machine Mechanic Name Role Phone Debbie Webber NP Primary Care Provider Encounter Details Date Type Department Care Team (Late st Contact Info) Description 04/24/2012 Results Only Imaging [facility] [phone] Debbie Webber NP [address] [facility] [address] [place] [address] Social History Tobacco Use Types [...] on filedocumented in this encounter Care Teams Transcribing Machine Mechanic Relationship Specialty Start Date End Date Debbie Webber NP [address] [place] [address] PCP - General 09/04/11 02/17/19 documented as of this encounter
--- OUTSIDE RECORDS SUMMARY | 2024-04-21 10:48 | XMS_ITS | Encounter Summary ---
Author Organization [facility] Address [address] [place] [address] Care Team Providers Care Computing Services Director Name Role Phone Unavailable Primary Care Provider Unavailabl e Encounter Details Date Type Department Care Team (Late st Contact Info) Description 05/01/2006 Results Only [facility] [address] [place] [address] Omar Childs MD [facility] [address] [place], [place] [address] Social History Tobacco Use Types Packs/Day Years [...] ? PRISCILLA SANTOS ? Accession #: ? [id number] : ? 1965 (Age: 40) ??F ?Collect Date: ? 05/01/2006 Location: ? [facility] ? Receive Date: ? 05/03/2006 Provider: ?OMAR CHILDS MD Copy to: ? Specimen/Source: ?ThinPrep Pap Test, Vagina, processed on [employer] ThinPrep Imaging System, with manual evaluation Last [...] End of Report [facility] 05/01/2006 05/03/2006 us Omar Childs MD PATHOLOGY ORDERABLES Final Resul t [facility] [address] [place] [address] documented in this encounter Visit Diagnoses Not on filedocumented in this encounter
--- OUTSIDE RECORDS SUMMARY | 2024-04-21 10:48 | XMS_ITS | Encounter Summary ---
Author Organization [facility] Address [address] [place] [address] Care Team Providers Care Neurophysiological Technician Name Role Phone Unavailable Primary Care Provider Unavailabl e Encounter Details Date Type Department Care Team (Late st Contact Info) Description 10/18/2001 Results Only [facility] - [facility] conversion [address] [place] [address] Johnathan Webber, OMID [address] [place] [address] Social History Tobacco Use Types [...] ? PRISCILLA SANTOS ? Accession #: ? [id number] : ? 1965 (Age: 36) ??F ?Collect Date: ? 10/18/2001 Location: ? [facility] ? Receive Date: ? 10/22/2001 Provider: ?JOHNATHAN WEBBER SERVICE MEMBER Copy to: ? Specimen/Source: ?Conventional Pap Test, [...] End of Report [facility] 10/18/2001 10/22/2001 us Johnathan Webber NP PATHOLOGY ORDERABLES Final R esult [facility] [address] [place] [address] documented in this encounter Visit Diagnoses Not on filedocumented in this encounter
--- OUTSIDE RECORDS SUMMARY | 2024-04-21 10:48 | XMS_ITS | Encounter Summary ---
Author Organization [facility] Address [address] [place] [address] Care Team Providers Care Scabbler Name Role Phone Unknown, Provider Primary Care Provider Debbie Samuel TAPING MACHINE OPERATOR Unavailable [phone] Encounter Details Date Type Department Care Team (Late st Contact Info) Description 12/10/2019 Lab Requisition [facility] Pathology & Laboratory Medicine - [address] [address] Outr Resulting Lab, Provider Social History Tobacco [...] 9:00 EDT) Hold Hold 12/10/2019 22:16 EDT [facility] Blood VENOUS BLOOD / Unknown 12/10/2019 9:00 EDT 12/10/2019 21:08 EDT us Provider Outr Resulting Lab LAB INFO SERVICE AND SUPPORT & PHONE RESULT Final Result [facility] [address] [place] [address] * SYPHILIS SEROLOGY (12/10/2019 9:00 EDT) Syphilis Serology Negative Negative 12/11/2019 11:20 EDT [facility] Blood VENOUS BLOOD / Unknown 12/10/2019 9:00 EDT 12/10/2019 21:08 EDT us Provider Outr Resulting Lab IMMUNOLOGY AND SEROL OGY ORDERABLES Final Result Performing Organization Address [facility] Co de Phone Number [facility] [address] [place] [address] documented in this encounter Visit Diagnoses Not on filedocumented in this encounter Care Teams Scabbler Relationship Specialty Start Date End Date Unknown, Provider, PCP - General 02/18/19 Debbie Webber NP [address] [place] [address] [address] [place] [address] 02/18/19 documented as of this encounter
--- OUTSIDE RECORDS SUMMARY | 2024-04-21 10:48 | XMS_ITS | Encounter Summary ---
Author Organization [facility] Address [address] [place] [address] Care Team Providers Care Quality Improvement Coordinator (Rn) Name Role Phone Unknown, Provider Primary Care Provider Debbie Samuel LIGHT TRUCK DRIVER Unavailable [phone] Encounter Details Date Type Department Care Team (Late st Contact Info) Description 11/26/2020 Lab Requisition [facility] Pathology & Laboratory Medicine - [facility] [address] [place] [address] Outr Resulting Lab, Provider Social History Tobacco Use Types Packs/Day Years Used Date Smoking Tobacco: Never Assessed Interpersonal Safety Answer Date Record ed Physically Hurt Never 01/04/2020 Verbally Threaten Not on file 01/04/2020 Comments Unknown Sex and Gender Information Value [...] Unknown 11/25/2020 16:20 EDT 11/26/2020 15:52 EDT us Provider Outr Resulting Lab MICROBIOLOGY - GENER AL ORDERABLES Final Result Performing Organization Address City/[facility]/ZIP Co de Phone Number [facility] [address] [place] [address] * COVID-19 TESTING (11/25/2020 16:20 EDT) COVID-19 rt-PCR Result Negative Negative 11/27/2020 14:09 EDT [facility] Comment: This test has not [...] developed and its performance characteristics determined by [facility]. It has not been cleared or approved [...] testing. This test is based on the [facility] COVID-19 Emergency Use Authorization (EUA) assay, with minor modification as defined by the FDA Performed on the [employer] 7 Flex RT-PCR System. Performing Lab [facility] Lab 11/27/2020 14:09 EDT [facility] Swab 11/25/2020 16:2 0 EDT 11/26/2020 15:52 EDT Provider Outr Resulting Lab MICROBIOLOGY - GENER AL ORDERABLES Final Result Performing Organization Address City/[facility]/ZIP Co de Phone Number [facility] [address] [place] [address] documented in this encounter Visit Diagnoses Not on filedocumented in this encounter Care Teams Quality Improvement Coordinator (Rn) Relationship Specialty Start Date End Date Unknown, Provider, PCP - General 02/18/19 Debbie Webber NP [address] [place] [address] [address] [place] [address] 02/18/19 documented as of this encounter
--- OUTSIDE RECORDS SUMMARY | 2024-04-21 10:48 | XMS_ITS | Continuity of Care Document ---
Author Organization [facility] Address [address] [place] [address] Care Team Providers Care Gas Tester Name Role Phone NATHALIE FELDMAN Primary Care Provider Assessment No assessment recorded. Plan of Treatment Reminders Order Date Submit Date Provider Last Modified By Organization Details Last Modified Time Details Appointments Follow Up 30 2023 01:30P Socorro FELDMAN Not available Not available Not available Lab magnesium , serum or plasma 2023 024 [facility] (Registration ), [address] [place] [address] [place], [address], 01/23/2024 10:54:22 HbA1c (hemoglob in A1c), blood [address] [facility] (Registration ), [address] [place] [address] [place], [address], 01/23/2024 10:55:09 microalbu min, urine [address], [address] [place], [address], 01/22/2024 11:20:45 lipid panel, serum [address] [facility] (Registration ), [address] [place] [address] [place], [address], 01/23/2024 10:55:02 CMP, serum or plasma 2023 024 [facility] (Registration ), [address] [place] [address] [place], [address], 01/22/2024 18:26:58 Referral None recorded. Procedures None recorded. Surgeries None recorded. Imaging None recorded. Medication Orders doxycycli ne hyclate 100 mg capsule 2023 024 [facility], [address] [place], [address], 01/22/2024 11:20:47 triamcino lone acetonide 0.5 % topical cream 2023 024 qing [facility], [address] [place], [address], 01/22/2024 11:22:15 Patient TargetsNo targets recorded. Patient InstructionsNo instructions recorded. Reason for Referral None Reported. Results Created Date Observation Date Name Description Value Unit Range Abnormal Flag Note LastModifiedBy Organization Detail LastModifiedTime 01/22/20 24 01/22/2024 micro album in, urine microalbumin 0 mg/dL Not Available [address], [place], [address], 01/22/2024 09:40:52 02/17/20 24 01/03/2019 CT, chest No observ ation record ed. Not Available 02/16 22:30:17 02/17/20 24 11/29/2020 XR, chest No observ ation record ed. Not Available 02/16 22:30:18 02/17/20 24 01/13/2021 MAMMO , scree gena No observ ation record ed. Not Available 02/16 22:30:19 02/17/20 24 04/10/2022 XR, chest No observ ation record ed. Not Available 02/16 22:30:27 02/17/20 24 08/19/2021 MAMMO , scree gena No observ ation record ed. Not Available 02/16 22:30:28 02/17/20 24 02/27/2022 imagi ng/di agnos tic resul t No observ ation record ed. Not Available 02/16 22:30:47 02/17/20 24 05/08/2022 imagi ng/di agnos tic resul t No observ ation record ed. Not Available 02/16 22:31:14 02/17/20 24 11/28/2020 imagi ng/di agnos tic resul t No observ ation record ed. Not Available 02/16 22:32:45 02/17/20 24 11/28/2020 imagi ng/di agnos tic resul t No observ ation record ed. Not Available 02/16 22:34:43 02/17/20 24 02/01/2022 imagi ng/di agnos tic resul t No observ ation record ed. Not Available 02/16 22:35:50 02/17/20 24 02/01/2022 imagi ng/di agnos tic resul t No observ ation record ed. Not Available 02/16 22:35:52 02/17/20 24 02/17/2019 imagi ng/di agnos tic resul t No observ ation record ed. Not Available 02/16 22:36:38 02/17/20 24 04/12/2020 imagi ng/di agnos tic resul t No observ ation record ed. Not Available 02/16 22:36:41 02/17/20 24 03/29/2020 CT, chest , w/ contr ast No observ ation record ed. Not Available 02/16 22:36:47 02/17/20 24 02/17/2019 US, pelvi s, trans abdom inal + trans vagin al No observ ation record ed. Not Available 02/16 22:36:48 02/17/20 24 05/03/2023 imagi ng/di agnos tic resul t No observ ation record ed. Not Available 02/16 22:36:49 02/17/20 24 05/03/2023 imagi ng/di agnos tic resul t No observ ation record ed. Not Available 02/16 22:36:51 Result Notes None recorded. Problems Name Problem SNOMED Code Status Onset Date Resolution Date Notes Provider Name and Address Organization Details Recorded Time Messi calzada [id number] Active 201601/09/20 23 - Comments only - Nathalie Feldman PA-C - - HTN Today's BP well WNLs. To continue on PROPRANO LOL 40mg BID and LISINOPR IL 20mg QD as RXd. Problem Code: I10; Problem Code Type: ICD-10; Not Available [facility] 3 04:03:15 Type 2 diabetes mellitus without complica tion 274646814 Active 201605/22/20 22 - Comments only - Nathalie Feldman PA-C - As per patient request, will d/c from [employer]. Will plan to repeat HBA1C in 3m as monitori ng. Problem Code: E11.9; Problem Code Type: ICD-10; Not Available [facility] 3 04:03:15 Ifeanyi cervantes a 2469148 Active 2016 Problem Code: J43.1; Problem Code Type: ICD-10; Not Available [facility] 3 04:03:15 Gastroes ophageal reflux disease without esophagi tis 270694199 Active 201604/09/20 22 - Comments only - Nathalie Feldman PA-C - Offered for patient to trial alternat johnny PPI therapy for improved symptom control, however, she is opting to continue with PRILOSEC 40mg QD as RXd for now. Problem Code: K21.9; Problem Code Type: ICD-10; Not Available [facility] 3 04:03:15 Posttrau matic stress disorder 04070294 Active 201611/22/19 23 - Comments only - Nathalie Feldman PA-C - - CYCLOTHY RADHA DISORDER , PTSD, BPD, INSOMNIA Patient encourag ed to touch base with [facility] RXing provider re: desire to increase TRAZODON E. She will otherwis e continue on current treatmen t regimen (RISPERD AL, ADDERALL XR, HYDROXYZ INE) as RXd. Problem Code: F43.10; Problem Code Type: ICD-10; Not Available [facility] 3 04:03:15 Tobacco dependen ce caused by cigarett es 30869942682 280611 Active 201608/11/19 21 - Comments only - Leandro Mendes MD - He is preconte mplative . Discusse d her motivati on to quit, includin g wound healing. Problem Code: F17.210; Problem Code Type: ICD-10; Not Available [facility] 3 04:03:15 Adult health examinat ion Active 201605/18/20 21 - Comments only - Nathalie Feldman PA-C - Mammogra m order reprinte d to allow for scheduli ng at [facility] at next availabl e. Problem Code: Z00.00; Problem Code Type: ICD-10; Not Available [facility] 3 04:03:16 Acquired absence of cervix and uterus 458054364 Active 2016 Problem Code: Z90.710; Problem Code Type: ICD-10; Not Available [facility] 3 04:03:16 Hyperlip idemia 87278860 Active 201601/09/20 23 - Comments only - Nathalie Feldman PA-C - Maintain ed on LOVASTAT IN 20mg QD. Will plan to repeat lipid profile and CMP in early March as monitori ng. Problem Code: E78.5; Problem Code Type: ICD-10; Not Available [facility] 3 04:03:16 Otitis media 11520220 Completed 201605/28/2017 Problem Code: H66.90; Problem Code Type: ICD-10; Not Available [facility] 3 04:03:16 Wheezing 01044230 Active 2017 Problem Code: R06.2; Problem Code Type: ICD-10; Not Available [facility] 3 04:03:16 Body mass index 40+ - severely obese 192598965 Active 2017 Problem Code: Z68.41; Problem Code Type: ICD-10; Not Available [facility] 3 04:03:16 Cough 09841999 Completed 201710/15/2017 Problem Code: R05; Problem Code Type: ICD-10; Not Available [facility] 3 04:03:16 Insomnia 095350542 Active 2017 Problem Code: G47.00; Problem Code Type: ICD-10; Not Available [facility] 3 04:03:16 Dyspnea 885070958 Completed 201704/02/2018 Problem Code: R06.02; Problem Code Type: ICD-10; Not Available [facility] 3 04:03:17 Upper respirat ory tract infectio n caused by Influenz a A 46572789121 9104 Completed 201807/21/2018 Problem Code: J09.x2; Problem Code Type: ICD-10; Not Available [facility] 3 04:03:17 Otitis media 22264229 Completed 201807/21/2018 Problem Code: H66.90; Problem Code Type: ICD-10; Not Available [facility] 3 04:03:17 Attentio n deficit hyperact ivity disorder , predomin antly hyperact johnny impulsiv e type 3513479 Active 2018 Problem Code: F90.1; Problem Code Type: ICD-10; Not Available [facility] 3 04:03:17 Borderli ne personal ity disorder 12038322 Active 201802/02/20 22 - Comments only - Nathalie Feldman PA-C - - CYCLOTHY RADHA DISORDER , PTSD, BPD Well establis hed with [facility]. To continue on current treatmen t regimen (RISPERD AL, ADDERALL XR, SEROQUEL , KLONOPIN ) as RXd by specialt y service provider . Problem Code: F60.3; Problem Code Type: ICD-10; Not Available [facility] 3 04:03:17 Localize d eruption of skin 148212105 Completed 201808/04/2018 Problem Code: R21; Problem Code Type: ICD-10; Not Available [facility] 3 04:03:17 Acute vaginiti s 38190027 Completed 201808/11/2018 Problem Code: N76.0; Problem Code Type: ICD-10; Not Available [facility] 3 04:03:18 Dyspnea 913574159 Completed 201808/15/2018 Problem Code: R06.02; Problem Code Type: ICD-10; Not Available [facility] 3 04:03:18 Acute upper respirat ory infectio n 35069347 Completed 201808/22/2018 08/09/19 19 - Comments only - Alaina Hayward APRN - Sxs for 24 hours, assume viral. Exacerba ting poorly controll ed COPD. Problem Code: J06.9; Problem Code Type: ICD-10; Not Available [facility] 3 04:03:18 Low back pain 800967826 Active 201802/02/20 22 - Comments only - Nathalie Feldman PA-C - Once patient has complete d requeste d cardiac testing, will reconsid er to trial previous ly RXd MOBIC 7.5mg QD. Problem Code: M54.5; Problem Code Type: ICD-10; Not Available [facility] 3 04:03:18 Hearing loss of left ear 103958544 Active 2018 Problem Code: H91.92; Problem Code Type: ICD-10; Not Available [facility] 3 04:03:18 Disorder of skin and/or subcutan eous tissue 83291134 Completed 201802/27/2019 Problem Code: L98.9; Problem Code Type: ICD-10; Not Available [facility] 3 04:03:18 Polyp of colon 84547144 Active 2011 Problem Code: K63.5; Problem Code Type: ICD-10; Not Available [facility] 3 04:03:18 Muscle pain 19821470 Completed 202008/30/2020 08/24/19 21 - Comments only - Sherry Carmona APRN, RN, L.AC - No bony tenderne ss. No JOSE ANGEL or exam findings indicati ng XR or other imaging at this time. Sxs most c/w piriform is syndrome . We discusse d OTC topical analgesi cs, ice, heat and stretchi ng. Problem Code: M79.18; Problem Code Type: ICD-10; Not Available [facility] 3 04:03:19 Localize d eruption of skin 682810333 Completed 202008/30/2020 08/24/19 21 - Comments only - Sherry Carmona APRN, RN, L.AC - No s/s c/w infectio us process. Most c/w contact dermatit is. We discusse d use of mask ear loop press tender smoke signal s to reduce contact of mask loop fabric with skin, I printed a picture of this product, availabl e at [facility]. Return precauti ons discusse d. Problem Code: R21; Problem Code Type: ICD-10; Not Available [facility] 3 04:03:19 Counseli ng Completed 202001/17/2021 01/04/20 21 - Comments only - Nathalie Feldman PA-C - Old records from previous provider reviewed . Problem Code: Z71.89; Problem Code Type: ICD-10; Not Available [facility] 3 04:03:19 Tinea pedis 0319023 Completed 202001/17/2021 01/04/20 21 - Comments only - Nathalie Feldman PA-C - Will treat with RXd CLOTRIMA ZOLE 1% CREAM BID Problem Code: B35.3; Problem Code Type: ICD-10; Not Available [facility] 3 04:03:19 Cyclothy olivier 89649534 Active 202009/30/19 23 - Comments only - Nathalie Feldman PA-C - Patient encourag ed to touch base with [facility] RXing provider re: desire to RS TRAZODON E at time of next schedule d visit. She will otherwis e continue on current treatmen t regimen (RISPERD AL, ADDERALL XR, HYDROXYZ INE) as RXd. Problem Code: F34.0; Problem Code Type: ICD-10; Not Available [facility] 3 04:03:19 Acute vaginiti s 00569057 Completed 202001/31/2021 01/18/20 21 - Comments only - Nathalie Feldman PA-C - While awaiting results of today's VPS, will treat empirica lly with RXd DIFLUCAN 150mg x 1. Will reconsid er FARXIGA as componen t of antiglyc emic regimen if with recurren vaginal complain ts. Problem Code: N76.0; Problem Code Type: ICD-10; Not Available [facility] 3 04:03:20 Acute vaginiti s 90362005 Completed 202002/15/2021 02/10/20 21 - Comments only - Nathalie Feldman PA-C - Improved , although not fully resolved . Given GI issues, will forgo further ABX treatmen t at present. Chika agrees to continue with OTC DESITIN +/- VAGISIL +/- ice for symptoma tic relief. Although she declines offered HEEL LINING PASTER refer today, she agrees to reconsid er if sxs ongoing with 2 week recheck. Problem Code: N76.0; Problem Code Type: ICD-10; Not Available [facility] 3 04:03:20 Chronic pain syndrome 463837457 Active 202009/30/19 23 - Comments only - Nathalie Feldman PA-C - Patient to begin on RXd CELEBREX @ 200mg QD (h/o GERD on PPI; failed NAPROXEN , DICLOFEN AC, IBUPROFE N, MELOXICA M). Problem Code: G89.4; Problem Code Type: ICD-10; Not Available [facility] 3 04:03:20 Localize d eruption of skin 261948307 Completed 202003/08/2021 02/24/20 21 - Comments only - Nathalie Feldman PA-C - Suspect eczema > psoriasi s. Will treat with RFd TRIAMCIN OLONE 0.5% CREAM BID. Problem Code: R21; Problem Code Type: ICD-10; Not Available [facility] 3 04:03:20 Spasm 32498745 Completed 202004/22/2021 Problem Code: R25.2; Problem Code Type: ICD-10; Not Available [facility] 3 04:03:20 Disorder of skin and/or subcutan eous tissue 35094660 Completed 202004/22/2021 04/11/20 21 - Comments only - Nathalie Feldman PA-C - - RASH PX continue s to support DX eczema > psoriasi s, however, in that Chika garcía misa better effect with use of topical antifung al therapy than routinel y TRIAMCIN OLONE 0.5% CREAM, will trial PO treatmen t with KETOCONA ZOLE 200mg QD x 14d. OK to suppleme nt with HYDROXYZ INE 25mg BID PRN itch. Problem Code: L98.9; Problem Code Type: ICD-10; Not Available [facility] 3 04:03:20 Blood in urine 27704569 Completed 202005/09/2021 04/25/20 21 - Comments only - Nathalie Feldamn PA-C - Resolved . Will continue to monitor and maintain low index to schedule for outpatie nt CT imaging if recurren t. Problem Code: R31.9; Problem Code Type: ICD-10; Not Available [facility] 3 04:03:21 Cough 51347858 Completed 202005/09/2021 04/25/20 21 - Comments only - Nathalie Feldman PA-C - Patient reassure d PX findings fairly benign. Suggeste d patient to treat with OTC MUCINEX and RFd XOPENEX MDI PRN for relief of congesti on and wheeze respecti vely. Will consider for repeat COVID testing +/- CXR if sxs prove ongoing. Problem Code: R05; Problem Code Type: ICD-10; Not Available [facility] 3 04:03:21 Psoriasi s 6640894 Active 2020 Problem Code: L40.8; Problem Code Type: ICD-10; Not Available [facility] 3 04:03:21 Lumbosac ral radiculo nirmala 7228170 Completed 202006/01/2021 05/18/20 21 - Comments only - Nathalie Feldman PA-C - Suspect lumbosac ral radiculo nirmala @ L5-S1/2 level. Will reconsid er to schedule for imaging studies as confirma tion with future visits. For acute manageme nt, if with good response to today's TORADOL injectio n, patient to call tomorrow to obtain RX 10mg PO Q6h PRN (#20 with no RFs) to use as alternat johnny to IBUPROFE N. Addition ally, will ask that Chika begin on LYRICA to titrate to 25mg BID. Problem Code: M54.16; Problem Code Type: ICD-10; Not Available [facility] 3 04:03:21 Furuncle 357677799 Completed 202106/19/2023 Problem Code: L02.92; Problem Code Type: ICD-10; NATHALIE FELDMAN PA-C [facility] [address], [place], [address] , [facility] 4 07:38:13 Retentio n of urine 192406835 Completed 202101/16/2022 Problem Code: R33.9; Problem Code Type: ICD-10; Not Available [facility] 3 04:03:22 Stomatit is 79393470 Completed 202101/14/2022 01/14/20 22 - Comments only - Zahraa JOE - Prescrip tion for nystatin swish and spit 5 mL 4 times a day for 10 to 14 days. Advised to replace her toothbru sh and tongue brush. Patient handout given on thrush. Discusse d signs and symptoms to return or contact PCP. Patient understa nds and agrees with plan. Not Available [facility] 3 04:03:22 Chest pain 02451015 Active 202103/01/20 22 - Comments only - Nathalie Feldman PA-C - Recent stress testing OK. In an effort to better control palpitat ion sxs, to increase PROPRANO LOL to 60mg BID. Problem Code: R07.89; Problem Code Type: ICD-10; Not Available [facility] 3 04:03:22 Acute pharyngi tis 318178339 Completed 202103/15/2022 03/01/20 22 - Comments only - Nathalie Feldman PA-C - In office strep, flu, and COVID testing NEGATIVE . Will cover for left OM with RXd ZITHROMA X as ZPAK. Patient encourag ed to continue to use OTC MUCINEX and PROAIR MDI PRN for relief of PM chest congesti on and SOB/whee ze respecti vely. Problem Code: J02.9; Problem Code Type: ICD-10; Not Available [facility] 3 04:03:22 Cough 55716361 Active 202104/09/20 22 - Comments only - Nathalie Feldman PA-C - While awaiting results of today's laborato ry testing and requeste d CXR, patient to begin on RXd PREDNISO NE as directed on extended taper. OK to continue to suppleme nt with OTC MUCINEX +/- ALBUTERO L MDI PRN for relief of chest congesti ve sxs and wheezing /broncho constric tion respecti vely. Problem Code: R05.1; Problem Code Type: ICD-10; Not Available [facility] 3 04:03:23 Did not wait for treatmen t 441922627 Completed 202106/19/2023 03/27/20 22 - Comments only - Ling Kingston PRECISION ASSEMBLER - Patient left [facility] before provider able to assess. Attempte d to reach patient by phone, voicemai l box full. Problem Code: Z53.21; Problem Code Type: ICD-10; NATHALIE FELDMAN PA-C [address], [place], [address] , [place] - [facility]. 4 07:38:03 Palpitat ions 11080072 Active 202108/29/19 23 - Comments only - Nathalie Feldman PA-C - As per patient request, will change cardiolo gy referral from [facility]. To continue on PROPRANO LOL 40mg BID (did not tolerate increase in dose) and LISINOPR IL 20mg QD as RXd. Problem Code: R00.2; Problem Code Type: ICD-10; Not Available [facility] 3 04:03:23 Hypomagn esemia 883926581 Active 202108/29/19 23 - Comments only - Nathalie Feldman PA-C - Patient now tolerati ng OTC MAGNESIU M suppleme nt without ASE concerns . Will plan to repeat magnesiu m level with next set of labs as monitori ng. Problem Code: E83.42; Problem Code Type: ICD-10; Not Available [facility] 3 04:03:23 Diarrhea 76998506 Active 202201/09/20 23 - Comments only - Nathalie Feldman PA-C - - CHRONIC DIARRHEA Patient to f/u for colonosc opy as reschedu led in late March (Khadar ). In the interim, to continue to use OTC IMMODIUM PRN for symptom control. Problem Code: R19.7; Problem Code Type: ICD-10; Not Available [facility] 3 04:03:23 General examinat ion of patient Active 2022 Problem Code: Z00.8; Problem Code Type: ICD-10; Not Available [facility] 3 04:03:24 Tinnitus of left ear 02949651666 06 Active 2022 Problem Code: H93.12; Problem Code Type: ICD-10; Not Available [facility] 3 04:03:24 Peripher al vascular disease 979120183 Active 202211/22/19 23 - Comments only - Nathalie Feldman PA-C - With concern for PVD contribu ting to claudica tion and poor cirulati on, will refer to [facility] for ABIs Problem Code: I73.9; Problem Code Type: ICD-10; Not Available [facility] 3 04:03:24 Pelvic and perineal pain 155077129 Active 202212/23/19 23 - Comments only - Nahtalie Feldman PA-C - In-offic e U/A OK (NEGATIV E for blood). Assuming benign findings with today's collecte d VPS, will consider to schedule for pelvic x-ray. Problem Code: R10.2; Problem Code Type: ICD-10; Not Available [facility] 3 04:03:24 Cough 83424129 Completed 202201/19/2023 01/09/20 23 - Comments only - Nathalie Feldman PA-C - Given patient responde d well to in-offic e updraft treatmen t, will forgo PO steroid dosing at this time. Instead, will treat with RXd ZITHROMA X as ZPAK and ask that Chika continue to use ALBUTERO L via MDI +/- nebulize r liberall y. Will consider to obtain CXR +/- laborato ry testing (CBC, CMP) if sxs fail to improve as expected over course of this upcoming weekend. 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 30519564 Completed 201807/22/2020 Problem Code: F52.31; Problem Code Type: ICD-10; Not Available [facility] 3 04:03:25 Disorder of tongue 57255584 Completed 201804/29/2019 Problem Code: K14.8; Problem Code Type: ICD-10; Not Available [facility] 3 04:03:26 Acute exacerba tion of chronic obstruct johnny pulmonar y disease 646871064 Completed 201912/09/2019 Problem Code: J44.1; Problem Code Type: ICD-10; Not Available [facility] 3 04:03:26 Spasm 52631388 Completed 201907/22/2020 Problem Code: R25.2; Problem Code Type: ICD-10; Not Available [facility] 3 04:03:26 Localize d eruption of skin 660602495 Completed 201907/22/2020 Problem Code: R21; Problem Code Type: ICD-10; Not Available [facility] 3 04:03:26 Lyman - lesion 230927596 Completed 201709/12/2017 Problem Code: L84; Problem Code Type: ICD-10; Not Available [facility] 3 04:03:27 Headache 96271655 Completed 201702/27/2019 Problem Code: R51; Problem Code Type: ICD-10; Not Available [facility] 3 04:03:27 Arthropa thy of right knee joint 153030440 Completed 201702/27/2019 Problem Code: M25.861; Problem Code Type: ICD-10; Not Available [facility] 3 04:03:27 Nocturna l enuresis 3402930 Completed 201907/22/2020 Problem Code: N39.44; Problem Code Type: ICD-10; Not Available [facility] 3 04:03:27 Hernia of abdomina l cavity 95179053 Completed 201902/09/2021 Problem Code: K46.9; Problem Code Type: ICD-10; Not Available [facility] 3 04:03:28 Abnormal urine 210086797 Completed 201911/03/2019 Problem Code: R82.90; Problem Code Type: ICD-10; Not Available [facility] 3 04:03:28 Screenin g for malignan t neoplasm of breast Completed 201804/29/2019 Problem Code: Z12.39; Problem Code Type: ICD-10; Not Available [facility] 3 04:03:28 Idiopath ic osteoart hritis 686087983 Completed 201602/28/2023 Problem Code: M19.91; Problem Code Type: ICD-10; Not Available [facility] 3 04:03:29 Onychomy cosis due to dermatop hyte 669267613 Completed 201702/27/2019 Problem Code: B35.1; Problem Code Type: ICD-10; Not Available [facility] 3 04:03:29 Insect bite Completed 202012/01/2020 Not Available [facility] 3 04:03:29 Atopic dermatit is 12415647 Completed 202012/01/2020 Problem Code: L20.9; Problem Code Type: ICD-10; Not Available [facility] 3 04:03:29 Nausea [id number] Completed 201609/12/2017 Problem Code: R11.0; Problem Code Type: ICD-10; Not Available [facility] 3 04:03:30 Nicotine dependen ce 32146704 Completed 201802/27/2019 Problem Code: F17.209; Problem Code Type: ICD-10; Not Available [facility] 3 04:03:30 Adjustme nt disorder 17352460 Completed 201909/12/2019 Problem Code: F43.20; Problem Code Type: ICD-10; Not Available [facility] 3 04:03:30 Abnormal weight gain 825704577 Completed 202002/09/2021 Problem Code: R63.5; Problem Code Type: ICD-10; Not Available [facility] 3 04:03:30 Diarrhea 08546817 Completed 201706/24/2020 Problem Code: R19.7; Problem Code Type: ICD-10; Not Available [facility] 3 04:03:31 Umbilica l hernia 826671927 Completed 201602/27/2019 Problem Code: K42.9; Problem Code Type: ICD-10; Not Available [facility] 3 04:03:31 Acute exacerba tion of chronic obstruct johnny pulmonar y disease 699675064 Completed 201702/09/2021 Problem Code: J44.1; Problem Code Type: ICD-10; Not Available [facility] 3 04:03:31 Localize d eruption of skin 075859059 Completed 201702/20/2018 Problem Code: R21; Problem Code Type: ICD-10; Not Available [facility] 3 04:03:32 Intertri go [id number] Completed 201712/17/2017 Problem Code: L30.4; Problem Code Type: ICD-10; Not Available [facility] 3 04:03:32 Swollen abdomen 06176135 Completed 201906/24/2020 Not Available [facility] 3 04:03:32 Amnesia 46710749 Completed 201602/09/2021 Problem Code: R41.3; Problem Code Type: ICD-10; Not Available [facility] 3 04:03:32 Hand pain 05136884 Completed 202012/01/2020 Problem Code: M79.643; Problem Code Type: ICD-10; Not Available [facility] 3 04:03:33 Dyspnea 328809974 Completed 201907/22/2020 Problem Code: R06.00; Problem Code Type: ICD-10; Not Available [facility] 3 04:03:33 Fatigue 67633404 Completed 201804/29/2019 Problem Code: R53.83; Problem Code Type: ICD-10; Not Available [facility] 3 04:03:33 Follicul ar cysts of skin and subcutan eous tissue 884530754 Completed 201802/09/2021 Problem Code: L72.9; Problem Code Type: ICD-10; Not Available [facility] 3 04:03:34 Suicidal thoughts 7511079 Completed 201802/09/2021 Problem Code: R45.851; Problem Code Type: ICD-10; Not Available [facility] 3 04:03:34 Migraine without aura, not refracto ry 709074737 Completed 201602/27/2019 Problem Code: G43.009; Problem Code Type: ICD-10; Not Available [facility] 3 04:03:34 Chest pain 63397801 Completed 201702/27/2019 Problem Code: R07.9; Problem Code Type: ICD-10; Not Available [facility] 3 04:03:34 Pelvic and perineal pain 305775372 Completed 201804/29/2019 Problem Code: R10.2; Problem Code Type: ICD-10; Not Available [facility] 3 04:03:35 Itching of skin 519658202 Completed 201804/29/2019 Problem Code: L29.8; Problem Code Type: ICD-10; Not Available [facility] 3 04:03:35 Right upper quadrant pain 169435438 Completed 201708/23/2017 Problem Code: R10.11; Problem Code Type: ICD-10; Not Available [facility] 3 04:03:35 Pain in thoracic spine 246086486 Completed 201802/28/2023 Problem Code: M54.89; Problem Code Type: ICD-10; Not Available [facility] 3 04:03:36 Pain of breast 97032554 Completed 201907/22/2020 Problem Code: N64.4; Problem Code Type: ICD-10; Not Available [facility] 3 04:03:36 Contact dermatit is 70479196 Completed 201902/09/2021 Problem Code: L25.9; Problem Code Type: ICD-10; Not Available [facility] 3 04:03:36 Arthropa thy of joint of hand 330552750 Completed 201602/09/2021 Problem Code: M12.849; Problem Code Type: ICD-10; Not Available [facility] 3 04:03:37 Eczema 11513648 Completed 201907/25/2019 Problem Code: L30.9; Problem Code Type: ICD-10; Not Available [facility] 3 04:03:37 Generali zed abdomina l pain 069696843 Completed 201906/24/2020 Problem Code: R10.84; Problem Code Type: ICD-10; Not Available [facility] 3 04:03:37 Diarrhea 83109684 Completed 202009/16/2020 Problem Code: R19.7; Problem Code Type: ICD-10; Not Available [facility] 3 04:03:38 Pain of breast 91084680 Completed 201604/13/2017 Problem Code: N64.4; Problem Code Type: ICD-10; Not Available [facility] 3 04:03:38 Severe obesity [id number] 104 Completed 201609/12/2017 Problem Code: E66.01; Problem Code Type: ICD-10; Not Available [facility] 3 04:03:38 Venereal disease screenin g Completed 201906/24/2020 Problem Code: Z11.3; Problem Code Type: ICD-10; Not Available [facility] 3 04:03:39 Family problems 602542986 Completed 201704/29/2019 Problem Code: Z63.79; Problem Code Type: ICD-10; Not Available [facility] 3 04:03:39 Noninfla mmatory disorder of the vagina 68041722 Completed 201802/28/2023 Problem Code: N89.8; Problem Code Type: ICD-10; Not Available [facility] 3 04:03:39 Pain of right lower leg [id number] 9108 Completed 201906/24/2020 Problem Code: M79.661; Problem Code Type: ICD-10; Not Available [facility] 3 04:03:40 Candidia sis of skin 59462356 Completed 202203/02/2023 02/17/20 23 - Comments only - Nathalie Feldman PA-C - Will treat with RXd TERBINAF INE CREAM BID. 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 Problem Code: B37.2; Problem Code Type: ICD-10; Not Available [facility] 4 05:34:22 Candidia sis of skin 55483938 Completed 202203/20/2023 03/08/20 23 - Comments only - Nathalie Feldman PA-C - Given lack of response to topical antifung al treatmen ts to present, will cover with RXd DIFLUCAN 100mg QD x 7d. Chika imtiaz neil continue efforts to keep the area clean and dry (conside r hairspring ii inspector after showerin g) and use OTC zinc oxide containi ng DESITIN to promote skin healing. Problem Code: B37.2; Problem Code Type: ICD-10; Not Available [facility] 4 05:34:22 Bilatera l adenoma of adrenal glands [id number] 768971 Active 2023 Incident al finding on CT abdomen/ pelvis at [facility] ED 09/29/23 ADRIANA PADILLA, [employer] OPERATOR-BC [address], [place], [address] , [facility] 4 18:59:52 Chronic eczema 75655175 Active 2023 ARNOLDO DICKERSON LPN [facility] 4 09:13:42 Problem Notes None recorded. Medical Equipment None Reported. Allergies Allergen ID Allergen Name Allergen Category Reaction Reaction Severity Criticality Documentation Date Start Date Code Code System Note Provider Name and Address Organization Details Recorded Time Bactrim medicatio n Not available Not available Not available 04/13/20232016 47545 9 RxNorm Not Available [facility] 3 16:11:46 iodine medicatio n Not available Not available Not available 04/13/20232016 5933 RxNorm Not Available [facility] 3 16:11:47 simvastat in medicatio n rash moderate Not available 04/13/20232019 37675 RxNorm rash Not Available [facility] 3 16:11:47 Augmentin medicatio n Not available Not available Not available 04/13/20232016 67342 2 RxNorm Not Available [facility] 3 16:11:47 codeine medicatio n vomiting moderate Not available 04/13/20232017 2670 RxNorm vomit ing Aller gyCod e: '0040 09857 32'; Aller gyNam e: 'CODE INE'; Aller gyCon ceptT ype: 'NDC' ; Not Available [facility] 3 16:11:47 Betadine medicatio n rash moderate Not available 04/13/20232016 37904 0 RxNorm skin rash Aller gyRea ction : 'skin rash' ; Aller gyCod e: '0053 32934 80'; Aller gyNam e: 'BETA DINE' ; Aller gyCon ceptT ype: 'NDC' ; Not Available [facility] 3 16:11:47 Protonix medicatio n other moderate Not available 04/13/20232016 96505 4 RxNorm sick Aller gyRea ction : 'sick '; Aller gyCod e: '8852 57'; Aller gyNam e: 'PROT MILDRED' ; Aller gyCon ceptT ype: 'RX Norm' ; Not Available [facility] 3 16:11:47 cyprohept adine hydrochlo ride medicatio n Not available Not available Not available 04/13/20232016 95178 2 RxNorm Aller gyCod e: '8660 21'; Aller gyNam e: 'CYPR OHEPT ADINE HCL'; Aller gyCon ceptT ype: 'RX Norm' ; Not Available [facility] 3 16:11:47 72821 Rybelsus medicatio n rash moderate low 10/16/2023 22029 45 RxNorm [place], [place] - [facility]. 4 14:44:29 Medications Name Sig [...] for 30 to 60 seconds, then swallow active Not Available Not Available No t Available prednison e 10 mg tablet Take 4 tablet by mouth as directed 4 tab qd for 4 days, 3 tab qd for 3 days, 2 tab qd for 2 days, 1 tab qd po x1 day. 05/22 completed Not Available Not Available Not Available doxycycli ne hyclate 100 mg capsule TAKE ONE CAPSULE BY MOUTH TWICE A DAY FOR 7 DAYS active Not Available Not Available No t Available propranol ol 80 mg tablet Take 1 [...] triamcino lone acetonide 0.5 % topical cream APPLY A SMALL AMOUNT TO AFFECTED AREA(S) TWO TIMES A DAY SCALP, UNDER SKIN FOLDS active Not Available Not Available No t Available ketoconaz ole 200 mg tablet Take 1 [...] Available risperido ne 4 mg tablet TAKE 1 TABLET BY MOUTH AT BEDTIME active Not [...] elayed release TAKE 1 CAPSULE BY MOUTH ONCE DAILY active Not Available Not Available [...] TAKE ONE CAPSULE BY MOUTH EVERY DAY ITH 10MG active Not Available Not Available No t [...] Not Available propranol ol 40 mg tablet TAKE 1 TABLET BY MOUTH TWICE DAILY active Not Available Not Available No t Available magnesium oxide 400 mg (241.3 mg magnesium ) tablet TAKE ONE TABLET BY MOUTH EVERY DAY 01/22 completed Not Available Not Available Not Available hydrocodo ne-homatr opine 5 mg-1.5 mg [...] Available lisinopri l 10 mg tablet TAKE 1 TABLET BY MOUTH ONCE DAILY active Not Available Not Available [...] release TAKE ONE CAPSULE BY MOUTH EVERY MORNING active Not Available Not Available No t Available Actos 15 mg tablet 1 tab po qd. Cannot take metformi n. DC glipizid e 02/25 completed Not Available Not Available Not Available cephalexi n 500 mg tablet Take 1 tab by mouth two times daily for 6 more days 03/22 completed Not Available Not Available Not Available hydroxyzi ne HCl 25 mg tablet TAKE 1 TO 2 TABLETS BY MOUTH TWICE DAILY NEEDED active Not Available Not Available No [...] lable lovastati n 20 mg tablet TAKE 1 TABLET BY MOUTH ONCE DAILY active Not Available Not Available [...] xtend release TAKE 1 CAPSULE BY MOUTH DAILY IN THE MORNING active Not Available Not Available No t Available fluocinon kb 0.05 % topical cream [...] for ADHD 2018 active prescrib ed by [facility] Not Available Not Available Not Available Flovent HFA 110 mcg/actua tion aerosol [...] completed Not Available Not Available Not Available RepunchToNetDevices UltraMini kit Test blood glucose daily as [...] Not Available Not Available FreeStyle Lite Strips 1 strip as directed once a day TEST ONCE DAILY 03/05 completed Not Available Not Available Not Available [...] completed Not Available Not Available Not Available Unifine Pentips 31 gauge x /16 needle USE ONCE DAILY WITH VICTOZA active Not Available Not Available No t Available OneTouch Delica Lancets 30 gauge test twice daily. E11.9 2016 active Not Available Not Available Not Avai lable Victoza 3-Xavier 0.6 mg/0.1 mL (18 mg/3 mL) subcutane ous pen injector INJECT 1.8MG UNDER THE SKIN ONCE DAILY active Not Available Not Available No t Available Breo Ellipta 100 mcg-25 mcg/dose powder for inhalatio n Inhale 1 puff once a day 06/17 completed [facility] Not Available Not Available Not [...] Updated DateTime 4 152.4 cm 42.1 kg/m2 89043.4 6 g 68 /min 97.3 [degF] 104 mm[Hg] 66 mm[Hg] ARNOLDO DICKERSON LPN [facility]. 4 09:09:40 Social History Question Answer Notes LastModified by Organizat ion Details LastModified Time Tobacco Smoking Status Current Every Day Smoker ROOPA SAHU, [facility] 05/29/2023 08:00:26 What Was The Date Of Your Most Recent Tobacco Screening? 10/01/2023 [email or web address] Information not available 10/01/2023 What Is Your Current Pack Years? 30ormorepack years Information not available 05/29/2023 At What Age Did You Start Smoking Tobacco? 6 Information not available 05/29/2023 How Much Tobacco Do You Smoke? 0.5 PPD Information not available 05/29/2023 Has Tobacco Cessation Counseling Been Provided? No Information not available 05/29/2023 How Many Years Have You Smoked Tobacco? 52 [email or web address] Information not available 10/01/2023 Do You Or Have You Ever Used Any Other Forms Of Tobacco Or Nicotine? No Information not available 05/29/2023 Sex: Female Functional Status None recorded. Mental Status None recorded. Family History Relationship Description Onset Age of this Age Resolved Age Notes LastModified by Organization Details LastModified Time Mother Family history of malignant neoplasm of uterus [email or web address] Not available 2022 04:00:45 Paternal Grandmother Family history of heart failure [email or web address] Not available 2022 04:00:45 Notes:*Problem: 2 kids - [place] only to daughter, not son Medical History No medical history recorded. Gynecological HistoryNo gynecological history recorded. Obstetrics History GPAL:G 0 P 0 0 0 0 Immunizations Vaccine Type Date Status Provider Name and Address Organization Details Recorded Time Hep B, adolescent or pediatric 05/07/2017 completed Not Available [facility] 04/13/2023 06:16:25 Tdap 08/08/2020 completed Not Available [facility] 06:16:26 Tdap 10/19/2014 completed [facility] 06:16:26 Influenza, split virus, quadrivalent, PF 03/08/2021 completed Not Available [facility] 04/13/2023 06:16:26 Influenza, split virus, quadrivalent, PF 05/22/2022 completed Not Available [facility] 04/13/2023 06:16:26 COVID-19, mRNA, LNP-S, PF, 100 mcg/0.5mL dose or 50 mcg/0.25mL dose 06/17/2021 completed Not Available [facility] 04/13/2023 06:16:26 COVID-19, mRNA, LNP-S, PF, 100 mcg/0.5mL dose or 50 mcg/0.25mL dose 10/12/2020 completed Not Available [facility] 04/13/2023 06:16:26 COVID-19, mRNA, LNP-S, PF, 100 mcg/0.5mL dose or 50 mcg/0.25mL dose 11/09/2020 completed Not Available [facility] 04/13/2023 06:16:26 COVID-19, mRNA, LNP-S, bivalent, PF, 30 mcg/0.3 mL dose 05/22/2022 completed Not Available [facility] 04/13/20 06:16:26 pneumococcal polysaccharide PPV23 03/04/2008 completed Not Available [facility] 2022 06:16:26 Hep B, adult 03/08/2021 completed Not Available [facility] 04/13/2023 06:16:27 Hep B, adult 03/16/2020 completed Not Available [facility] 04/13/2023 06:16:27 Hep A, adult 03/16/2020 completed Not Available [facility] 04/13/2023 06:16:27 Hep A, adult 05/07/2017 completed Not Available [facility] 04/13/2023 06:16:27 influenza, unspecified formulation 02/10/2014 completed Not Available [facility] 04/13/2023 06:16:27 influenza, unspecified formulation 03/06/2023 completed Ortiz Walker MA [facility], [facility] 05/26/2023 20:27:38 Influenza, split virus, quadrivalent, PF 03/06/2023 completed Not Available [facility] 06/15/2023 05:33:04 Pneumococcal conjugate PCV20, polysaccharide [id number] conjugate, adjuvant, PF 03/06/2023 completed Not Available [facility] 06/15/2023 05:33:04 Past Encounters Encounter ID Performer Location Encounter Start Date Encounter Closed Date Diagnosis/Indication Diagnosis SNOMED-CT Code Diagnosis ICD10 Code [id number] NATHALIE FELDMAN PA-C [address] [place] [address] 01/22/2024 08:50:39 01/22/2024 10:04:59 Type 2 diabetes mellitus without complication 876687129 E11.9 Hyperlipidemia 90916248 E78.5 Essential hypertension 36451041 I10 Candidal intertrigo 2661 40968 B37.2 Hypomagnesemia 671052555 E83.42 Chronic eczema 67868553 L30.9 Furuncle of groin 561021 03 L02.224 Health Concerns Section Related Observation LastModified by Organization Detai ls LastModified Time None Recorded Concern Status LastModified by Organization Details LastModified Time None Recorded Payers Encounter Date Sequence Insurance Name Policy Number Policy Richard Covered Member ID Richard Member ID Guarantor Name 01/22/2024 1 [facility] (MEDICAID) Chika Santos [id number] Chika Santos Notes Date Note Type Note Provider Name and Address Organization Details Recorded Time 01/22/2024 text/html 58y/o female presenting for 3m f/u DM2, HTN, HPL, and chronic pain. Patient reports painful ?boil to labia x 3 days. Denies fever, N/V, or other more systemic signs of illness. [address], [place], [address], [facility]. 01/22/2024 11:22:15 OBGyn Episode No OBEpisode recorded.
--- OUTSIDE RECORDS SUMMARY | 2024-04-21 10:48 | XMS_ITS | Encounter Summary ---
Author Organization [facility] Address [facility] [place] [address] Care Team Providers Care Sand Bobber Name Role Phone Mi Tyler Primary Care Provider +1- [phone] Reason for Visit * Reason Comments Establish Care Palpitations Encounter Details Date Type Department Care Team (Late st Contact Info) Description 09/14/2022 2:40 PM EDT Office Visit Cardiology at [address] [place] [address] Francis Flood MD [facility] [place] [address] Palpitations Social History Tobacco Use Types Packs/Day [...] Palpitations documented in this encounter Care Teams Sand Bobber Relationship Specialty Start Date End Date Mi Tyler PA [address] [place] [address] PCP - General Family Medicine 05/05/21 documented as of this encounter
--- OUTSIDE RECORDS SUMMARY | 2024-04-21 10:48 | XMS_ITS | Encounter Summary ---
Author Organization [facility] Address [facility] [address] Care Team Providers Care Avionics Electronics Technician Name Role Phone Mi Tyler Primary Care Provider +1- [phone] Encounter Details Date Type Department Care Team (Late st Contact Info) Description 10/18/2022 Telephone Cardiology at [address] [place] [address] Francis Flood MD [facility] [place] [place] [address] Social History Tobacco Use Types Packs/Day Years [...] the appointment to apply heart monitor at [facility] 10/17/22 - cited transportation issues. documented in this encounter Plan of Treatment Not on file documented as of this encounter Visit Diagnoses Not on filedocumented in this encounter Care Teams Avionics Electronics Technician Relationship Specialty Start Date End Date Mi Tyler PA [address] [place] [address] PCP - General Family Medicine 05/05/21 documented as of this encounter
--- OUTSIDE RECORDS SUMMARY | 2024-04-21 10:48 | XMS_ITS | Encounter Summary ---
[place] [address] Care Team Providers Care Waterworks Chief Engineer Name Role Phone Mi Tyler Primary Care Provider +1- [phone] Encounter Details Date Type Department Care Team [...] on filedocumented in this encounter Care Teams Waterworks Chief Engineer Relationship Specialty Start Date End Date Mi Tyler PA [address] [place] [address] PCP - General Family Medicine 05/05/21 documented as of this encounter
--- OUTSIDE RECORDS SUMMARY | 2024-04-21 10:48 | XMS_ITS | Data Portability ---
Author Organization [facility] Address [address] [place] [address] Care Team Providers Care Manager Audio Name Role Phone MI FELDMAN Primary Care Provider Assessment No assessment recorded. Plan of Treatment Reminders Order Date Submit Date Provider Last Modified By Organization Details Last Modified Time Details Appointments Follow Up 30 2023 01:30P Socorro FELDMAN Not available Not available Not available Lab CBC w/ auto diff 2023 024 [facility] (Registration ), [address] [place] [address] [place], [address], 07/06/2023 15:23:15 HbA1c (hemog lobin A1c), blood [email or web address] [facility] [address] [facility] (Registration ), [address] [place] [address] [place], [address], 12/03/2023 12:52:54 hemogl obin A1C, finger stick [address], [address] [place] [address], [id number], 10/16/2023 15:57:13 magnes ium, serum or plasma 2023 024 [facility] (Registration ), [address] [place] [address] [place], [address], 01/23/2024 10:54:22 HbA1c (hemog lobin A1c), blood 2023 [email or web address] [facility] (Registration ), [address] [place] [address] [place], [address], 01/23/2024 10:55:09 microa lbumin , urine [email or web address], [address] [facility], [place], [address], 01/22/2024 11:20:45 lipid panel, serum [address] [facility] (Registration ), [address] [place] [address] [place], [address], 01/23/2024 10:55:02 CMP, serum or plasma 2023 024 [facility] (Registration ), [address] [place] [address] [place], [address], 01/22/2024 18:26:58 Referral dermat ologis t referr al 2023 024 [email or web address] Juan Alberto Nuñez MD, [address] [place] [address] B, [place], [address], 01/16/2024 12:49:33 Procedures None record ed. Surgeries None record ed. Imaging None record ed. Medication Orders celeco xib 200 mg capsul e 2023 024 [facility]12, [address] [place] [address], [id number], 10/01/2023 10:50:16 Victoz a 3-Xavier 0.6 mg/0.1 mL (18 mg/3 mL) subcut aneous pen inject or 2023 024 [facility], [address] [place] [address], [id number], 07/06/2023 09:05:52 cyclob enzapr ine 10 mg tablet 2023 024 [facility] #68959, [address] [place] [address], [id number], 09/17/2023 08:57:51 Rybels us 3 mg tablet 2023 024 [email or web address] [facility] #64978, [address] [place] [address], [id number], 10/01/2023 09:58:40 lisino pril 20 mg tablet 2023 024 [facility] #68384, [address] [place] [address], [id number], 12/19/2023 11:36:56 propra nolol 40 mg tablet 2023 024 [facility], [address] [place] [address], [id number], 09/17/2023 16:20:35 lovast atin 20 mg tablet 2023 024 [facility] #94770, [address] [place] [address], [id number], 09/17/2023 08:57:53 ketoro lac 10 mg tablet 2023 024 [facility] #59996, [address] [place] [address], [id number], 01/22/2024 06:17:31 ketoro lac 60 mg/2 mL intram uscula r soluti on 2023 024 [email or web address] [facility] #39054, [address] [place] [address], [id number], 01/22/2024 06:17:33 lisino pril 10 mg tablet 2023 024 [facility]447, [address], [place], [id number], 10/16/2023 15:57:31 Victoz a 3-Xavier 0.6 mg/0.1 mL (18 mg/3 mL) subcut aneous pen inject or 2023 [facility] #23255, [address], [place], [id number], 10/16/2023 15:57:31 doxycy ashby hyclat e 100 mg capsul e 2023 024 [facility], [address] [place] [address], [id number], 01/22/2024 11:20:47 triamc inolon e aceton kb 0.5 % topica l cream 2023 024 [email or web address] [facility], [address] [place] [address], [id number], 01/22/2024 11:22:15 Patient TargetsNo targets recorded. Patient Instructions Encounter Date Encounter Id Patient Instructions Last Modified By Organization Details Last Modified Time 10/01/2023 [id number] You received a TORADOL injection today. This [...] Not available 10/01/2023 11:10:45 Reason for Referral Buncher Hand Referral for C andidal intertrigo Referring Physician: Mi Feldman, Family Medicine, Encounter Date: 10/16/2023 Results Created Date Observation Date Name Description Value Unit Range Abnormal Flag Note LastModifiedBy Organization Detail LastModifiedTime 07/06/19 24 07/06/2023 COMPL ETE BLOOD COUNT W/DIF F WBC 9.56 10_3/ uL 4.4-10 .8 normal Not Available [address] [place], [address] 07/06/2023 15:23:15 07/06/1907/06/2023 COMPL ETE BLOOD COUNT W/DIF F RBC 4.86 10_6/ uL 3.93-5 .22 normal Not Available [address] [place], [address] 07/06/2023 15:23:15 07/06/19 24 07/06/2023 COMPL ETE BLOOD COUNT W/DIF F HGB 14.6 g/dL 11.2-1 5.7 normal Not Available [address] [place], [address] 07/06/2023 15:23:15 07/06/1907/06/2023 COMPL ETE BLOOD COUNT W/DIF F HCT 43.6 % 36.0-4 6.0 normal Not Available [address] [place], [address] 07/06/2023 15:23:15 07/06/19 24 07/06/2023 COMPL ETE BLOOD COUNT W/DIF F MCV 90 fL 80-95 normal Not Available Esteban serrano [address] [place], [address] 07/06/2023 15:23:15 07/06/1907/06/2023 COMPL ETE BLOOD COUNT W/DIF F MCH 30.0 pg 27.0-3 3.0 normal Not Available [address] [place], [address] 07/06/2023 15:23:15 07/06/1907/06/2023 COMPL ETE BLOOD COUNT W/DIF F MCHC 33.5 % 32.0-3 6.0 normal Not Available [address] [place], [address] 07/06/2023 15:23:15 07/06/19 24 07/06/2023 COMPL ETE BLOOD COUNT W/DIF F RDW 13.2 % 11.7-1 4.6 normal Not Available [address] [place], [address] 07/06/2023 15:23:15 07/06/19 24 07/06/2023 COMPL ETE BLOOD COUNT W/DIF F platelet count 281 10_3/ uL 130-40 0 normal Not Available [address] [place], [address] 07/06/2023 15:23:15 07/06/19 24 07/06/2023 COMPL ETE BLOOD COUNT W/DIF F MPV 9.9 fL 8.0-11 .0 normal Not Available [address] [place], [address] 07/06/2023 15:23:15 07/06/19 24 07/06/2023 COMPL ETE BLOOD COUNT W/DIF F neutrophils % 52.0 Not Available [address] [place], [address] 07/06/2023 15:23:15 07/06/19 24 07/06/2023 COMPL ETE BLOOD COUNT W/DIF F lymphocytes % 34.9 Not Available [address] [place], [address] 07/06/2023 15:23:15 07/06/19 24 07/06/2023 COMPL ETE BLOOD COUNT W/DIF F monocytes % 7.9 Not Available [address] [place], [address] 07/06/2023 15:23:15 07/06/19 24 07/06/2023 COMPL ETE BLOOD COUNT W/DIF F eosinophils % 4.0 Not Available [address] [place], [address] 07/06/2023 15:23:15 07/06/19 24 07/06/2023 COMPL ETE BLOOD COUNT W/DIF F basophils % 0.8 Not Available [address] [place], [address] 07/06/2023 15:23:15 07/06/19 24 07/06/2023 COMPL ETE BLOOD COUNT W/DIF F immature grans % 0.4 Not Available [address] [place], [address] 07/06/2023 15:23:15 07/06/19 24 07/06/2023 COMPL ETE BLOOD COUNT W/DIF F nucleated RBC 0.0 % 0.0-0. 3 normal Not Available [address] [place], [address] 07/06/2023 15:23:15 07/06/19 24 07/06/2023 COMPL ETE BLOOD COUNT W/DIF F absolute neutrophil count 4.96 10_3/ uL 1.2-6. 7 normal Not Available [address] [place], [address] 07/06/2023 15:23:15 07/06/19 24 07/06/2023 COMPL ETE BLOOD COUNT W/DIF F absolute lymphocyte count 3.34 10_3/ uL 1.2-3. 4 normal Not Available [address] [place], [address] 07/06/2023 15:23:15 07/06/19 24 07/06/2023 COMPL ETE BLOOD COUNT W/DIF F absolute monocyte count 0.76 10_3/ uL 0.1-0. 8 normal Not Available [address] [place], [address] 07/06/2023 15:23:15 07/06/19 24 07/06/2023 COMPL ETE BLOOD COUNT W/DIF F absolute eosinophil count 0.38 10_3/ uL 0.0-0. 7 normal Not Available [address] [place], [address] 07/06/2023 15:23:15 07/06/19 24 07/06/2023 COMPL ETE BLOOD COUNT W/DIF F absolute basophil count 0.08 10_3/ uL 0.0-0. 2 normal Not Available [address] [place], [address] 07/06/2023 15:23:15 07/06/19 24 07/06/2023 HEMOG LOBIN A1C hemoglobin A1C 6.1 % <5.7 high Refer ence Range s <5.7 Rosa l 5.7-6 .4% Predi abete s 6.5% or great er Diagn ostic for diabe venus (if confi rmed) Refer ences : 1. Ameri can Diabe venus Assoc iatio n. Clas sific ation and Diagn osis of Diabe venus. Diabe venus Care 2019 Jun; 2(Sup pleme nt 1):S1 3-s28 . Not Available [address] [place], [address] 07/06/2023 15:57:24 09/29/19 24 09/29/2023 URINA LYSIS color Yellow yellow Not Available Esteban serrano [address] [place], [address] 09/29/2023 09:02:21 09/29/19 24 09/29/2023 URINA LYSIS clarity Clear clear Not Available Esteban serrano [address] [place], [address] 09/29/2023 09:02:21 09/29/19 24 09/29/2023 URINA LYSIS specific gravity 1.015 1.005- 1.025 normal Not Available [address] [place], [address] 09/29/2023 09:02:21 09/29/19 24 09/29/2023 URINA LYSIS pH 6.5 5-8 normal Not Available Esteban serrano [address] [place], [address] 09/29/2023 09:02:21 09/29/19 24 09/29/2023 URINA LYSIS leukocyte esterase Trace negati ve abnormal Not Available [address] [place], [address] 09/29/2023 09:02:21 09/29/19 24 09/29/2023 URINA LYSIS nitrite Negati ve negati ve Not Available [address] [place], [address] 09/29/2023 09:02:21 09/29/19 24 09/29/2023 URINA LYSIS protein Negati ve mg/dL neg-tr anam Not Available [address] [place], [address] 09/29/2023 09:02:21 09/29/19 24 09/29/2023 URINA LYSIS glucose Negati ve mg/dL negati ve Not Available [address] [place], [address] 09/29/2023 09:02:21 09/29/19 24 09/29/2023 URINA LYSIS ketones Negati ve mg/dL negati ve Not Available [address] [place], [address] 09/29/2023 09:02:21 09/29/19 24 09/29/2023 URINA LYSIS urobilinogen 0.2 mg/dL up to 0.2 Not Available [address] [place], [address] 09/29/2023 09:02:21 09/29/19 24 09/29/2023 URINA LYSIS bilirubin Negati ve negati ve Not Available [address] [place], [address] 09/29/2023 09:02:21 09/29/19 24 09/29/2023 URINA LYSIS blood Negati ve negati ve Not Available [address] [place], [address] 09/29/2023 09:02:21 09/29/19 24 09/29/2023 COMPL ETE BLOOD COUNT NO DIFF WBC 10.03 10_3/ uL 4.4-10 .8 normal Not Available [address] [place], [address] 09/29/2023 09:03:21 09/29/19 24 09/29/2023 COMPL ETE BLOOD COUNT NO DIFF RBC 4.81 10_6/ uL 3.93-5 .22 normal Not Available [address] [place], [address] 09/29/2023 09:03:21 09/29/19 24 09/29/2023 COMPL ETE BLOOD COUNT NO DIFF HGB 14.7 g/dL 11.2-1 5.7 normal Not Available [address] [place], [address] 09/29/2023 09:03:21 09/29/19 24 09/29/2023 COMPL ETE BLOOD COUNT NO DIFF HCT 44.3 % 36.0-4 6.0 normal Not Available [address] [place], [address] 09/29/2023 09:03:21 09/29/19 24 09/29/2023 COMPL ETE BLOOD COUNT NO DIFF MCV 92 fL 80-95 normal Not Available [address] [place], [address] 09/29/2023 09:03:21 09/29/19 24 09/29/2023 COMPL ETE BLOOD COUNT NO DIFF MCH 30.6 pg 27.0-3 3.0 normal Not Available [address] [place], [address] 09/29/2023 09:03:21 09/29/19 24 09/29/2023 COMPL ETE BLOOD COUNT NO DIFF MCHC 33.2 % 32.0-3 6.0 normal Not Available [address] [place], [address] 09/29/2023 09:03:21 09/29/19 24 09/29/2023 COMPL ETE BLOOD COUNT NO DIFF RDW 12.8 % 11.7-1 4.6 normal Not Available [address] [place], [address] 09/29/2023 09:03:21 09/29/19 24 09/29/2023 COMPL ETE BLOOD COUNT NO DIFF platelet count 279 10_3/ uL 130-40 0 normal Not Available [address] [place], [address] 09/29/2023 09:03:21 09/29/19 24 09/29/2023 COMPL ETE BLOOD COUNT NO DIFF MPV 9.3 fL 8.0-11 .0 normal Not Available [address] [place], [address] 09/29/2023 09:03:21 09/29/19 24 09/29/2023 URINA LYSIS color Yellow yellow Not Available Esteban serrano [address] [place], [address] 09/29/2023 09:07:23 09/29/19 24 09/29/2023 URINA LYSIS clarity Clear clear Not Available Esteban serrano [address] [place], [address] 09/29/2023 09:07:23 09/29/19 24 09/29/2023 URINA LYSIS specific gravity 1.015 1.005- 1.025 normal Not Available [address] [place], [address] 09/29/2023 09:07:23 09/29/19 24 09/29/2023 URINA LYSIS pH 6.5 5-8 normal Not Available Esteban serrano [address] [place], [address] 09/29/2023 09:07:23 09/29/19 24 09/29/2023 URINA LYSIS leukocyte esterase Trace negati ve abnormal Not Available [address] [place], [address] 09/29/2023 09:07:23 09/29/19 24 09/29/2023 URINA LYSIS nitrite Negati ve negati ve Not Available [address] [place], [address] 09/29/2023 09:07:23 09/29/19 24 09/29/2023 URINA LYSIS protein Negati ve mg/dL neg-tr anam Not Available [address] [place], [address] 09/29/2023 09:07:23 09/29/19 24 09/29/2023 URINA LYSIS glucose Negati ve mg/dL negati ve Not Available [address] [place], [address] 09/29/2023 09:07:23 09/29/19 24 09/29/2023 URINA LYSIS ketones Negati ve mg/dL negati ve Not Available [address] [place], [address] 09/29/2023 09:07:23 09/29/19 24 09/29/2023 URINA LYSIS urobilinogen 0.2 mg/dL up to 0.2 Not Available [address] [place], [address] 09/29/2023 09:07:23 09/29/19 24 09/29/2023 URINA LYSIS bilirubin Negati ve negati ve Not Available [address] [place], [address] 09/29/2023 09:07:23 09/29/19 24 09/29/2023 URINA LYSIS blood Negati ve negati ve Not Available [address] [place], [address] 09/29/2023 09:07:23 09/29/19 24 09/29/2023 MICRO SCOPI C FINDI NGS WBC 0-2 hpf 0-5 Not Available Esteban serrano [address] [place], [address] 09/29/2023 09:07:24 09/29/19 24 09/29/2023 MICRO SCOPI C FINDI NGS RBC Negati ve hpf 0-2 Not Available [address] [place], [address] 09/29/2023 09:07:24 09/29/19 24 09/29/2023 MICRO SCOPI C FINDI NGS epithelial cells Rare hpf negati ve Not Available [address] [place], [address] 09/29/2023 09:07:24 09/29/19 24 09/29/2023 MICRO SCOPI C FINDI NGS bacteria Rare hpf negati ve Not Available [address] [place], [address] 09/29/2023 09:07:24 09/29/19 24 09/29/2023 MICRO SCOPI C FINDI NGS crystals Negati ve hpf negati ve Not Available [address] [place], [address] 09/29/2023 09:07:24 09/29/19 24 09/29/2023 MICRO SCOPI C FINDI NGS mucus Negati ve negati ve Not Available [address] [place], [address] 09/29/2023 09:07:24 09/29/19 24 09/29/2023 MICRO SCOPI C FINDI NGS C S indicated? No Not Available [address] [place], [address] 09/29/2023 09:07:24 09/29/19 24 09/29/2023 COMPR EHENS MCKENZIE METAB OLIC PANEL calcium 9.0 mg/dL 8.5-10 .1 normal Not Available [address] [place], [address] 09/29/2023 09:16:23 09/29/19 24 09/29/2023 COMPR EHENS MCKENZIE METAB OLIC PANEL glucose 92 mg/dL 74-106 normal Not Available [address] [place], [address] 09/29/2023 09:16:23 09/29/19 24 09/29/2023 COMPR EHENS MCKENZIE METAB OLIC PANEL BUN 9 mg/dL 7-18 normal Not Available [address] [place], [address] 09/29/2023 09:16:23 09/29/19 24 09/29/2023 COMPR EHENS MCKENZIE METAB OLIC PANEL creatinine 1.0 mg/dL 0.55-1 .02 normal Not Available [address] [place], [address] 09/29/2023 09:16:23 09/29/19 24 09/29/2023 COMPR EHENS MCKENZIE METAB OLIC PANEL estimated GFR 64.90 mL/min /1.73m 2 The eGFR is calcu lated from a serum creat inine using the CKD-E PI 2020 equat ion. Other varia bles requi red for the equat ion are gende r and age; this equat ion does not inclu de a race coeff icien t. This equat ion has simil ar overa ll perfo rmanc e to previ ous equat ions excep t value s may diffe r, in parti cular , in patie nts with highe r value s of eGFR and young er-ag ed adult s. Not Available [address] [place], [address] 09/29/2023 09:16:23 09/29/19 24 09/29/2023 COMPR EHENS MCKENZIE METAB OLIC PANEL total protein 7.6 g/dL 6.4-8. 2 normal Not Available [address] [place], [address] 09/29/2023 09:16:23 09/29/19 24 09/29/2023 COMPR EHENS MCKENZIE METAB OLIC PANEL albumin 3.4 g/dL 3.4-5. 0 normal Not Available [address] [place], [address] 09/29/2023 09:16:23 09/29/19 24 09/29/2023 COMPR EHENS MCKENZIE METAB OLIC PANEL bilirubin, total 0.3 mg/dL 0.2-1. 0 normal Not Available [address] [place], [address] 09/29/2023 09:16:23 09/29/19 24 09/29/2023 COMPR EHENS MCKENZIE METAB OLIC PANEL alk phos 65 U/L 46-116 normal Not Available [address] [place], [address] 09/29/2023 09:16:23 09/29/19 24 09/29/2023 COMPR EHENS MCKENZIE METAB OLIC PANEL sodium 138 mmol/ L 136-14 5 normal Not Available [address] [place], [address] 09/29/2023 09:16:23 09/29/19 24 09/29/2023 COMPR EHENS MCKENZIE METAB OLIC PANEL potassium 4.2 mmol/ L 3.5-5. 1 normal Not Available [address] [place], [address] 09/29/2023 09:16:23 09/29/19 24 09/29/2023 COMPR EHENS MCKENZIE METAB OLIC PANEL chloride 102 mmol/ L 98-107 normal Not Available [address] [place], [address] 09/29/2023 09:16:23 09/29/19 24 09/29/2023 COMPR EHENS MCKENZIE METAB OLIC PANEL CO2 29.9 mmol/ L 21.0-3 2.0 normal Not Available [address] [place], [address] 09/29/2023 09:16:23 09/29/19 24 09/29/2023 COMPR EHENS MCKENZIE METAB OLIC PANEL anion gap 6.1 mmol/ L 3-11 normal Not Available [address] [place], [address] 09/29/2023 09:16:23 09/29/19 24 09/29/2023 COMPR EHENS MCKENZIE METAB OLIC PANEL AST 13 U/L 15-37 low Not Available Esteban serrano [address] [place], [address] 09/29/2023 09:16:23 09/29/19 24 09/29/2023 COMPR EHENS MCKENZIE METAB OLIC PANEL ALT 22 U/L 14-59 normal Not Available Esteban serrano [address] [place], [address] 09/29/2023 09:16:23 09/29/19 24 09/29/2023 LIPAS E lipase 66 U/L 16-77 normal Not Available Esteban serrano [address] [place], [address] 09/29/2023 09:16:23 10/16/19 24 10/16/2023 hemog lobin A1C, finge rstic k hemoglobin A1C 6.1 % <5.7 Not Available [address], [address], 10/14/2023 20:14:17 01/22/20 24 01/22/2024 COMPR EHENS MCKENZIE METAB OLIC PANEL calcium 9.0 mg/dL 8.5-10 .1 normal Not Available [address] [place], [address] 01/22/2024 18:26:58 01/22/20 24 01/22/2024 COMPR EHENS MCKENZIE METAB OLIC PANEL glucose 94 mg/dL 74-106 normal Not Available Esteban serrano [address] [place], [address] 01/22/2024 18:26:58 01/22/20 24 01/22/2024 COMPR EHENS MCKENZIE METAB OLIC PANEL BUN 6 mg/dL 7-18 low Not Available Esteban serrano [address] [place], [address] 01/22/2024 18:26:58 01/22/20 24 01/22/2024 COMPR EHENS MCKENZIE METAB OLIC PANEL creatinine 1.0 mg/dL 0.55-1 .02 normal Not Available [address] [place], [address] 01/22/2024 18:26:58 01/22/20 24 01/22/2024 COMPR EHENS MCKENZIE METAB OLIC PANEL estimated GFR 64.90 mL/min /1.73m 2 The eGFR is calcu lated from a serum creat inine using the CKD-E PI 2020 equat ion. Other varia bles requi red for the equat ion are gende r and age; this equat ion does not inclu de a race coeff icien t. This equat ion has simil ar overa ll perfo rmanc e to previ ous equat ions excep t value s may diffe r, in parti cular , in patie nts with highe r value s of eGFR and young er-ag ed adult s. Not Available [address] [place], [address] 01/22/2024 18:26:58 01/22/20 24 01/22/2024 COMPR EHENS MCKENZIE METAB OLIC PANEL total protein 7.5 g/dL 6.4-8. 2 normal Not Available [address] [place], [address] 01/22/2024 18:26:58 01/22/20 24 01/22/2024 COMPR EHENS MCKENZIE METAB OLIC PANEL albumin 3.3 g/dL 3.4-5. 0 low Not Available [address] [place], [address] 01/22/2024 18:26:58 01/22/20 24 01/22/2024 COMPR EHENS MCKENZIE METAB OLIC PANEL bilirubin, total 0.26 mg/dL 0.2-1. 0 normal Not Available [address] [place], [address] 01/22/2024 18:26:58 01/22/20 24 01/22/2024 COMPR EHENS MCKENZIE METAB OLIC PANEL alk phos 63 U/L 46-116 normal Not Available [address] [place], [address] 01/22/2024 18:26:58 01/22/20 24 01/22/2024 COMPR EHENS MCKENZIE METAB OLIC PANEL sodium 139 mmol/ L 136-14 5 normal Not Available [address] [place], [address] 01/22/2024 18:26:58 01/22/20 24 01/22/2024 COMPR EHENS MCKENIZE METAB OLIC PANEL potassium 4.3 mmol/ L 3.5-5. 1 normal Not Available [address] [place], [address] 01/22/2024 18:26:58 01/22/20 24 01/22/2024 COMPR EHENS MCKENZIE METAB OLIC PANEL chloride 103 mmol/ L 98-107 normal Not Available [address] [place], [address] 01/22/2024 18:26:58 01/22/20 24 01/22/2024 COMPR EHENS MCKENZIE METAB OLIC PANEL CO2 27.7 mmol/ L 21.0-3 2.0 normal Not Available [address] [place], [address] 01/22/2024 18:26:58 01/22/20 24 01/22/2024 COMPR EHENS MCKENZIE METAB OLIC PANEL anion gap 8.3 mmol/ L 3-11 normal Not Available [address] [place], [address] 01/22/2024 18:26:58 01/22/20 24 01/22/2024 COMPR EHENS MCKENZIE METAB OLIC PANEL AST 14 U/L 15-37 low Not Available Esteban serrano [address] [place], [address] 01/22/2024 18:26:58 01/22/20 24 01/22/2024 COMPR EHENS MCKENZIE METAB OLIC PANEL ALT 19 U/L 14-59 normal Not Available Esteban serrano [address] [place], [address] 01/22/2024 18:26:58 01/22/20 24 01/22/2024 LIPID 2 cholesterol 176 mg/dL <200 Not Available [address] [place], [address] 01/22/2024 18:26:58 01/22/20 24 01/22/2024 LIPID 2 triglyceride 415 mg/dL <150 high Not Available [address] [place], [address] 01/22/2024 18:26:58 01/22/20 24 01/22/2024 LIPID 2 HDL cholesterol 35 mg/dL 40-60 low Not Available [facility] [address] [place], [address] 01/22/2024 18:26:58 01/22/20 24 01/22/2024 LIPID 2 calculated LDL TNP mg/dL <100 Trigl yceri de great er than 400 mg/dL ,LDL calcu latio n inval id. Measu red LDL added by refle x. Not Available [address] [place], [address] 01/22/2024 18:26:58 01/22/20 24 01/22/2024 MAGNE SIUM magnesium 2.1 mg/dL 1.8-2. 4 normal Not Available [facility] (Registration ) [address] [place] [address] [place], [address], 01/22/2024 18:26:59 01/22/20 24 01/22/2024 LIPID 2 cholesterol 176 mg/dL <200 Not Available [address] [place], [address] 01/22/2024 18:41:16 01/22/20 24 01/22/2024 LIPID 2 triglyceride 415 mg/dL <150 high Not Available [address] [place], [address] 01/22/2024 18:41:16 01/22/20 24 01/22/2024 LIPID 2 HDL cholesterol 35 mg/dL 40-60 low Not Available [address] [place], [address] 01/22/2024 18:41:16 01/22/20 24 01/22/2024 LIPID 2 calculated LDL TNP mg/dL <100 Trigl yceri de great er than 400 mg/dL ,LDL calcu latio n inval id. Measu red LDL added by refle x. Not Available [address] [place], [address] 01/22/2024 18:41:16 01/22/20 24 01/22/2024 DIREC T LDL CHOL direct LDL chol 93 mg/dL <100 Not Available [address] [place], [address] 01/22/2024 18:41:17 01/22/20 24 01/22/2024 MAGNE SIUM magnesium 2.1 mg/dL 1.8-2. 4 normal Not Available [address] [place], [address] 01/22/2024 18:41:17 01/22/20 24 01/22/2024 HEMOG LOBIN A1C hemoglobin A1C 5.9 % <5.7 high Refer ence Range s <5.7 Rosa l 5.7-6 .4% Predi abete s 6.5% or great er Diagn ostic for diabe venus (if confi rmed) Refer ences : 1. Ameri can Diabe venus Assoc iatio n. Clas sific ation and Diagn osis of Diabe venus. Diabe venus Care 2019 Jun; 2(Sup pleme nt 1):S1 3-s28 . Not Available [address] [place], [address] 01/22/2024 18:53:06 01/22/20 24 01/22/2024 micro album in, urine microalbumin 0 mg/dL Not Available [facility]ly [facility] [address] [place] [address], [place], [address], 01/22/2024 09:40:52 09/29/19 24 09/29/2023 vrad geeta winston Name: Chika Santos Unit #: [id number] Loc: ER Tavia cooper Provid er: Wichojames catrachito #: [id number] Status : REG ER Primar y Care Provid er: Praveen serrano,Destiny Cintron PA Date of Exa m: Sex: F : [...] IMPRES BART: No active cardio pulmon shweta petersen Dictat ed and Clarita nguyen d by: Errol Hernandez MD. Tavia cooper:Steph garrido MD Access ion#=[id number] Jose Eduardo trinidad By: CC: ------ ------ ------ ------ ------ ------ ------ ------ ------ ------ ------ ------ ---- Dictat ed By: Report s godfrey 20 42 Transc ribed By: Di Merge 919 This is privil eged, confid [...] the addres s above. Thank- you. [email or web address] [facility] [address], [place], [address] 10/01/2023 08:56:09 09/29/19 24 09/29/2023 vrad repor t Patien t Name: Chika Santos Unit #: [id number] Loc: ER Orderi ng Provid er: Accoun t #: [id number] Status : REG ER Primar y [...] l adenom as noted. Dictat ed and Clarita nguyen d by: Errol Hernandez MD. Orderi ng:Steph garrido MD Access ion#=1 [id number] Jose Eduardo d By: CC: ------ ------ ------ ------ ------ ------ ------ ------ ------ ------ ------ ------ ---- Dictat ed By: Report s vrad 0917 0945 Transc ribed By: Freda Sanchez 916 This is privil eged, confid ential inform ation intend ed only for the provid er named. Any use or distri bution by any person other than this provid er is strict ly prohib ited. If you receiv e this report in error, please notify us immedi bijally at [phone] and return the origin al report to us at the addres s above. Thank- you. [email or web address] [facility] [address] [place], [address] 10/01/2023 08:56:09 04/27/20 24 09/29/2023 x-ray imagi ng repor t Patien t Name: Chika Santos Unit #: [id number] Loc: ER Orderi ng Provid er: Leslie Valenzuela Accoun t #: [id number] Status : DEP ER Primar y [...] - Dictat ed By: Rosendo Tuttle M.D. 1612 161 Transc ribed By: Marry WILCOX,How pollo 161 This is privil eged, confid ential inform ation intend ed only for the provid er named. Any use or distri bution by any person other than this provid er is strict ly prohib ited. If you receiv e this report in error, please notify us immedi biajlly at [phone] and return the origin al report to us at the addres s above. Thank- you. [email or web address] [facility] [address] [place], [address] 10/01/2023 08:56:10 09/29/19 24 09/29/2023 CT imagi ng repor t Patievelyne t Name: Chika Santos Unit #: [id number] Loc: ER Orderi ng Provid er: Lety UrenaLeslie Accoun t #: [id number] Status : DEP ER Primar y [...] CT CT CHEST PE CTA from 2018 FINDIN GS: VISUAL IZED LUNG BASES: There is subple ural scarri ng in the latera l basal segmen t of the left lower lobe noted on the upperm ost image of this study, not previo usly presen t on the study of 2018. No pleura l effusi ons.. ABDOME N: [...] Index Regist ry (DIR) with the [employer] (ACR). RADIAT ION OPTIMI [...] M.D. 1829 Transc ribed By: Marry WILCOX,Toya pollo 1829 This is privil eged, confid ential inform ation intend ed only for the provid er named. Any use or distri bution by any person other than this provid er is strict ly prohib ited. If you receiv e this report in error, please notify us immedi bijally at [phone] and return the origin al report to us at the addres s above. Thank- you. [email or web address] [facility] [address], [place], [address] 10/01/2023 08:56:10 02/17/20 24 01/03/2019 CT, chest No observ ation record ed. Not Available 02/16 22:30:17 02/17/20 24 11/29/2020 XR, chest No observ ation record ed. Not Available 02/16 22:30:18 02/17/20 24 01/13/2021 MAMMO , amarjit richardsong No observ ation record ed. Not Available 02/16 22:30:19 02/17/20 24 04/10/2022 XR, chest No observ ation record ed. Not Available 02/16 22:30:27 02/17/20 24 08/19/2021 amarjit ONEIL No observ ation record ed. Not Available [...] Address Organization Details Recorded Time Messi calzada [id number] Active 201601/09/20 23 - Comments only - Mi Feldman PA-C - - HTN Today's BP well WNLs. To continue on PROPRANO LOL 40mg BID and LISINOPR IL 20mg QD as RXd. Problem Code: I10; Problem Code Type: ICD-10; Not Available [facility] 3 04:03:15 Type 2 diabetes mellitus without complica tion 616700644 Active 201605/22/20 22 - Comments only - Mi Feldman PA-C - As per patient request, will d/c from [facility]. Will plan to repeat HBA1C in 3m as monitori ng. Problem Code: E11.9; Problem Code Type: ICD-10; Not Available [facility] 3 04:03:15 Ifeanyi cervantes a 3062578 Active 2016 Problem Code: J43.1; Problem Code Type: ICD-10; Not Available [facility] 3 04:03:15 Gastroes ophageal reflux disease without esophagi tis 909009042 Active 201604/09/20 22 - Comments only - Mi Feldman PA-C - Offered for patient to trial alternat mckenzie PPI therapy for improved symptom control, however, she is opting to continue with PRILOSEC 40mg QD as RXd for now. Problem Code: K21.9; Problem Code Type: ICD-10; Not Available [facility] 3 04:03:15 Posttrau matic stress disorder 01981705 Active 201611/22/19 23 - Comments only - Mi Feldman PA-C - - CYCLOTHY RADHA DISORDER , PTSD, BPD, INSOMNIA Patient encourag ed to touch base with [facility] RXing provider re: desire to increase TRAZODON E. She will otherwis e continue on current treatmen t regimen (RISPERD AL, ADDERALL XR, HYDROXYZ INE) as RXd. Problem Code: F43.10; Problem Code Type: ICD-10; Not Available [facility] 3 04:03:15 Tobacco dependen ce caused by cigarett es [id number] 217909 Active 201608/11/19 21 - Comments only - Leandro Mendes MD - He is preconte mplative . Discusse d her motivati on to quit, includin g wound healing. Problem Code: F17.210; Problem Code Type: ICD-10; Not Available [facility] 3 04:03:15 Adult health examinat ion Active 201605/18/20 21 - Comments only - Mi Feldman PA-C - Mammogra m order reprinte d to allow for scheduli ng at [facility] at next availabl e. Problem Code: Z00.00; Problem Code Type: ICD-10; Not Available [facility] 3 04:03:16 Acquired absence of cervix and uterus 547289071 Active 2016 Problem Code: Z90.710; Problem Code Type: ICD-10; Not Available [facility] 3 04:03:16 Hyperlip idemia 17769558 Active 201601/09/20 23 - Comments only - Mi Feldman PA-C - Maintain ed on LOVASTAT IN 20mg QD. Will plan to repeat lipid profile and CMP in early March as monitori ng. Problem Code: E78.5; Problem Code Type: ICD-10; Not Available [facility] 3 04:03:16 Otitis media 02482065 Completed 201605/28/2017 Problem Code: H66.90; Problem Code Type: ICD-10; Not Available [facility] 3 04:03:16 Wheezing 49971163 Active 2017 Problem Code: R06.2; Problem Code Type: ICD-10; Not Available [facility] 3 04:03:16 Body mass index 40+ - severely obese 333779022 Active 2017 Problem Code: Z68.41; Problem Code Type: ICD-10; Not Available [facility] 3 04:03:16 Cough 20337439 Completed 201710/15/2017 Problem Code: R05; Problem Code Type: ICD-10; Not Available [facility] 3 04:03:16 Insomnia 879606763 Active 2017 Problem Code: G47.00; Problem Code Type: ICD-10; Not Available [facility] 3 04:03:16 Dyspnea 876695928 Completed 201704/02/2018 Problem Code: R06.02; Problem Code Type: ICD-10; Not Available [facility] 3 04:03:17 Upper respirat ory tract infectio n caused by Influenz a A 52813368511 9104 Completed 201807/21/2018 Problem Code: J09.x2; Problem Code Type: ICD-10; Not Available [facility] 3 04:03:17 Otitis media 66857302 Completed 201807/21/2018 Problem Code: H66.90; Problem Code Type: ICD-10; Not Available [facility] 3 04:03:17 Attentio n deficit hyperact ivity disorder , predomin antly hyperact mckenzie impulsiv e type 2197928 Active 2018 Problem Code: F90.1; Problem Code Type: ICD-10; Not Available [facility] 3 04:03:17 Borderli ne personal ity disorder 21746590 Active 201802/02/20 22 - Comments only - Mi Feldman PA-C - - CYCLOTHY RADHA DISORDER , PTSD, BPD Well establis hed with [facility]. To continue on current treatmen t regimen (RISPERD AL, ADDERALL XR, SEROQUEL , KLONOPIN ) as RXd by specialt y service provider . Problem Code: F60.3; Problem Code Type: ICD-10; Not Available [facility] 3 04:03:17 Localize d eruption of skin 209140102 Completed 201808/04/2018 Problem Code: R21; Problem Code Type: ICD-10; Not Available [facility] 3 04:03:17 Acute vaginiti s 42214293 Completed 201808/11/2018 Problem Code: N76.0; Problem Code Type: ICD-10; Not Available [facility] 3 04:03:18 Dyspnea 222763996 Completed 201808/15/2018 Problem Code: R06.02; Problem Code Type: ICD-10; Not Available [facility] 3 04:03:18 Acute upper respirat ory infectio n 39913383 Completed 201808/22/2018 08/09/19 19 - Comments only - Alaina Hayward APRN - Sxs for 24 hours, assume viral. Exacerba ting poorly controll ed COPD. Problem Code: J06.9; Problem Code Type: ICD-10; Not Available [facility] 3 04:03:18 Low back pain 374874986 Active 201802/02/20 22 - Comments only - Mi Feldman PA-C - Once patient has complete d requeste d cardiac testing, will reconsid er to trial previous ly RXd MOBIC 7.5mg QD. Problem Code: M54.5; Problem Code Type: ICD-10; Not Available [facility] 3 04:03:18 Hearing loss of left ear 276789460 Active 2018 Problem Code: H91.92; Problem Code Type: ICD-10; Not Available [facility] 3 04:03:18 Disorder of skin and/or subcutan eous tissue 12769591 Completed 201802/27/2019 Problem Code: L98.9; Problem Code Type: ICD-10; Not Available [facility] 3 04:03:18 Polyp of colon 44014859 Active 2011 Problem Code: K63.5; Problem Code Type: ICD-10; Not Available [facility] 3 04:03:18 Muscle pain 80561000 Completed 202008/30/2020 08/24/19 21 - Comments only - Sherry Carmona APRN RN, L.AC - No bony tenderne ss. No JOSE ANGEL or exam findings indicati ng XR or other imaging at this time. Sxs most c/w piriform is syndrome . We discusse d OTC topical analgesi cs, ice, heat and stretchi ng. Problem Code: M79.18; Problem Code Type: ICD-10; Not Available [facility] 3 04:03:19 Localize d eruption of skin 797552059 Completed 202008/30/2020 08/24/19 21 - Comments only - Sherry Carmona APRN, RN, L.AC - No s/s c/w infectio us process. Most c/w contact dermatit is. We discusse d use of mask ear loop brass sorter s to reduce contact of mask loop fabric with skin, I printed a picture of this product, availabl e at [facility]. Return precauti ons discusse d. Problem Code: R21; Problem Code Type: ICD-10; Not Available [facility] 3 04:03:19 Counseli ng Completed 202001/17/2021 01/04/20 21 - Comments only - Mi Feldman PA-C - Old records from previous provider reviewed . Problem Code: Z71.89; Problem Code Type: ICD-10; Not Available [facility] 3 04:03:19 Tinea pedis 2537291 Completed 202001/17/2021 01/04/20 21 - Comments only - Mi Feldman PA-C - Will treat with RXd CLOTRIMA ZOLE 1% CREAM BID Problem Code: B35.3; Problem Code Type: ICD-10; Not Available [facility] 3 04:03:19 Cyclothy olivier 74421494 Active 202009/30/19 23 - Comments only - Mi Feldman PA-C - Patient encourag ed to touch base with [facility] RXing provider re: desire to RS TRAZODON E at time of next schedule d visit. She will otherwis e continue on current treatmen t regimen (RISPERD AL, ADDERALL XR, HYDROXYZ INE) as RXd. Problem Code: F34.0; Problem Code Type: ICD-10; Not Available [facility] 3 04:03:19 Acute vaginiti s 63697326 Completed 202001/31/2021 01/18/20 21 - Comments only - Mi Feldman PA-C - While awaiting results of today's VPS, will treat empirica lly with RXd DIFLUCAN 150mg x 1. Will reconsid er FARXIGA as componen t of antiglyc emic regimen if with recurren vaginal complain ts. Problem Code: N76.0; Problem Code Type: ICD-10; Not Available [facility] 3 04:03:20 Acute vaginiti s 00845544 Completed 202002/15/2021 02/10/20 21 - Comments only - Mi Feldman PA-C - Improved , although not fully resolved . Given GI issues, will forgo further ABX treatmen t at present. Chika agrees to continue with OTC DESITIN +/- VAGISIL +/- ice for symptoma tic relief. Although she declines offered CORPORATE COMPLIANCE MANAGER refer today, she agrees to reconsid er if sxs ongoing with 2 week recheck. Problem Code: N76.0; Problem Code Type: ICD-10; Not Available [facility] 3 04:03:20 Chronic pain syndrome 363226090 Active 202009/30/19 23 - Comments only - Mi Feldman PA-C - Patient to begin on RXd CELEBREX @ 200mg QD (h/o GERD on PPI; failed NAPROXEN , DICLOFEN AC, IBUPROFE N, MELOXICA M). Problem Code: G89.4; Problem Code Type: ICD-10; Not Available [facility] 3 04:03:20 Localize d eruption of skin 233134288 Completed 202003/08/2021 02/24/20 21 - Comments only - Mi Feldman PA-C - Suspect eczema > psoriasi s. Will treat with RFd TRIAMCIN OLONE 0.5% CREAM BID. Problem Code: R21; Problem Code Type: ICD-10; Not Available [facility] 3 04:03:20 Spasm 63427432 Completed 202004/22/2021 Problem Code: R25.2; Problem Code Type: ICD-10; Not Available [facility] 3 04:03:20 Disorder of skin and/or subcutan eous tissue 52290353 Completed 202004/22/2021 04/11/20 21 - Comments only - Mi Feldman PA-C - - RASH PX continue [...] Code Type: ICD-10; Not Available [facility] 3 04:03:20 Blood in urine 69964045 Completed 202005/09/2021 04/25/20 21 - Comments only - Mi Feldman PA-C - Resolved . Will continue to monitor and maintain low index to schedule for outpatie nt CT imaging if recurren t. Problem Code: R31.9; Problem Code Type: ICD-10; Not Available [facility] 3 04:03:21 Cough 19124872 Completed 202005/09/2021 04/25/20 21 - Comments only - Mi Feldman PA-C - Patient reassure d PX findings fairly benign. Suggeste d patient to treat with OTC MUCINEX and RFd XOPENEX MDI PRN for relief of congesti on and wheeze respecti vely. Will consider for repeat COVID testing +/- CXR if sxs prove ongoing. Problem Code: R05; Problem Code Type: ICD-10; Not Available [facility] 3 04:03:21 Psoriasi s 9727012 Active 2020 Problem Code: L40.8; Problem Code Type: ICD-10; Not Available [facility] 3 04:03:21 Lumbosac ral radiculo nirmala 1056376 Completed 202006/01/2021 05/18/20 21 - Comments only - Mi Feldman PA-C - Suspect lumbosac ral radiculo nirmala @ L5-S1/2 level. Will reconsid er to schedule for imaging studies as confirma tion with future visits. For acute manageme nt, if with good response to today's TORADOL injectio n, patient to call tomorrow to obtain RX 10mg PO Q6h PRN (#20 with no RFs) to use as alternat mckenzie to IBUPROFE N. Addition mart, will ask that Chika begin on LYRICA to titrate to 25mg BID. Problem Code: M54.16; Problem Code Type: ICD-10; Not Available [facility] 3 04:03:21 Furuncle 604491705 Completed 202106/19/2023 Problem Code: L02.92; Problem Code Type: ICD-10; MI FELDMAN PA-C [address], [place], [address] , [facility] 4 07:38:13 Retentio n of urine 359023441 Completed 202101/16/2022 Problem Code: R33.9; Problem Code Type: ICD-10; Not Available [facility] 3 04:03:22 Stomatit is 53161073 Completed 202101/14/2022 01/14/20 22 - Comments only - Zahraa JOE - Prescrip tion for nystatin swish and spit 5 mL 4 times a day for 10 to 14 days. Advised to replace her toothbru sh and tongue brush. Patient handout given on thrush. Discusse d signs and symptoms to return or contact PCP. Patient understa nds and agrees with plan. Not Available [facility] 3 04:03:22 Chest pain 67775184 Active 202103/01/20 22 - Comments only - Mi Feldman PA-C - Recent stress testing OK. In an effort to better control palpitat ion sxs, to increase PROPRANO LOL to 60mg BID. 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 Attempte d to reach patient by phone, voicemai l box full. Problem Code: Z53.21; Problem Code Type: ICD-10; MI FELDMAN PA-C [address], [place], [address] , [place] [facility]. 4 07:38:03 Palpitat ions 10047989 Active 202108/29/19 23 - Comments only - Mi Feldman PA-C - As per patient request, will change cardiolo gy referral from [facility] to [facility]. To continue on PROPRANO LOL 40mg BID (did not tolerate increase in dose) and LISINOPR IL 20mg QD as RXd. Problem Code: R00.2; Problem Code Type: ICD-10; Not Available [facility] 3 04:03:23 Hypomagn esemia 602971027 Active 202108/29/19 23 - Comments only - Mi Feldman PA-C - Patient now tolerati ng OTC MAGNESIU M suppleme nt without ASE concerns . Will plan to repeat magnesiu m level with next set of labs as monitori ng. Problem Code: E83.42; Problem Code Type: ICD-10; Not Available [facility] 3 04:03:23 Diarrhea 21734956 Active 202201/09/20 23 - Comments only - Mi Feldman PA-C - - CHRONIC DIARRHEA Patient to f/u for colonosc opy as reschedu led in late March ([facility] ). In the interim, to continue to use OTC IMMODIUM PRN for symptom control. Problem Code: R19.7; Problem Code Type: ICD-10; Not Available [facility] 3 04:03:23 General examinat ion of patient Active 2022 Problem Code: Z00.8; Problem Code Type: ICD-10; Not Available [facility] 3 04:03:24 Tinnitus of left ear 34298090772 06 Active 2022 Problem Code: H93.12; Problem Code Type: ICD-10; Not Available [facility] 3 04:03:24 Peripher al vascular disease 529101098 Active 202211/22/19 23 - Comments only - Mi Feldman PA-C - With concern for PVD contribu ting to claudica tion and poor cirulati on, will refer to [facility] for ABIs Problem Code: I73.9; Problem Code Type: ICD-10; Not Available [facility] 3 04:03:24 Pelvic and perineal pain 714155625 Active 202212/23/19 23 - Comments only - Mi Feldman PA-C - In-offic e U/A OK (NEGATIV E for blood). Assuming benign findings with today's collecte d VPS, will consider to schedule for pelvic x-ray. Problem Code: R10.2; Problem Code Type: ICD-10; Not Available [facility] 3 04:03:24 Cough 45109654 Completed 202201/19/2023 01/09/20 23 - Comments only - Mi Feldman PA-C - Given patient responde d [...] Code Type: ICD-10; Not Available [facility] 3 04:03:25 Spasm 93299712 Completed 202012/01/2020 Problem Code: R25.2; Problem Code Type: ICD-10; Not Available [facility] 3 04:03:25 Screenin g for malignan t neoplasm of colon Completed 201802/28/2023 Problem Code: Z12.11; Problem Code Type: ICD-10; Not Available [facility] 3 04:03:25 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 63411196 Completed 201807/22/2020 Problem Code: F52.31; Problem Code Type: ICD-10; Not Available [facility] 3 04:03:25 Disorder of tongue 89976292 Completed 201804/29/2019 Problem Code: K14.8; Problem Code Type: ICD-10; Not Available [facility] 3 04:03:26 Acute exacerba tion of chronic obstruct mckenzie pulmonar y disease 683197881 Completed 201912/09/2019 Problem Code: J44.1; Problem Code Type: ICD-10; Not Available [facility] 3 04:03:26 Spasm 31226350 Completed 201907/22/2020 Problem Code: R25.2; Problem Code Type: ICD-10; Not Available [facility] 3 04:03:26 Localize d eruption of skin 464116182 Completed 201907/22/2020 Problem Code: R21; Problem Code Type: ICD-10; Not Available [facility] 3 04:03:26 [place] - lesion 636641941 Completed 201709/12/2017 Problem Code: L84; Problem Code Type: ICD-10; Not Available [facility] 3 04:03:27 Headache 37299260 Completed 201702/27/2019 Problem Code: R51; Problem Code Type: ICD-10; Not Available [facility] 3 04:03:27 Arthropa thy of right knee joint 956828908 Completed 201702/27/2019 Problem Code: M25.861; Problem Code Type: ICD-10; Not Available [facility] 3 04:03:27 Nocturna l enuresis 2805949 Completed 201907/22/2020 Problem Code: N39.44; Problem Code Type: ICD-10; Not Available [facility] 3 04:03:27 Hernia of abdomina l cavity 93365714 Completed 201902/09/2021 Problem Code: K46.9; Problem Code Type: ICD-10; Not Available [facility] 3 04:03:28 Abnormal urine 747809198 Completed 201911/03/2019 Problem Code: R82.90; Problem Code Type: ICD-10; Not Available [facility] 3 04:03:28 Screenin g for malignan t neoplasm of breast Completed 201804/29/2019 Problem Code: Z12.39; Problem Code Type: ICD-10; Not Available [facility] 3 04:03:28 Idiopath ic osteoart hritis 510506034 Completed 201602/28/2023 Problem Code: M19.91; Problem Code Type: ICD-10; Not Available [facility] 3 04:03:29 Onychomy cosis due to dermatop hyte 593888386 Completed 201702/27/2019 Problem Code: B35.1; Problem Code Type: ICD-10; Not Available [facility] 3 04:03:29 Insect bite Completed 202012/01/2020 Not Available [facility] 3 04:03:29 Atopic dermatit is 68904524 Completed 202012/01/2020 Problem Code: L20.9; Problem Code Type: ICD-10; Not Available [facility] 3 04:03:29 Nausea 250901742 Completed 201609/12/2017 Problem Code: R11.0; Problem Code Type: ICD-10; Not Available [facility] 3 04:03:30 Nicotine dependen ce 25032760 Completed 201802/27/2019 Problem Code: F17.209; Problem Code Type: ICD-10; Not Available [facility] 3 04:03:30 Adjustme nt disorder 28038252 Completed 201909/12/2019 Problem Code: F43.20; Problem Code Type: ICD-10; Not Available [facility] 3 04:03:30 Abnormal weight gain 349546300 Completed 202002/09/2021 Problem Code: R63.5; Problem Code Type: ICD-10; Not Available [facility] 3 04:03:30 Diarrhea 73093125 Completed 201706/24/2020 Problem Code: R19.7; Problem Code Type: ICD-10; Not Available [facility] 3 04:03:31 Umbilica l hernia 064560646 Completed 201602/27/2019 Problem Code: K42.9; Problem Code Type: ICD-10; Not Available [facility] 3 04:03:31 Acute exacerba tion of chronic obstruct mckenzie pulmonar y disease 628238480 Completed 201702/09/2021 Problem Code: J44.1; Problem Code Type: ICD-10; Not Available [facility] 3 04:03:31 Localize d eruption of skin 009768111 Completed 201702/20/2018 Problem Code: R21; Problem Code Type: ICD-10; Not Available [facility] 3 04:03:32 Intertri go 95252348 Completed 201712/17/2017 Problem Code: L30.4; Problem Code Type: ICD-10; Not Available [facility] 3 04:03:32 Swollen abdomen 30333809 Completed 201906/24/2020 Not Available [facility] 3 04:03:32 Amnesia 25131176 Completed 201602/09/2021 Problem Code: R41.3; Problem Code Type: ICD-10; Not Available [facility] 3 04:03:32 Hand pain 37285950 Completed 202012/01/2020 Problem Code: M79.643; Problem Code Type: ICD-10; Not Available [facility] 3 04:03:33 Dyspnea 780709643 Completed 201907/22/2020 Problem Code: R06.00; Problem Code Type: ICD-10; Not Available [facility] 3 04:03:33 Fatigue 01263453 Completed 201804/29/2019 Problem Code: R53.83; Problem Code Type: ICD-10; Not Available [facility] 3 04:03:33 Follicul ar cysts of skin and subcutan eous tissue 979215457 Completed 201802/09/2021 Problem Code: L72.9; Problem Code Type: ICD-10; Not Available [facility] 3 04:03:34 Suicidal thoughts 4619091 Completed 201802/09/2021 Problem Code: R45.851; Problem Code Type: ICD-10; Not Available [facility] 3 04:03:34 Migraine without aura, not refracto ry 939827738 Completed 201602/27/2019 Problem Code: G43.009; Problem Code Type: ICD-10; Not Available [facility] 3 04:03:34 Chest pain 62194459 Completed 201702/27/2019 Problem Code: R07.9; Problem Code Type: ICD-10; Not Available [facility] 3 04:03:34 Pelvic and perineal pain 705208857 Completed 201804/29/2019 Problem Code: R10.2; Problem Code Type: ICD-10; Not Available [facility] 3 04:03:35 Itching of skin 680483107 Completed 201804/29/2019 Problem Code: L29.8; Problem Code Type: ICD-10; Not Available [facility] 3 04:03:35 Right upper quadrant pain 737876909 Completed 201708/23/2017 Problem Code: R10.11; Problem Code Type: ICD-10; Not Available [facility] 3 04:03:35 Pain in thoracic spine 987680474 Completed 201802/28/2023 Problem Code: M54.89; Problem Code Type: ICD-10; Not Available [facility] 3 04:03:36 Pain of breast 36738428 Completed 201907/22/2020 Problem Code: N64.4; Problem Code Type: ICD-10; Not Available [facility] 3 04:03:36 Contact dermatit is 43116906 Completed 201902/09/2021 Problem Code: L25.9; Problem Code Type: ICD-10; Not Available [facility] 3 04:03:36 Arthropa thy of joint of hand 619140426 Completed 201602/09/2021 Problem Code: M12.849; Problem Code Type: ICD-10; Not Available [facility] 3 04:03:37 Eczema 41195254 Completed 201907/25/2019 Problem Code: L30.9; Problem Code Type: ICD-10; Not Available [facility] 3 04:03:37 Generali zed abdomina l pain 965463104 Completed 201906/24/2020 Problem Code: R10.84; Problem Code Type: ICD-10; Not Available [facility] 3 04:03:37 Diarrhea 09499514 Completed 202009/16/2020 Problem Code: R19.7; Problem Code Type: ICD-10; Not Available [facility] 3 04:03:38 Pain of breast 36732525 Completed 201604/13/2017 Problem Code: N64.4; Problem Code Type: ICD-10; Not Available [facility] 3 04:03:38 Severe obesity 03870984221 104 Completed 201609/12/2017 Problem Code: E66.01; Problem Code Type: ICD-10; Not Available [facility] 3 04:03:38 Venereal disease screenin g Completed 201906/24/2020 Problem Code: Z11.3; Problem Code Type: ICD-10; Not Available [facility] 3 04:03:39 Family problems 682999701 Completed 201704/29/2019 Problem Code: Z63.79; Problem Code Type: ICD-10; Not Available [facility] 3 04:03:39 Noninfla mmatory disorder of the vagina 72004947 Completed 201802/28/2023 Problem Code: N89.8; Problem Code Type: ICD-10; Not Available [facility] 3 04:03:39 Pain of right lower leg 45379162464 9108 Completed 201906/24/2020 Problem Code: M79.661; Problem Code Type: ICD-10; Not Available [facility] 3 04:03:40 Candidia sis of skin 04155229 Completed 202203/02/2023 02/17/20 23 - Comments only - Mi Feldman PA-C - Will treat with RXd TERBINAF INE CREAM BID. Otherwis e patient encourag ed to keep area as clean and dry as posssibl e (conside r chairman ceo on low after showerin g) to promote skin healing. Problem Code: B37.2; Problem Code Type: ICD-10; Not Available [facility] 4 05:34:22 Candidia sis of skin 63124939 Completed 202203/20/2023 03/08/20 23 - Comments only - Mi Feldman PA-C - Given lack of response to topical antifung al treatmen ts to present, will cover with RXd DIFLUCAN 100mg QD x 7d. Chika ktichen otherwis e continue efforts to keep the area clean and dry (conside r chairman ceo after showerin g) and use OTC zinc oxide containi ng DESITIN to promote skin healing. Problem Code: B37.2; Problem Code Type: ICD-10; Not Available [facility] 4 05:34:22 Bilatera l adenoma of adrenal glands 90856232845 628836 Active 2023 Incident al finding on CT abdomen/ pelvis at [facility] ED 09/29/23 ADRIANA ANDRADE-Earl PADILLA, [facility]- [address], [place], [address] , [place] - [facility] 4 18:59:52 Chronic eczema 18981951 Active 2023 ARNOLDO DICKERSON LPN [facility], [place] - [facility] 09:13:42 Problem Notes None recorded. Procedures Surgical History None recorded. Imaging Results Imaging Date Name Status LastModified by Organization Details LastModified Time 09/29/2023 vrad report completed [email or web address] [place], [address] 10/01/2023 08:56:09 09/29/2023 vrad report completed [address] [place], [address] 10/01/2023 08:56:09 09/29/2023 x-ray imaging report completed [address] [place], [address] 10/01/2023 08:56:10 09/29/2023 CT imaging report [facility] [address] [facility] [place] [facility] [place], [address] 10/01/2023 08:56:10 01/03/2019 CT, chest completed Information no t available 02/17/2024 22:30:17 11/29/2020 XR, chest completed Information no t available 02/17/2024 22:30:18 01/13/2021 MAMMO, screening completed Informat ion not available 02/17/2024 22:30:19 04/10/2022 XR, chest completed Information no t available 02/17/2024 22:30:27 08/19/2021 MAMMO, screening completed Informat ion not available 02/17/2024 22:30:28 02/27/2022 imaging/diagnostic result completed Information not available 02/17/2024 22:30:47 05/08/2022 imaging/diagnostic result completed Information not available 02/17/2024 22:31:14 11/28/2020 imaging/diagnostic result completed Information not available 02/17/2024 22:32:45 11/28/2020 imaging/diagnostic result completed Information not available 02/17/2024 22:34:43 02/01/2022 imaging/diagnostic result completed Information not available 02/17/2024 22:35:50 02/01/2022 imaging/diagnostic result completed Information not available 02/17/2024 22:35:52 02/17/2019 imaging/diagnostic result completed Information not available 02/17/2024 22:36:38 04/12/2020 imaging/diagnostic result completed Information not available 02/17/2024 22:36:41 03/29/2020 CT, chest, w/ contrast completed Information not available 02/17/2024 22:36:47 02/17/2019 US, pelvis, transabdominal + transvaginal completed Information not available 02/17/2024 22:36:48 05/03/2023 imaging/diagnostic result completed Information not available 02/17/2024 22:36:49 05/03/2023 imaging/diagnostic result completed Information not available 02/17/2024 22:36:51 Procedure Notes None recorded. Medical Equipment None Reported. Allergies Allergen ID Allergen Name Allergen Category Reaction Reaction Severity Criticality Documentation Date Start Date Code Code System Note Provider Name and Address Organization Details Recorded Time Bactrim medicatio n Not available Not available Not available 04/13/20232016 62033 9 RxNorm Not Available [facility] 3 16:11:46 iodine medicatio n Not available Not available Not available 04/13/20232016 5933 RxNorm Not Available [facility] 3 16:11:47 simvastat in medicatio n rash moderate Not available 04/13/20232019 62301 RxNorm rash Not Available [facility] 3 16:11:47 Augmentin medicatio n Not available Not available Not available 04/13/20232016 73338 2 RxNorm Not Available [facility] 3 16:11:47 codeine medicatio n vomiting moderate Not available 04/13/20232017 2670 RxNorm vomit ing Aller gyCod e: '0040 58990 32'; Aller gyNam e: 'CODE INE'; Aller gyCon ceptT ype: 'NDC' ; Not Available [facility] 3 16:11:47 Betadine medicatio n rash moderate Not available 04/13/20232016 22405 0 RxNorm skin rash Aller gyRea ction : 'skin rash' ; Aller gyCod e: '005 62082 80'; Aller gyNam e: 'BETA DINE' ; Aller gyCon ceptT ype: 'NDC' ; Not Available [facility] 3 16:11:47 Protonix medicatio n other moderate Not available 04/13/20232016 85934 4 RxNorm sick Aller gyRea ction : 'sick '; Aller gyCod e: '8852 57'; Aller gyNam e: 'PROT MILDRED' ; Aller gyCon ceptT ype: 'RX Norm' ; Not Available [facility] 3 16:11:47 cyprohept adine hydrochlo ride medicatio n Not available Not available Not available 04/13/20232016 50479 2 RxNorm Aller gyCod e: '8660 21'; Aller gyNam e: 'CYPR OHEPT ADINE HCL'; Aller gyCon ceptT ype: 'RX Norm' ; Not Available [facility] 3 16:11:47 07199 Rybelsus medicatio n rash moderate low 10/16/2023 42109 45 RxNorm Dulce Maria garrido LPN [facility], [place] - [facility] 4 14:44:29 Medications Name Sig Start Date [...] Available Not Available Adderall 20 mg tablet [facility] 09/30 completed Not Available Not Available Not [...] at bedtime 06/17 completed prescrib ed by [facility] Not Available Not Available Not Available triamcino [...] mg tablet Take 1 tab by mouth Q 2016 active Not Available Not Available Not [...] for ADHD 2018 active prescrib ed by [facility] Not Available Not Available Not Available Flovent [...] Not Available Unifine Pentips 31 gauge x 08/17 needle USE ONCE DAILY WITH VICTOZA active [...] 1 puff once a day 06/17 completed [facility] PULMONOL OGY Not Available Not Available Not [...] % 96 % 78 /min 42.3 kg/m2 20512.3 2 g 114 mm[Hg] 70 mm[Hg] PEDRO RIOJAS MA [facility] 4 08:14:21 Date Recorded Body height Body mass index (BMI) Body weight Heart rate Systolic blood pressure Diastolic blood pressure Provider Name and Address Organization Details Last Updated DateTime 4 153.67 cm 42.1 kg/m2 08082.4 5 g 72 /min 108 mm[Hg] 76 mm[Hg] SAUL MANUEL RN [facility] 4 08:27:21 Date Recorded Body height Body mass index (BMI) Body weight Body temperature Heart rate Systolic blood pressure Diastolic blood pressure Provider Name and Address Organization Details Last Updated DateTime 4 153.67 cm 41.5 kg/m2 29513.4 g 96.4 [degF] 88 /min 110 mm[Hg] 70 mm[Hg] Dulce Maria garrido LPN [facility] 4 09:55:34 Date Recorded Body height Body mass index (BMI) Body weight Heart rate Systolic blood pressure Diastolic blood pressure Provider Name and Address Organization Details Last Updated DateTime 4 153.67 cm 41.6 kg/m2 39118.3 9 g 75 /min 102 mm[Hg] 60 mm[Hg] Dulce Maria garrido LPN [facility] 4 14:43:28 Date Recorded Body height Body mass index (BMI) Body weight Heart rate Body temperature Systolic blood pressure Diastolic blood pressure Provider Name and Address Organization Details Last Updated DateTime 4 152.4 cm 42.1 kg/m2 47806.4 6 g 68 /min 97.3 [degF] 104 mm[Hg] 66 mm[Hg] ARNOLDO DICKERSON LPN [facility] 4 09:09:40 Social History Question Answer Notes LastModified by Organizat ion Details LastModified Time Tobacco Smoking Status Current Every Day Smoker PEDRO RIOJAS MA [facility], [facility] 05/29/2023 08:00:26 What Was The Date Of Your Most Recent Tobacco Screening? 10/01/2023 [email or web address] Information not available 10/01/2023 What Is Your Current Pack Years? 30ormorepack years Information not available 05/29/2023 At What Age Did You Start Smoking Tobacco? 6 Information not available 05/29/2023 How Much Tobacco Do You Smoke? 0.5 PPD Information not available 05/29/2023 Has Tobacco Cessation Counseling Been Provided? No Information not available 05/29/2023 How Many Years Have You Smoked Tobacco? 52 [email or web address] Information not available 10/01/2023 Do You Or [...] adolescent or pediatric 05/07/2017 completed Not Available [facility] 04/13/2023 06:16:25 Tdap 08/08/2020 completed Not Available [facility] 06:16:26 Tdap 10/19/2014 completed Not Available [facility] 06:16:26 Influenza, split virus, quadrivalent, PF 03/08/2021 completed Not Available [facility] 04/13/2023 06:16:26 Influenza, split virus, quadrivalent, PF 05/22/2022 completed Not Available [facility] 04/13/2023 06:16:26 COVID-19, mRNA, LNP-S, PF, 100 mcg/0.5mL dose or 50 mcg/0.25mL dose 06/17/2021 completed Not Available [facility] 04/13/2023 06:16:26 COVID-19, mRNA, LNP-S, PF, 100 mcg/0.5mL dose or 50 mcg/0.25mL dose 10/12/2020 completed Not Available [facility] 04/13/2023 06:16:26 COVID-19, mRNA, LNP-S, PF, 100 mcg/0.5mL dose or 50 mcg/0.25mL dose 11/09/2020 completed Not Available [facility] 04/13/2023 06:16:26 COVID-19, mRNA, LNP-S, bivalent, PF, 30 mcg/0.3 mL dose 05/22/2022 completed Not Available [facility] 04/13/20 06:16:26 pneumococcal polysaccharide PPV23 03/04/2008 completed Not Available [facility] 2022 06:16:26 Hep B, adult 03/08/2021 completed Not Available [facility] 04/13/2023 06:16:27 Hep B, adult 03/16/2020 completed Not Available [facility] 04/13/2023 06:16:27 Hep A, adult 03/16/2020 completed Not Available [facility] 04/13/2023 06:16:27 Hep A, adult 05/07/2017 completed Not Available [facility] 04/13/2023 06:16:27 influenza, unspecified formulation 02/10/2014 completed Not Available [facility] 04/13/2023 06:16:27 influenza, unspecified formulation 03/06/2023 completed Ortiz Walker MA [facility], [facility] 05/26/2023 20:27:38 Influenza, split virus, quadrivalent, PF 03/06/2023 completed Not Available [facility] 06/15/2023 05:33:04 Pneumococcal conjugate PCV20, polysaccharide [id number] conjugate, adjuvant, PF 03/06/2023 completed Not Available [facility] 06/15/2023 05:33:04 Past Encounters Encounter ID Performer Location Encounter Start Date Encounter Closed Date Diagnosis/Indication Diagnosis SNOMED-CT Code Diagnosis ICD10 Code [id number] Padmini [address] [address] 05/16/2023 09:14:42 05/16/2023 09:49:08 Intertrigo 19217513 L30.4 [id number] MI FELDMAN PA-C [address] [address] 05/29/2023 07:48:40 05/29/2023 08:41:36 Candidal intertrigo 349515405 B37.2 [id number] [facility] [address] [address] 07/06/2023 08:06:56 07/06/2023 09:15:46 Essential hypertension 38446459 I10 Hyperlipidemia 18131948 E78.5 Type 2 claudio betes mellitus without complication 737076118 E11.9 Candidal intertrigo 2661 24996 B37.2 Pain of le ft hip joint 3463242171 80892 M25.333 [id number] MI FELDMAN PA-C [address] [address] 09/07/2023 08:06:23 09/07/2023 09:47:45 Essential hypertension 92854386 I10 Hyperlipidemia 94944891 E78.5 Type 2 claudio betes mellitus without complication 451825325 E11.9 Chronic pain syndrome 37 3180869 G89.4 Candidal intertrigo 2661 49644 B37.2 [id number] ADRIANA PADILLA, [employer]-[address] [address] 10/01/2023 09:27:34 10/01/2023 11:23:55 Low back pain 647750781 M54.50 Bilateral adenoma of adrenal glands 3612509638 7422184 D35.01 D35.02 [id number] MI FELDMAN PA-C [address] [address] 10/16/2023 14:34:38 10/16/2023 15:45:41 Type 2 diabetes mellitus without complication 014644181 E11.9 Chronic back pain 093019 002 G89.29 Bilateral adenoma of adrenal glands 9395667622 9403337 D35.01 D35.02 Hyperlipidemia 50951026 E78.5 Essential hypertension 39774519 I10 Candidal intertrigo 2661 50013 B37.2 [id number] MI FELDMAN PA-C [address] [address] 01/22/2024 08:50:39 01/22/2024 10:04:59 Type 2 diabetes mellitus without complication 375141272 E11.9 Hyperlipidemia 43971669 E78.5 Essential hypertension 73754634 I10 Candidal intertrigo 2661 654[address] B37.2 Hypomagnesemia 427702440 E83.42 Chronic eczema 78402450 L30.9 Furuncle of groin 233874 03 L02.224 Health Concerns Section Related Observation LastModified by Organization Detai ls LastModified Time None Recorded Concern Status LastModified by Organization Details LastModified Time None Recorded Advance Directives Directive None Recorded Payers Encounter Date Sequence Insurance Name Policy Number Policy Richard Covered Member ID Richard Member ID Guarantor Name 07/06/2023 1 [employer] ([employer]ICA[employer]) Chika Quintanilla Gerow [id number] Chika Quintanilla Gerrobby 09/07/2023 1 [employer] ([employer]ICA[employer]) Chika Fraustoow [id number] Chika Santos 10/01/2023 1 [employer] ([employer]) Chika Fraustoow [id number] Chika Quintanilla Gerrobby 10/16/2023 1 [employer] ([employer]ICA[employer]) Chika Quintanilla Gerow [id number] Chika Quintanilla Gerow 01/22/2024 1 [employer] ([employer]ICA[employer]) Chika Santos [id number] Chika Santos Notes Date Note Type Note Provider Name and Address Organization Details Recorded Time 07/06/2023 text/html 57y/o female presenting for 3m f/u DM2, HTN, HPL, chronic diarrhea, and bipolar disorder. [address], [place], [address], [facility] 07/06/2023 09:05:57 09/07/2023 text/html 57y/o female presenting for f/u DM2, HTN, HPL, and chronic pain. [address], [place], [address], [facility] 09/17/2023 08:57:38 10/01/2023 text/html Seen at [facility] ED 09/29/23 for L mid/low back [...] physical therapy at this time. ADRIANA CAO, MYRANDA- [address], [place], [address], [facility] 10/01/2023 19:01:53 10/16/2023 text/html 58y/o female presenting for f/u DM2, HTN, HPL, and chronic pain. Chika sought evaluation via [facility] ED 09/29/23 with c/o atraumatic sharp, left sided back back x 3 days. Following ED evaluation to include laboratory testing (U/A, CBC, CMP, lipase), EKG, CXR, and abdominal and pelvic CT imaging, Chika was treated with IV TORADOL for management of back spasms. Seen in f/u via [facility] on 10/01/23, at which point she declined PT referral, however, was accepting of ongoing treatment with TORADOL (60mg IM in-office followed by 10mg PO Q6h PRN). On presentation today, Chika reports sxs have stabilized. [address], [place], [address], [facility]. 10/16/2023 15:57:36 01/22/2024 text/html 58y/o female presenting for 3m f/u DM2, HTN, HPL, and chronic pain. Patient reports painful ?boil to labia x 3 days. Denies fever, N/V, or other more systemic signs of illness. [address], [place], [address], [facility]. 01/22/2024 11:22:15 OBGyn Episode No OBEpisode recorded.
--- OUTSIDE RECORDS SUMMARY | 2024-04-21 10:48 | XMS_ITS | Encounter Summary ---
Author Organization [facility] Address [address] [place] [address] Care Team Providers Care Gas Leak Inspector Helper Name Role Phone Debbie Webber NP Primary Care Provider [phone] Encounter Details Date Type Department Care Team (Late st Contact Info) Description 02/13/2019 Results Only [facility] [phone] Ernesto Crawford, DNP [address] [place] [address] Social History Tobacco Use Types [...] ? PRISCILLA SANTOS ? Accession #: ? [id number] ? : ? 1965 (Age: 53) ??F [...] anterior chest Clinical History: Fax results to [phone]; clinical diagnosis code: ??L98.9, Z00.00 Gross Description: [...] is submitted intact in 1. HEATH Cleary (ASCP) 02/14/2019 8:27 AM End of Report [facility] 02/13/2019 21:5 8 EDT 02/13/2019 21:58 EDT us Ernesto Jovel DNP PATHOLOGY ORDERABLES Helga balderas Result [facility] [address] [place] [address] documented in this encounter Visit Diagnoses Not on filedocumented in this encounter Care Teams Gas Leak Inspector Helper Relationship Specialty Start Date End Date Debbie Webber NP [address] [place] [address] [address] [place] [phone] PCP - General 09/04/11 02/17/19 documented as of this encounter
--- OUTSIDE RECORDS SUMMARY | 2024-04-21 10:48 | XMS_ITS | Encounter Summary ---
Author Organization [facility] Address [address] [place] [address] Care Team Providers Care Crop Supervisor Name Role Phone Debbie Webber NP Primary Care Provider [phone] Encounter Details Date Type Department Care Team (Latest Contact Info) Description 02/13/2019 15:13 EDT - 02/13/2019 23:59 EDT Hospital Encounter [address] [id number] Unknown, Provider, MD Discharge Disposition: Home or Self Care Social History Tobacco Use Types Packs/Day Years Used Date Smoking Tobacco: Never Assessed Comments Unknown Sex and Gender Information Value Date Recorded Sex Assigned at Not on file Legal Sex Female 18:29 EST Gender Identity Not on file Sexual Orientation Not on file documented as of this encounter Medications at Time of Discharge amphetamine-dextr oamphetamine (ADDERALL) 20 mg tablet Take 20 mg [...] Code Departure Means Destination Home or Self [facility] documented in this encounter Plan of Treatment Not on file documented as of this encounter Visit Diagnoses Not on filedocumented in this encounter Care Teams Crop Supervisor Relationship Specialty Start Date End Date Debbie Webber NP [address] [place] [address] [address] [place] [phone] PCP - General 09/04/11 02/17/19 documented as of this encounter
--- OUTSIDE RECORDS SUMMARY | 2024-04-21 10:48 | XMS_ITS | Referral Summary ---
Author Organization [facility] Address [address] [place] [address] Care Team Providers Care Scanning Clerk Name Role Phone Unknown, Provider Primary Care Provider Debbie Samuel [employer] Unavailable [phone] Allergies Active Allergy Reactions Criticality Noted Date Comments Povidone-Iodine Hives 05/15/2012 Codeine Nausea And Vomiting 05/15/2012 Cephalexin Rash 05/15/2012 Other - See Comments Itching 05/15/2012 Powered Gloves Oxycodone-Acetaminophen Nausea Only 05/15/2012 Sulfa (Sulfonamide Antibiotics) Shortness Of Breath 05/15/2012 Medications propranolol (INDERAL) 40 mg tablet Take 40 mg by mouth at bedtime. Active amphetamine-dex troamphetamine (ADDERALL) 20 mg tablet Take 20 mg [...] C Antibody Negative Negative 12/11/2019 10:32 EDT [facility] Blood VENOUS BLOOD / Unknown 12/10/2019 9:00 EDT 12/10/2019 21:12 EDT us Provider Outr Resulting Lab CHEMISTRY & BLOOD GA S ORDERABLES Final Result Performing Organization Address City/State/[facility] Co de Phone Number [facility] [address] [place] [address] from Last 3 Months or Most Recently Relevant to Health Maintenance Insurance MEDICAID [place] Care Teams Scanning Clerk Relationship Specialty Start Date End Date Unknown, Provider, PCP - General 02/18/19 Debbie Webber NP [address] [place] [address] 02/18/19
--- OUTSIDE RECORDS SUMMARY | 2024-04-21 10:48 | XMS_ITS | Encounter Summary ---
[place] [address] Care Team Providers Care Slotter Operator Name Role Phone Mi Tyler Primary Care Provider [phone] Encounter Details Date Type Department Care Team (Latest Contact Info) Description 11/21/2023 10:49 AM EDT - 11/21/2023 11:59 PM EDT [place] [phone] Discharge Disposition: Home Social History Tobacco Use [...] Report (11/21/2023 8:19 AM EDT) Final Diagnosis [id number] ? Location: [facility] The signing pathologist has [...] Graciela Verified: ??11/26/2023 14:03 ??Pathologist Performed at: ??-[facility] [place], [place] [address] Photographic Aide: Kelly Farr MD, FCAP, ??CLIA Certificate: [id number] DISCUSSION D - The increase in lamina [...] H - Rectal polyp, excision Referring Identifier: ??[id number] CARBON COPY: Mi Tyler CLINICAL INFORMATION Chronic [...] labeled H1. ??sns 11/26/2023 2:03 PM EDT [facility] GI Biopsy 11/21/2023 8:19 AM EDT [...] EDT Isidro Marino DO PATHOLOGY/CYT OLOGY ORDERABLES [facility] [place] [address] documented in this encounter Visit Diagnoses Not on filedocumented in this encounter Care Teams Slotter Operator Relationship Specialty Start Date End Date Mi Tyler PA [address] [place] [address] PCP - General Family Medicine 05/05/21 documented as of this encounter
--- OUTSIDE RECORDS SUMMARY | 2024-04-21 10:48 | XMS_ITS | Encounter Summary ---
Author Organization [facility] Address [address] [place] [address] Care Team Providers Care Marriage And Family Teacher Name Role Phone Debbie Webber NP Primary Care Provider [phone] Encounter Details Date Type Department Care Team (Late st Contact Info) Description 04/24/2012 Results Only Imaging [facility] [phone] Debbie Webber NP [address] [facility] [address] [place] [address] Social History Tobacco Use Types [...] on filedocumented in this encounter Care Teams Marriage And Family Teacher Relationship Specialty Start Date End Date Debbie Webber NP [address] [place] [address] PCP - General 09/04/11 02/17/19 documented as of this encounter
--- OUTSIDE RECORDS SUMMARY | 2024-04-21 10:48 | XMS_ITS | Encounter Summary ---
[place] [address] Care Team Providers Care Title Checker Name Role Phone Mi Tyler Primary Care Provider [phone] Encounter Details Date Type Department Care Team (Late st Contact Info) Description 10/27/2021 Telephone [place] [phone] Candie Santana Social History Tobacco Use Types [...] on filedocumented in this encounter Care Teams Title Checker Relationship Specialty Start Date End Date Mi Tyler PA [address] [place] [address] PCP - General Family Medicine 05/05/21 documented as of this encounter
--- OUTSIDE RECORDS SUMMARY | 2024-04-21 10:48 | XMS_ITS | Encounter Summary ---
Author Organization [facility] Address [address] [place] [address] Care Team Providers Care Sleep Technologist Name Role Phone Leandro Cullen MD Primary Care Provider [phone] Encounter Details Date Type Department Care Team (Late st Contact Info) Description 09/01/2011 Results Only [facility] Laboratory Services - [facility] ([facility]) [address] [place], [place] [id number] Isidro Pulido, DO [address] [facility] [address] [place], [place] [id number] Social History Tobacco Use Types Packs/Day Years [...] ? PRISCILLA SANTOS ? Accession #: ? [id number] ? : ? 1965 (Age: 45) ??F ? Collect Date: ? 09/01/2011 ? Location: ? [facility] ? Receive Date: ? 09/01/2011 ? Provider: ISIDRO PULIDO DO Copy to: JOHNATHAN HEATHER JOB SITE SUPERINTENDENT ? Final Pathologic Diagnosis: A. ?Colon, 60 [...] (A1). Received in formalin labelled Priscilla Santos M and 2 ??polyp at 40 cm is a pepe fragment of soft tissue which measures 0.5 x 0.2 x 0.1 cm. ??The specimen is bisected and submitted entirely as (B). Received in formalin labelled Priscilla Santos M and 3 ??polyp at 20 cm are two pepe, polypoid fragments of skin which measures 0.3 x 0.2 x 0.2 cm and 0.2 x 0.1 x 0.1 cm. ??Submitted entirely as (C). ??(Dr. Quinones)/kmm ?? End of Report [facility] 09/01/2011 09/01/2011 16: 30 EDT us Isidro Pulido DO PATHOLOGY ORDERABLES Fi nal Result Performing Organization Address City/State/[facility] Co de Phone Number [facility] [address] [place] [address] documented in this encounter Visit Diagnoses Not on filedocumented in this encounter Care Teams Sleep Technologist Relationship Specialty Start Date End Date Leandro Cullen MD [address] [place] [address] PCP - General 08/01/11 09/03/11 documented as of this encounter
--- OUTSIDE RECORDS SUMMARY | 2024-04-21 10:48 | XMS_ITS | Encounter Summary ---
Author Organization [facility] Address [address] [place] [address] Care Team Providers Care Clam Dredger Name Role Phone Unavailable Primary Care Provider Unavailabl e Encounter Details Date Type Department Care Team (Late st Contact Info) Description 05/10/2010 Results Only [facility] Laboratory Services - [facility] ([facility]) [address] [place] [address] Debbie Webber, OMID [address] [place] [address] Social History Tobacco Use Types [...] ? PRISCILLA SANTOS ? Accession #: ? [id number] ? : ? 1965 (Age: 44) ??F ?Collect Date: ? 05/10/2010 ? Location: ? [facility] ? Receive Date: ? 05/11/2010 ? Provider: MANN HEATHER READING INTERVENTION TEACHER ? Copy to: ? Final Report ? [...] of Report ? [facility] 05/10/2010 05/11/2010 us Debbie Webber READING INTERVENTION TEACHER PATHOLOGY ORDERABLES Final R esult Performing Organization Address City/State/[facility] Co de Phone Number [facility] [address] [place] [address] documented in this encounter Visit Diagnoses Not on filedocumented in this encounter
--- OUTSIDE RECORDS SUMMARY | 2024-04-21 10:48 | XMS_ITS | Encounter Summary ---
Author Organization [facility] Address [address] [place] [address] Care Team Providers Care Medicaid Eligibility Specialist Name Role Phone Unavailable Primary Care Provider Unavailabl e Encounter Details Date Type Department Care Team (Late st Contact Info) Description 07/28/2011 Results Only [facility] Laboratory Services - [facility] ([facility]) [address] [place], [place] [id number] Isidro Pulido, DO [address] [facility] [address] [place] [address] Social History Tobacco Use Types [...] ? PRISCILLA SANTOS ? Accession #: ? [id number] ? : ? 1965 (Age: 45) ??F ? Collect Date: ? 07/28/2011 ? Location: ? [facility] ? Receive Date: ? 07/28/2011 ? Provider: ISIDRO PULIDO DO Copy to: JOHNATHAN ROMERO HEAD BANQUET WAITRESS ? Final Pathologic Diagnosis: A. ?Colon, 35 [...] cm, submitted in toto as (G). (Rob Bloom)/[facility] End of Report [facility] 07/28/2011 07/28/2011 8:1 1 EST us Isidro Pulido DO PATHOLOGY ORDERABLES Fi nal Result [facility] [address] [place] [address] documented in this encounter Visit Diagnoses Not on filedocumented in this encounter
--- OUTSIDE RECORDS SUMMARY | 2024-04-21 10:48 | XMS_ITS | Encounter Summary ---
Author Organization [facility] Address [address] [place] [address] Care Team Providers Care Window Installer Name Role Phone Debbie Webber NP Primary Care Provider [phone] Encounter Details Date Type Department Care Team (Late st Contact Info) Description 12/19/2011 Results Only [facility] Laboratory Services - [facility] ([facility]) [address] [place], [place] [phone] Isidro Pulido, DO [address] [facility] [address] [place], [place] [id number] Social History Tobacco Use Types Packs/Day Years [...] ? PRISCILLA SANTOS ? Accession #: ? [id number] ? : ? 1965 (Age: 46) ??F ? Collect Date: ? 12/19/2011 ? Location: ? [facility] ? Receive Date: ? 12/19/2011 ? Provider: ISIDRO PULIDO DO Copy to: DEBBIE WEBBER STAFF SERVICES MANAGER ? Final Pathologic Diagnosis: ? Gallbladder, cholecystectomy: [...] Gross Description: ? Received in formalin labelled Danielle Priscilla and gallbladder is a 7.0 cm in [...] cassette. ??(Lissett Duran)/cali End of Report [facility] 12/19/2011 12/19/2011 16: 37 EDT us Isidro Pulido DO PATHOLOGY ORDERABLES Fi nal Result Performing Organization Address City/State/[facility] Co de Phone Number [facility] [address] [place] [address] documented in this encounter Visit Diagnoses Not on filedocumented in this encounter Care Teams Window Installer Relationship Specialty Start Date End Date Debbie Webber NP [address] [place] [address] [address] [place] [address] PCP - General 09/04/11 02/17/19 documented as of this encounter
--- OUTSIDE RECORDS SUMMARY | 2024-04-21 10:48 | XMS_ITS | Encounter Summary ---
Author Organization [facility] Address [address] [place] [address] Care Team Providers Care Cattle Brander Name Role Phone Unavailable Primary Care Provider Unavailabl e Encounter Details Date Type Department Care Team (Late st Contact Info) Description 03/09/2009 Orders Only [facility] Laboratory Services - [facility] ([facility]) [address] [place] [address] Johnathan Webber, COST RECORDER [address] [place] [address] Social History Tobacco Use Types [...] reading/interpreti ng unformatted reports. ? Name: ? PASQUALE SANTOSA Socorro ? Accession #: ? [id number] ? : ? 1965 (Age: 43) ??F [...] Report ? [facility] 03/09/2009 03/09/2009 us Johnathan Webber COST RECORDER PATHOLOGY ORDERABLES Final R esult [facility] [address] [place] [address] documented in this encounter Visit Diagnoses Not on filedocumented in this encounter
--- OUTSIDE RECORDS SUMMARY | 2024-04-21 10:49 | XMS_ITS | Encounter Summary ---
[facility] Address [facility] [place] [address] Care Team Providers Care Manager Power Name Role Phone Ottoniel Jovel DNP Primary Care Provider [phone] Reason for Visit * Consultation (Routine) - Specialty Diagnoses / Procedures Referred By Wilfrid t Referred To Contact Pulmonology Diagnoses Panlobular emphysema Ottoniel Jovel, CARLEE [address] [place] [address] [facility] Pulmonology [address] [place] [id number] Referral ID Status Reason Start Date Expiration Date V isits Requested Visits Authorized [id number] Consult, Test & Treat Connection Center PCP Updated and/or Approved 07/19/2020 01/16/2021 6 6 Encounter Details Date Type Department Care Team (Latest Contact Info) Description 09/30/2020 11:00 AM EDT TH Visit (TeleHealth) [place] [address] Gurmeet Tam MD [facility] [address] [place] [address] Asthma-COPD overlap syndrome; Pulmonary emphysema, [...] to make an appointment call . Call 4-982-GBNU-NOW ( ) for [place] or [place] residents for free telephone support for quittingtobacco. [...] Nicotine Replacement Therapy , September 03, 2012: https://www.federalregister.gov/articles//2013-02074/modifications-to- dljaumid-zh-zmnjugox-bxnbdnwparf-pppdsno-mfehvwsq-adh-xyrq-vbq-lwsvtui-qizzg-aqb documented in this encounter Progress Notes * Gurmeet Tam MD - 09/30/2020 11:00 AM EDT Images from the original note were not included. [facility] Section of Pulmonary and Critical Care Medicine Outpatient Consultation - Initial Visit Date of Encounter: 09/29/2020 Referring Provider: Ottoniel Jovel APRN [facility] SILVANA BUTLER [address] [address] PCP: Ottoniel Jovel APRN Reason for Evaluation: [...] images available. CT in March 2020 at [facility] comments on moderate centrilobular emphysema, normal airways, no adenopathy, no pleural disease, and no focal airspace consolidations. Negative for PE. Prior CTA from January 2019 at [facility] comments on no PE or dissection, no [...] negative Chest Imaging: CT Chest w 03/29/20 ([facility]) - report only -Report comments include: -hepatic steatosis, 22mm L adrenal nodule, 18mm R adrenal nodule unchanged from 01/2019 -No mediastinal adenopathy -No PE -Intact tracheobronchial tree. No consolidation or mass or intrapulmoanry nodules -Moderate centrilobular emphysema -No effusion CTA chest for cough with hemoptysis 01/03/19 ([facility]) - report only -no aortic dissection [...] discussing smoking cessation strategies. Gurmeet Tam MD [facility] Rolled Materials Workerinfusion pharmacist Pulmonary and Critical Care Medicine [place] [phone] [email or web address] documented in this encounter Plan of Treatment [...] abuse documented in this encounter Care Teams Manager Power Relationship Specialty Start Date End Date Ottoniel Jovel DNP PCP - General Family Medicine 03/25/19 05/04/21 documented as of this encounter
--- OUTSIDE RECORDS SUMMARY | 2024-04-21 10:49 | XMS_ITS | Encounter Summary ---
Author Organization [facility] [place] [address] Care Team Providers Care Stroke Program Coordinator Name Role Phone Ottoniel Jvoel DNP Primary Care Provider [phone] Reason for Visit * Reason Onset Date Comments Other 10/19/2020 Medication updat es from OSH Encounter Details Date Type Department Care Team (Late st Contact Info) Description 10/19/2020 [place] [phone] Ling Mtz, RN Other (Medication updates from [...] Ling Mtz RN Department of Pulmonary 5C, [facility] / Pager: [phone] documented in this encounter Plan of Treatment Not on file documented as of this encounter Visit Diagnoses Not on filedocumented in this encounter Care Teams Stroke Program Coordinator Relationship Specialty Start Date End Date Ottoniel Jovel DNP PCP - General Family Medicine 03/25/19 05/04/21 documented as of this encounter
--- OUTSIDE RECORDS SUMMARY | 2024-04-21 10:49 | XMS_ITS | Encounter Summary ---
[place] [address] Care Team Providers Care Welder Production Line Gas Name Role Phone Ottoniel Jovel DNP Primary Care Provider [phone] Reason for Visit * Reason Comments Skin Check * Consultation (Routine) - Closed Specialty Diagnoses / Procedures Referred By Wilfrid winston Referred To Contact Dermatology Diagnoses Unspecified contact dermatitis, unspecified cause Rash and other nonspecific skin eruption Contact Dermatitis, Rash; Est. Patient-Notes Received Procedures Consult Ottoniel Jovel DNP [address] [place] [address] Juan Alberto Nuñez MD [address] [place] [address], COUNTS INCLUDE [address] BEDS AT THE [facility] [address] Referral ID Status Reason Start Date Expiration Date V isits Requested Visits Authorized [id number] Closed Consult, Test & Treat PCP Updated and/or Approved 09/16/2020 03/18/2021 6 6 Encounter Details Date Type Department Care Team (Late st Contact Info) Description 11/23/2020 11:30 AM EDT Office Visit Dermatology at [address] [address] Juan Alberto Nuñez MD [address] [place] [address], COUNTS INCLUDE [address] BEDS AT THE [facility] [address] Dermatitis Social History Tobacco Use [...] able to find an apartment in the [facility] which have just been refurbished, or an apartment will come become free as the prior [facility] apartment tenants moved back in to these [...] cause documented in this encounter Care Teams Welder Production Line Gas Relationship Specialty Start Date End Date Ottoniel Jovel DNP PCP - General Family Medicine 03/25/19 05/04/21 documented as of this encounter
--- OUTSIDE RECORDS SUMMARY | 2024-04-21 10:49 | XMS_ITS | Encounter Summary ---
[place] [address] Care Team Providers Care Toe Puncher Name Role Phone BeckaOttoniel balderas Jamesjolynn CARLEE Primary Care Provider [phone] Reason for Visit * Reason Onset Date Comments Prior Authorization 10/01/2020 fluticasone furoate-vilanteroL (Breo Ellipta) 100-25 mcg/dose Disk with Device Encounter Details Date Type Department Care Team (Late st Contact Info) Description 10/01/2020 [place] [phone] Cuca Gonzales LNA Prior Authorization (fluticasone furoate-vilanteroL [...] Authorization for Primary [place] [address] DENIED: Breo Ellipta Case/Reference #: [id number] Additional Information from Insurance: The patient must have had a treatment failure to any 2 of the following: Advair HFA, Advair diskus, Dulera or Symbicort. * Telephone Encounter - Cuca Gonzales LNA - 10/01/2020 11:02 AM EDT Medication Prior Authorization for [place] [address] Request received via: Literably Patient: Chika Santos Patient : 1965 Insurance Company: [place] [employer]icaid Sent via: Mesuro Phone: Montesinos: [id number] Physician: Gurmeet Tam MD Medication Requested:fluticasone furoate-vilanteroL (Breo Ellipta) 100-25 mcg/dose Disk with Device Frequency/Sig: Inhale 1 puff into the lungs daily. 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 Prior medications trialed in this patient: Medication: QVar Medication: Albuterol Additional Notes: Allergy to Spiriva Respimat (tiotropium [place]) documented in this encounter Plan of Treatment Not on file documented as of this encounter Visit Diagnoses Not on filedocumented in this encounter Care Teams Toe Puncher Relationship Specialty Start Date End Date Ottoniel Jovel DNP PCP - General Family Medicine 03/25/19 05/04/21 documented as of this encounter
--- OUTSIDE RECORDS SUMMARY | 2024-04-21 10:49 | XMS_ITS | Encounter Summary ---
[place] [address] Care Team Providers Care Software Program Manager Name Role Phone Ottoniel Jovel DNP Primary Care Provider Encounter Details Date Type Department Care Team (Late st Contact Info) Description 09/16/2020 [place] [phone] Mary Jo Pino Social History Tobacco Use [...] filedocumented in this encounter Care Teams Software Program Manager Relationship Specialty Start Date End Date Ottoniel Jovel DNP PCP - General Family Medicine 03/25/19 05/04/21 documented as of this encounter
--- OUTSIDE RECORDS SUMMARY | 2024-04-21 10:49 | XMS_ITS | Encounter Summary ---
[place] [address] Care Team Providers Care Information And Data Architect Analyst Name Role Phone Debbie Webber APRN Primary Care Provider + Reason for Visit * Reason Comments Skin Check Encounter Details Date Type Department Care Team (Late st Contact Info) Description 01/27/2014 10:30 AM EDT Office Visit Dermatology at [place] [address] [facility] [place] [phone] Juan Alberto Nuñez MD [address] [facility] [place] [address] Intertrigo (Primary Dx) Social History Tobacco Use [...] from the original note were not included. [facility] Tinea Versicolor: After Your Visit Your Care Instructions Tinea versicolor is a skin infection caused by a yeast (fungus). It causes many small spots, usually on the chest and back. The spotted skin can be flaky or scaly. The spots do not pepe in the sun, sothey are molding associate than the skin around them. Some spots [...] Where can you learn more? Visit our [employer] information library at [email or web address] Technologiesinfo You can also view health information on [employer], your personal patient account. Log in or sign up today. Enter K490 in the search box to learn more about Tinea Versicolor: After Your Visit. ?? [id number] [employer]. Care instructions adapted under license by [facility]. This care instruction is for use with your licensed healthcare professional. If you have questions about a medical condition or this instruction, always ask your healthcare professional. [employer] disclaims any warranty or liability for your use of this information. Content Version: 9.9.045963; Last Revised: April 18, 2011 documented in [...] Chronic intertrigo. a. Will refer patient to [facility] in consultation regarding a potential [...] condition documented in this encounter Care Teams Information And Data Architect Analyst Relationship Specialty Start Date End Date Debbie Webber APRN PCP - General 04/26/10 03/24/19 documented as of this encounter
--- OUTSIDE RECORDS SUMMARY | 2024-04-21 10:49 | XMS_ITS | Encounter Summary ---
[place] [address] Care Team Providers Care Clinical Social Work Aide Name Role Phone Ottoniel Jovel DNP Primary Care Provider [phone] Encounter Details Date Type Department Care Team (Late st Contact Info) Description 09/09/2020 Telephone [place] [phone] Mary Jo Pino Social History Tobacco Use [...] filedocumented in this encounter Care Teams Clinical Social Work Aide Relationship Specialty Start Date End Date Ottoniel Jovel DNP PCP - General Family Medicine 03/25/19 05/04/21 documented as of this encounter
--- OUTSIDE RECORDS SUMMARY | 2024-04-21 10:49 | XMS_ITS | Encounter Summary ---
Author Organization [facility] [place] [address] Care Team Providers Care Nitro Man Name Role Phone Ottoniel Jovel DNP Primary Care Provider [phone] Encounter Details Date Type Department Care Team (Late st Contact Info) Description 11/23/2020 Refill Dermatology at [address] [place] [address] Mayela Bell, PASSENGER LOCOMOTIVE ENGINEER Social History Tobacco Use Types Packs/Day Years [...] on filedocumented in this encounter Care Teams Nitro Man Relationship Specialty Start Date End Date Ottoniel Jovel DNP PCP - General Family Medicine 03/25/19 05/04/21 documented as of this encounter
--- OUTSIDE RECORDS SUMMARY | 2024-04-21 10:49 | XMS_ITS | Encounter Summary ---
Author Organization [facility] [place] [address] Care Team Providers Care Geophysical Engineer Name Role Phone Ottoniel Jovel DNP Primary Care Provider +[phone] Reason for Visit * Reason Onset Date Comments Medication Refill 10/01/2020 Nicotine Lozen ge Rx Encounter Details Date Type Department Care Team (Late st Contact Info) Description 10/01/2020 [place] [address] Gurmeet Tam MD [facility] [place] [address] Smoking greater than 40 pack years (Primary [...] syndrome documented in this encounter Care Teams Geophysical Engineer Relationship Specialty Start Date End Date Ottoniel Jovel DNP PCP - General Family Medicine 03/25/19 05/04/21 documented as of this encounter
--- OUTSIDE RECORDS SUMMARY | 2024-04-21 10:49 | XMS_ITS | Encounter Summary ---
[place] [address] Care Team Providers Care Plastic Die Maker Apprentice Name Role Phone Ottoniel Jovel DNP Primary Care Provider Encounter Details Date Type Department Care Team (Late st Contact Info) Description 10/01/2020 [place] [phone] Mary Jo Pino Social History Tobacco Use [...] on filedocumented in this encounter Care Teams Plastic Die Maker Apprentice Relationship Specialty Start Date End Date Ottoniel Jovel DNP PCP - General Family Medicine 03/25/19 05/04/21 documented as of this encounter
--- OUTSIDE RECORDS SUMMARY | 2024-04-21 10:49 | XMS_ITS | Encounter Summary ---
[place] [address] Care Team Providers Care Glass Unloading Equipment Tender Name Role Phone Debbie Webber APRN Primary Care Provider + Reason for Visit * Reason Comments Abdominal Pain Encounter Details Date Type Department Care Team (Late st Contact Info) Description 12/26/2013 11:04 AM EDT - 12/26/2013 2:40 PM EDT [place] [address] Elise Gudino MD [facility] [place] [address] Abundio Stapleton MD [facility] [place] [address] Chronic epigastric pain Discharge Disposition: Home Social [...] not included. 1. Please follow-up with a car washer for your stomach pain. 2. If you pain becomes suddenly worse, if you experience bloody vomiting or stools, or if you become feverish, please seek medical attention. Thank you for entrusting us with your care. [facility] Abdominal Pain: After Your Visit Your Care [...] more? Visit our health information library at [email or web address] You can also view health information on MonkeyFind, your personal patient account. Log in or sign up today. Enter E907 in the search box to learn more about Abdominal Pain: After Your Visit. ?? [phone] whoactually, [employer]. Care instructions adapted under license by [facility]. This care instruction is for use with your licensed healthcare professional. If you have questions about a medical condition or this instruction, always ask your healthcare professional. Healthwise, [employer] disclaims any warranty or liability for your use of this information. Content Version: 9.9.633941; Last Revised: 2011 documented in this encounter [...] for follow-up. Abdiel English MD Resident 12/26/13 5024 History Social History ??? Marital Status: Single [...] Plan: Followup PCP. Elise Gudino MD 12/26/13 3880 documented in this encounter Miscellaneous Notes * Discharge Summary - Provider, Scanning - 12/29/2013 8:49 AM EDT * Miscellaneous - Provider, Scanning - 12/26/2013 7:45 PM EDT * ED Triage - Sadie Rosas RN - 12/26/2013 11:24 AM EDT Patient presents to [facility] ED with c/o abdominal pain, nausea and [...] 12/26/2013 1:30 PM EDT STOOL CULTURE SCREEN ([facility]/CGP/APD/NLH) Routine 12/26/2013 1:26 PM EDT CAMPYLOBACTER ANTIGEN [...] Tube HOLD (12/26/2013 1:30 PM EDT) Pathologist [facility] Blue Hold Sample in lab. RAMU VALLESIUM [...] MD HEMATOLOGY ORDERABLE S Performing Organization Address [facility]/ZIP Co de Phone Number [facility] GNEEENNIUM * Lipase (12/26/2013 1:30 PM EDT) Lipase 36 0 - 60 unit/L CERNER MILLENNIUM Blood specimen (specimen) 12/26/2013 1:30 PM EDT 12/26/2013 1:47 PM EDT Narrative Resulting Agency Comment Spec In Lab Elise Gudino MD CHEMISTRY ORDERABLES Performing Organization Address [facility] Co de Phone Number [facility]ENE[facility] * Hepatic Function Panel (12/26/2013 [...] Gudino MD CHEMISTRY ORDERABLES Performing Organization Address [facility] Co de Phone Number [facility] GENECARONDELET [facility] * Basic Metabolic Panel (non-fasting) (12/26/2013 1:30 PM EDT) Glucose 112 60 - 199 mg/dL CERNER MILLENNIUM Comment:Diabetes: >=200 mg/d L plus symptoms Blood Urea Nitrogen 13 8 - 18 mg/dL CERNER MILLENNIUM Creatinine 0.84 0.70 - 1.20 mg/dL CERNER MILLENNIUM Comment: Please note that the pediatric reference intervals supplied above were not validated at [facility]. Results from pediatric patients should be interpreted [...] the following links into your internet browser. [email or web address] CITYnkf Blood specimen (specimen) 12/26/2013 1:30 PM EDT 12/26/2013 1:47 PM EDT Narrative Resulting Agency Comment Spec In Lab Elise Gudino MD CHEMISTRY ORDERABLES RAMU CRESPO * Shiga Toxin Detection (12/26/2013 1:26 PM EDT) Shiga Toxin Assay ? Patient Name: CHIKA SANTOS ? Ordered By: ELISE GUDINO ? MR#: [id number] ?LOC: ??ED ? /Sex: ??1965 (48 years), ? Female ? PROCEDURE: Shiga Toxin Assay ?SOURCE: Stool ? COLLECTED: 12/26/2013 13:26 ? STARTED: 12/26/2013 13:56 ? FINAL REPORT ? Final Report ? Verified: 15:09 ? EIA Negative for Shiga Toxin 1 ? EIA Negative for Shiga Toxin 2 ? ___ ? ___ CERNER MILLCARONDELET ST[facility]ITAL[facility]UM Stool specimen (specimen) 12/26/2013 1:26 PM EDT 12/26/2013 1:56 PM EDT Narrative Resulting Agency Comment Spec In Lab Elise Gudino MD MICROBIOLOGY - GENER AL ORDERABLES [facility] * Campylobacter Antigen (12/26/2013 1:26 PM EDT) Campylobacter Ag ? Patient Name: CHIKA SANTOS ? Ordered By: ELISE GUDINO ? MR#: [id number] ?LOC: ??ED ? /Sex: ??1965 (48 years), ? Female ? PROCEDURE: Campylobacter Antigen ?SOURCE: Stool ? COLLECTED: 12/26/2013 13:26 ? STARTED: 12/26/2013 13:56 ? FINAL REPORT ? Final Report ? Verified: 014 15:10 ? Immunoassay Negative for Campylobacter Antigen ? [facility] Stool specimen (specimen) 12/26/2013 1:26 PM EDT 12/26/2013 1:56 PM EDT Narrative Resulting Agency Comment Spec In Lab Elise Gudino MD MICROBIOLOGY - GENER AL ORDERABLES [facility] * Stool culture (12/26/2013 1:26 PM EDT) Stool Culture ? Patient Name: CHIKA SANTOS ? Ordered By: ELISE GUDINO ? MR#: [id number] ?LOC: ??ED ? /Sex: ??1965 (48 years), ? Female ? PROCEDURE: Stool Culture ?SOURCE: Stool ? COLLECTED: 12/26/2013 13:26 ? STARTED: 12/26/2013 13:56 ? FINAL REPORT ? Final Report ? Verified:01/10/20 14 12:04 ? Salmonella species, Group B isolated ? Identification performed by [facility], [place], [place]. ? PRELIMINARY REPORT ? Preliminary Report ? Verified:12/29/19 14 14:41 ? possible Salmonella species, Group B isolated ? Confirmation to follow. ? SUSCEPTIBILITY RESULTS ? Salmonella species ? _ ? RADHA Interp ? Ampicillin ?S ? Ciprofloxacin ? S ? Trimethoprim/Sulf a ?S ? S=Susceptible ??I=Intermediate ??R=Resistant ??NA=Not Applicable ? DDS=Dose dependent-suscept ible ??NS=Non-suscepti ble ? Patient: CHIKA SANTOS ? MR#: [id number] ? .Stool Culture ?Interpretive Results ? This [...] Urine Dipstick Hazy(A) Clear CERNER MILLENNIUM Specific [place] Urine Automated 1.019 1.002 - 1.030 CERNER [...] unspecified documented in this encounter Care Teams Glass Unloading Equipment Tender Relationship Specialty Start Date End Date Debbie Webber APRN PCP - General 04/26/10 03/24/19 documented as of this encounter
--- OUTSIDE RECORDS SUMMARY | 2024-04-21 10:49 | XMS_ITS | Encounter Summary ---
[place] [address] Care Team Providers Care Cotton Ginner Name Role Phone Ottoniel Jovel CARLEE Primary Care Provider [phone] Reason for Visit * Reason Onset Date Comments Prior Authorization 10/01/2020 umeclidinium (Incruse Ellipta) 62.5 mcg/actuation Disk with Device Encounter Details Date Type Department Care Team (Late st Contact Info) Description 10/01/2020 Telephone [place] [phone] Cuca Gonzales LNA Prior Authorization (umeclidinium (Incruse [...] Date: 10/01/20 End Date: 10/01/21 Case/Reference #: [id number] See Approval Letter in scanned documents. Additional Notes: * Telephone Encounter - Cuca Gonzales LNA - 10/01/2020 10:27 AM EDT Medication Prior Authorization for Primary [place] [address] Request received via: inCrowdTransfer Patient: Chika Santos Patient : 1965 Insurance Company: [place] Medicaid Sent via: [employer] Phone: Montesinos: [id number] Physician: Gurmeet Tam MD Medication Requested: umeclidinium (Incruse Ellipta) 62.5 mcg/actuation Disk with Device Frequency/Sig: Inhale 62.5 mcg into the lungs daily. 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
--- OUTSIDE RECORDS SUMMARY | 2024-04-21 10:49 | XMS_ITS | Encounter Summary ---
Author Organization [facility] [place] [address] Care Team Providers Care Sped Teacher Name Role Phone Ottoniel Jovel DNP Primary Care Provider [phone] Reason for Visit * Reason Onset Date Comments Other 10/18/2020 f/u to Breo Henna well logging captain mud analysis Encounter Details Date Type Department Care Team (Late st Contact Info) Description 10/18/2020 [place] [phone] Ling Mtz RN Other (f/u to Breo [...] a $0 co-pay. I have instructed Ptto pecan picker the inhaler adrianna and also request a pharmacist consultation. Pt verbally agrees to this plan. Ling Mtz RN Department of Pulmonary 5C, [facility] / Pager: [phone] documented in this encounter Plan of Treatment Not on file documented as of this encounter Visit Diagnoses Not on filedocumented in this encounter Care Teams Sped Teacher Relationship Specialty Start Date End Date Ottoniel Jovel DNP PCP - General Family Medicine 03/25/19 05/04/21 documented as of this encounter
--- OUTSIDE RECORDS SUMMARY | 2024-04-21 10:49 | XMS_ITS | Encounter Summary ---
Author Organization [facility] [place] [address] Care Team Providers Care Sales Special Agent Name Role Phone Ottoniel Jovel DNP Primary Care Provider [phone] Encounter Details Date Type Department Care Team (Late st Contact Info) Description 10/04/2020 Orders [place] [address] Gurmeet Tam MD [facility] [place] [address] Social History Tobacco Use Types Packs/Day Years [...] on filedocumented in this encounter Care Teams Sales Special Agent Relationship Specialty Start Date End Date Ottoniel Jovel DNP PCP - General Family Medicine 03/25/19 05/04/21 documented as of this encounter
--- OUTSIDE RECORDS SUMMARY | 2024-04-21 10:49 | XMS_ITS | Encounter Summary ---
[place] [address] Care Team Providers Care Pigment And Lacquer Mixer Name Role Phone Ottoniel Jovel DNP Primary Care Provider [phone] Encounter Details Date Type Department Care Team (Late st Contact Info) Description 10/18/2020 Orders [place] [phone] Ling Mtz RN Social History Tobacco Use [...] on filedocumented in this encounter Care Teams Pigment And Lacquer Mixer Relationship Specialty Start Date End Date Ottoniel Jovel DNP PCP - General Family Medicine 03/25/19 05/04/21 documented as of this encounter
--- OUTSIDE RECORDS SUMMARY | 2024-04-21 10:49 | XMS_ITS | Encounter Summary ---
[place] [address] Care Team Providers Care Oil Filters Inspector Name Role Phone Ottoniel Jovel DNP Primary Care Provider Encounter Details Date Type Department Care Team (Late st Contact Info) Description 08/31/2020 Telephone [place] [phone] Mary Jo Pino Social History Tobacco Use [...] on filedocumented in this encounter Care Teams Oil Filters Inspector Relationship Specialty Start Date End Date Ottoniel Jovel DNP PCP - General Family Medicine 03/25/19 05/04/21 documented as of this encounter
--- OUTSIDE RECORDS SUMMARY | 2024-04-21 10:49 | XMS_ITS | Encounter Summary ---
[place] [address] Care Team Providers Care Cell Biologist Name Role Phone Ottoniel Jovel DNP Primary Care Provider [phone] Reason for Visit * Reason Onset Date Comments Prior Authorization 10/14/2020 Brevilma Dumont Encounter Details Date Type Department Care Team (Late st Contact Info) Description 10/14/2020 [place] [phone] Enma Howe CMA Prior Authorization (Win Dumont) [...] CMA - 10/18/2020 10:10 AM EDT Per [place] medicaid: member already has an approval on file until 10/14/2021. * Telephone Encounter - Enma Howe CMA - 10/14/2020 11:21 AM EDT Medication Prior Authorization for Primary Care ?? [place] [address] Request received via: inCiDRA ?? Patient: Chika Santos ?? Patient : 1965 ?? Insurance Company: [place] medicaid ?? Sent via: [facility] ?? Montesinos:[id number] ? Physician: Gurmeet Tam MD ?? Medication [...] Additional Notes: Allergy to Spiriva Respimat (tiotropium [place]) ?? documented in this encounter Plan of Treatment Not on file documented as of this encounter Visit Diagnoses Not on filedocumented in this encounter Care Teams Cell Biologist Relationship Specialty Start Date End Date Ottoniel Jovel DNP PCP - General Family Medicine 03/25/19 05/04/21 documented as of this encounter
--- OUTSIDE RECORDS SUMMARY | 2024-04-21 10:49 | XMS_ITS | Encounter Summary ---
Author Organization [facility] [place] [address] Care Team Providers Care Residential Recycle Driver Name Role Phone Ottoniel Jovel DNP Primary Care Provider Encounter Details Date Type Department Care Team (Latest Contact Info) Description 10/07/2019 9:34 PM EDT - 10/07/2019 11:59 PM EDT Hospital [place] [phone] Discharge Disposition: Home Social History Tobacco Use [...] EDT) SARS-CoV-2 RNA Not Detected Not Detected [facility] Comment: This result should be interpreted in combination with the clinical observations, patient history and epidemiological information. For testing of asymptomatic individuals, assay performance characteristics and clinical utility have not been evaluated. Testing for SARS-CoV-2 (Severe acute respiratory syndrome coronavirus 2, formerly known as 2019 novel coronavirus or 2019-nCoV) to aid in the diagnosis of COVID-19 is performed using the [employer] RealTime SARS-CoV-2 as authorized by the FDA Emergency Use Authorization (EUA). This EUA assay is intended for In-vitro Diagnostic (IVD) use with respiratory specimens such as nasopharyngeal swabs collected from individuals during the acute phase of infection. This assay is performed based on the instructions for use provided by the [employer] and additional guidance provided by CDC and FDA. Testing is performed in the [facility] Laboratory within the Department of Pathology and Laboratory Medicine at [facility], certified under the Clinical Laboratory Improvement Amendments [...] fact sheets at the following FDA website: https://www.fda.gov/medical-devices/wvdoucwjw-gqntsepgwg-igissdy-devices/emergen -us e-authorizations#sjkfh73ohm SARS-CoV-2 RNA Source SWITCHING CLERK Swab [facility] Nasopharyngeal swab (specimen) Other / Unknown 10/07/2019 10:45 AM EDT 10/08/2019 6:40 AM EDT Narrative Resulting Agency Comment Spec In Lab Dimitris Milton DO MOLECULAR ORDERABLES [facility] [place] [address] documented in this encounter Visit Diagnoses Not on filedocumented in this encounter Care Teams Residential Recycle Driver Relationship Specialty Start Date End Date Ottoniel Jovel DNP PCP - General Family Medicine 03/25/19 05/04/21 documented as of this encounter
--- OUTSIDE RECORDS SUMMARY | 2024-04-21 10:49 | XMS_ITS | Encounter Summary ---
[place] [address] Care Team Providers Care Lay Up Operator Name Role Phone Ottoniel Jovel DNP Primary Care Provider Encounter Details Date Type Department Care Team (Late st Contact Info) Description 10/19/2020 [place] [phone] Mary Jo Pino Social History Tobacco Use [...] on filedocumented in this encounter Care Teams Lay Up Operator Relationship Specialty Start Date End Date Ottoniel Jovel DNP PCP - General Family Medicine 03/25/19 05/04/21 documented as of this encounter
--- OUTSIDE RECORDS SUMMARY | 2024-04-21 10:49 | XMS_ITS | Encounter Summary ---
[place] [address] Care Team Providers Care Supervisor Sound Technician Name Role Phone Ottoniel Jovel DNP Primary Care Provider [phone] Reason for Visit * Reason Onset Date Comments Prior Authorization 10/04/2020 PA denied fo r Breo Ellipta Encounter Details Date Type Department Care Team (Late st Contact Info) Description 10/04/2020 [place] [phone] Ling Mtz RN Prior Authorization (PA denied [...] EDT DENIED: Breo Ellipta ?? Case/Reference #: [id number] ?? Additional Information from Insurance: The patient must have had a treatment failure to any 2 of the following: Advair HFA, Advair diskus, Dulera or Symbicort. Pt has already tried and failed Symbicort, ineffective. MD will need to write new Rx for Dulera or Advair. I will reach out to MD for new Rx. Ling Mtz RN Department of Pulmonary 5C, [facility] / Pager: [phone] documented in this encounter Plan of Treatment Not on file documented as of this encounter Visit Diagnoses Not on filedocumented in this encounter Care Teams Supervisor Sound Technician Relationship Specialty Start Date End Date Ottoniel Jovel DNP PCP - General Family Medicine 03/25/19 05/04/21 documented as of this encounter
--- OUTSIDE RECORDS SUMMARY | 2024-04-21 10:49 | XMS_ITS | Encounter Summary ---
Author Organization [facility] [place] [address] Care Team Providers Care Stationary Engineer Refrigeration Name Role Phone Ottoniel Jovel DNP Primary Care Provider +[phone] Encounter Details Date Type Department Care Team (Late st Contact Info) Description 03/29/2020 Ancillary Procedure Radiology Library at [facility] [place] [address] Gurmeet Tam MD [facility] [address] Social History Tobacco Use Types Packs/Day Years [...] CT Chest (03/29/2020 12:00 AM EDT) Narrative RAD - 10/19/2020 9:28 PM EDT This exam is auto-finalizing. It's purpose is for storage only. Gurmeet Tam MD IMG FILM LIBRARY O RDERABLES [place], [place] documented in this encounter Visit Diagnoses Not on filedocumented in this encounter Care Teams Stationary Engineer Refrigeration Relationship Specialty Start Date End Date Ottoniel Jovel DNP PCP - General Family Medicine 03/25/19 05/04/21 documented as of this encounter
--- OUTSIDE RECORDS SUMMARY | 2024-04-21 10:49 | XMS_ITS | Encounter Summary ---
[place] [address] Care Team Providers Care Bell Maker Name Role Phone Ottoniel Jovel DNP Primary Care Provider Encounter Details Date Type Department Care Team (Late st Contact Info) Description 08/24/2020 Telephone [place] [phone] Ling Miranda Social History Tobacco Use Types [...] on filedocumented in this encounter Care Teams Bell Maker Relationship Specialty Start Date End Date Ottoniel Jovel DNP PCP - General Family Medicine 03/25/19 05/04/21 documented as of this encounter
--- OUTSIDE RECORDS SUMMARY | 2024-04-21 10:49 | XMS_ITS | Encounter Summary ---
Author [facility] [place] [address] Care Team Providers Care Lead Technician Name Role Phone Ottoniel Jovel DNP Primary Care Provider [phone] Reason for Visit * Reason Onset Date Comments Other 10/19/2020 LVM regarding Br eo & schedule f/u Encounter Details Date Type Department Care Team (Late st Contact Info) Description 10/19/2020 [place] [phone] Ling Mtz RN Other (LVM regarding Breo [...] Ling Mtz RN Department of Pulmonary 5C, [facility] / Pager: [phone] documented in this encounter Plan of Treatment Not on file documented as of this encounter Visit Diagnoses Not on filedocumented in this encounter Care Teams Lead Technician Relationship Specialty Start Date End Date Ottoniel Jovel DNP PCP - General Family Medicine 03/25/19 05/04/21 documented as of this encounter
--- OUTSIDE RECORDS SUMMARY | 2024-04-21 10:49 | XMS_ITS | Encounter Summary ---
Author Organization [facility] [place] [address] Care Team Providers Care Stock Shipper Name Role Phone Debbie Webber APRN Primary Care Provider + Encounter Details Date Type Department Care Team (Late st Contact Info) Description 01/03/2019 Ancillary Procedure Radiology Library at [facility] [place] [address] Gurmeet Tam MD [facility] [place] [address] Social History Tobacco Use Types Packs/Day Years [...] CT Chest (01/03/2019 12:00 AM EDT) Narrative [facility] - 10/19/2020 9:27 PM EDT This exam is auto-finalizing. It's purpose is for storage only. Gurmeet Tam MD IMG FILM LIBRARY O RDERABLES [place], [place] documented in this encounter Visit Diagnoses Not on filedocumented in this encounter Care Teams Stock Shipper Relationship Specialty Start Date End Date Debbie Webber APRN PCP - General 04/26/10 03/24/19 documented as of this encounter
--- OUTSIDE RECORDS SUMMARY | 2024-04-21 10:49 | XMS_ITS | Encounter Summary ---
Author Organization [facility] [place] [address] Care Team Providers Care Charger Tester Name Role Phone Ottoniel Jovel DNP Primary Care Provider Encounter Details Date Type Department Care Team (Late st Contact Info) Description 08/31/2020 [place] [address] Jerald Restrepo MD [facility] [place] [address] Pulmonary emphysema, unspecified emphysema type (Primary Dx) [...] Primary documented in this encounter Care Teams Charger Tester Relationship Specialty Start Date End Date Ottoniel Jovel DNP PCP - General Family Medicine 03/25/19 05/04/21 documented as of this encounter
--- OUTSIDE RECORDS SUMMARY | 2024-04-21 10:49 | XMS_ITS | Encounter Summary ---
[place] [address] Care Team Providers Care Mine Administrator Supervisor Name Role Phone Ottoniel Jovel DNP Primary Care Provider [phone] Reason for Visit * Reason Onset Date Comments Prior Authorization 10/01/2020 Pa needed fo r Breo & Incruse Encounter Details Date Type Department Care Team (Late st Contact Info) Description 10/01/2020 Telephone [place] [phone] Ling Mtz RN Prior Authorization (Pa needed [...] 10/01/2020 10:07 AM EDT I have called [facility] in regards to MYD-H message received via Pt. [facility] tells me the Breo & Incruse will need a PA from insurance. I will submit the request to our PA department now. [facility] also tells me that the Nicotine Lozenge Rx will need to be re-written with dosing instructions and Qty adjustment per box. I will re-write Rx per [facility] request. Ling Mtz, MARIAM Department of Pulmonary 5C, [facility] / Pager: [phone] documented in this encounter Plan of Treatment Not on file documented as of this encounter Visit Diagnoses Not on filedocumented in this encounter Care Teams Mine Administrator Supervisor Relationship Specialty Start Date End Date Ottoniel Jovel DNP PCP - General Family Medicine 03/25/19 05/04/21 documented as of this encounter
--- OUTSIDE RECORDS SUMMARY | 2024-04-21 10:49 | XMS_ITS | Encounter Summary ---
[place] [address] Care Team Providers Care Costuming Supervisor Name Role Phone Ottoniel Jovel DNP Primary Care Provider Encounter Details Date Type Department Care Team (Late st Contact Info) Description 08/26/2020 [place] [phone] Ling Miranda Social History Tobacco Use Types [...] on filedocumented in this encounter Care Teams Costuming Supervisor Relationship Specialty Start Date End Date Ottoniel Jovel DNP PCP - General Family Medicine 03/25/19 05/04/21 documented as of this encounter
--- OUTSIDE RECORDS SUMMARY | 2024-04-21 10:49 | XMS_ITS | Encounter Summary ---
[place] [address] Care Team Providers Care Software Deployment Engineer Name Role Phone Mi Tyler Primary Care Provider [phone] Encounter Details Date Type Department Care Team (Late st Contact Info) Description 06/09/2021 [place] [phone] Mary Jo Pino Social History Tobacco Use [...] filedocumented in this encounter Care Teams Software Deployment Engineer Relationship Specialty Start Date End Date Mi Tyler PA [address] [place] [address] PCP - General Family Medicine 05/05/21 documented as of this encounter
--- OUTSIDE RECORDS SUMMARY | 2024-04-21 10:49 | XMS_ITS | Encounter Summary ---
[place] [address] Care Team Providers Care Scientific Diver Name Role Phone Ottoniel Jovel DNP Primary Care Provider [phone] Encounter Details Date Type Department Care Team (Late st Contact Info) Description 10/12/2020 [place] [phone] Stacie Hayes RN Social History Tobacco Use [...] and albuterol. Called Chika back, advised to crop picker the advair. She stated she has used the advair in the past and it caused a rash. Prescribed by her PCP. At [facility]. Called her PCP, documented rash after using advair 04/2019. documented in this encounter Plan of Treatment Not on file documented as of this encounter Visit Diagnoses Not on filedocumented in this encounter Care Teams Scientific Diver Relationship Specialty Start Date End Date Ottoniel Jovel DNP PCP - General Family Medicine 03/25/19 05/04/21 documented as of this encounter
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
[2024-04-21 12:15] VITALS: BP 114/85; PULSE 69; RESP 18; O2SAT 98
== END 2024-04-21 12:17 | disposition home or self-care (01) ==
PROVIDERS: Emergency Provider Physician Assistant; PCP Physician Assistant Medical
DX: B35.4 Tinea corporis (principal); E11.9 Type 2 diabetes mellitus without complications; F17.200 Nicotine dependence, unspecified, uncomplicated
CPT/HCPCS: 99283

== ENCOUNTER 2024-05-29 00:07 | Outpatient (CLI) | payer MEDICAID, SELFPAY ==
--- NOTE | 2024-05-29 | DI.CTLCSR_ITS ---
Exam(s) CT CHEST LUNG CANCER SCREEN EXAM: CT CHEST LUNG CANCER SCREEN CLINICAL HISTORY: F17.210 Nicotine dependence, cigarettes, uncomplicated TECHNIQUE: Imaging Protocol: Axial computed tomography images with coronal and sagittal reformatted images were created and reviewed. Low dose screening protocol. COMPARISON: CT CT CHEST W from 03/29/2020 FINDINGS: Tracheobronchial tree: No bronchiectasis or mucus plugging. Mediastinum and Leilani: No dominant adenopathy or fluid collection. Pulmonary parenchyma: No consolidation or dominant measurable mass. No visible emphysematous changes. No significant interstitial changes. Left basilar atelectasis. Lung Nodules: No suspicious pulmonary nodules. Pleura: No effusion. No pneumothorax. Heart: The heart is not dilated. Minimal coronary artery calcifications are seen. No pericardial effu zheng. Aorta: Thoracic aorta non-dilated. Upper abdomen: Status post cholecystectomy. Stable bilateral adrenal adenomas. Bones: Unremarkable for age. Soft Tissues: Unremarkable. IMPRESSION: No suspicious pulmonary nodules. Lung RADS Cat 1 - Negative: No nodules and definitely benign nodules Lung-RADS 1.0 CATEGORIES: Category 0 - Prior chest CT exam(s) being located for comparison. Category 1 - Annual screening in 12 months. No nodules or definitely benign nodules. Category 2 - Annual screening in 12 months. Benign appearance. Nodules with low likelihood of becomin g active cancer. Category 3 - 6-month follow-up. Probably benign. Short-term follow-up suggested. Nodules with low lik elihood of becoming active cancer. Category 4A - 3-month follow-up and CT/PET if >8 mm in size. Suspicious finding. Findings which requi re additional testing. Category 4B - Findings which require additional testing and tissue sampling. Category 4X - Category 3 or 4 nodules with additional features or imaging findings that increases the suspicion of malignancy. Modifier S- Potentially clinically significant findings (non lung cancer) RADIATION DOSE DELIVERED: !Error Total DLP DATA REPOSITORY: All CT scans at this facility are submitted to the National Radiology Data Registry (NRDR) Dose Index Registry (DIR) with the [employer] (ACR). RADIATION OPTIMIZATION: All CT scans at this facility use at least one of these dose optimization te chniques: automated exposure control; mA and/or kV adjustment per patient size (includes targeted exa ms where dose is matched to clinical indication); or iterative reconstruction.
--- OUTSIDE RECORDS SUMMARY | 2024-05-29 00:10 | XMS_ITS | Encounter Summary ---
Author Organization [facility] Address [address] [place] [address] Care Team Providers Care Reproduction Artist Name Role Phone Unknown, Provider Primary Care Provider Debbie Samuel SALES SERVICE SUPERVISOR Unavailable [phone] Encounter Details Date Type Department Care Team (Late st Contact Info) Description 12/10/2019 Lab Requisition [facility] Pathology & Laboratory Medicine - [address] [id number] Outr Resulting Lab, Provider Social History Tobacco [...] 9:00 EDT) Hold Hold 12/10/2019 22:16 EDT [facility] Blood VENOUS BLOOD / Unknown 12/10/2019 9:00 EDT 12/10/2019 21:08 EDT us Provider Outr Resulting Lab LAB INFO SERVICE AND SUPPORT & PHONE RESULT Final Result [facility] [address] [place] [address] * SYPHILIS SEROLOGY (12/10/2019 9:00 EDT) Syphilis Serology Negative Negative 12/11/2019 11:20 EDT [facility] Blood VENOUS BLOOD / Unknown 12/10/2019 9:00 EDT 12/10/2019 21:08 EDT us Provider Outr Resulting Lab IMMUNOLOGY AND SEROL OGY ORDERABLES Final Result Performing Organization Address [facility] Co de Phone Number [facility] [address] [place] [address] documented in this encounter Visit Diagnoses Not on filedocumented in this encounter Care Teams Reproduction Artist Relationship Specialty Start Date End Date Unknown, Provider, PCP - General 02/18/19 Debbie Webber NP [address] [place] [address] [address] [place] [phone] 02/18/19 documented as of this encounter
--- OUTSIDE RECORDS SUMMARY | 2024-05-29 00:10 | XMS_ITS | Encounter Summary ---
Author Organization [facility] Address [address] [place] [address] Care Team Providers Care Mason Foreman/Superintendant Name Role Phone Leandro Cullen MD Primary Care Provider [phone] Encounter Details Date Type Department Care Team (Late st Contact Info) Description 09/01/2011 Results Only [facility] Laboratory Services - [facility] ([facility]) [address] [place], [place] [id number] Isidro Pulido, DO [address] [facility] ,[address] [place], [place] [id number] Social History Tobacco Use Types Packs/Day Years [...] ? PRISCILLA SANTOS ? Accession #: ? [id number] ? : ? 1965 (Age: 45) ??F ? Collect Date: ? 09/01/2011 ? Location: ? [facility] ? Receive Date: ? 09/01/2011 ? Provider: ISIDRO PULIDO DO Copy to: JOHNATHAN HEATHER EXPRESS CLERK ? Final Pathologic Diagnosis: A. ?Colon, 60 [...] ORDERABLES Fi nal Result Performing Organization Address City/State/[facility] Co de Phone Number [facility] [address] [place] [address] documented in this encounter Visit Diagnoses Not on filedocumented in this encounter Care Teams Mason Foreman/Superintendant Relationship Specialty Start Date End Date Leandro Cullen MD [address] [place] [address] PCP - General 08/01/11 09/03/11 documented as of this encounter
--- OUTSIDE RECORDS SUMMARY | 2024-05-29 00:10 | XMS_ITS | Encounter Summary ---
Author Organization [facility] Address [address] [place] [address] Care Team Providers Care Solar Mechanical Engineer Name Role Phone Debbie Webber NP Primary Care Provider Encounter Details Date Type Department Care Team (Late st Contact Info) Description 04/24/2012 Results Only Imaging [facility] [phone] Debbie Webber NP [address] [facility] [address] [place] [address] Social History Tobacco Use Types [...] on filedocumented in this encounter Care Teams Solar Mechanical Engineer Relationship Specialty Start Date End Date Debbie Webber NP [address] [place] [address] PCP - General 09/04/11 02/17/19 documented as of this encounter
--- OUTSIDE RECORDS SUMMARY | 2024-05-29 00:10 | XMS_ITS | Encounter Summary ---
Author Organization [facility] Address [address] [place] [address] Care Team Providers Care Supervisor Putty And Caluking Name Role Phone Debbie Webber NP Primary Care Provider Encounter Details Date Type Department Care Team (Late st Contact Info) Description 04/24/2012 Results Only Imaging [facility] [phone] Debbie Webber NP [address] [facility] [address] [place] [address] Social History Tobacco Use Types [...] filedocumented in this encounter Care Teams Supervisor Putty And Caluking Relationship Specialty Start Date End Date Debbie Webber NP [address] [place] [address] PCP - General 09/04/11 02/17/19 documented as of this encounter
--- OUTSIDE RECORDS SUMMARY | 2024-05-29 00:10 | XMS_ITS | Encounter Summary ---
Author Organization [facility] Address [address] [place] [address] Care Team Providers Care Supercalender Operator Helper Name Role Phone Unavailable Primary Care Provider Unavailabl e Encounter Details Date Type Department Care Team (Late st Contact Info) Description 05/10/2010 Results Only [facility] Laboratory Services - [facility] ([facility] [address] [place] [address] Debbie Webber, OMID [address] [place] [address] Social History Tobacco Use Types [...] ? PRISCILLA SANTOS ? Accession #: ? [id number] ? : ? 1965 (Age: 44) ??F ?Collect Date: ? 05/10/2010 ? Location: ? [facility] ? Receive Date: ? 05/11/2010 ? Provider: MANN HEATHER CONTINUOUS PICKLING LINE PICKLER ? Copy to: ? Final Report ? [...] [facility] GONZALE[facility] 05/10/2010 05/11/2010 us Debbie Webber CONTINUOUS PICKLING LINE PICKLER PATHOLOGY ORDERABLES Final R esult Performing Organization Address City/State/[facility] Co de Phone Number [facility] [address] [place] [address] documented in this encounter Visit Diagnoses Not on filedocumented in this encounter
--- OUTSIDE RECORDS SUMMARY | 2024-05-29 00:10 | XMS_ITS | Encounter Summary ---
Author Organization [facility] Address [address] [place] [address] Care Team Providers Care Media Supervisor Name Role Phone Unavailable Primary Care Provider Unavailabl e Encounter Details Date Type Department Care Team (Late st Contact Info) Description 07/28/2011 Results Only [facility] Laboratory Services - [facility] ([facility]) [address] [place], [place] [phone] Isidro Pulido, DO [address] [facility] [address] [place] [address] Social History Tobacco Use Types [...] ? PRISCILLA SANTOS ? Accession #: ? [id number] ? : ? 1965 (Age: 45) ??F ? Collect Date: ? 07/28/2011 ? Location: ? [facility] ? Receive Date: ? 07/28/2011 ? Provider: ISIDRO PULIDO DO Copy to: JOHNATHAN ROMERO FUNDER ? Final Pathologic Diagnosis: A. ?Colon, 35 [...] cm, submitted in toto as (G). (Rob Bloom)/[facility] End of Report [facility] 07/28/2011 07/28/2011 8:1 1 EST us Isidro Pulido DO PATHOLOGY ORDERABLES Fi nal Result [facility] [address] [place] [address] documented in this encounter Visit Diagnoses Not on filedocumented in this encounter
--- OUTSIDE RECORDS SUMMARY | 2024-05-29 00:10 | XMS_ITS | Encounter Summary ---
Author Organization [facility] Address [address] [place] [address] Care Team Providers Care Weapons Specialist Name Role Phone Unknown, Provider Primary Care Provider Debbie Samuel TANK CLEANING SUPERVISOR Unavailable [phone] Encounter Details Date Type Department Care Team (Late st Contact Info) Description 12/10/2019 Lab Requisition [facility] Pathology & Laboratory Medicine - [address] [id number] Outr Resulting Lab, Provider Social History Tobacco [...] 4th Generation Negative Negative 12/11/2019 10:51 EDT [facility] Comment: If acute HIV-1 infection is suspected in a high risk ??patient, submit plasma specimen for HIV-1 RNA quantitation test. Fourth Generation assay performed on the Siem[employer]. Blood VENOUS BLOOD / Unknown 12/10/2019 9:00 EDT 12/10/2019 21:12 EDT us Provider Outr Resulting Lab IMMUNOLOGY AND SEROL OGY ORDERABLES Final Result [facility] [address] [place] [address] documented in this encounter Visit Diagnoses Not on filedocumented in this encounter Care Teams Weapons Specialist Relationship Specialty Start Date End Date Unknown, Provider, PCP - General 02/18/19 Debbie Webber NP [address] [place] [address] [address] [place] [id number] 02/18/19 documented as of this encounter
--- OUTSIDE RECORDS SUMMARY | 2024-05-29 00:10 | XMS_ITS | Encounter Summary ---
Author Organization [facility] Address [address] [place] [address] Care Team Providers Care Car Greaser Name Role Phone Unknown, Provider Primary Care Provider Debbie Samuel PROVISIONING ANALYST Unavailable Encounter Details Date Type Department Care Team (Late st Contact Info) Description 12/10/2019 Lab Requisition [facility] Pathology & Laboratory Medicine - [address] [id number] Outr Resulting Lab, Provider Social History Tobacco [...] <3.1 See Note mIU/mL 12/11/2019 9:43 EDT [facility] Comment: Reference Range for Hep B Surface Ab, Quant: Positive: >= 10.0 mIU/mL Negative: ??< 10.0 mIU/mL Patient is presumed to not be immune to infection with Hepatitis B Virus. Hep B Surface Ab, Qualitative Negative See Note 12/11/2019 9:43 EDT [facility] Comment: Reference Range for Hep B Surface Ab, Qual: Unvaccinated: ??Negative Vaccinated: ??Positive Blood VENOUS BLOOD / Unknown 12/10/2019 9:00 EDT 12/10/2019 21:13 EDT us Provider Outr Resulting Lab CHEMISTRY & BLOOD GA S ORDERABLES Final Result [facility] [address] [place] [address] * HEPATITIS B SURFACE ANTIGEN (12/10/2019 9:00 EDT) Hep B Surface Ag Negative Negative 12/11/2019 9:51 EDT [facility] Blood VENOUS BLOOD / Unknown 12/10/2019 9:00 EDT 12/10/2019 21:13 EDT us Provider Outr Resulting Lab CHEMISTRY & BLOOD GA S ORDERABLES Final Result [facility] [address] [place] [address] * HEPATITIS C AB W REFLEX TO HCV RNA BY PCR (12/10/2019 9:00 EDT) Hep C Antibody Negative Negative 12/11/2019 10:32 EDT [facility] Blood VENOUS BLOOD / Unknown 12/10/2019 9:00 EDT 12/10/2019 21:12 EDT us Provider Outr Resulting Lab CHEMISTRY & BLOOD GA S ORDERABLES Final Result [facility] [address] [place] [address] documented in this encounter Visit Diagnoses Not on filedocumented in this encounter Care Teams Car Greaser Relationship Specialty Start Date End Date Unknown, Provider, PCP - General 02/18/19 Debbie Webber NP [address] [place] [address] [address] [place] [id number] 02/18/19 documented as of this encounter
--- OUTSIDE RECORDS SUMMARY | 2024-05-29 00:10 | XMS_ITS | Data Portability ---
Author Organization [facility] Address [address] [place] [address] Care Team Providers Care Medical Review Coordinator Name Role Phone MI FELDMAN Primary Care Provider Assessment No assessment recorded. Plan of Treatment Reminders Order Date Submit Date Provider Last Modified By Organization Details Last Modified Time Details Appointments Follow Up 30 2024 11:30A Socorro FELDMAN Not available Not available Not available Lab hemogl obin A1C, finger stick [address], [address] [place] [address], [address], 10/16/2023 15:57:13 magnes ium, serum or plasma [address] [facility] (Registration ), [address] [place] [address] [place], [address], 01/23/2024 10:54:22 HbA1c (hemog lobin A1c), blood [address] [facility] (Registration ), [address] [place] [address] [place], [address], 01/23/2024 10:55:09 microa lbumin , urine [address], [address] [place] [address], [address], 01/22/2024 11:20:45 lipid panel, serum 2023 [facility]24 [facility] (Registration ), [address] [place] [address] [place], [address], 01/23/2024 10:55:02 CMP, serum or plasma 2023 024 [facility] (Registration ), [address] [place] [address] [place], [address], 01/22/2024 18:26:58 hemogl obin A1C, finger stick [address], [address] [place] [address], [place], [address], 05/20/2024 14:20:14 Referral dermat ologis t referr al 2023 024 [email or web address] Juan Alberto Nuñez MD, [address] [facility] [place], [address], 01/16/2024 12:49:33 dermat ologis t referr al - recurr ent intert cooper infram ammary folds and groin; pt reques ts referr al to discus s preven tion and treatm ent [facility] [address] [place], [address], 05/05/2024 14:18:31 Procedures None record ed. Surgeries None record ed. Imaging LDCT, chest, for lung cancer screen ing 2023 024 [facility], [address], [place], [address], 05/20/2024 16:00:45 Medication Orders ketoro lac 10 mg tablet 2023 024 [facility], [address] [place] [address], [id number], 01/22/2024 06:17:31 ketoro lac 60 mg/2 mL intram uscula r soluti on [address] [facility]7624, [address] [place] [address], [id number], 01/22/2024 06:17:33 lisino pril 10 mg tablet [address] [facility]20264, [address] [place] [address], [id number], 05/20/2024 14:20:03 Victoz a 3-Xavier 0.6 mg/0.1 mL (18 mg/3 mL) subcut aneous pen inject or 2023 024 [facility]40533, [address] [place] [address], [id number], 10/16/2023 15:57:31 doxycy ashby hyclat e 100 mg capsul e 2023 024 NEDA [facility], [address] [place] [address], [id number], 05/20/2024 15:52:00 triamc inolon e aceton kb 0.5 % topica l cream 2023 024 [place] [address] [facility], [address] [place] [address], [id number], 01/22/2024 11:22:15 Victoz a 3-Xavier 0.6 mg/0.1 mL (18 mg/3 mL) subcut aneous pen inject or 2023 [facility], [address] [place] [address], [id number], 05/05/2024 12:46:31 Nicotr ol 10 mg inhala tion cartri dge 2023 NEDA [facility], [address] [place], [address], 05/05/2024 12:15:54 hydrox yzine HCl 25 mg tablet 2023 [facility]96689, [address] [place] [address], [id number], 05/20/2024 14:20:25 magnes ium oxide 400 mg (241.3 mg magnes ium) tablet 2023 [facility], [address], [place], [id number], 05/20/2024 14:20:20 lisino pril 5 mg tablet 2023 NEDA [facility], [address] [place], [address], 05/20/2024 14:20:17 Patient TargetsNo targets recorded. Patient Instructions Encounter Date Encounter Id Patient Instructions Last Modified By Organization Details Last Modified Time 10/01/2023 [id number] You received a TORADOL injection today. This is an anti-inflammtory /pain medicine. After 11am tomorrow (Tue 10/01), start oral ketorolac (pill version of Toradol) [...] that are likely causing your back pain. 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 Referral for I ntertrigo recurrent intertrigo inframammary folds and groin; pt requests referral to discuss prevention and treatment Referring Physician: Dimple Reddy, [facility], Encounter Date: 05/05/2024 Results Created Date Observation Date Name Description Value Unit Range Abnormal Flag Note LastModifiedBy Organization Detail LastModifiedTime 09/29/19 24 09/29/2023 URINA LYSIS color Yellow yellow Not Available Esteban serrano [address] [place], [address] 09/29/2023 09:02:21 09/29/19 24 09/29/2023 URINA LYSIS clarity Clear clear Not Available Esteban serrano [address] [place], [address] 09/29/2023 09:02:21 09/29/19 24 09/29/2023 URINA LYSIS specific gravity 1.015 1.005- 1.025 normal Not Available [address] [place], [address] 09/29/2023 09:02:21 09/29/19 24 09/29/2023 URINA LYSIS pH 6.5 5-8 normal Not Available Esetban serrano [address] [place], [address] 09/29/2023 09:02:21 09/29/19 24 09/29/2023 URINA LYSIS leukocyte esterase Trace negati ve abnormal Not Available [address] [place], [address] 09/29/2023 09:02:21 09/29/19 24 09/29/2023 URINA LYSIS nitrite Negati ve negati ve Not Available [address] [place], [address] 09/29/2023 09:02:21 09/29/19 24 09/29/2023 URINA LYSIS protein Negati ve mg/dL neg-tr anam Not Available [address] [place], [address] 09/29/2023 09:02:21 09/29/19 24 09/29/2023 URINA LYSIS glucose Negati ve mg/dL negati ve Not Available [address] [place], [address] 09/29/2023 09:02:21 09/29/19 24 09/29/2023 URINA LYSIS ketones Negati ve mg/dL negati ve Not Available [address] [place], [address] 09/29/2023 09:02:21 09/29/19 24 09/29/2023 URINA LYSIS urobilinogen 0.2 mg/dL up to 0.2 Not Available [address] [place], [address] 09/29/2023 09:02:21 09/29/19 24 09/29/2023 URINA LYSIS bilirubin Negati ve negati ve Not Available [address] [place], [address] 09/29/2023 09:02:21 09/29/19 24 09/29/2023 URINA LYSIS blood Negati ve negati ve Not Available [address] [place], [address] 09/29/2023 09:02:21 09/29/19 24 09/29/2023 COMPL ETE BLOOD COUNT NO DIFF WBC 10.03 10_3/ uL 4.4-10 .8 normal Not Available [address] [place], [address] 09/29/2023 09:03:21 09/29/19 24 09/29/2023 COMPL ETE BLOOD COUNT NO DIFF RBC 4.81 10_6/ uL 3.93-5 .22 normal Not Available [address] [place], [address] 09/29/2023 09:03:21 09/29/19 24 09/29/2023 COMPL ETE BLOOD COUNT NO DIFF HGB 14.7 g/dL 11.2-1 5.7 normal Not Available [address] [place], [address] 09/29/2023 09:03:21 09/29/19 24 09/29/2023 COMPL ETE BLOOD COUNT NO DIFF HCT 44.3 % 36.0-4 6.0 normal Not Available [address] [place], [address] 09/29/2023 09:03:21 09/29/19 24 09/29/2023 COMPL ETE BLOOD COUNT NO DIFF MCV 92 fL 80-95 normal Not Available Esteban serrano [address] [place], [address] 09/29/2023 09:03:21 09/29/19 24 09/29/2023 COMPL ETE BLOOD COUNT NO DIFF MCH 30.6 pg 27.0-3 3.0 normal Not Available [address] [place], [address] 09/29/2023 09:03:21 09/29/19 24 09/29/2023 COMPL ETE BLOOD COUNT NO DIFF MCHC 33.2 % 32.0-3 6.0 normal Not Available [address] [place], [address] 09/29/2023 09:03:21 09/29/19 24 09/29/2023 COMPL ETE BLOOD COUNT NO DIFF RDW 12.8 % 11.7-1 4.6 normal Not Available [address] [place], [address] 09/29/2023 09:03:21 09/29/19 24 09/29/2023 COMPL ETE BLOOD COUNT NO DIFF platelet count 279 10_3/ uL 130-40 0 normal Not Available [address] [place], [address] 09/29/2023 09:03:21 09/29/19 24 09/29/2023 COMPL ETE BLOOD COUNT NO DIFF MPV 9.3 fL 8.0-11 .0 normal Not Available [address] [place], [address] 09/29/2023 09:03:21 09/29/19 24 09/29/2023 URINA LYSIS color Yellow yellow Not Available Esteban serrano [address] [place], [address] 09/29/2023 09:07:23 09/29/19 24 09/29/2023 URINA LYSIS clarity Clear clear Not Available Esteban serrano [address] [place], [address] 09/29/2023 09:07:23 09/29/19 24 09/29/2023 URINA LYSIS specific gravity 1.015 1.005- 1.025 normal Not Available [address] [place], [address] 09/29/2023 09:07:23 09/29/19 24 09/29/2023 URINA LYSIS pH 6.5 5-8 normal Not Available Esteban serrano [address] [place], [address] 09/29/2023 09:07:23 09/29/19 24 09/29/2023 URINA LYSIS leukocyte esterase Trace negati ve abnormal Not Available [address] [place], [address] 09/29/2023 09:07:23 09/29/19 24 09/29/2023 URINA LYSIS nitrite Negati ve negati ve Not Available [address] [place], [address] 09/29/2023 09:07:23 09/29/19 24 09/29/2023 URINA LYSIS protein Negati ve mg/dL neg-tr anam Not Available [address] [place], [address] 09/29/2023 09:07:23 09/29/19 24 09/29/2023 URINA LYSIS glucose Negati ve mg/dL negati ve Not Available [address] [place], [address] 09/29/2023 09:07:23 09/29/19 24 09/29/2023 URINA LYSIS ketones Negati ve mg/dL negati ve Not Available [address] [place], [address] 09/29/2023 09:07:23 09/29/19 24 09/29/2023 URINA LYSIS urobilinogen 0.2 mg/dL up to 0.2 Not Available [address] [place], [address] 09/29/2023 09:07:23 09/29/19 24 09/29/2023 URINA LYSIS bilirubin Negati ve negati ve Not Available [address] [place], [address] 09/29/2023 09:07:23 09/29/19 24 09/29/2023 URINA LYSIS blood Negati ve negati ve Not Available [address] [place], [address] 09/29/2023 09:07:23 09/29/19 24 09/29/2023 MICRO SCOPI C FINDI NGS WBC 0-2 hpf 0-5 Not Available Esteban serrano [address] [place], [address] 09/29/2023 09:07:24 09/29/19 24 09/29/2023 MICRO SCOPI C FINDI NGS RBC Negati ve hpf 0-2 Not Available [address] [place], [address] 09/29/2023 09:07:24 09/29/19 24 09/29/2023 MICRO SCOPI C FINDI NGS epithelial cells Rare hpf negati ve Not Available [address] [place], [address] 09/29/2023 09:07:24 09/29/19 24 09/29/2023 MICRO SCOPI C FINDI NGS bacteria Rare hpf negati ve Not Available [address] [place], [address] 09/29/2023 09:07:24 09/29/19 24 09/29/2023 MICRO SCOPI C FINDI NGS crystals Negati ve hpf negati ve Not Available [address] [place], [address] 09/29/2023 09:07:24 09/29/19 24 09/29/2023 MICRO SCOPI C FINDI NGS mucus Negati ve negati ve Not Available [address] [place], [address] 09/29/2023 09:07:24 09/29/19 24 09/29/2023 MICRO SCOPI C FINDI NGS C S indicated? No Not Available [address] [place], [address] 09/29/2023 09:07:24 09/29/19 24 09/29/2023 COMPR EHENS MCKENZIE METAB OLIC PANEL calcium 9.0 mg/dL 8.5-10 .1 normal Not Available [address] [place], [address] 09/29/2023 09:16:23 09/29/19 24 09/29/2023 COMPR EHENS MCKENZIE METAB OLIC PANEL glucose 92 mg/dL 74-106 normal Not Available Esteban serrano [address] [place], [address] 09/29/2023 09:16:23 09/29/19 24 09/29/2023 COMPR EHENS MCKENZIE METAB OLIC PANEL BUN 9 mg/dL 7-18 normal Not Available Esteban [address] [place], [address] 09/29/2023 09:16:23 09/29/19 24 09/29/2023 COMPR EHENS MCKENZIE METAB OLIC PANEL creatinine 1.0 mg/dL 0.55-1 .02 normal Not Available [address] [place], [address] 09/29/2023 09:16:23 09/29/19 24 09/29/2023 COMPR EHENS [...] young er-ag ed adult s. Not Available [address] [place], [address] 09/29/2023 09:16:23 09/29/19 24 09/29/2023 COMPR EHENS MCKENZIE METAB OLIC PANEL total protein 7.6 g/dL 6.4-8. 2 normal Not Available [address] [place], [address] 09/29/2023 09:16:23 09/29/19 24 09/29/2023 COMPR EHENS MCKENZIE METAB OLIC PANEL albumin 3.4 g/dL 3.4-5. 0 normal Not Available [address] [place], [address] 09/29/2023 09:16:23 09/29/19 24 09/29/2023 COMPR EHENS MCKENZIE METAB OLIC PANEL bilirubin, total 0.3 mg/dL 0.2-1. 0 normal Not Available [address] [place], [address] 09/29/2023 09:16:23 09/29/19 24 09/29/2023 COMPR EHENS MCKENZIE METAB OLIC PANEL alk phos 65 U/L 46-116 normal Not Available [address] [place], [address] 09/29/2023 09:16:23 09/29/19 24 09/29/2023 COMPR EHENS MCKENZIE METAB OLIC PANEL sodium 138 mmol/ L 136-14 5 normal Not Available [address] [place], [address] 09/29/2023 09:16:23 09/29/19 24 09/29/2023 COMPR EHENS MCKENZIE METAB OLIC PANEL potassium 4.2 mmol/ L 3.5-5. 1 normal Not Available [address] [place], [address] 09/29/2023 09:16:23 09/29/19 24 09/29/2023 COMPR EHENS MCKENZIE METAB OLIC PANEL chloride 102 mmol/ L 98-107 normal Not Available [address] [place], [address] 09/29/2023 09:16:23 09/29/19 24 09/29/2023 COMPR EHENS MCKENZIE METAB OLIC PANEL CO2 29.9 mmol/ L 21.0-3 2.0 normal Not Available [address] [place], [address] 09/29/2023 09:16:23 09/29/19 24 09/29/2023 COMPR EHENS MCKENZIE METAB OLIC PANEL anion gap 6.1 mmol/ L 3-11 normal Not Available [address] [place], [address] 09/29/2023 09:16:23 09/29/19 24 09/29/2023 COMPR EHENS MCKENZIE METAB OLIC PANEL AST 13 U/L 15-37 low Not Available Esteban serrano [address] [place], [address] 09/29/2023 09:16:23 09/29/19 24 09/29/2023 COMPR EHENS MCKENZIE METAB OLIC PANEL ALT 22 U/L 14-59 normal Not Available Esteban serrano [address] [place], [address] 09/29/2023 09:16:23 09/29/19 24 09/29/2023 LIPAS E lipase 66 U/L 16-77 normal Not Available Esteban serrano [address] [place], [address] 09/29/2023 09:16:23 10/16/19 24 10/16/2023 hemog lobin A1C, finge rstic k hemoglobin A1C 6.1 % <5.7 Not Available [address], [address], 10/14/2023 20:14:17 01/22/20 24 01/22/2024 COMPR EHENS MCKENZIE METAB OLIC PANEL calcium 9.0 mg/dL 8.5-10 .1 normal Not Available [address] [place], [address] 01/22/2024 18:26:58 01/22/20 24 01/22/2024 COMPR EHENS MCKENZIE METAB OLIC PANEL glucose 94 mg/dL 74-106 normal Not Available Esteban serrano [address] [place], [address] 01/22/2024 18:26:58 01/22/20 24 01/22/2024 COMPR EHENS MCKENZIE METAB OLIC PANEL BUN 6 mg/dL 7-18 low Not Available Esteban serrano [address] [place], [address] 01/22/2024 18:26:58 01/22/20 24 01/22/2024 COMPR EHENS MCKENZIE METAB OLIC PANEL creatinine 1.0 mg/dL 0.55-1 .02 normal Not Available [address] [place], [address] 01/22/2024 18:26:58 01/22/20 24 01/22/2024 COMPR EHENS [...] young er-ag ed adult s. Not Available [address] [place], [address] 01/22/2024 18:26:58 01/22/20 24 01/22/2024 COMPR EHENS MCKENZIE METAB OLIC PANEL total protein 7.5 g/dL 6.4-8. 2 normal Not Available [address] [place], [address] 01/22/2024 18:26:58 01/22/20 24 01/22/2024 COMPR EHENS MCKENZIE METAB OLIC PANEL albumin 3.3 g/dL 3.4-5. 0 low Not Available [address] [place], [address] 01/22/2024 18:26:58 01/22/20 24 01/22/2024 COMPR EHENS MCKENZIE METAB OLIC PANEL bilirubin, total 0.26 mg/dL 0.2-1. 0 normal Not Available [address] [place], [address] 01/22/2024 18:26:58 01/22/20 24 01/22/2024 COMPR EHENS MCKENZIE METAB OLIC PANEL alk phos 63 U/L 46-116 normal Not Available [address] [place], [address] 01/22/2024 18:26:58 01/22/20 24 01/22/2024 COMPR EHENS MCKENZIE METAB OLIC PANEL sodium 139 mmol/ L 136-14 5 normal Not Available [address] [place], [address] 01/22/2024 18:26:58 01/22/20 24 01/22/2024 COMPR EHENS MCKENZIE METAB OLIC PANEL potassium 4.3 mmol/ L 3.5-5. 1 normal Not Available [address] [place], [address] 01/22/2024 18:26:58 01/22/20 24 01/22/2024 COMPR EHENS MCKENZIE METAB OLIC PANEL chloride 103 mmol/ L 98-107 normal Not Available [address] [place], [address] 01/22/2024 18:26:58 01/22/20 24 01/22/2024 COMPR EHENS MCKENZIE METAB OLIC PANEL CO2 27.7 mmol/ L 21.0-3 2.0 normal Not Available [address] [place], [address] 01/22/2024 18:26:58 01/22/20 24 01/22/2024 COMPR EHENS MCKENZIE METAB OLIC PANEL anion gap 8.3 mmol/ L 3-11 normal Not Available [address] [place], [address] 01/22/2024 18:26:58 01/22/20 24 01/22/2024 COMPR EHENS MCKENZIE METAB OLIC PANEL AST 14 U/L 15-37 low Not Available [address] [place], [address] 01/22/2024 18:26:58 01/22/20 24 01/22/2024 COMPR EHENS MCKENZIE METAB OLIC PANEL ALT 19 U/L 14-59 normal Not Available Esteban serrano [address] [place], [address] 01/22/2024 18:26:58 01/22/20 24 01/22/2024 LIPID 2 cholesterol 176 mg/dL <200 Not Available [address] [place], [address] 01/22/2024 18:26:58 01/22/20 24 01/22/2024 LIPID 2 triglyceride 415 mg/dL <150 high Not Available [address] [place], [address] 01/22/2024 18:26:58 01/22/20 24 01/22/2024 LIPID 2 HDL cholesterol 35 mg/dL 40-60 low Not Available Kody de la cruz[address] [place], [address] 01/22/2024 18:26:58 01/22/20 24 01/22/2024 LIPID 2 calculated LDL TNP mg/dL <100 Trigl yceri de great er than 400 mg/dL ,LDL calcu latio n inval id. Measu red LDL added by refle x. Not Available [address] [place], [address] 01/22/2024 18:26:58 01/22/20 24 01/22/2024 MAGNE SIUM magnesium 2.1 mg/dL 1.8-2. 4 normal Not Available [facility] (Registration ) [address] [place] [address] [place], [address], 01/22/2024 18:26:59 01/22/20 24 01/22/2024 LIPID 2 cholesterol 176 mg/dL <200 Not Available [facility] [address] [place], [address] 01/22/2024 18:41:16 01/22/20 24 01/22/2024 LIPID 2 triglyceride 415 mg/dL <150 high Not Available [address] [place], [address] 01/22/2024 18:41:16 01/22/20 24 01/22/2024 LIPID 2 HDL cholesterol 35 mg/dL 40-60 low Not Available Kody tatum [address] [place], [address] 01/22/2024 18:41:16 01/22/20 24 01/22/2024 LIPID 2 calculated LDL TNP mg/dL <100 Trigl yceri de great er than 400 mg/dL ,LDL calcu latio n inval id. Measu red LDL added by refle x. Not Available [address] [place], [address] 01/22/2024 18:41:16 01/22/20 24 01/22/2024 DIREC T LDL CHOL direct LDL chol 93 mg/dL <100 Not Available Kirill carr [address] [place], [address] 01/22/2024 18:41:17 01/22/20 24 01/22/2024 MAGNE SIUM magnesium 2.1 mg/dL 1.8-2. 4 normal Not Available [address] [place], [address] 01/22/2024 18:41:17 01/22/20 24 01/22/2024 HEMOG LOBIN A1C hemoglobin A1C 5.9 % <5.7 high Refer ence Range s <5.7 Rosa l 5.7-6 .4% Predi abete s 6.5% or great er Diagn ostic for diabe venus (if confi rmed) Refer ences : 1. Ameri can Diabe venus Assoc iatio n. Clas sific ation and Diagn osis of Diabe venus. Diabe venus Care 2019 Jun;4 2(Sup pleme nt 1):S1 3-s28 . Not Available [address] [place], [address] 01/22/2024 18:53:06 01/22/20 24 01/22/2024 micro album in, urine microalbumin 0 mg/dL Not Available [address], [address], 01/22/2024 09:40:52 05/20/20 24 05/20/2024 hemog lobin A1C, finge rstic k hemoglobin A1C 6.0 % <5.7 Not Available [facility] [address] [facility], [place], [address], 05/18/2024 18:56:41 09/29/19 24 09/29/2023 vrad geeta winston Name: Chika Santos Unit #: [id number] Loc: ER Tavia Peck er: Josefina t #: [id number] Status : REG ER Primar y [...] Bones/ joints : Unrema rkable . IMPRES ZHENG: No active cardio pulmon shweta disemin e. Dictat ed and Clarita nguyen d by: Errol Hernandez MD. Tavia cooper:Steph garrido MD Access ion#=[id number] Jose Eduardo trinidad By: CC: ------ ------ ------ ------ ------ ------ ------ ------ ------ ------ ------ ------ ---- Dictat ed By: Report s vrad 0920 0942 Transc ribed By: Freda Merge 0920 This is privil eged, confid ential inform [...] the addres s above. Thank- you. [email or web address] [facility] [address], [place], [address] 10/01/2023 08:56:09 09/29/19 24 09/29/2023 vrad repor t Patien t Name: Chika Santos Unit #: [id number] Loc: ER Orderi ng Provid er: Accoun t #: [id number] Status : REG ER Primar y [...] us ventra l hernia repair . IMPRES ZHENG: No acute abnoma lity in the abdome n or pelvis . No renal calcul us or obstru ction. Bilate ral adrena l adenom as noted. Dictat ed and Authen ticate d by: Errol Hernandez MD. Orderi ng:Steph garrido MD Access ion#=[id number] Ordere d By: CC: ------ ------ [...] the addres s above. Thank- you. [email or web address] [address] [place], [address] 10/01/2023 08:56:09 09/29/19 09/29/2023 x-ray imagi ng repor t Patien t Name: Chika Santos Unit #: [id number] Loc: ER Orderi ng Provid er: Leslie Valenzuela Accoun t #: [id number] Status : DEP ER Primar y [...] rates nor pleura l effusi ons. IMPRES ZHENG: No acute pulmon shweta findin gs. DATA REPOSI TORY: RADIAT ION DOSE DELIVE RED: Ordere d By: Leslie Valenzuela CC: ------ ------ ------ ------ ------ ------ ------ ------ ------ ------ ------ ------ - Dictat ed By: Rosendo Tuttle M.D. 161 161 Transc ribed By: Marry WILCOX,Toya pollo 161 This is privil eged, confid [...] at the addres s above. Thank- you. [email or web address] [facility] [address] [place], [address] 10/01/2023 08:56:10 09/29/19 24 09/29/2023 CT imagi ng repor t Patien t Name: Chika Santos Unit #: [id number] Loc: ER Orderi ng Provid er: Leslie Valenzuela Accoun t #: [id number] Status : DEP ER Primar y [...] Axial comput ed tomogr aphy images with setwart l and sagitt al reform atted images [...] signif icant osseou s lesion s. IMPRES ZHENG: 1. No eviden ce of urinar y [...] tion); or iterat mckenzie recons tructi on. 426-0 004: Total DLP = 0.00 mGy-cm Ordere [...] the addres s above. Thank- you. [email or web address] [facility] [address], [place], [address] 10/01/2023 08:56:10 02/17/20 24 01/03/2019 CT, chest [...] Name and Address Organization Details Recorded Time Intertri go [id number] Active 2017 Problem Code: L30.4; Problem Code Type: ICD-10; DIMPLE ANDRADE-Earl PADILLA, SOCIAL MEDIA STRATEGIST-BC [address], [place], [address] , [facility] 4 12:07:57 [facility] hyper[facility] zheng 70539098 Active 201601/09/20 23 - Comments only - Mi Feldman PA-C - - HTN Today's BP well WNLs. To continue on PROPRANO LOL 40mg BID and LISINOPR IL 20mg QD as RXd. Problem Code: I10; Problem Code Type: ICD-10; Not Available [facility] 3 04:03:15 Type 2 diabetes mellitus without complica tion [id number] Active 201605/22/20 22 - Comments only - Mi Feldman PA-C - As per patient request, will d/c from [facility]. Will plan to repeat HBA1C in 3m as monitori ng. Problem Code: E11.9; Problem Code Type: ICD-10; Not Available [facility] 3 04:03:15 Ifeanyi almazan [id number] Active 2016 Problem Code: J43.1; Problem Code Type: ICD-10; Not Available [facility] 3 04:03:15 Gastroes ophageal reflux disease without esophagi tis [id number] Active 201604/09/20 22 - Comments only - Mi Feldman PA-C - Offered for patient to trial alternat mckenzie PPI therapy for improved symptom control, however, she is opting to continue with PRILOSEC 40mg QD as RXd for now. Problem Code: K21.9; Problem Code Type: ICD-10; Not Available [facility] 3 04:03:15 Posttrau matic stress disorder 62662811 Active 201611/22/19 23 - Comments only - Mi Feldman PA-C - - CYCLOTHY RADHA DISORDER , PTSD, BPD, INSOMNIA Patient encourag ed to touch base with [facility] RXing provider re: desire to increase TRAZODON E. She will otherwis e continue on current treatmen t regimen (RISPERD AL, ADDERALL XR, HYDROXYZ INE) as RXd. 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 Discusse d her motivati on to quit, includin g wound healing. Problem Code: F17.210; Problem Code Type: ICD-10; Not Available [facility] 3 04:03:15 Adult health examinat ion Active 201605/18/20 21 - Comments only - Mi Feldman PA-C - Mammogra m order reprinte d to allow for scheduli ng at [facility] at next availabl e. Problem Code: Z00.00; Problem Code Type: ICD-10; Not Available [facility] 3 04:03:16 Acquired absence of cervix and uterus 781879196 Active 2016 Problem Code: Z90.710; Problem Code Type: ICD-10; Not Available [facility] 3 04:03:16 Hyperlip idemia 75652210 Active 201601/09/20 23 - Comments only - Mi Feldman PA-C - Maintain ed on LOVASTAT IN 20mg QD. Will plan to repeat lipid profile and CMP in early March as monitori ng. Problem Code: E78.5; Problem Code Type: ICD-10; Not Available [facility] 3 04:03:16 Otitis media 84872432 Completed 201605/28/2017 Problem Code: H66.90; Problem Code Type: ICD-10; Not Available [facility] 3 04:03:16 Wheezing 25201162 Active 2017 Problem Code: R06.2; Problem Code Type: ICD-10; Not Available [facility] 3 04:03:16 Body mass index 40+ - severely obese 613042152 Active 2017 Problem Code: Z68.41; Problem Code Type: ICD-10; Not Available [facility] 3 04:03:16 Cough 68364979 Completed 201710/15/2017 Problem Code: R05; Problem Code Type: ICD-10; Not Available [facility] 3 04:03:16 Insomnia 686442310 Active 2017 Problem Code: G47.00; Problem Code Type: ICD-10; Not Available [facility] 3 04:03:16 Dyspnea 398544698 Completed 201704/02/2018 Problem Code: R06.02; Problem Code Type: ICD-10; Not Available [facility] 3 04:03:17 Upper respirat ory tract infectio n caused by Influenz a A 66874424452 9104 Completed 201807/21/2018 Problem Code: J09.x2; Problem Code Type: ICD-10; Not Available [facility] 3 04:03:17 Otitis media 75091614 Completed 201807/21/2018 Problem Code: H66.90; Problem Code Type: ICD-10; Not Available [facility] 3 04:03:17 Attentio n deficit hyperact ivity disorder , predomin antly hyperact mckenzie impulsiv e type 9636642 Active 2018 Problem Code: F90.1; Problem Code Type: ICD-10; Not Available [facility] 3 04:03:17 Borderli ne personal ity disorder 53074257 Active 201802/02/20 22 - Comments only - Mi Feldman PA-C - - CYCLOTHY RADHA DISORDER , PTSD, BPD Well establis hed with [facility]. To continue on current treatmen t regimen (RISPERD AL, ADDERALL XR, SEROQUEL , KLONOPIN ) as RXd by specialt y service provider . Problem Code: F60.3; Problem Code Type: ICD-10; Not Available [facility] 3 04:03:17 Localize d eruption of skin 405273409 Completed 201808/04/2018 Problem Code: R21; Problem Code Type: ICD-10; Not Available [facility] 3 04:03:17 Acute vaginiti s 48781311 Completed 201808/11/2018 Problem Code: N76.0; Problem Code Type: ICD-10; Not Available [facility] 3 04:03:18 Dyspnea 605586918 Completed 201808/15/2018 Problem Code: R06.02; Problem Code Type: ICD-10; Not Available [facility] 3 04:03:18 Acute upper respirat ory infectio n 60990845 Completed 201808/22/2018 08/09/19 19 - Comments only - Alaina Hayward DIGITAL COMMUNICATIONS MANAGER - Sxs for 24 hours, assume viral. Exacerba ting poorly controll ed COPD. Problem Code: J06.9; Problem Code Type: ICD-10; Not Available [facility] 3 04:03:18 Low back pain 234489952 Active 201802/02/20 22 - Comments only - Mi Feldman PA-C - Once patient has complete d requeste d cardiac testing, will reconsid er to trial previous ly RXd MOBIC 7.5mg QD. Problem Code: M54.5; Problem Code Type: ICD-10; Not Available [facility] 3 04:03:18 Hearing loss of left ear 850988196 Active 2018 Problem Code: H91.92; Problem Code Type: ICD-10; Not Available [facility] 3 04:03:18 Disorder of skin and/or subcutan eous tissue 36811087 Completed 201802/27/2019 Problem Code: L98.9; Problem Code Type: ICD-10; Not Available [facility] 3 04:03:18 Polyp of colon 40926262 Active 2011 Problem Code: K63.5; Problem Code Type: ICD-10; Not Available [facility] 3 04:03:18 Muscle pain 44620265 Completed 202008/30/2020 08/24/19 21 - Comments only - Sherry Carmona APRN, RN, L.AC - No bony tenderne ss. No JOSE ANGEL or exam findings indicati ng XR or other imaging at this time. Sxs most c/w piriform is syndrome . We discusse d OTC topical analgesi cs, ice, heat and stretchi ng. Problem Code: M79.18; Problem Code Type: ICD-10; Not Available [facility] 3 04:03:19 Localize d eruption of skin 925861374 Completed 202008/30/2020 08/24/19 21 - Comments only - Sherry Carmona APRN, RN, L.AC - No s/s c/w infectio us process. Most c/w contact dermatit is. We discusse d use of mask ear loop data modeling specialist s to reduce contact of mask loop fabric with skin, I printed a picture of this product, availabl e at [facility]. Return precauti ons discusse d. Problem Code: R21; Problem Code Type: ICD-10; Not Available [facility] 3 04:03:19 Counseli ng Completed 202001/17/2021 01/04/20 21 - Comments only - Mi Feldman PA-C - Old records from previous provider reviewed . Problem Code: Z71.89; Problem Code Type: ICD-10; Not Available [facility] 3 04:03:19 Tinea pedis 8885844 Completed 202001/17/2021 01/04/20 21 - Comments only - Mi Feldman PA-C - Will treat with RXd CLOTRIMA ZOLE 1% CREAM BID Problem Code: B35.3; Problem Code Type: ICD-10; Not Available [facility] 3 04:03:19 Cyclothy olivier 84094644 Active 202009/30/19 23 - Comments only - Mi Feldman PA-C - Patient encourag ed to touch base with [facility] RXing provider re: desire to RS TRAZODON E at time of next schedule d visit. She will otherwis e continue on current treatmen t regimen (RISPERD AL, ADDERALL XR, HYDROXYZ INE) as RXd. Problem Code: F34.0; Problem Code Type: ICD-10; Not Available [facility] 3 04:03:19 Acute vaginiti s 77752974 Completed 202001/31/2021 01/18/20 21 - Comments only - Mi Feldman PA-C - While awaiting results of today's VPS, will treat empirica lly with RXd DIFLUCAN 150mg x 1. Will reconsid er FARXIGA as componen t of antiglyc emic regimen if with recurren vaginal complain ts. Problem Code: N76.0; Problem Code Type: ICD-10; Not Available [facility] 3 04:03:20 Acute vaginiti s 83490783 Completed 202002/15/2021 02/10/20 21 - Comments only - Mi Feldman PA-C - Improved , although not fully resolved . Given GI issues, will forgo further ABX treatmen t at present. Chika agrees to continue with OTC DESITIN +/- VAGISIL +/- ice for symptoma tic relief. Although she declines offered FILM PAINTER refer today, she agrees to reconsid er if sxs ongoing with 2 week recheck. Problem Code: N76.0; Problem Code Type: ICD-10; Not Available [facility] 3 04:03:20 Chronic pain syndrome 453373142 Active 202009/30/19 23 - Comments only - Mi Feldman PA-C - Patient to begin on RXd CELEBREX @ 200mg QD (h/o GERD on PPI; failed NAPROXEN , DICLOFEN AC, IBUPROFE N, MELOXICA M). Problem Code: G89.4; Problem Code Type: ICD-10; Not Available [facility] 3 04:03:20 Localize d eruption of skin 662111773 Completed 202003/08/2021 02/24/20 21 - Comments only - Mi Feldman PA-C - Suspect eczema > psoriasi s. Will treat with RFd TRIAMCIN OLONE 0.5% CREAM BID. Problem Code: R21; Problem Code Type: ICD-10; Not Available [facility] 3 04:03:20 Spasm 77198163 Completed 202004/22/2021 Problem Code: R25.2; Problem Code Type: ICD-10; Not Available [facility] 3 04:03:20 Disorder of skin and/or subcutan eous tissue 68528354 Completed 202004/22/2021 04/11/20 21 - Comments only - Mi Feldman PA-C - - RASH PX continue s to support DX eczema > psoriasi s, however, in that Chika calderonevelyne misa better effect with use of topical antifung al therapy than routinel y TRIAMCIN OLONE 0.5% CREAM, will trial PO treatmen t with KETOCONA ZOLE 200mg QD x 14d. OK to suppleme nt with HYDROXYZ INE 25mg BID PRN itch. Problem Code: L98.9; Problem Code Type: ICD-10; Not Available [facility] 3 04:03:20 Blood in urine 08474104 Completed 202005/09/2021 04/25/20 21 - Comments only - Mi Feldman PA-C - Resolved . Will continue to monitor and maintain low index to schedule for outpatie nt CT imaging if recurren t. Problem Code: R31.9; Problem Code Type: ICD-10; Not Available [facility] 3 04:03:21 Cough 41171459 Completed 202005/09/2021 04/25/20 21 - Comments only - Mi Feldman PA-C - Patient reassure d PX findings fairly benign. Suggeste d patient to treat with OTC MUCINEX and RFd XOPENEX MDI PRN for relief of congesti on and wheeze respecti vely. Will consider for repeat COVID testing +/- CXR if sxs prove ongoing. Problem Code: R05; Problem Code Type: ICD-10; Not Available [facility] 3 04:03:21 Psoriasi s 2027232 Active 2020 Problem Code: L40.8; Problem Code Type: ICD-10; Not Available [facility] 3 04:03:21 Lumbosac ral radiculo nirmala 4372031 Completed 202006/01/2021 05/18/20 21 - Comments only [...] as alternat mckenzie to IBUPROFE N. Addition ally, will ask that Chika begin on LYRICA to titrate to 25mg BID. Problem Code: M54.16; Problem Code Type: ICD-10; Not Available [facility] 3 04:03:21 Furuncle 881624775 Completed 202106/19/2023 Problem Code: L02.92; Problem Code Type: ICD-10; MI FELDMAN PA-C [address], [place], [address] , [facility] 4 07:38:13 Retentio n of urine 800724484 Completed 202101/16/2022 Problem Code: R33.9; Problem Code Type: ICD-10; Not Available [facility] 3 04:03:22 Stomatit is 41634228 Completed 202101/14/2022 01/14/20 22 - Comments only - Zahraa JOE - Prescrip tion for nystatin swish and spit 5 mL 4 times a day for 10 to 14 days. Advised to replace her toothbru sh and tongue brush. Patient handout given on thrush. Discusse d signs and symptoms to return or contact PCP. Patient understa nds and agrees with plan. Not Available [facility] 3 04:03:22 Chest pain 73116605 Active 202103/01/20 22 - Comments only - Mi Feldman PA-C - Recent stress testing OK. In an effort to better control palpitat ion sxs, to increase PROPRANO LOL to 60mg BID. Problem Code: R07.89; Problem Code Type: ICD-10; Not Available [facility] 3 04:03:22 Acute pharyngi tis 212241959 Completed 202103/15/2022 03/01/20 22 - Comments only [...] J02.9; Problem Code Type: ICD-10; Not Available [facility] 3 04:03:22 Cough 44682620 Active 202104/09/20 22 - Comments only - [...] R05.1; Problem Code Type: ICD-10; Not Available [facility] 3 04:03:23 Did not wait for treatmen t 201979364 Completed 202106/19/2023 03/27/20 22 - Comments only - Ling Kingston FIELD MAP TECHNICIAN - Patient left [facility] before provider able to assess. Attempte d to reach patient by phone, voicemai l box full. Problem Code: Z53.21; Problem Code Type: ICD-10; MI FELDMAN PA-C [address], [place], [address] , [place] - [facility]. 4 07:38:03 Palpitat ions 96313595 Active 202108/29/19 23 - Comments only - Mi Feldman PA-C - As per patient request, will change cardiolo gy referral from [facility] to [facility]. To continue on PROPRANO LOL 40mg BID (did not tolerate increase in dose) and LISINOPR IL 20mg QD as RXd. Problem Code: R00.2; Problem Code Type: ICD-10; Not Available [facility] 3 04:03:23 Hypomagn esemia 233404822 Active 202108/29/19 23 - Comments only - Mi Feldman PA-C - Patient now tolerati ng OTC MAGNESIU M suppleme nt without ASE concerns . Will plan to repeat magnesiu m level with next set of labs as monitori ng. Problem Code: E83.42; Problem Code Type: ICD-10; Not Available [facility] 3 04:03:23 Diarrhea 52355570 Active 202201/09/20 23 - Comments only - Mi Feldman PA-C - - CHRONIC DIARRHEA Patient to f/u for colonosc opy as reschedu led in late March (Khadar ). In the interim, to continue to use OTC IMMODIUM PRN for symptom control. Problem Code: R19.7; Problem Code Type: ICD-10; Not Available [facility] 3 04:03:23 General examinat ion of patient Active 2022 Problem Code: Z00.8; Problem Code Type: ICD-10; Not Available [facility] 3 04:03:24 Tinnitus of left ear 38382599304 06 Active 2022 Problem Code: H93.12; Problem Code Type: ICD-10; Not Available [facility] 3 04:03:24 Peripher al vascular disease 402202780 Active 202211/22/19 23 - Comments only - Mi Feldman PA-C - With concern for PVD contribu ting to leesa huff and poor cirulati on, will refer to [facility] for ABIs Problem Code: I73.9; Problem Code Type: ICD-10; Not Available [facility] 3 04:03:24 Pelvic and perineal pain 025616727 Active 202212/23/19 23 - Comments only - Mi Feldman PA-C - In-offic e U/A OK (NEGATIV E for blood). Assuming benign findings with today's collecte d VPS, will consider to schedule for pelvic x-ray. 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 57133156 Completed 201807/22/2020 Problem Code: F52.31; Problem Code Type: ICD-10; Not Available [facility] 3 04:03:25 Disorder of tongue 20348511 Completed 201804/29/2019 Problem Code: K14.8; Problem Code Type: ICD-10; Not Available [facility] 3 04:03:26 Acute exacerba tion of chronic obstruct mckenzie pulmonar y disease 272027847 Completed 201912/09/2019 Problem Code: J44.1; Problem Code Type: ICD-10; Not Available [facility] 3 04:03:26 Spasm 38404121 Completed 201907/22/2020 Problem Code: R25.2; Problem Code Type: ICD-10; Not Available [facility] 3 04:03:26 Localize d eruption of skin 296461920 Completed 201907/22/2020 Problem Code: R21; Problem Code Type: ICD-10; Not Available [facility] 3 04:03:26 [place] - lesion 220543279 Completed 201709/12/2017 Problem Code: L84; Problem Code Type: ICD-10; Not Available [facility] 3 04:03:27 Headache 43425324 Completed 201702/27/2019 Problem Code: R51; Problem Code Type: ICD-10; Not Available [facility] 3 04:03:27 Arthropa thy of right knee joint 562603020 Completed 201702/27/2019 Problem Code: M25.861; Problem Code Type: ICD-10; Not Available [facility] 3 04:03:27 Nocturna l enuresis 7887494 Completed 201907/22/2020 Problem Code: N39.44; Problem Code Type: ICD-10; Not Available [facility] 3 04:03:27 Hernia of abdomina l cavity 05427910 Completed 201902/09/2021 Problem Code: K46.9; Problem Code Type: ICD-10; Not Available [facility] 3 04:03:28 Abnormal urine 651660379 Completed 201911/03/2019 Problem Code: R82.90; Problem Code Type: ICD-10; Not Available [facility] 3 04:03:28 Screenin g for malignan t neoplasm of breast Completed 201804/29/2019 Problem Code: Z12.39; Problem Code Type: ICD-10; Not Available [facility] 3 04:03:28 Idiopath ic osteoart hritis 412735230 Completed 201602/28/2023 Problem Code: M19.91; Problem Code Type: ICD-10; Not Available [facility] 3 04:03:29 Onychomy cosis due to dermatop hyte 502075918 Completed 201702/27/2019 Problem Code: B35.1; Problem Code Type: ICD-10; Not Available [facility] 3 04:03:29 Insect bite Completed 202012/01/2020 Not Available [facility] 3 04:03:29 Atopic dermatit is 83747858 Completed 202012/01/2020 Problem Code: L20.9; Problem Code Type: ICD-10; Not Available [facility] 3 04:03:29 Nausea 446117511 Completed 201609/12/2017 Problem Code: R11.0; Problem Code Type: ICD-10; Not Available [facility] 3 04:03:30 Nicotine dependen ce 80190602 Completed 201802/27/2019 Problem Code: F17.209; Problem Code Type: ICD-10; Not Available [facility] 3 04:03:30 Adjustme nt disorder 37704275 Completed 201909/12/2019 Problem Code: F43.20; Problem Code Type: ICD-10; Not Available [facility] 3 04:03:30 Abnormal weight gain 163595755 Completed 202002/09/2021 Problem Code: R63.5; Problem Code Type: ICD-10; Not Available [facility] 3 04:03:30 Diarrhea 59255645 Completed 201706/24/2020 Problem Code: R19.7; Problem Code Type: ICD-10; Not Available [facility] 3 04:03:31 Umbilica l hernia 523673641 Completed 201602/27/2019 Problem Code: K42.9; Problem Code Type: ICD-10; Not Available [facility] 3 04:03:31 Acute exacerba tion of chronic obstruct mckenzie pulmonar y disease 802685285 Completed 201702/09/2021 Problem Code: J44.1; Problem Code Type: ICD-10; Not Available [facility] 3 04:03:31 Localize d eruption of skin 321532709 Completed 201702/20/2018 Problem Code: R21; Problem Code Type: ICD-10; Not Available [facility] 3 04:03:32 Intertri go 23210034 Completed 201712/17/2017 Problem Code: L30.4; Problem Code Type: ICD-10; DIMPLE PADILLA, SOCIAL MEDIA STRATEGIST-BC [address], [place], [address] , [facility] 4 12:07:57 Swollen abdomen 87139234 Completed 201906/24/2020 Not Available [facility] 3 04:03:32 Amnesia 73315648 Completed 201602/09/2021 Problem Code: R41.3; Problem Code Type: ICD-10; Not Available [facility] 3 04:03:32 Hand pain 29521958 Completed 202012/01/2020 Problem Code: M79.643; Problem Code Type: ICD-10; Not Available [facility] 3 04:03:33 Dyspnea 149090817 Completed 201907/22/2020 Problem Code: R06.00; Problem Code Type: ICD-10; Not Available [facility] 3 04:03:33 Fatigue 60345173 Completed 201804/29/2019 Problem Code: R53.83; Problem Code Type: ICD-10; Not Available [facility] 3 04:03:33 Follicul ar cysts of skin and subcutan eous tissue 470126422 Completed 201802/09/2021 Problem Code: L72.9; Problem Code Type: ICD-10; Not Available [facility] 3 04:03:34 Suicidal thoughts 6188995 Completed 201802/09/2021 Problem Code: R45.851; Problem Code Type: ICD-10; Not Available [facility] 3 04:03:34 Migraine without aura, not refracto ry 291343656 Completed 201602/27/2019 Problem Code: G43.009; Problem Code Type: ICD-10; Not Available [facility] 3 04:03:34 Chest pain 89003193 Completed 201702/27/2019 Problem Code: R07.9; Problem Code Type: ICD-10; Not Available [facility] 3 04:03:34 Pelvic and perineal pain 808809206 Completed 201804/29/2019 Problem Code: R10.2; Problem Code Type: ICD-10; Not Available [facility] 3 04:03:35 Itching of skin 856527453 Completed 201804/29/2019 Problem Code: L29.8; Problem Code Type: ICD-10; Not Available [facility] 3 04:03:35 Right upper quadrant pain 591337104 Completed 201708/23/2017 Problem Code: R10.11; Problem Code Type: ICD-10; Not Available [facility] 3 04:03:35 Pain in thoracic spine 975837224 Completed 201802/28/2023 Problem Code: M54.89; Problem Code Type: ICD-10; Not Available [facility] 3 04:03:36 Pain of breast 80401517 Completed 201907/22/2020 Problem Code: N64.4; Problem Code Type: ICD-10; Not Available [facility] 3 04:03:36 Contact dermatit is 51343742 Completed 201902/09/2021 Problem Code: L25.9; Problem Code Type: ICD-10; Not Available [facility] 3 04:03:36 Arthropa thy of joint of hand 952652369 Completed 201602/09/2021 Problem Code: M12.849; Problem Code Type: ICD-10; Not Available [facility] 3 04:03:37 Eczema 33818834 Completed 201907/25/2019 Problem Code: L30.9; Problem Code Type: ICD-10; Not Available [facility] 3 04:03:37 Generali zed abdomina l pain 623494693 Completed 201906/24/2020 Problem Code: R10.84; Problem Code Type: ICD-10; Not Available [facility] 3 04:03:37 Diarrhea 85328762 Completed 202009/16/2020 Problem Code: R19.7; Problem Code Type: ICD-10; Not Available [facility] 3 04:03:38 Pain of breast 73303999 Completed 201604/13/2017 Problem Code: N64.4; Problem Code Type: ICD-10; Not Available [facility] 3 04:03:38 Severe obesity 74773490547 104 Completed 201609/12/2017 Problem Code: E66.01; Problem Code Type: ICD-10; Not Available [facility] 3 04:03:38 Venereal disease screenin g Completed 201906/24/2020 Problem Code: Z11.3; Problem Code Type: ICD-10; Not Available [facility] 3 04:03:39 Family problems 704451334 Completed 201704/29/2019 Problem Code: Z63.79; Problem Code Type: ICD-10; Not Available [facility] 3 04:03:39 Noninfla mmatory disorder of the vagina 81574564 Completed 201802/28/2023 Problem Code: N89.8; Problem Code Type: ICD-10; Not Available [facility] 3 04:03:39 Pain of right lower leg 87784566406 9108 Completed 201906/24/2020 Problem Code: M79.661; Problem Code Type: ICD-10; Not Available [facility] 3 04:03:40 Candidia sis of skin 07450633 Completed 202203/02/2023 02/17/20 - Comments only - Mi Feldman PA-C - Will treat with RXd TERBINAF INE CREAM BID. Otherwis e patient encour ed to keep area as clean and dry as posssibl e (conside r physics department chair on low after showerin g) to promote skin healing. Problem Code: B37.2; Problem Code Type: ICD-10; Not Available [facility] 4 05:34:22 Candidia sis of skin 01081853 Completed 202203/20/2023 03/08/20 23 - Comments only - Mi Feldman PA-C - Given lack of response to topical antifung al treatmen ts to present, will cover with RXd DIFLUCAN 100mg QD x 7d. Chika will otherwieduardo e continue efforts to keep the area clean and dry (conside r physics department chair after showerin g) and use OTC zinc oxide containi ng DESITIN to promote skin healing. Problem Code: B37.2; Problem Code Type: ICD-10; Not Available [facility] 4 05:34:22 Bilatera l adenoma of adrenal glands [id number] 524291 Active 2023 Incident al finding on CT abdomen/ pelvis at [facility] 09/29/23 DIMPLE PADILLA, SOCIAL MEDIA STRATEGIST-BC [address], [place], [address] , [facility] 4 18:59:52 Chronic eczema 66792156 Active 2023 ARNOLDO DICKERSON LPN [facility], [facility] 4 09:13:42 Problem Notes None recorded. Procedures Surgical History Date Name Laterality Status Provider Name and Address Organization Details Recorded Time Total hysterectomy completed Laura Perales [facility] 05/26/2024 13:34:10 Imaging Results Imaging Date Name Status LastModified by Organization Details LastModified Time 09/29/2023 vrad report completed [address] [place], [address] 10/01/2023 08:56:09 09/29/2023 vrad report completed [address] [place], [address] 10/01/2023 08:56:09 09/29/2023 x-ray imaging report completed [address] [place], [address] 10/01/2023 08:56:10 09/29/2023 CT imaging report completed [address] [place], [address] 10/01/2023 08:56:10 01/03/2019 CT, chest completed Information [...] Not available Not available Not available 04/13/20232016 75494 9 RxNorm Not Available [facility] 3 16:11:46 iodine medicatio n Not available Not available Not available 04/13/20232016 5933 RxNorm Not Available [facility] 3 16:11:47 simvastat in medicatio n rash moderate Not available 04/13/20232019 25410 RxNorm rash Not Available [facility] 3 16:11:47 Augmentin medicatio n Not available Not available Not available 04/13/20232016 51118 2 RxNorm Not Available [facility] 3 16:11:47 codeine medicatio n vomiting moderate Not available 04/13/20232017 2670 RxNorm vomit ing Aller gyCod e: '0040 12276 32'; Aller gyNam e: 'CODE INE'; Aller gyCon ceptT ype: 'NDC' ; Not Available [facility] 3 16:11:47 Betadine medicatio n rash moderate Not available 04/13/20232016 85553 0 RxNorm skin rash Aller gyRea ction : 'skin rash' ; Aller gyCod e: '0053 83419 80'; Aller gyNam e: 'BETA DINE' ; Aller gyCon ceptT ype: 'NDC' ; Not Available [facility] 3 16:11:47 Protonix medicatio n other moderate Not available 04/13/20232016 57303 4 RxNorm sick Aller gyRea ction : 'sick '; Aller gyCod e: '8852 57'; Aller gyNam e: 'PROT MILDRED' ; Aller gyCon ceptT ype: 'RX Norm' ; Not Available [facility] 3 16:11:47 cyprohept adine hydrochlo ride medicatio n Not available Not available Not available 04/13/20232016 90917 2 RxNorm Aller gyCod e: '8660 21'; Aller gyNam e: 'CYPR OHEPT ADINE HCL'; Aller gyCon ceptT ype: 'RX Norm' ; Not Available [facility] 3 16:11:47 12573 Rybelsus medicatio n rash moderate low 10/16/2023 76401 45 RxNorm Dulce Maria Ma n, COMPUTER PATTERNMAKER null, [place] - [facility], [facility]. 4 14:44:29 Medications Name Sig [...] for 30 to 60 seconds, then swallow 05/05 completed Not Available Not Available Not [...] MOUTH TWICE A DAY FOR 7 DAYS 05/20 completed Not Available Not Available Not Available propranol ol 80 mg tablet Take [...] Not Available Not Available No t Available Nicotrol 10 mg inhalatio n cartridge 6 cartridg es per day at least for the first 3 to 6 weeks of treatmen t then decrease eventual ly to 0 2023 active Not Available Not Available Not Avai lable quetiapin e 100 mg tablet Take 1 [...] mg (241.3 mg magnesium ) tablet TAKE 1 TABLET BY MOUTH EVERY DAY 2023 active Not Available Not Available Not Avai lable hydrocodo ne-homatr opine 5 mg-1.5 mg tablet [...] Not Available nystatin 100,000 unit/gram topical cream APPLY TOPICALL Y TO THE AFFECTED AREA TWICE DAILY 05/20 completed Not Available Not Available Not Available lisinopri l 10 mg tablet TAKE 1 TABLET BY MOUTH ONCE DAILY 05/20 completed DOSE CHANGE Not Available Not Available Not Available prednison e 50 mg tablet take [...] Available hydroxyzi ne HCl 25 mg tablet Take 1-2 tablet by mouth twice a day as needed 2023 active Not Available Not Available Not Avai lable lisinopri l 5 mg tablet Take 1 tablet every day by oral route. 2023 active Not Available Not Available Not Avai lable Imitrex 100 mg tablet Take 1 tab [...] completed Not Available Not Available Not Available butenafin e 1 % topical cream APPLY TOPICALL Y TO THE AFFECTED AREA DAILY FOR 4 WEEKS active Not Available Not Available No t Available glipizide 5 mg tablet Take 1 [...] for ADHD 2018 active prescrib ed by [facility] Not Available Not Available Not Available [...] completed Not Available Not Available Not Available DoPay UltraMini kit Test blood glucose daily as [...] mg/3 mL) subcutane ous pen injector Inject 1.8 mg every day by subcutan eous route. 2023 active Not Available Not Available Not Avai lable Breo Ellipta 100 mcg-25 mcg/dose powder for inhalatio n Inhale 1 puff once a day 06/17 completed [facility] PULMONOL OGY Not Available [...] completed Not Available Not Available Not Available Klayesta 100,000 unit/gram topical powder APPLY TOPICALL Y TO AFFECTED AREA TWICE DAILY active Not Available Not Available No t Available Vitals Date Recorded Body height Body mass index (BMI) Body weight Body temperature Heart rate Systolic blood pressure Diastolic blood pressure Provider Name and Address Organization Details Last Updated DateTime 4 153.67 cm 41.5 kg/m2 14612.4 g 96.4 [degF] 88 /min 110 mm[Hg] 70 mm[Hg] Dulce Maria garrido LPN [place] - [facility] 4 09:55:34 Date Recorded Body height Body mass index (BMI) Body weight Heart rate Systolic blood pressure Diastolic blood pressure Provider Name and Address Organization Details Last Updated DateTime 4 153.67 cm 41.6 kg/m2 88317.3 9 g 75 /min 102 mm[Hg] 60 mm[Hg] Dulce Maria garrido LPN [facility] 4 14:43:28 Date Recorded Body height Body mass index (BMI) Body weight Heart rate Body temperature Systolic blood pressure Diastolic blood pressure Provider Name and Address Organization Details Last Updated DateTime 4 152.4 cm 42.1 kg/m2 38583.4 6 g 68 /min 97.3 [degF] 104 mm[Hg] 66 mm[Hg] ARNOLDO DICKERSON LPN [facility] 4 09:09:40 Date Recorded Body height Body mass index (BMI) Body weight Body temperature Heart rate Systolic blood pressure Diastolic blood pressure Provider Name and Address Organization Details Last Updated DateTime 4 152.4 cm 41.2 kg/m2 03131.9 9 g 97.2 [degF] 64 /min 110 mm[Hg] 70 mm[Hg] Dulc eMaria garrido LPN [facility] 4 11:29:11 Date Recorded Body height Body mass index (BMI) Body weight Heart rate Systolic blood pressure Diastolic blood pressure Provider Name and Address Organization Details Last Updated DateTime 4 152.4 cm 42.3 kg/m2 85757.1 1 g 69 /min 110 mm[Hg] 70 mm[Hg] Dulce Maria garrido LPN [facility] 4 13:53:54 Social History Question Answer Notes LastModified by Organizat ion Details LastModified Time Tobacco Smoking Status Current Every Day Smoker ROOPA SAHU, [facility] 05/29/2023 08:00:26 What Was The Date Of Your Most Recent Tobacco Screening? 10/01/2023 [email or web address] Information not available 10/01/2023 What Is Your Current Pack Years? 30ormorepack years Information not available 05/29/2023 At What Age Did You Start Smoking Tobacco? 6 Information not available 05/29/2023 How Much Tobacco Do You Smoke? 0.5 PPD Information not available 05/29/2023 Has Tobacco Cessation Counseling Been Provided? No Information not available 05/29/2023 How Many Years Have You Smoked Tobacco? 52 [email or web address] Information not available 10/01/2023 Do You Or [...] Paternal Grandmother Family history of heart failure [email or web address] Not available 2022 04:00:45 Notes:*Problem: 2 kids - [place] only to daughter, not son Medical History No medical history recorded. Gynecological HistoryNo gynecological history recorded. Obstetrics History GPAL:G 0 P 0 0 0 0 Immunizations Vaccine Type Date Status Note Provider Nam e and Address Organization Details Recorded Time Hep B, adolescent or pediatric 7 completed Not Available [facility] 04/13/2023 06:16:25 Tdap 1 completed Not Available [facility] 04/13/2023 06:16:26 Tdap 5 completed Not Available [facility] 04/13/2023 06:16:26 Influenza, split virus, quadrivalent, PF 1 completed Not Available [facility] 04/13/2023 06:16:26 Influenza, split virus, quadrivalent, PF 2 completed Not Available [facility] 04/13/2023 06:16:26 COVID-19, mRNA, LNP-S, PF, 100 mcg/0.5mL dose or 50 mcg/0.25mL dose 2 completed Not Available [facility] 04/13/2023 06:16:26 COVID-19, mRNA, LNP-S, PF, 100 mcg/0.5mL dose or 50 mcg/0.25mL dose 1 completed Not Available [facility] 04/13/2023 06:16:26 COVID-19, mRNA, LNP-S, PF, 100 mcg/0.5mL dose or 50 mcg/0.25mL dose 1 completed Not Available [facility] 04/13/2023 06:16:26 COVID-19, mRNA, LNP-S, bivalent, PF, 30 mcg/0.3 mL dose 2 completed Not Available [facility] 04/13/2023 06:16:26 pneumococcal polysaccharide PPV23 8 completed Not Available [facility] 04/13/2023 06:16:26 Hep B, adult 1 completed Not Available [facility] 04/13/2023 06:16:27 Hep B, adult 0 completed Not Available [facility] 04/13/2023 06:16:27 Hep A, adult 0 completed Not Available [facility] 04/13/2023 06:16:27 Hep A, adult 7 completed Not Available [facility] 04/13/2023 06:16:27 influenza, unspecified formulation 4 completed Not Available [facility] 04/13/2023 06:16:27 Influenza, split virus, trivalent, PF 4 completed Dulce Maria Huerta LPN [facility], [facility] 05/05/2024 12:02:45 influenza, unspecified formulation 3 completed Ortiz Walker MA [facility], [facility] 05/26/2023 20:27:38 Influenza, split virus, quadrivalent, PF 3 completed Not Available [facility] 06/15/2023 05:33:04 Pneumococcal conjugate PCV20, polysaccharide TRX768 conjugate, adjuvant, PF 3 completed Not Available [facility] 06/15/2023 05:33:04 Past Encounters Encounter ID Performer Location Encounter Start Date Encounter Closed Date Diagnosis/Indication Diagnosis SNOMED-CT Code Diagnosis ICD10 Code [id number] MYRANDA STAPLES [place] [id number] 5 05/16/2023 09:14:42 05/16/2023 09:49:08 Intertrigo 55050093 L30.4 [id number] [place] FELDMAN PA-C [address] [address] 05/29/2023 07:48:40 05/29/2023 08:41:36 Candidal intertrigo 029674358 B37.2 [id number] [place] FELDMAN PA-C [address] [address] 07/06/2023 08:06:56 07/06/2023 09:15:46 Essential hypertension 08789758 I10 Hyperlipidemia 52685855 E78.5 Type 2 claudio betes mellitus without complication 159152353 E11.9 Candidal intertrigo 2661 41053 B37.2 Pain of le ft hip joint 7690895284 06268 M25.660 [id number] [place] FELDMAN PA-C [address] [address] 09/07/2023 08:06:23 09/07/2023 09:47:45 Essential hypertension 74698443 I10 Hyperlipidemia 69028088 E78.5 Type 2 claudio betes mellitus without complication 183622031 E11.9 Chronic pain syndrome 37 5692853 G89.4 Candidal intertrigo 2661 20465 B37.2 [id number] DIMPLE PADILLA, [facility] [address] 10/01/2023 09:27:34 10/01/2023 11:23:55 Low back pain 839768702 M54.50 Bilateral adenoma of adrenal glands 7488067644 5874554 D35.01 D35.02 [id number] [place] FELDMAN PA-C [address] [address] 10/16/2023 14:34:38 10/16/2023 15:45:41 Type 2 diabetes mellitus without complication 004760930 E11.9 Chronic back pain 810042 002 G89.29 Bilateral adenoma of adrenal glands 1332748214 5772525 D35.01 D35.02 Hyperlipidemia 07225048 E78.5 Essential hypertension 72342362 I10 Candidal intertrigo 2661 24887 B37.2 [id number] HEATH DAMONMargarita [address] [address] 01/22/2024 08:50:39 01/22/2024 10:04:59 Type 2 diabetes mellitus without complication 355896492 E11.9 Hyperlipidemia 38909754 E78.5 Essential hypertension 11305518 I10 Candidal intertrigo 2661 59355 B37.2 Hypomagnesemia 764814336 E83.42 Chronic eczema 99856758 L30.9 Furuncle of groin 282675 03 L02.859 [id number] [place] FELDMAN PA-C [address] [address] 05/20/2024 13:30:03 05/20/2024 14:20:56 Type 2 diabetes mellitus without complication 793504914 E11.9 Tobacco de pendence caused by cigarettes 0802886948 1002635 F17.210 Hyperlipidemia 31152765 E78.5 Essential hypertension 00088304 I10 Candidal intertrigo 2661 81581 B37.2 Bilateral adenoma of adrenal glands 1639144574 5645087 D35.01 D35.02 Hypomagnesemia 245097042 E83.42 Posttrauma tic stress disorder 55423624 F43.10 [id number] DIMPLE PADILLA, [facility] [address] 05/05/2024 10:57:33 05/05/2024 12:28:30 Type 2 diabetes mellitus without complication 163912848 E11.9 Trying to give up smoking 721044052 Z72.0 Active or passive immunization 095751806 Z23 Intertrigo 44491567 L30. 4 Health Concerns Section Related Observation LastModified by Organization Detai ls LastModified Time None Recorded Concern Status LastModified by Organization Details LastModified Time None Recorded Advance Directives Directive None Recorded Payers Encounter Date Sequence Insurance Name Policy Number Policy Richard Covered Member ID Richard Member ID Guarantor Name 10/01/2023 1 [facility] (MEDICAID) Chika Quintanilla Gerow [id number] Chika Quintanilla Gerow 10/16/2023 1 [facility] (MEDICAID) Chika Quintanilla Gerow [id number] Chika Quintanilla Gerow 01/22/2024 1 [facility] (MEDICAID) Chika Quintanilla Gerow [id number] Chika Quintanilla Gerow 05/05/2024 1 [facility] (MEDICAID) Chika Quintanilla Gerow [id number] Chika Quintanilla Gerow 05/20/2024 1 [facility] (MEDICAID) Chika Quintanilla Gerow [id number] Chika Santos Notes Date Note Type Note Provider Name and Address Organization Details Recorded Time 10/01/2023 text/html Seen at [facility] ED 09/29/23 for L mid/low back [...] interested in physical therapy at this time. DIMPLE REDDY, SOCIAL MEDIA STRATEGIST- [address], [place], [address], [facility]. 10/01/2023 19:01:53 10/16/2023 text/html 58y/o female presenting for f/u DM2, HTN, HPL, and chronic pain. Chika sought evaluation via [facility] 09/29/23 with c/o atraumatic sharp, left sided back back x 3 days. Following ED evaluation to include laboratory testing (U/A, CBC, CMP, lipase), EKG, CXR, and abdominal and pelvic CT imaging, Chika was treated with IV TORADOL for management of back spasms. Seen in f/u via [facility] on 10/01/23, at which point she declined PT referral, however, was accepting of ongoing treatment with TORADOL (60mg IM in-office followed by 10mg PO Q6h PRN). On presentation today, Chika reports sxs have stabilized. [address], [place], [address], [facility]. 10/16/2023 15:57:36 01/22/2024 text/html 58y/o female presenting for 3m f/u DM2, HTN, HPL, and chronic pain. Patient reports painful ?boil to labia x 3 days. Denies fever, N/V, or other more systemic signs of illness. [address], [place], [address], [facility]. 01/22/2024 11:22:15 05/20/2024 text/html 58y/o female presenting for f/u DM2, HTN, HPL, and chronic pain. Chika presented to [facility] ED 04/21/24 with c/o rash to groin and area beneath bilateral breasts x 2 weeks. As per ED report, RXd combination of topical therapies (NYSTATIN, KETOCONAZOLE/HYDROCOR TISONE, LOTRIMIN ULTRA). . Subsequently seen in f/u here at [facility] via [facility] on 05/05/24. Refer to [facility] dermatology initiated, however, patient has yet to be contacted to schedule. [address], [place], [address], [facility]. 05/20/2024 14:22:00 OBGyn Episode No OBEpisode recorded.
--- OUTSIDE RECORDS SUMMARY | 2024-05-29 00:10 | XMS_ITS | Encounter Summary ---
Author Organization [facility] Address [address] [place] [address] Care Team Providers Care Assistant Dean Name Role Phone Unknown, Provider Primary Care Provider Debbie Samuel PULPER TENDER Unavailable [phone] Encounter Details Date Type Department Care Team (Late st Contact Info) Description 11/26/2020 Lab Requisition [facility] Pathology & Laboratory Medicine - [facility] [address] [place] [address] Outr Resulting Lab, Provider Social History Tobacco [...] AL ORDERABLES Final Result Performing Organization Address City/[facility]/ZIP Co de Phone Number [facility] [address] [place] [address] * COVID-19 TESTING (11/25/2020 16:20 EDT) COVID-19 rt-PCR Result Negative Negative 11/27/2020 14:09 EDT [facility] Comment: This test has not [...] developed and its performance characteristics determined by [facility]. It has not been cleared or approved [...] testing. This test is based on the [facility] COVID-19 Emergency Use Authorization (EUA) assay, with minor modification as defined by the FDA Performed on the [employer] 7 Flex RT-PCR System. Performing Lab [facility] 11/27/2020 14:09 EDT [facility] Swab 11/25/2020 16:2 0 EDT 11/26/2020 15:52 EDT Provider Outr Resulting Lab MICROBIOLOGY - GENER AL ORDERABLES Final Result Performing Organization Address City/[facility]/ZIP Co de Phone Number [facility] [address] [place] [address] documented in this encounter Visit Diagnoses Not on filedocumented in this encounter Care Teams Assistant Dean Relationship Specialty Start Date End Date Unknown, Provider, PCP - General 02/18/19 Debbie Webber NP [address] [place] [address] [address] [place] [address] 02/18/19 documented as of this encounter
--- OUTSIDE RECORDS SUMMARY | 2024-05-29 00:10 | XMS_ITS | Referral Summary ---
Author Organization [facility] Address [address] [place] [address] Care Team Providers Care Care Mgr Name Role Phone Unknown, Provider Primary Care Provider Debbie Samuel WALLPAPER INSTALLER Unavailable [phone] Allergies Active Allergy Reactions Criticality Noted Date [...] C Antibody Negative Negative 12/11/2019 10:32 EDT [facility] Blood VENOUS BLOOD / Unknown 12/10/2019 9:00 EDT 12/10/2019 21:12 EDT us Provider Outr Resulting Lab CHEMISTRY & BLOOD GA S ORDERABLES Final Result Performing Organization Address City/State/[facility] Co de Phone Number [facility] [address] [place] [address] from Last 3 Months or Most Recently Relevant to Health Maintenance Insurance [place]ICAID [place] Care Teams Care Mgr Relationship Specialty Start Date End Date Unknown, Provider, PCP - General 02/18/19 Debbie Webber NP [address] [place] [address] 02/18/19
--- OUTSIDE RECORDS SUMMARY | 2024-05-29 00:10 | XMS_ITS | Continuity of Care Document ---
Author Organization [facility] Address [address] [place] [address] Care Team Providers Care Stem Dryer Maintainer Name Role Phone NATHALIE FELDMAN Primary Care Provider [phone] Assessment No assessment recorded. Plan of Treatment Reminders Order Date Submit Date Provider Last Modified By Organization Details Last Modified Time Details Appointments Follow Up 30 2024 11:30A Socorro FELDMAN Not available Not available Not available Lab None record ed. Referral dermat ologis t referr al - recurr ent intert cooper infram ammary folds and groin; pt reques ts referr al to discus s preven tion and treatm ent [facility]23 [facility] [address] [place], [address], 05/05/2024 14:18:31 Procedures None record ed. Surgeries None record ed. Imaging None record ed. Medication Orders Victoz a 3-Xavier 0.6 mg/0.1 mL (18 mg/3 mL) subcut aneous pen inject or 2023 024 gmenapapepper [facility], [address] [place], [address], 05/05/2024 12:46:31 Nicotr ol 10 mg inhala tion cartri dge 2023 024 NEDA [facility], [address] [place], [address], 05/05/2024 12:15:54 Patient TargetsNo targets recorded. Patient InstructionsNo instructions recorded. Reason for Referral Sports Analyst Referral for I ntertrigo recurrent intertrigo inframammary folds and groin; pt requests referral to discuss prevention and treatment Referring Physician: Adriana Reddy, Family Medicine, Encounter Date: 05/05/2024 Problems Name Problem SNOMED Code Status Onset Date Resolution Date Notes Provider Name and Address Organization Details Recorded Time Intertri go [id number] Active 2017 Problem Code: L30.4; Problem Code Type: ICD-10; ADRIANA PADILLA, PRINT COLOR OPERATOR-BC [address], [place], [address] , [facility] 4 12:07:57 [facility] hyperten zheng 98283786 Active 201601/09/20 23 - Comments only - Nathalie Feldman PA-C - - HTN Today's BP well WNLs. To continue on PROPRANO LOL 40mg BID and LISINOPR IL 20mg QD as RXd. Problem Code: I10; Problem Code Type: ICD-10; Not Available [facility] 3 04:03:15 Type 2 diabetes mellitus without complica tion 133083946 Active 201605/22/20 22 - Comments only - Nathalie Feldman PA-C - As per patient request, will d/c from [facility]. Will plan to repeat HBA1C in 3m as monitori ng. Problem Code: E11.9; Problem Code Type: ICD-10; Not Available [facility] 3 04:03:15 Panmiriana r emphysem a 2027301 Active 2016 Problem Code: J43.1; Problem Code Type: ICD-10; Not Available [facility] 3 04:03:15 Gastroes ophageal reflux disease without esophagi tis 646218177 Active 201604/09/20 22 - Comments only - Nathalie Feldman PA-C - Offered for patient to trial alternat johnny PPI therapy for improved symptom control, however, she is opting to continue with PRILOSEC 40mg QD as RXd for now. Problem Code: K21.9; Problem Code Type: ICD-10; Not Available [facility] 3 04:03:15 Posttrau matic stress disorder 36835715 Active 201611/22/19 23 - Comments only - Nathalie Feldman PA-C - - CYCLOTHY RADHA DISORDER , PTSD, BPD, INSOMNIA Patient encourag ed to touch base with [facility] RXing provider re: desire to increase TRAZODON E. She will otherwis e continue on current treatmen t regimen (RISPERD AL, ADDERALL XR, HYDROXYZ INE) as RXd. Problem Code: F43.10; Problem Code Type: ICD-10; Not Available [facility] 3 04:03:15 Tobacco dependen ce caused by cigarett es 37041540377 715393 Active 201608/11/19 21 - Comments only - Leandro Mendes MD - He is preconte mplative . Discusse d her motivati on to quit, includin g wound healing. Problem Code: F17.210; Problem Code Type: ICD-10; Not Available [facility] 3 04:03:15 Adult health examinat ion Active 201605/18/20 21 - Comments only - Nathalie Feldman PA-C - Mammogra m order reprinte d to allow for scheduli ng at [facility] at next availabl e. Problem Code: Z00.00; Problem Code Type: ICD-10; Not Available [facility] 3 04:03:16 Acquired absence of cervix and uterus 252459825 Active 2016 Problem Code: Z90.710; Problem Code Type: ICD-10; Not Available [facility] 3 04:03:16 Hyperlip idemia 65638440 Active 201601/09/20 23 - Comments only - Nathalie Feldman PA-C - Maintain ed on LOVASTAT IN 20mg QD. Will plan to repeat lipid profile and CMP in early March as monitori ng. Problem Code: E78.5; Problem Code Type: ICD-10; Not Available [facility] 3 04:03:16 Otitis media 55765383 Completed 201605/28/2017 Problem Code: H66.90; Problem Code Type: ICD-10; Not Available [facility] 3 04:03:16 Wheezing 93686834 Active 2017 Problem Code: R06.2; Problem Code Type: ICD-10; Not Available [facility] 3 04:03:16 Body mass index 40+ - severely obese 286947707 Active 2017 Problem Code: Z68.41; Problem Code Type: ICD-10; Not Available [facility] 3 04:03:16 Cough 48868254 Completed 201710/15/2017 Problem Code: R05; Problem Code Type: ICD-10; Not Available [facility] 3 04:03:16 Insomnia 462145631 Active 2017 Problem Code: G47.00; Problem Code Type: ICD-10; Not Available [facility] 3 04:03:16 Dyspnea 469237258 Completed 201704/02/2018 Problem Code: R06.02; Problem Code Type: ICD-10; Not Available [facility] 3 04:03:17 Upper respirat ory tract infectio n caused by Influenz a A 16602086645 9104 Completed 201807/21/2018 Problem Code: J09.x2; Problem Code Type: ICD-10; Not Available [facility] 3 04:03:17 Otitis media 80534197 Completed 201807/21/2018 Problem Code: H66.90; Problem Code Type: ICD-10; Not Available [facility] 3 04:03:17 Attentio n deficit hyperact ivity disorder , predomin antly hyperact johnny impulsiv e type 3847295 Active 2018 Problem Code: F90.1; Problem Code Type: ICD-10; Not Available [facility] 3 04:03:17 Borderli ne personal ity disorder 46161158 Active 201802/02/20 22 - Comments only - Nathalie Feldman PA-C - - CYCLOTHY RADHA DISORDER , PTSD, BPD Well establis hed with [facility]. To continue on current treatmen t regimen (RISPERD AL, ADDERALL XR, SEROQUEL , KLONOPIN ) as RXd by specialt y service provider . Problem Code: F60.3; Problem Code Type: ICD-10; Not Available [facility] 3 04:03:17 Localize d eruption of skin 822906273 Completed 201808/04/2018 Problem Code: R21; Problem Code Type: ICD-10; Not Available [facility] 3 04:03:17 Acute vaginiti s 32019075 Completed 201808/11/2018 Problem Code: N76.0; Problem Code Type: ICD-10; Not Available [facility] 3 04:03:18 Dyspnea 616574284 Completed 201808/15/2018 Problem Code: R06.02; Problem Code Type: ICD-10; Not Available [facility] 3 04:03:18 Acute upper respirat ory infectio n 68940471 Completed 201808/22/2018 08/09/19 19 - Comments only - Alaina Hayward AIR INTELLIGENCE SPECIALIST - Sxs for 24 hours, assume viral. Exacerba ting poorly controll ed COPD. Problem Code: J06.9; Problem Code Type: ICD-10; Not Available [facility] 3 04:03:18 Low back pain 782287426 Active 201802/02/20 22 - Comments only - Nathalie Feldman PA-C - Once patient has complete d requeste d cardiac testing, will reconsid er to trial previous ly RXd MOBIC 7.5mg QD. Problem Code: M54.5; Problem Code Type: ICD-10; Not Available [facility] 3 04:03:18 Hearing loss of left ear 191112710 Active 2018 Problem Code: H91.92; Problem Code Type: ICD-10; Not Available [facility] 3 04:03:18 Disorder of skin and/or subcutan eous tissue 92113298 Completed 201802/27/2019 Problem Code: L98.9; Problem Code Type: ICD-10; Not Available [facility] 3 04:03:18 Polyp of colon 57277310 Active 2011 Problem Code: K63.5; Problem Code Type: ICD-10; Not Available [facility] 3 04:03:18 Muscle pain 78572044 Completed 202008/30/2020 08/24/19 21 - Comments only - Sherry Carmona APRN, RN, L.AC - No bony tenderne ss. No JOSE ANGEL or exam findings indicati ng XR or other imaging at this time. Sxs most c/w piriform is syndrome . We discusse d OTC topical analgesi cs, ice, heat and stretchi ng. Problem Code: M79.18; Problem Code Type: ICD-10; Not Available [facility] 3 04:03:19 Localize d eruption of skin 387521365 Completed 202008/30/2020 08/24/19 21 - Comments only - Sherry Carmona APRN, RN, L.AC - No s/s c/w infectio us process. Most c/w contact dermatit is. We discusse d use of mask ear loop diplomatic interpreter s to reduce contact of mask loop fabric with skin, I printed a picture of this product, availabl e at [facility]. Return precauti ons discusse d. Problem Code: R21; Problem Code Type: ICD-10; Not Available [facility] 3 04:03:19 Counseli ng Completed 202001/17/2021 01/04/20 21 - Comments only - Nathalie Feldman PA-C - Old records from previous provider reviewed . Problem Code: Z71.89; Problem Code Type: ICD-10; Not Available [facility] 3 04:03:19 Tinea pedis 6675072 Completed 202001/17/2021 01/04/20 21 - Comments only - Nathalie Feldman PA-C - Will treat with RXd CLOTRIMA ZOLE 1% CREAM BID Problem Code: B35.3; Problem Code Type: ICD-10; Not Available [facility] 3 04:03:19 Cyclothy olivier 92721933 Active 202009/30/19 23 - Comments only - Nathalie Feldman PA-C - Patient encourag ed to touch base with [facility] RXing provider re: desire to RS TRAZODON E at time of next schedule d visit. She will otherwis e continue on current treatmen t regimen (RISPERD AL, ADDERALL XR, HYDROXYZ INE) as RXd. Problem Code: F34.0; Problem Code Type: ICD-10; Not Available [facility] 3 04:03:19 Acute vaginiti s 83315139 Completed 202001/31/2021 01/18/20 21 - Comments only - Nathalie Feldman PA-C - While awaiting results of today's VPS, will treat empirica lly with RXd DIFLUCAN 150mg x 1. Will reconsid er FARXIGA as componen t of antiglyc emic regimen if with recurren vaginal complain ts. Problem Code: N76.0; Problem Code Type: ICD-10; Not Available [facility] 3 04:03:20 Acute vaginiti s 58960341 Completed 202002/15/2021 02/10/20 21 - Comments only - Nathalie Feldman PA-C - Improved , although not fully resolved . Given GI issues, will forgo further ABX treatmen t at present. Chika agrees to continue with OTC DESITIN +/- VAGISIL +/- ice for symptoma tic relief. Although she declines offered FRUIT CUTTER refer today, she agrees to reconsid er if sxs ongoing with 2 week recheck. Problem Code: N76.0; Problem Code Type: ICD-10; Not Available [facility] 3 04:03:20 Chronic pain syndrome 069861690 Active 202009/30/19 23 - Comments only - Nathalie Feldman PA-C - Patient to begin on RXd CELEBREX @ 200mg QD (h/o GERD on PPI; failed NAPROXEN , DICLOFEN AC, IBUPROFE N, MELOXICA M). Problem Code: G89.4; Problem Code Type: ICD-10; Not Available [facility] 3 04:03:20 Localize d eruption of skin 768269481 Completed 202003/08/2021 02/24/20 21 - Comments only - Nathalie Feldman PA-C - Suspect eczema > psoriasi s. Will treat with RFd TRIAMCIN OLONE 0.5% CREAM BID. Problem Code: R21; Problem Code Type: ICD-10; Not Available [facility] 3 04:03:20 Spasm 24550524 Completed 202004/22/2021 Problem Code: R25.2; Problem Code Type: ICD-10; Not Available [facility] 3 04:03:20 Disorder of skin and/or subcutan eous tissue 15896611 Completed 202004/22/2021 04/11/20 21 - Comments only [...] L98.9; Problem Code Type: ICD-10; Not Available [facility] 3 04:03:20 Blood in urine 26356141 Completed 202005/09/2021 04/25/20 21 - Comments only - Nathalie Feldman PA-C - Resolved . Will continue to monitor and maintain low index to schedule for outpatie nt CT imaging if recurren t. Problem Code: R31.9; Problem Code Type: ICD-10; Not Available [facility] 3 04:03:21 Cough 81091843 Completed 202005/09/2021 04/25/20 21 - Comments only - Nathalie Feldman PA-C - Patient reassure d PX findings fairly benign. Suggeste d patient to treat with OTC MUCINEX and RFd XOPENEX MDI PRN for relief of congesti on and wheeze respecti vely. Will consider for repeat COVID testing +/- CXR if sxs prove ongoing. Problem Code: R05; Problem Code Type: ICD-10; Not Available [facility] 3 04:03:21 Psoriasi s 3903482 Active 2020 Problem Code: L40.8; Problem Code Type: ICD-10; Not Available [facility] 3 04:03:21 Lumbosac ral radiculo nirmala 0963279 Completed 202006/01/2021 05/18/20 21 - Comments only [...] M54.16; Problem Code Type: ICD-10; Not Available [facility] 3 04:03:21 Furuncle 315263597 Completed 202106/19/2023 Problem Code: L02.92; Problem Code Type: ICD-10; NATHALIE FELDMAN PA-C [address], [place], [address] , [facility] 4 07:38:13 Retentio n of urine 195621053 Completed 202101/16/2022 Problem Code: R33.9; Problem Code Type: ICD-10; Not Available [facility] 3 04:03:22 Stomatit is 27824678 Completed 202101/14/2022 01/14/20 22 - Comments only - Zahraa JOE - Prescrip tion for nystatin swish and spit 5 mL 4 times a day for 10 to 14 days. Advised to replace her toothbru sh and tongue brush. Patient handout given on thrush. Discusse d signs and symptoms to return or contact PCP. Patient understa nds and agrees with plan. Not Available [facility] 3 04:03:22 Chest pain 15475524 Active 202103/01/20 22 - Comments only - Nathalie Feldman PA-C - Recent stress testing OK. In an effort to better control palpitat ion sxs, to increase PROPRANO LOL to 60mg BID. Problem Code: R07.89; Problem Code Type: ICD-10; Not Available [facility] 3 04:03:22 Acute pharyngi tis 494575479 Completed 202103/15/2022 03/01/20 22 - Comments only [...] J02.9; Problem Code Type: ICD-10; Not Available [facility] 3 04:03:22 Cough 04437480 Active 202104/09/20 22 - Comments only - [...] R05.1; Problem Code Type: ICD-10; Not Available [facility] 3 04:03:23 Did not wait for treatmen t 690519389 Completed 202106/19/2023 03/27/20 22 - Comments only - Ling Kingston SUPERVISOR MONEY ROOM - Patient left [facility] before provider able to assess. Attempte d to reach patient by phone, voicemai l box full. Problem Code: Z53.21; Problem Code Type: ICD-10; [address] [place], [address] , [place] - [facility]. 4 07:38:03 Palpitat ions 79262089 Active 202108/29/19 23 - Comments only - Nathalie Feldman PA-C - As per patient request, will change cardiolo gy referral from [facility]. To continue on PROPRANO LOL 40mg BID (did not tolerate increase in dose) and LISINOPR IL 20mg QD as RXd. Problem Code: R00.2; Problem Code Type: ICD-10; Not Available [facility] 3 04:03:23 Hypomagn esemia 342789904 Active 202108/29/19 23 - Comments only - Nathalie Feldman PA-C - Patient now tolerati ng OTC MAGNESIU M suppleme nt without ASE concerns . Will plan to repeat magnesiu m level with next set of labs as monitori ng. Problem Code: E83.42; Problem Code Type: ICD-10; Not Available [facility] 3 04:03:23 Diarrhea 83695871 Active 202201/09/20 23 - Comments only - Nathalie Feldman PA-C - - CHRONIC DIARRHEA Patient to f/u for colonosc opy as reschedu led in late March (Khadar ). In the interim, to continue to use OTC IMMODIUM PRN for symptom control. Problem Code: R19.7; Problem Code Type: ICD-10; Not Available [facility] 3 04:03:23 General examinat ion of patient Active 2022 Problem Code: Z00.8; Problem Code Type: ICD-10; Not Available [facility] 3 04:03:24 Tinnitus of left ear 68555111251 06 Active 2022 Problem Code: H93.12; Problem Code Type: ICD-10; Not Available [facility] 3 04:03:24 Peripher al vascular disease 872109985 Active 202211/22/19 23 - Comments only - Nathalie Feldman PA-C - With concern for PVD contribu ting to leesa huff and poor cirulati on, will refer to [facility] for ABIs Problem Code: I73.9; Problem Code Type: ICD-10; Not Available [facility] 3 04:03:24 Pelvic and perineal pain 460465321 Active 202212/23/19 23 - Comments only - Nathalie Feldman PA-C - In-offic e U/A OK (NEGATIV E for blood). Assuming benign findings with today's collecte d VPS, will consider to schedule for pelvic x-ray. 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 08017116 Completed 201807/22/2020 Problem Code: F52.31; Problem Code Type: ICD-10; Not Available [facility] 3 04:03:25 Disorder of tongue 01764407 Completed 201804/29/2019 Problem Code: K14.8; Problem Code Type: ICD-10; Not Available [facility] 3 04:03:26 Acute exacerba tion of chronic obstruct johnny pulmonar y disease 913443064 Completed 201912/09/2019 Problem Code: J44.1; Problem Code Type: ICD-10; Not Available [facility] 3 04:03:26 Spasm 47921002 Completed 201907/22/2020 Problem Code: R25.2; Problem Code Type: ICD-10; Not Available [facility] 3 04:03:26 Localize d eruption of skin 273415746 Completed 201907/22/2020 Problem Code: R21; Problem Code Type: ICD-10; Not Available [facility] 3 04:03:26 [place] - lesion 869929815 Completed 201709/12/2017 Problem Code: L84; Problem Code Type: ICD-10; Not Available [facility] 3 04:03:27 Headache 16619758 Completed 201702/27/2019 Problem Code: R51; Problem Code Type: ICD-10; Not Available [facility] 3 04:03:27 Arthropa thy of right knee joint 446927103 Completed 201702/27/2019 Problem Code: M25.861; Problem Code Type: ICD-10; Not Available [facility] 3 04:03:27 Nocturna l enuresis 9735909 Completed 201907/22/2020 Problem Code: N39.44; Problem Code Type: ICD-10; Not Available [facility] 3 04:03:27 Hernia of abdomina l cavity 62985160 Completed 201902/09/2021 Problem Code: K46.9; Problem Code Type: ICD-10; Not Available [facility] 3 04:03:28 Abnormal urine 638394659 Completed 201911/03/2019 Problem Code: R82.90; Problem Code Type: ICD-10; Not Available [facility] 3 04:03:28 Screenin g for malignan t neoplasm of breast Completed 201804/29/2019 Problem Code: Z12.39; Problem Code Type: ICD-10; Not Available [facility] 3 04:03:28 Idiopath ic osteoart hritis 815313842 Completed 201602/28/2023 Problem Code: M19.91; Problem Code Type: ICD-10; Not Available [facility] 3 04:03:29 Onychomy cosis due to dermatop hyte 833371227 Completed 201702/27/2019 Problem Code: B35.1; Problem Code Type: ICD-10; Not Available [facility] 3 04:03:29 Insect bite Completed 202012/01/2020 Not Available [facility] 3 04:03:29 Atopic dermatit is 12769461 Completed 202012/01/2020 Problem Code: L20.9; Problem Code Type: ICD-10; Not Available [facility] 3 04:03:29 Nausea 872013682 Completed 201609/12/2017 Problem Code: R11.0; Problem Code Type: ICD-10; Not Available [facility] 3 04:03:30 Nicotine dependen ce 65019832 Completed 201802/27/2019 Problem Code: F17.209; Problem Code Type: ICD-10; Not Available [facility] 3 04:03:30 Adjustme nt disorder 21114351 Completed 201909/12/2019 Problem Code: F43.20; Problem Code Type: ICD-10; Not Available [facility] 3 04:03:30 Abnormal weight gain 472764096 Completed 202002/09/2021 Problem Code: R63.5; Problem Code Type: ICD-10; Not Available [facility] 3 04:03:30 Diarrhea 10886712 Completed 201706/24/2020 Problem Code: R19.7; Problem Code Type: ICD-10; Not Available [facility] 3 04:03:31 Umbilica l hernia 124833179 Completed 201602/27/2019 Problem Code: K42.9; Problem Code Type: ICD-10; Not Available [facility] 3 04:03:31 Acute exacerba tion of chronic obstruct johnny pulmonar y disease 801700703 Completed 201702/09/2021 Problem Code: J44.1; Problem Code Type: ICD-10; Not Available [facility] 3 04:03:31 Localize d eruption of skin 147311212 Completed 201702/20/2018 Problem Code: R21; Problem Code Type: ICD-10; Not Available [facility] 3 04:03:32 Intertri go 22803909 Completed 201712/17/2017 Problem Code: L30.4; Problem Code Type: ICD-10; ADRIANA ANDRADE-Earl REW, PRINT COLOR OPERATOR-BC [address], [place], [address] [facility] 4 12:07:57 Swollen abdomen 81220323 Completed 201906/24/2020 Not Available [facility] 3 04:03:32 Amnesia 63306290 Completed 201602/09/2021 Problem Code: R41.3; Problem Code Type: ICD-10; Not Available [facility] 3 04:03:32 Hand pain 59970762 Completed 202012/01/2020 Problem Code: M79.643; Problem Code Type: ICD-10; Not Available [facility] 3 04:03:33 Dyspnea 477553379 Completed 201907/22/2020 Problem Code: R06.00; Problem Code Type: ICD-10; Not Available [facility] 3 04:03:33 Fatigue 09529438 Completed 201804/29/2019 Problem Code: R53.83; Problem Code Type: ICD-10; Not Available [facility] 3 04:03:33 Follicul ar cysts of skin and subcutan eous tissue 630329537 Completed 201802/09/2021 Problem Code: L72.9; Problem Code Type: ICD-10; Not Available [facility] 3 04:03:34 Suicidal thoughts 2374591 Completed 201802/09/2021 Problem Code: R45.851; Problem Code Type: ICD-10; Not Available [facility] 3 04:03:34 Migraine without aura, not refracto ry 470841190 Completed 201602/27/2019 Problem Code: G43.009; Problem Code Type: ICD-10; Not Available [facility] 3 04:03:34 Chest pain 64025937 Completed 201702/27/2019 Problem Code: R07.9; Problem Code Type: ICD-10; Not Available [facility] 3 04:03:34 Pelvic and perineal pain 185339451 Completed 201804/29/2019 Problem Code: R10.2; Problem Code Type: ICD-10; Not Available [facility] 3 04:03:35 Itching of skin 556515347 Completed 201804/29/2019 Problem Code: L29.8; Problem Code Type: ICD-10; Not Available [facility] 3 04:03:35 Right upper quadrant pain 490898900 Completed 201708/23/2017 Problem Code: R10.11; Problem Code Type: ICD-10; Not Available [facility] 3 04:03:35 Pain in thoracic spine 218791118 Completed 201802/28/2023 Problem Code: M54.89; Problem Code Type: ICD-10; Not Available [facility] 3 04:03:36 Pain of breast 17493962 Completed 201907/22/2020 Problem Code: N64.4; Problem Code Type: ICD-10; Not Available [facility] 3 04:03:36 Contact dermatit is [id number] Completed 201902/09/2021 Problem Code: L25.9; Problem Code Type: ICD-10; Not Available [facility] 3 04:03:36 Arthropa thy of joint of hand 010315823 Completed 201602/09/2021 Problem Code: M12.849; Problem Code Type: ICD-10; Not Available [facility] 3 04:03:37 Eczema 97441266 Completed 201907/25/2019 Problem Code: L30.9; Problem Code Type: ICD-10; Not Available [facility] 3 04:03:37 Generali zed abdomina l pain 210487789 Completed 201906/24/2020 Problem Code: R10.84; Problem Code Type: ICD-10; Not Available [facility] 3 04:03:37 Diarrhea 67896545 Completed 202009/16/2020 Problem Code: R19.7; Problem Code Type: ICD-10; Not Available [facility] 3 04:03:38 Pain of breast 93498122 Completed 201604/13/2017 Problem Code: N64.4; Problem Code Type: ICD-10; Not Available [facility] 3 04:03:38 Severe obesity 83938324861 104 Completed 201609/12/2017 Problem Code: E66.01; Problem Code Type: ICD-10; Not Available [facility] 3 04:03:38 Venereal disease screenin g Completed 201906/24/2020 Problem Code: Z11.3; Problem Code Type: ICD-10; Not Available [facility] 3 04:03:39 Family problems 848457576 Completed 201704/29/2019 Problem Code: Z63.79; Problem Code Type: ICD-10; Not Available [facility] 3 04:03:39 Noninfla mmatory disorder of the vagina 24525943 Completed 201802/28/2023 Problem Code: N89.8; Problem Code Type: ICD-10; Not Available [facility] 3 04:03:39 Pain of right lower leg [id number] 9108 Completed 201906/24/2020 Problem Code: M79.661; Problem Code Type: ICD-10; Not Available [facility] 3 04:03:40 Candidia sis of skin 75313255 Completed 202203/02/2023 02/17/20 23 - Comments only - Nathalie Feldman PA-C - Will treat with RXd TERBINAF INE CREAM BID. Otherwis e patient encour ed to keep area as clean and dry as posssibl e (conside r hair worker on low after showerin g) to promote skin healing. Problem Code: B37.2; Problem Code Type: ICD-10; Not Available [facility] 4 05:34:22 Candidia sis of skin 85218516 Completed 202203/20/2023 03/08/20 23 - Comments only - Nathalie Feldman PA-C - Given lack of response to topical antifung al treatmen ts to present, will cover with RXd DIFLUCAN 100mg QD x 7d. Chika will otherwis e continue efforts to keep the area clean and dry (conside r hair worker after showerin g) and use OTC zinc oxide containi ng DESITIN to promote skin healing. Problem Code: B37.2; Problem Code Type: ICD-10; Not Available [facility] 4 05:34:22 Bilatera l adenoma of adrenal glands [id number] 329555 Active 2023 Incident al finding on CT abdomen/ pelvis at [facility] ED 09/29/23 ADRIANA PADILLA, PRINT COLOR OPERATOR- [address], [place], [address] , [facility] 4 18:59:52 Chronic eczema 17934746 Active 2023 ARNOLDO DICKERSON LPN [facility], [facility] 4 09:13:42 Problem Notes None recorded. Procedures Surgical History Date Name Laterality Status Provider Name and Address Organization Details Recorded Time Total hysterectomy completed Laura Perales [facility] 05/26/2024 13:34:10 Imaging Results None recorded. Procedure Notes None recorded. Medical Equipment None Reported. Allergies Allergen ID Allergen Name Allergen Category Reaction Reaction Severity Criticality Documentation Date Start Date Code Code System Note Provider Name and Address Organization Details Recorded Time Bactrim medicatio n Not available Not available Not available 04/13/20232016 43993 9 RxNorm Not Available [facility] 3 16:11:46 iodine medicatio n Not available Not available Not available 04/13/20232016 5933 RxNorm Not Available [facility] 3 16:11:47 simvastat in medicatio n rash moderate Not available 04/13/20232019 19423 RxNorm rash Not Available [facility] 3 16:11:47 Augmentin medicatio n Not available Not available Not available 04/13/20232016 63722 2 RxNorm Not Available [facility] 3 16:11:47 codeine medicatio n vomiting moderate Not available 04/13/20232017 2670 RxNorm vomit ing Aller gyCod e: '0040 54618 32'; Aller gyNam e: 'CODE INE'; Aller gyCon ceptT ype: 'NDC' ; Not Available [facility] 3 16:11:47 Betadine medicatio n rash moderate Not available 04/13/20232016 20404 0 RxNorm skin rash Aller gyRea ction : 'skin rash' ; Aller gyCod e: '0053 46310 80'; Aller gyNam e: 'BETA DINE' ; Aller gyCon ceptT ype: 'NDC' ; Not Available [facility] 3 16:11:47 Protonix medicatio n other moderate Not available 04/13/20232016 07037 4 RxNorm sick Aller gyRea ction : 'sick '; Aller gyCod e: '8852 57'; Aller gyNam e: 'PROT MILDRED' ; Aller gyCon ceptT ype: 'RX Norm' ; Not Available [facility] 3 16:11:47 cyprohept adine hydrochlo ride medicatio n Not available Not available Not available 04/13/20232016 13883 2 RxNorm Aller gyCod e: '8660 21'; Aller gyNam e: 'CYPR OHEPT ADINE HCL'; Aller gyCon ceptT ype: 'RX Norm' ; Not Available [facility] 3 16:11:47 50978 Rybelsus medicatio n rash moderate low 10/16/2023 48963 45 RxNorm Dulce Maria garrido LPN [facility], [place] - [facility]. 4 [...] ADHD 2018 active prescrib ed by [facility] Not Available Not Available Not Available [...] Not Available Unifine Pentips 31 gauge x 3/16 needle USE ONCE DAILY WITH VICTOZA active [...] 1 puff once a day 06/17 completed [facility] Not Available Not Available Not [...] Updated DateTime 4 152.4 cm 41.2 kg/m2 04454.9 9 g 97.2 [degF] 64 /min 110 mm[Hg] 70 mm[Hg] Dulce Maria garrido LPN [facility] 11:29:11 Social History Question Answer Notes LastModified by Organizat ion Details LastModified Time Tobacco Smoking Status Current Every Day Smoker ROOPA SAHU, [facility] 05/29/2023 08:00:26 What Was The Date Of Your Most Recent Tobacco Screening? 10/01/2023 [email or web address] Information not available 10/01/2023 What Is Your Current Pack Years? 30ormorepack years Information not available 05/29/2023 At What Age Did You Start Smoking Tobacco? 6 Information not available 05/29/2023 How Much Tobacco Do You Smoke? 0.5 PPD Information not available 05/29/2023 Has Tobacco Cessation Counseling Been Provided? No Information not available 05/29/2023 How Many Years Have You Smoked Tobacco? 52 [email or web address] Information not available 10/01/2023 Do You Or Have You Ever Used Any Other Forms Of Tobacco Or Nicotine? No Information not available 05/29/2023 Sex: Female Functional Status None recorded. Mental Status None recorded. Family History Relationship Description Onset Age of this Age Resolved Age Notes LastModified by Organization Details LastModified Time Mother Family history of malignant neoplasm of uterus [email or web address] Not available 2022 04:00:45 Paternal Grandmother Family [...] adolescent or pediatric 7 completed Not Available [facility] 04/13/2023 06:16:25 Tdap 1 completed Not Available [facility] 04/13/2023 06:16:26 Tdap 5 completed Not Available [facility] 04/13/2023 06:16:26 Influenza, split virus, quadrivalent, PF 1 completed Not Available [facility] 04/13/2023 06:16:26 Influenza, split virus, quadrivalent, PF 2 completed Not Available [facility] 04/13/2023 06:16:26 COVID-19, mRNA, LNP-S, PF, 100 mcg/0.5mL dose or 50 mcg/0.25mL dose 2 completed Not Available [facility] 04/13/2023 06:16:26 COVID-19, mRNA, LNP-S, PF, 100 mcg/0.5mL dose or 50 mcg/0.25mL dose 1 completed Not Available [facility] 04/13/2023 06:16:26 COVID-19, mRNA, LNP-S, PF, 100 mcg/0.5mL dose or 50 mcg/0.25mL dose 1 completed Not Available [facility] 04/13/2023 06:16:26 COVID-19, mRNA, LNP-S, bivalent, PF, 30 mcg/0.3 mL dose 2 completed Not Available [facility] 04/13/2023 06:16:26 pneumococcal polysaccharide PPV23 8 completed Not Available [facility] 04/13/2023 06:16:26 Hep B, adult 1 completed Not Available [facility] 04/13/2023 06:16:27 Hep B, adult 0 completed Not Available [facility] 04/13/2023 06:16:27 Hep A, adult 0 completed Not Available [facility] 04/13/2023 06:16:27 Hep A, adult 7 completed Not Available [facility] 04/13/2023 06:16:27 influenza, unspecified formulation 4 completed Not Available [facility] 04/13/2023 06:16:27 Influenza, split virus, trivalent, PF 4 completed Dulce Maria Huerta LPN null, [facility] 05/05/2024 12:02:45 influenza, unspecified formulation 3 completed Ortiz Walker MA null, [facility] 05/26/2023 20:27:38 Influenza, split virus, quadrivalent, PF 3 completed Not Available [facility] 06/15/2023 05:33:04 Pneumococcal conjugate PCV20, polysaccharide NJC730 conjugate, adjuvant, PF 3 completed Not Available [facility] 06/15/2023 05:33:04 Past Encounters Encounter ID Performer Location Encounter Start Date Encounter Closed Date Diagnosis/Indication Diagnosis SNOMED-CT Code Diagnosis ICD10 Code [id number] ADRIANA PADILLA, PRINT COLOR OPERATOR-[facility] [address] [place] [address] 05/05/2024 10:57:33 05/05/2024 12:28:30 Type 2 diabetes mellitus without complication 205485125 E11.9 Trying to give up smoking 575000128 Z72.0 Active or passive immunization 474165424 Z23 Intertrigo 75369426 L30. 4 Health Concerns Section Related Observation LastModified by Organization Ilana marcial LastModified Time None Recorded Concern Status LastModified by Organization Details LastModified Time None Recorded Payers Encounter Date Sequence Insurance Name Policy Number Policy Richard Covered Member ID Richard Member ID Guarantor Name 05/05/2024 1 [facility] (MEDICAID) Chika Santos [id number] Chika Santos OBGyn Episode No OBEpisode recorded.
--- OUTSIDE RECORDS SUMMARY | 2024-05-29 00:10 | XMS_ITS | Clinical Summary ---
Author Organization [facility] Address [address] [place] [address] Care Team Providers Care Fish Trapper Name Role Phone Unknown, Provider Primary Care Provider Debbie Samuel PRELOAD SUPERVISOR Unavailable [phone] Allergies Active Allergy Reactions Criticality Noted Date [...] - 19+ 3-dose series) 09/25 COVID-19 Vaccine (2023- season) 2024 Hepatitis C Screen Completed 12/10/2019 Procedures Procedure Name Priority Date/Time Associated Diagnosis Comments HEPATITIS C AB W REFLEX TO HCV RNA BY PCR Routine 12/10/2019 9:00 EDT from Last 3 Months or Most Recently Relevant to Health Maintenance Results * HEPATITIS C AB W REFLEX TO HCV RNA BY PCR (12/10/2019 9:00 EDT) Hep C Antibody Negative Negative 12/11/2019 10:32 EDT [facility] Blood VENOUS BLOOD / Unknown 12/10/2019 9:00 EDT 12/10/2019 21:12 EDT us Provider Outr Resulting Lab CHEMISTRY & BLOOD GA S ORDERABLES Final Result [facility] [address] [place] [address] from Last 3 Months or Most Recently Relevant to Health Maintenance Insurance MEDICAID [place] Care Teams Fish Trapper Relationship Specialty Start Date End Date Unknown, Provider, PCP - General 02/18/19 Debbie Webber NP [address] [place] [address] [address] [place] [address] 02/18/19
--- OUTSIDE RECORDS SUMMARY | 2024-05-29 00:10 | XMS_ITS | Encounter Summary ---
Author Organization [facility] Address [address] [place] [address] Care Team Providers Care Tanner Rotary Drum Continuous Process Name Role Phone Debbie Webber NP Primary Care Provider [phone] Encounter Details Date Type Department Care Team (Latest Contact Info) Description 02/13/2019 15:13 EDT - 02/13/2019 23:59 EDT Hospital Encounter [address] [id number] Unknown, Provider, MD Discharge Disposition: Home or [...] Code Departure Means Destination Home or Self Skilled Nursing documented in this encounter Plan of Treatment Not on file documented as of this encounter Visit Diagnoses Not on filedocumented in this encounter Care Teams Tanner Rotary Drum Continuous Process Relationship Specialty Start Date End Date Debbie Webber NP [address] [place] [address] [address] [place] [phone] PCP - General 09/04/11 02/17/19 documented as of this encounter
--- OUTSIDE RECORDS SUMMARY | 2024-05-29 00:10 | XMS_ITS | Encounter Summary ---
Author Organization [facility] Address [address] [place] [address] Care Team Providers Care Carpenters Name Role Phone Unknown, Provider Primary Care Provider Debbie Samuel EXERCISE TEACHER Unavailable [phone] Encounter Details Date Type Department Care Team (Late st Contact Info) Description 12/10/2019 Lab Requisition [facility] Pathology & Laboratory Medicine - [address] [address] Outr Resulting Lab, Provider Social History Tobacco [...] gonorrhoeae Result Negative Negative 12/11/2019 13:48 EDT [facility] Chlamydia trachomatis Result Negative Negative 12/11/2019 13:48 EDT [facility] Urine 12/10/2019 9:00 EDT 12/10/2019 23:08 EDT Narrative [facility] - 12/11/2019 13:48 EDT A first catch urine specimen is acceptable for detection of Gonorrhea and Chlamydia, but might detect up to 10% fewer infections when compared with vaginal and endocervical swab samples. us Provider Outr Resulting Lab MICROBIOLOGY - GENER AL ORDERABLES Final Result [facility] [address] [place] [address] documented in this encounter Visit Diagnoses Not on filedocumented in this encounter Care Teams Carpenters Relationship Specialty Start Date End Date Unknown, Provider, PCP - General 02/18/19 Debbie Webber NP [address] [place] [address] [address] [place] [address] 02/18/19 documented as of this encounter
--- OUTSIDE RECORDS SUMMARY | 2024-05-29 00:10 | XMS_ITS | Encounter Summary ---
Author Organization [facility] Address [address] [place] [address] Care Team Providers Care Corporate Giving Manager Name Role Phone Debbie Webber NP Primary Care Provider [phone] Encounter Details Date Type Department Care Team (Late st Contact Info) Description 12/19/2011 Results Only [facility] Laboratory Services - [facility] ([facility]) [address] [place], [place] [phone] Isidro Pulido, DO [address] [facility] ,[address] [place], [place] [id number] Social History Tobacco Use Types Packs/Day Years [...] ? PRISCILLA SANTOS ? Accession #: ? [id number] ? : ? 1965 (Age: 46) ??F ? Collect Date: ? 12/19/2011 ? Location: ? [facility] ? Receive Date: ? 12/19/2011 ? Provider: ISIDRO PULIDO DO Copy to: DEBBIE WEBBER INTERNATIONAL MARKETING EXECUTIVE ? Final Pathologic Diagnosis: ? Gallbladder, cholecystectomy: [...] de Phone Number [facility] [address] [place] [address] documented in this encounter Visit Diagnoses Not on filedocumented in this encounter Care Teams Corporate Giving Manager Relationship Specialty Start Date End Date Debbie Webber NP [address] [place] [address] [address] [place] [address] PCP - General 09/04/11 02/17/19 documented as of this encounter
--- OUTSIDE RECORDS SUMMARY | 2024-05-29 00:10 | XMS_ITS | Encounter Summary ---
Author Organization [facility] Address [address] [place] [address] Care Team Providers Care Digital Marketing Project Manager Name Role Phone Unavailable Primary Care Provider Unavailabl e Encounter Details Date Type Department Care Team (Late st Contact Info) Description 03/09/2009 Orders Only [facility] Laboratory Services - [facility] ([facility]) [address] [place] [address] Johnathan Webber, BIOFUELS PRODUCT DEVELOPMENT MANAGER [address] [place] [address] Social History Tobacco Use Types [...] PASQUALE SANTOSA [place] ? Accession #: ? [id number] ? : ? 1965 (Age: 43) ??F [...] [facility] 03/09/2009 03/09/2009 us Johnathan Webber BIOFUELS PRODUCT DEVELOPMENT MANAGER PATHOLOGY ORDERABLES Final R esult [facility] [address] [place] [address] documented in this encounter Visit Diagnoses Not on filedocumented in this encounter
--- OUTSIDE RECORDS SUMMARY | 2024-05-29 00:10 | XMS_ITS | Encounter Summary ---
Author Organization [facility] Address [address] [place] [address] Care Team Providers Care Money Market Dealer Name Role Phone Debbie Webber NP Primary Care Provider [phone] Encounter Details Date Type Department Care Team (Late st Contact Info) Description 02/13/2019 Results Only [facility]- [facility] [phone] Ernesto Crawford, DNP [address] [place] [address] Social History Tobacco Use Types [...] ? PRISCILLA SANTOS ? Accession #: ? [id number] ? : ? 1965 (Age: 53) ??F [...] anterior chest Clinical History: Fax results to [phone]; clinical diagnosis code: ??L98.9, Z00.00 Gross Description: [...] (ASCP) 02/14/2019 8:27 AM End of Report [facility] 02/13/2019 21:5 8 EDT 02/13/2019 21:58 EDT us Ernesto Jovel DNP PATHOLOGY ORDERABLES Helga balderas Result [facility] [address] [place] [address] documented in this encounter Visit Diagnoses Not on filedocumented in this encounter Care Teams Money Market Dealer Relationship Specialty Start Date End Date Debbie Webber NP [address] [place] [address] [address] [place] [phone] PCP - General 09/04/11 02/17/19 documented as of this encounter
--- OUTSIDE RECORDS SUMMARY | 2024-05-29 00:10 | XMS_ITS | Encounter Summary ---
Author Organization [facility] Address [address] [place] [address] Care Team Providers Care Optical Instrument Assembly Supervisor Name Role Phone Unavailable Primary Care Provider Unavailabl e Encounter Details Date Type Department Care Team (Late st Contact Info) Description 05/01/2006 Results Only [facility] - Maple conversion [address] [place] [address] Omar Childs MD [facility] [address] [place], [place] [id number] Social History Tobacco Use Types Packs/Day Years [...] ? PRISCILLA SANTOS ? Accession #: ? [id number] : ? 1965 (Age: 40) ??F ?Collect Date: ? 05/01/2006 Location: ? [facility] ? Receive Date: ? 05/03/2006 Provider: ?OMAR CHILDS MD Copy to: ? Specimen/Source: ?ThinPrep Pap Test, Vagina, processed on SprinkleBit ThinPrep Imaging System, with manual evaluation Last [...] ORDERABLES Final Resul t [facility] [address] [place] [address] documented in this encounter Visit Diagnoses Not on filedocumented in this encounter
--- OUTSIDE RECORDS SUMMARY | 2024-05-29 00:10 | XMS_ITS | Continuity of Care Document ---
[facility] Address [address] [place] [address] Care Team Providers Care Engineering Psychologist Name Role Phone NATHALIE FELDMAN Primary Care Provider [phone] Assessment No assessment recorded. Plan of Treatment Reminders Order Date Submit Date Provider Last Modified By Organization Details Last Modified Time Details Appointments Follow Up 30 2024 11:30A M NATHALIE FELDMAN Not available Not available Not available Lab hemoglobi n A1C, fingersti ck 2023 024 [email or web address] [facility], [address] [place] [address], [id number], 05/20/2024 14:20:14 Referral None recorded. Procedures None recorded. Surgeries None recorded. Imaging LDCT, chest, for lung cancer screening 2023 024 [facility], [address], [place], [address], 05/20/2024 16:00:45 Medication Orders hydroxyzi ne HCl 25 mg tablet 2023 024 [id number], [address] [place] [address], [id number], 05/20/2024 14:20:25 magnesium oxide 400 mg (241.3 mg magnesium ) tablet 2023 024 [id number], [address] [place] [address], [id number], 05/20/2024 14:20:20 lisinopri l 5 mg tablet 2023 024 [facility], [address] [place], [address], 05/20/2024 14:20:17 Patient TargetsNo targets recorded. Patient InstructionsNo instructions recorded. Reason for Referral None Reported. Results Created Date Observation Date Name Description Value Unit Range Abnormal Flag Note LastModifiedBy Organization Detail LastModifiedTime 05/20/20 24 05/20/2024 hemog lobin A1C, finge rstic k hemoglobin A1C 6.0 % <5.7 Not Available [address], [id number], 05/18/2024 18:56:41 Result Notes None recorded. Problems Name Problem SNOMED Code Status Onset Date Resolution Date Notes Provider Name and Address Organization Details Recorded Time Intertri go 80029274 Active 2017 Problem Code: L30.4; Problem Code Type: ICD-10; ADRIANA ANDRADE-Earl REW, CDL B DRIVER-BC [address], [place], [address] , [facility] 4 12:07:57 [facility] hyperten zheng 25851862 Active 201601/09/20 23 - Comments only - Nathalie Feldman PA-C - - HTN Today's BP well WNLs. To continue on PROPRANO LOL 40mg BID and LISINOPR IL 20mg QD as RXd. Problem Code: I10; Problem Code Type: ICD-10; Not Available [facility] 3 04:03:15 Type 2 diabetes mellitus without complica tion 794621031 Active 201605/22/20 22 - Comments only - Nathalie Feldman PA-C - As per patient request, will d/c from [facility]. Will plan to repeat HBA1C in 3m as monitori ng. Problem Code: E11.9; Problem Code Type: ICD-10; Not Available [facility] 3 04:03:15 Ifeanyi almazan 2134586 Active 2016 Problem Code: J43.1; Problem Code Type: ICD-10; Not Available [facility] 3 04:03:15 Gastroes ophageal reflux disease without esophagi tis 043784976 Active 201604/09/20 22 - Comments only - Nathalie Feldman PA-C - Offered for patient to trial alternat johnny PPI therapy for improved symptom control, however, she is opting to continue with PRILOSEC 40mg QD as RXd for now. Problem Code: K21.9; Problem Code Type: ICD-10; Not Available [facility] 3 04:03:15 Posttrau matic stress disorder 09324659 Active 201611/22/19 23 - Comments only - Nathalie Feldman PA-C - - CYCLOTHY RADHA DISORDER , PTSD, BPD, INSOMNIA Patient encourag ed to touch base with [facility] RXing provider re: desire to increase TRAZODON E. She will otherwis e continue on current treatmen t regimen (RISPERD AL, ADDERALL XR, HYDROXYZ INE) as RXd. Problem Code: F43.10; Problem Code Type: ICD-10; Not Available [facility] 3 04:03:15 Tobacco dependen ce caused by cigarett es [id number] 800575 Active 201608/11/19 21 - Comments only - Leandro Mendes MD - He is preconte mplative . Discusse d her motivati on to quit, includin g wound healing. Problem Code: F17.210; Problem Code Type: ICD-10; Not Available [facility] 3 04:03:15 Adult health examinat ion Active 201605/18/20 21 - Comments only - Nathalie Feldman PA-C - Mammogra m order reprinte d to allow for scheduli ng at [facility] at next availabl e. Problem Code: Z00.00; Problem Code Type: ICD-10; Not Available [facility] 3 04:03:16 Acquired absence of cervix and uterus 027838177 Active 2016 Problem Code: Z90.710; Problem Code Type: ICD-10; Not Available [facility] 3 04:03:16 Hyperlip idemia 26565914 Active 201601/09/20 23 - Comments only - Nathalie Feldman PA-C - Maintain ed on LOVASTAT IN 20mg QD. Will plan to repeat lipid profile and CMP in early March as monitori ng. Problem Code: E78.5; Problem Code Type: ICD-10; Not Available [facility] 3 04:03:16 Otitis media 39987171 Completed 201605/28/2017 Problem Code: H66.90; Problem Code Type: ICD-10; Not Available [facility] 3 04:03:16 Wheezing 36275148 Active 2017 Problem Code: R06.2; Problem Code Type: ICD-10; Not Available [facility] 3 04:03:16 Body mass index 40+ - severely obese 059137331 Active 2017 Problem Code: Z68.41; Problem Code Type: ICD-10; Not Available [facility] 3 04:03:16 Cough 39085348 Completed 201710/15/2017 Problem Code: R05; Problem Code Type: ICD-10; Not Available [facility] 3 04:03:16 Insomnia 136795545 Active 2017 Problem Code: G47.00; Problem Code Type: ICD-10; Not Available [facility] 3 04:03:16 Dyspnea 213633430 Completed 201704/02/2018 Problem Code: R06.02; Problem Code Type: ICD-10; Not Available [facility] 3 04:03:17 Upper respirat ory tract infectio n caused by Influenz a A 06836396858 9104 Completed 201807/21/2018 Problem Code: J09.x2; Problem Code Type: ICD-10; Not Available [facility] 3 04:03:17 Otitis media 68446067 Completed 201807/21/2018 Problem Code: H66.90; Problem Code Type: ICD-10; Not Available [facility] 3 04:03:17 Attentio n deficit hyperact ivity disorder , predomin antly hyperact johnny impulsiv e type 8256566 Active 2018 Problem Code: F90.1; Problem Code Type: ICD-10; Not Available [facility] 3 04:03:17 Borderli ne personal ity disorder 11050971 Active 201802/02/20 22 - Comments only - Nathalie Feldman PA-C - - CYCLOTHY RADHA DISORDER , PTSD, BPD Well establis hed with [facility]. To continue on current treatmen t regimen (RISPERD AL, ADDERALL XR, SEROQUEL , KLONOPIN ) as RXd by specialt y service provider . Problem Code: F60.3; Problem Code Type: ICD-10; Not Available [facility] 3 04:03:17 Localize d eruption of skin 993254778 Completed 201808/04/2018 Problem Code: R21; Problem Code Type: ICD-10; Not Available [facility] 3 04:03:17 Acute vaginiti s 14673263 Completed 201808/11/2018 Problem Code: N76.0; Problem Code Type: ICD-10; Not Available [facility] 3 04:03:18 Dyspnea 152193291 Completed 201808/15/2018 Problem Code: R06.02; Problem Code Type: ICD-10; Not Available [facility] 3 04:03:18 Acute upper respirat ory infectio n 39575159 Completed 201808/22/2018 08/09/19 19 - Comments only - Alaina Hayward WAITER/WAITRESS HEAD - Sxs for 24 hours, assume viral. Exacerba ting poorly controll ed COPD. Problem Code: J06.9; Problem Code Type: ICD-10; Not Available [facility] 3 04:03:18 Low back pain 158447335 Active 201802/02/20 22 - Comments only - Nathalie Feldman PA-C - Once patient has complete d requeste d cardiac testing, will reconsid er to trial previous ly RXd MOBIC 7.5mg QD. Problem Code: M54.5; Problem Code Type: ICD-10; Not Available [facility] 3 04:03:18 Hearing loss of left ear 365165747 Active 2018 Problem Code: H91.92; Problem Code Type: ICD-10; Not Available [facility] 3 04:03:18 Disorder of skin and/or subcutan eous tissue 84348411 Completed 201802/27/2019 Problem Code: L98.9; Problem Code Type: ICD-10; Not Available [facility] 3 04:03:18 Polyp of colon 18726554 Active 2011 Problem Code: K63.5; Problem Code Type: ICD-10; Not Available [facility] 3 04:03:18 Muscle pain 03340321 Completed 202008/30/2020 08/24/19 21 - Comments only - Sherry Carmona APRN, RN, L.AC - No bony tenderne ss. No JOSE ANGEL or exam findings indicati ng XR or other imaging at this time. Sxs most c/w piriform is syndrome . We discusse d OTC topical analgesi cs, ice, heat and stretchi ng. Problem Code: M79.18; Problem Code Type: ICD-10; Not Available [facility] 3 04:03:19 Localize d eruption of skin 105218164 Completed 202008/30/2020 08/24/19 21 - Comments only - Sherry Carmona APRN, RN, L.AC - No s/s c/w infectio us process. Most c/w contact dermatit is. We discusse d use of mask ear loop summer babysitter s to reduce contact of mask loop fabric with skin, I printed a picture of this product, availabl e at [facility]. Return precauti ons discusse d. Problem Code: R21; Problem Code Type: ICD-10; Not Available [facility] 3 04:03:19 Counseli ng Completed 202001/17/2021 01/04/20 21 - Comments only - Nathalie Feldman PA-C - Old records from previous provider reviewed . Problem Code: Z71.89; Problem Code Type: ICD-10; Not Available [facility] 3 04:03:19 Brandan tabor 9767359 Completed 202001/17/2021 01/04/20 21 - Comments only - Nathalie Feldman PA-C - Will treat with RXd CLOTRIMA ZOLE 1% CREAM BID Problem Code: B35.3; Problem Code Type: ICD-10; Not Available [facility] 3 04:03:19 Cyclothy olivier 97669630 Active 202009/30/19 23 - Comments only - Nathalie Feldman PA-C - Patient encourag ed to touch base with [facility] RXing provider re: desire to RS TRAZODON E at time of next schedule d visit. She will otherwis e continue on current treatmen t regimen (RISPERD AL, ADDERALL XR, HYDROXYZ INE) as RXd. Problem Code: F34.0; Problem Code Type: ICD-10; Not Available [facility] 3 04:03:19 Acute vaginiti s 77913316 Completed 202001/31/2021 01/18/20 21 - Comments only - Nathalie Feldman PA-C - While awaiting results of today's VPS, will treat empirica lly with RXd DIFLUCAN 150mg x 1. Will reconsid er FARXIGA as componen t of antiglyc emic regimen if with recurren vaginal complain ts. Problem Code: N76.0; Problem Code Type: ICD-10; Not Available [facility] 3 04:03:20 Acute vaginiti s 27228606 Completed 202002/15/2021 02/10/20 21 - Comments only - Nathalie Feldman PA-C - Improved , although not fully resolved . Given GI issues, will forgo further ABX treatmen t at present. Chika agrees to continue with OTC DESITIN +/- VAGISIL +/- ice for symptoma tic relief. Although she declines offered [facility] refer today, she agrees to reconsid er if sxs ongoing with 2 week recheck. Problem Code: N76.0; Problem Code Type: ICD-10; Not Available [facility] 3 04:03:20 Chronic pain syndrome 571331381 Active 202009/30/19 23 - Comments only - Nathalie Feldman PA-C - Patient to begin on RXd CELEBREX @ 200mg QD (h/o GERD on PPI; failed NAPROXEN , DICLOFEN AC, IBUPROFE N, MELOXICA M). Problem Code: G89.4; Problem Code Type: ICD-10; Not Available [facility] 3 04:03:20 Localize d eruption of skin 086702540 Completed 202003/08/2021 02/24/20 21 - Comments only - Nathalie Feldman PA-C - Suspect eczema > psoriasi s. Will treat with RFd TRIAMCIN OLONE 0.5% CREAM BID. Problem Code: R21; Problem Code Type: ICD-10; Not Available [facility] 3 04:03:20 Spasm 66967111 Completed 202004/22/2021 Problem Code: R25.2; Problem Code Type: ICD-10; Not Available [facility] 3 04:03:20 Disorder of skin and/or subcutan eous tissue 65345850 Completed 202004/22/2021 04/11/20 21 - Comments only - Nathalie Feldman PA-C - - RASH PX continue s to support DX eczema > psoriasi s, however, in that Chika calderonen misa better effect with use of topical antifung al therapy than routinel y TRIAMCIN OLONE 0.5% CREAM, will trial PO treatmen t with KETOCONA ZOLE 200mg QD x 14d. OK to suppleme nt with HYDROXYZ INE 25mg BID PRN itch. Problem Code: L98.9; Problem Code Type: ICD-10; Not Available [facility] 3 04:03:20 Blood in urine 19263434 Completed 202005/09/2021 04/25/20 21 - Comments only - Nathalie Feldman PA-C - Resolved . Will continue to monitor and maintain low index to schedule for outpatie nt CT imaging if recurren t. Problem Code: R31.9; Problem Code Type: ICD-10; Not Available [facility] 3 04:03:21 Cough 84657608 Completed 202005/09/2021 04/25/20 21 - Comments only - Nathalie Feldman PA-C - Patient reassure d PX findings fairly benign. Suggeste d patient to treat with OTC MUCINEX and RFd XOPENEX MDI PRN for relief of congesti on and wheeze respecti vely. Will consider for repeat COVID testing +/- CXR if sxs prove ongoing. Problem Code: R05; Problem Code Type: ICD-10; Not Available [facility] 3 04:03:21 Psoriasi s 6152678 Active 2020 Problem Code: L40.8; Problem Code Type: ICD-10; Not Available [facility] 3 04:03:21 Lumbosac ral radiculo nirmala 1500934 Completed 202006/01/2021 05/18/20 21 - Comments only [...] M54.16; Problem Code Type: ICD-10; Not Available [facility] 3 04:03:21 Furuncle 690919262 Completed 202106/19/2023 Problem Code: L02.92; Problem Code Type: ICD-10; NATHALIE FELDMAN PA-C [address], [place], [address] , [facility]. 4 07:38:13 Retentio n of urine 917608726 Completed 202101/16/2022 Problem Code: R33.9; Problem Code Type: ICD-10; Not Available [facility] 3 04:03:22 Stomatit is 59339515 Completed 202101/14/2022 01/14/20 22 - Comments only - Zahraa JOE - Prescrip tion for nystatin swish and spit 5 mL 4 times a day for 10 to 14 days. Advised to replace her toothbru sh and tongue brush. Patient handout given on thrush. Discusse d signs and symptoms to return or contact PCP. Patient understa nds and agrees with plan. Not Available [facility] 3 04:03:22 Chest pain 05641955 Active 202103/01/20 22 - Comments only - Nathalie Feldman PA-C - Recent stress testing OK. In an effort to better control palpitat ion sxs, to increase PROPRANO LOL to 60mg BID. Problem Code: R07.89; Problem Code Type: ICD-10; Not Available [facility] 3 04:03:22 Acute pharyngi tis 295377411 Completed 202103/15/2022 03/01/20 22 - Comments only [...] J02.9; Problem Code Type: ICD-10; Not Available [facility] 3 04:03:22 Cough 18394341 Active 202104/09/20 22 - Comments only - [...] R05.1; Problem Code Type: ICD-10; Not Available [facility] 3 04:03:23 Did not wait for treatmen t 857167898 Completed 202106/19/2023 03/27/20 22 - Comments only - Ling Kingston SENIOR APPLICATIONS ARCHITECT - Patient left [facility] before provider able to assess. Attempte d to reach patient by phone, voicemai l box full. Problem Code: Z53.21; Problem Code Type: ICD-10; NATHALIE FELDMAN PA-C [facility] [address], [place], [address] , [place] [facility] 4 07:38:03 Palpitat ions 43115506 Active 202108/29/19 23 - Comments only - Nathalie Feldman PA-C - As per patient request, will change cardiolo gy referral from [facility] to [facility]. To continue on PROPRANO LOL 40mg BID (did not tolerate increase in dose) and LISINOPR IL 20mg QD as RXd. Problem Code: R00.2; Problem Code Type: ICD-10; Not Available [facility] 3 04:03:23 Hypomagn esemia 931339234 Active 202108/29/19 23 - Comments only - Nathalie Feldman PA-C - Patient now tolerati ng OTC MAGNESIU M suppleme nt without ASE concerns . Will plan to repeat magnesiu m level with next set of labs as monitori ng. Problem Code: E83.42; Problem Code Type: ICD-10; Not Available [facility] 3 04:03:23 Diarrhea 22196050 Active 202201/09/20 23 - Comments only - Nathalie Feldman PA-C - - CHRONIC DIARRHEA Patient to f/u for colonosc opy as reschedu led in late March (Khadar ). In the interim, to continue to use OTC IMMODIUM PRN for symptom control. Problem Code: R19.7; Problem Code Type: ICD-10; Not Available [facility] 3 04:03:23 General examinat ion of patient Active 2022 Problem Code: Z00.8; Problem Code Type: ICD-10; Not Available [facility] 3 04:03:24 Tinnitus of left ear 89978242993 06 Active 2022 Problem Code: H93.12; Problem Code Type: ICD-10; Not Available [facility] 3 04:03:24 Peripher al vascular disease 211506304 Active 202211/22/19 23 - Comments only - Nathalie Feldman PA-C - With concern for PVD contribu ting to claudica tion and poor cirulati on, will refer to [facility] for ABIs Problem Code: I73.9; Problem Code Type: ICD-10; Not Available [facility] 3 04:03:24 Pelvic and perineal pain 625541059 Active 202212/23/19 23 - Comments only - Nathalie Feldman PA-C - In-offic e U/A OK (NEGATIV E for blood). Assuming benign findings with today's collecte d VPS, will consider to schedule for pelvic x-ray. 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 16266830 Completed 201807/22/2020 Problem Code: F52.31; Problem Code Type: ICD-10; Not Available [facility] 3 04:03:25 Disorder of tongue 12269563 Completed 201804/29/2019 Problem Code: K14.8; Problem Code Type: ICD-10; Not Available [facility] 3 04:03:26 Acute exacerba tion of chronic obstruct johnny pulmonar y disease 957520206 Completed 201912/09/2019 Problem Code: J44.1; Problem Code Type: ICD-10; Not Available [facility] 3 04:03:26 Spasm 48554782 Completed 201907/22/2020 Problem Code: R25.2; Problem Code Type: ICD-10; Not Available [facility] 3 04:03:26 Localize d eruption of skin 967236812 Completed 201907/22/2020 Problem Code: R21; Problem Code Type: ICD-10; Not Available [facility] 3 04:03:26 [place] - lesion 347156811 Completed 201709/12/2017 Problem Code: L84; Problem Code Type: ICD-10; Not Available [facility] 3 04:03:27 Headache 12578882 Completed 201702/27/2019 Problem Code: R51; Problem Code Type: ICD-10; Not Available [facility] 3 04:03:27 Arthropa thy of right knee joint 260882115 Completed 201702/27/2019 Problem Code: M25.861; Problem Code Type: ICD-10; Not Available [facility] 3 04:03:27 Nocturna l enuresis 3687114 Completed 201907/22/2020 Problem Code: N39.44; Problem Code Type: ICD-10; Not Available [facility] 3 04:03:27 Hernia of abdomina l cavity 01295062 Completed 201902/09/2021 Problem Code: K46.9; Problem Code Type: ICD-10; Not Available [facility] 3 04:03:28 Abnormal urine 657169948 Completed 201911/03/2019 Problem Code: R82.90; Problem Code Type: ICD-10; Not Available [facility] 3 04:03:28 Screenin g for malignan t neoplasm of breast Completed 201804/29/2019 Problem Code: Z12.39; Problem Code Type: ICD-10; Not Available [facility] 3 04:03:28 Idiopath ic osteoart hritis 833618037 Completed 201602/28/2023 Problem Code: M19.91; Problem Code Type: ICD-10; Not Available [facility] 3 04:03:29 Onychomy cosis due to dermatop hyte 758566710 Completed 201702/27/2019 Problem Code: B35.1; Problem Code Type: ICD-10; Not Available [facility] 3 04:03:29 Insect bite Completed 202012/01/2020 Not Available [facility] 3 04:03:29 Atopic dermatit is 59282250 Completed 202012/01/2020 Problem Code: L20.9; Problem Code Type: ICD-10; Not Available [facility] 3 04:03:29 Nausea 485076766 Completed 201609/12/2017 Problem Code: R11.0; Problem Code Type: ICD-10; Not Available [facility] 3 04:03:30 Nicotine dependen ce 53612358 Completed 201802/27/2019 Problem Code: F17.209; Problem Code Type: ICD-10; Not Available [facility] 3 04:03:30 Adjustme nt disorder 85262349 Completed 201909/12/2019 Problem Code: F43.20; Problem Code Type: ICD-10; Not Available [facility] 3 04:03:30 Abnormal weight gain 653856280 Completed 202002/09/2021 Problem Code: R63.5; Problem Code Type: ICD-10; Not Available [facility] 3 04:03:30 Diarrhea 56925350 Completed 201706/24/2020 Problem Code: R19.7; Problem Code Type: ICD-10; Not Available [facility] 3 04:03:31 Umbilica l hernia 933561794 Completed 201602/27/2019 Problem Code: K42.9; Problem Code Type: ICD-10; Not Available [facility] 3 04:03:31 Acute exacerba tion of chronic obstruct johnny pulmonar y disease 344654050 Completed 201702/09/2021 Problem Code: J44.1; Problem Code Type: ICD-10; Not Available [facility] 3 04:03:31 Localize d eruption of skin 945315961 Completed 201702/20/2018 Problem Code: R21; Problem Code Type: ICD-10; Not Available [facility] 3 04:03:32 Intertri go 54191114 Completed 201712/17/2017 Problem Code: L30.4; Problem Code Type: ICD-10; ADRIANA RANDHAWA REW, CDL B DRIVER-BC [address], [place], [address] , [facility] 4 12:07:57 Swollen abdomen 13728245 Completed 201906/24/2020 Not Available [facility] 3 04:03:32 Amnesia 30794732 Completed 201602/09/2021 Problem Code: R41.3; Problem Code Type: ICD-10; Not Available [facility] 3 04:03:32 Hand pain 21526157 Completed 202012/01/2020 Problem Code: M79.643; Problem Code Type: ICD-10; Not Available [facility] 3 04:03:33 Dyspnea 433922915 Completed 201907/22/2020 Problem Code: R06.00; Problem Code Type: ICD-10; Not Available [facility] 3 04:03:33 Fatigue 17771299 Completed 201804/29/2019 Problem Code: R53.83; Problem Code Type: ICD-10; Not Available [facility] 3 04:03:33 Follicul ar cysts of skin and subcutan eous tissue 872774165 Completed 201802/09/2021 Problem Code: L72.9; Problem Code Type: ICD-10; Not Available [facility] 3 04:03:34 Suicidal thoughts 2736330 Completed 201802/09/2021 Problem Code: R45.851; Problem Code Type: ICD-10; Not Available [facility] 3 04:03:34 Migraine without aura, not refracto ry 570346681 Completed 201602/27/2019 Problem Code: G43.009; Problem Code Type: ICD-10; Not Available [facility] 3 04:03:34 Chest pain 75179282 Completed 201702/27/2019 Problem Code: R07.9; Problem Code Type: ICD-10; Not Available [facility] 3 04:03:34 Pelvic and perineal pain 926560654 Completed 201804/29/2019 Problem Code: R10.2; Problem Code Type: ICD-10; Not Available [facility] 3 04:03:35 Itching of skin 886753933 Completed 201804/29/2019 Problem Code: L29.8; Problem Code Type: ICD-10; Not Available [facility] 3 04:03:35 Right upper quadrant pain 766515478 Completed 201708/23/2017 Problem Code: R10.11; Problem Code Type: ICD-10; Not Available [facility] 3 04:03:35 Pain in thoracic spine 990236237 Completed 201802/28/2023 Problem Code: M54.89; Problem Code Type: ICD-10; Not Available [facility] 3 04:03:36 Pain of breast 07248165 Completed 201907/22/2020 Problem Code: N64.4; Problem Code Type: ICD-10; Not Available [facility] 3 04:03:36 Contact dermatit is 19426745 Completed 201902/09/2021 Problem Code: L25.9; Problem Code Type: ICD-10; Not Available [facility] 3 04:03:36 Arthropa thy of joint of hand 438892899 Completed 201602/09/2021 Problem Code: M12.849; Problem Code Type: ICD-10; Not Available [facility] 3 04:03:37 Eczema 36120713 Completed 201907/25/2019 Problem Code: L30.9; Problem Code Type: ICD-10; Not Available [facility] 3 04:03:37 Generali zed abdomina l pain 264667159 Completed 201906/24/2020 Problem Code: R10.84; Problem Code Type: ICD-10; Not Available [facility] 3 04:03:37 Diarrhea 15291603 Completed 202009/16/2020 Problem Code: R19.7; Problem Code Type: ICD-10; Not Available [facility] 3 04:03:38 Pain of breast 88150809 Completed 201604/13/2017 Problem Code: N64.4; Problem Code Type: ICD-10; Not Available [facility] 3 04:03:38 Severe obesity 87300164325 104 Completed 201609/12/2017 Problem Code: E66.01; Problem Code Type: ICD-10; Not Available [facility] 3 04:03:38 Venereal disease screenin g Completed 201906/24/2020 Problem Code: Z11.3; Problem Code Type: ICD-10; Not Available [facility] 3 04:03:39 Family problems 778297768 Completed 201704/29/2019 Problem Code: Z63.79; Problem Code Type: ICD-10; Not Available [facility] 3 04:03:39 Noninfla mmatory disorder of the vagina 92424116 Completed 201802/28/2023 Problem Code: N89.8; Problem Code Type: ICD-10; Not Available [facility] 3 04:03:39 Pain of right lower leg 25492449341 9108 Completed 201906/24/2020 Problem Code: M79.661; Problem Code Type: ICD-10; Not Available [facility] 3 04:03:40 Candidia sis of skin 53403850 Completed 202203/02/2023 02/17/20 23 - Comments only - Nathalie eFldman PA-C - Will treat with RXd TERBINAF INE CREAM BID. 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 Problem Code: B37.2; Problem Code Type: ICD-10; Not Available [facility] 4 05:34:22 Candidia sis of skin 38215230 Completed 202203/20/2023 03/08/20 23 - Comments only - Nathalie Feldman PA-C - Given lack of response to topical antifung al treatmen ts to present, will cover with RXd DIFLUCAN 100mg QD x 7d. Chika will otherwis e continue efforts to keep the area clean and dry (conside r department chairperson after showerin g) and use OTC zinc oxide containi ng DESITIN to promote skin healing. Problem Code: B37.2; Problem Code Type: ICD-10; Not Available [facility] 4 05:34:22 Bilatera l adenoma of adrenal glands 88253623361 070080 Active 2023 Incident al finding on CT abdomen/ pelvis at [facility] 09/29/23 ADRIANA PADILLA, CDL B DRIVER-BC [address], [place], [address] , [facility]. 4 18:59:52 Chronic eczema 84363559 Active 2023 ARNOLDO DICKERSON LPN null, [facility] 4 09:13:42 Problem Notes None recorded. Procedures Surgical History Date Name Laterality Status Provider Name and Address Organization Details Recorded Time Total hysterectomy completed Laura Perales [facility] 05/26/2024 13:34:10 Imaging Results None recorded. Procedure Notes None recorded. Medical Equipment None Reported. Allergies Allergen ID Allergen Name Allergen Category Reaction Reaction Severity Criticality Documentation Date Start Date Code Code System Note Provider Name and Address Organization Details Recorded Time Bactrim medicatio n Not available Not available Not available 04/13/20232016 66453 9 RxNorm Not Available [facility] 3 16:11:46 iodine medicatio n Not available Not available Not available 04/13/20232016 5933 RxNorm Not Available [facility] 3 16:11:47 simvastat in medicatio n rash moderate Not available 04/13/20232019 25387 RxNorm rash Not Available [facility] 3 16:11:47 Augmentin medicatio n Not available Not available Not available 04/13/20232016 04774 2 RxNorm Not Available [facility] 3 16:11:47 codeine medicatio n vomiting moderate Not available 04/13/20232017 2670 RxNorm vomit ing Aller gyCod e: '0040 73874 32'; Aller gyNam e: 'CODE INE'; Aller gyCon ceptT ype: 'NDC' ; Not Available [facility] 3 16:11:47 Betadine medicatio n rash moderate Not available 04/13/20232016 31187 0 RxNorm skin rash Aller gyRea ction : 'skin rash' ; Aller gyCod e: '0053 65608 80'; Aller gyNam e: 'BETA DINE' ; Aller gyCon ceptT ype: 'NDC' ; Not Available [facility] 3 16:11:47 Protonix medicatio n other moderate Not available 04/13/20232016 20781 4 RxNorm sick Aller gyRea ction : 'sick '; Aller gyCod e: '8852 57'; Aller gyNam e: 'PROT MILDRED' ; Aller gyCon ceptT ype: 'RX Norm' ; Not Available [facility] 3 16:11:47 cyprohept adine hydrochlo ride medicatio n Not available Not available Not available 04/13/20232016 19651 2 RxNorm Aller gyCod e: '1660 21'; Aller gyNam e: 'CYPR OHEPT ADINE HCL'; Aller gyCon ceptT ype: 'RX Norm' ; Not Available [facility] 3 16:11:47 02949 Rybelsus medicatio n rash moderate low 10/16/2023 79432 45 RxNorm Dulce Maria garrido LPN [facility], [place] - [facility] 4 14:44:29 Medications Name Sig Start Date [...] Available Not Available Adderall 20 mg tablet YOSELYN 09/30 completed Not Available Not Available Not [...] take 1 tab po TID prn cough 10/23/ 2018 10/23 /2018 completed Not Available Not Available Not Available [...] for ADHD 2018 active prescrib ed by [facility] Not Available Not Available Not Available Flovent HFA 110 mcg/actua tion aerosol inhaler Inhale 2 puff twice a day with spacer. Rinse mouth after each use 04/072 completed Not Available Not Available Not Available [...] completed Not Available Not Available Not Available DeolanTouch UltraMini kit Test blood glucose daily as [...] 1 puff once a day 06/17 completed [facility] PULMONOL OGY Not Available Not Available Not [...] pen needle, diabetic, safety 31 gauge x 08/17 Use 1 needle subcutan eously once a [...] Updated DateTime 4 152.4 cm 42.3 kg/m2 41124.1 1 g 69 /min 110 mm[Hg] 70 mm[Hg] Dulce Maria garrido LPN [facility] 4 13:53:54 Social History Question Answer Notes LastModified by Organizat ion Details LastModified Time Tobacco Smoking Status Current Every Day Smoker ROOPA SAHU, [facility] 05/29/2023 08:00:26 What Was The Date Of Your Most Recent Tobacco Screening? 10/01/2023 [email or web address] Information not available 10/01/2023 What Is Your Current Pack Years? 30ormorepack years Information not available 05/29/2023 At What Age Did You Start Smoking Tobacco? 6 Information not available 05/29/2023 How Much Tobacco Do You Smoke? 0.5 PPD Information not available 05/29/2023 Has Tobacco Cessation Counseling Been Provided? No Information not available 05/29/2023 How Many Years Have You Smoked Tobacco? 52 [email or web address] Information not available 10/01/2023 Do You Or [...] Paternal Grandmother Family history of heart failure [email or web address] Not available 2022 04:00:45 Notes:*Problem: 2 kids - [place] only to daughter, not son Medical History No medical history recorded. Gynecological HistoryNo gynecological history recorded. Obstetrics History GPAL:G 0 P 0 0 0 0 Immunizations Vaccine Type Date Status Note Provider Nam e and Address Organization Details Recorded Time Hep B, adolescent or pediatric 7 completed Not Available [facility] 04/13/2023 06:16:25 Tdap 1 completed Not Available [facility] 04/13/2023 06:16:26 Tdap 5 completed Not Available [facility] 04/13/2023 06:16:26 Influenza, split virus, quadrivalent, PF 1 completed Not Available [facility] 04/13/2023 06:16:26 Influenza, split virus, quadrivalent, PF 2 completed Not Available [facility] 04/13/2023 06:16:26 COVID-19, mRNA, LNP-S, PF, 100 mcg/0.5mL dose or 50 mcg/0.25mL dose 2 completed Not Available [facility] 04/13/2023 06:16:26 COVID-19, mRNA, LNP-S, PF, 100 mcg/0.5mL dose or 50 mcg/0.25mL dose 1 completed Not Available [facility] 04/13/2023 06:16:26 COVID-19, mRNA, LNP-S, PF, 100 mcg/0.5mL dose or 50 mcg/0.25mL dose 1 completed Not Available [facility] 04/13/2023 06:16:26 COVID-19, mRNA, LNP-S, bivalent, PF, 30 mcg/0.3 mL dose 2 completed Not Available [facility] 04/13/2023 06:16:26 pneumococcal polysaccharide PPV23 8 completed Not Available [facility] 04/13/2023 06:16:26 Hep B, adult 1 completed Not Available [facility] 04/13/2023 06:16:27 Hep B, adult 0 completed Not Available [facility] 04/13/2023 06:16:27 Hep A, adult 0 completed Not Available [facility] 04/13/2023 06:16:27 Hep A, adult 7 completed Not Available [facility] 04/13/2023 06:16:27 influenza, unspecified formulation 4 completed Not Available [facility] 04/13/2023 06:16:27 Influenza, split virus, trivalent, PF 4 completed Dulce Maria Huerta LPN [facility] 05/05/2024 12:02:45 influenza, unspecified formulation 3 completed Ortiz Walker MA [facility], [facility] 05/26/2023 20:27:38 Influenza, split virus, quadrivalent, PF 3 completed Not Available [facility] 06/15/2023 05:33:04 Pneumococcal conjugate PCV20, polysaccharide YIT182 conjugate, adjuvant, PF 3 completed Not Available [facility] 06/15/2023 05:33:04 Past Encounters Encounter ID Performer Location Encounter Start Date Encounter Closed Date Diagnosis/Indication Diagnosis SNOMED-CT Code Diagnosis ICD10 Code [id number] NATHALIE FELDMAN PA-C [address] [address] 05/20/2024 13:30:03 05/20/2024 14:20:56 Type 2 diabetes mellitus without complication 542280131 E11.9 Tobacco de pendence caused by cigarettes 2651120947 2563793 F17.210 Hyperlipidemia 05963214 E78.5 Essential hypertension 72489938 I10 Candidal intertrigo 2661 02650 B37.2 Bilateral adenoma of adrenal glands 6534455224 0040704 D35.01 D35.02 Hypomagnesemia 666048854 E83.42 Posttrauma tic stress disorder 45436761 F43.10 [id number] ADRIANA PADILLA, [facility] [address] [place] [address] 05/05/2024 10:57:33 05/05/2024 12:28:30 Type 2 diabetes mellitus without complication 874840116 E11.9 Trying to give up smoking 844566509 Z72.0 Active or passive immunization 254227981 Z23 Intertrigo 02381933 L30. 4 Health Concerns Section Related Observation LastModified by Organization Detai ls LastModified Time None Recorded Concern Status LastModified by Organization Details LastModified Time None Recorded Payers Encounter Date Sequence Insurance Name Policy Number Policy Richard Covered Member ID Richard Member ID Guarantor Name 05/20/2024 1 [facility] (MEDICAID) Chika Quintanilla Jettrobby [id number] Chika M Danielle Notes Date Note Type Note Provider Name and Address Organization Details Recorded Time 05/20/2024 text/html 58y/o female presenting for f/u DM2, HTN, HPL, and chronic pain. Chika presented to [facility] 04/21/24 with c/o rash to groin and area beneath bilateral breasts x 2 weeks. As per ED report, RXd combination of topical therapies (NYSTATIN, KETOCONAZOLE/HYDRO CORTISONE, LOTRIMIN ULTRA). . Subsequently seen in f/u here at [facility] via [facility] on 05/05/24. Refer to [facility] dermatology initiated, however, patient has yet to be contacted to schedule. [address], [place], [address], [facility]. 05/20/2024 14:22:00 OBGyn Episode No OBEpisode recorded.
--- OUTSIDE RECORDS SUMMARY | 2024-05-29 00:11 | XMS_ITS | Clinical Summary ---
Author Organization [place] [address] Care Team Providers Care Pastry Chef Name Role Phone Mi Tyler Primary Care Provider +1- [phone] Allergies Active Allergy Reactions Criticality Noted Date Comments Adhesive Tape Rash Medium 08/28/2022 Amoxicillin-Pot Clavulanate Other (See Comments) Medium 08/28/2022 unspecified Cephalexin Rash Medium 05/15/2012 Codeine Nausea And Vomiting Medium 05/15/2012 Cyproheptadine Other (See Comments) Medium 08/28/2022 unspecified Ginseng Other (See Comments) Medium 08/28/2022 unspecified Umeclidinium Hives Medium 10/18/2020 Iodine Hives High Pantoprazole Other (See Comments) Medium 08/28/2022 unspecified Tiotropium [place] Other (See Comments) Medium 021 Mouth sores [...] year) with FIT yearly 1965 Sigmoidoscopy 1964 DM Hemoglobin A1c 1974 DM Opthalmology Exam 1974 DM Urine Microalbumin yearly 1974 HIV screen 1982 Hepatitis C Screening 1982 Lipid Screening 1982 Hepatitis B vaccine (0-59 yrs) (1) 09/26/1983 Pneumococcal Vaccine: At-Ris k 5-64yrs (1 of 2 - PCV) 09/26/1983 Tetanus/Diphtheria/Pertussis Vaccines (1 - Tdap) 09/26/1983 HPV test 1994 PAP Smear 1994 Breast Cancer Share Decision Needed 2004 Breast Cancer screening 2004 Zoster vaccine (1 of 2) 2014 DM Creatinine yearly 12/26/2014 12/26/2013 Covid-19 Vaccine (3 - 2023- season) 2024, 06/17/2021 Influenza (Flu) vaccine (1 o f 1 - Influenza standard series) 02/03/2024 Procedures Procedure Name Priority Date/Time Associated Diagnosis Comments BASIC METABOLIC PANEL Routine 12/26/2013 1:30 PM EDT from Last 3 Months or Most Recently Relevant to Health Maintenance Results * Basic Metabolic Panel (non-fasting) (12/26/2013 1:30 PM EDT) Glucose 112 60 - 199 mg/dL [facility] [employer] Comment:Diabetes: >=200 mg/d L plus symptoms Blood Urea Nitrogen 13 8 - 18 mg/dL [facility] Creatinine 0.84 0.70 - 1.20 mg/dL [facility] Comment: Please note that the pediatric reference intervals supplied above were not validated at [facility]. Results from pediatric patients should be interpreted [...] the following links into your internet browser. 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
--- OUTSIDE RECORDS SUMMARY | 2024-05-29 00:11 | XMS_ITS | Encounter Summary ---
[place] [address] Care Team Providers Care Tank Car Repairer Name Role Phone Mi Tyler Primary Care Provider +1- [phone] Encounter Details Date Type Department Care Team (Late st Contact Info) Description 10/27/2021 Telephone [place] [phone] Candie Santana Social History Tobacco Use Types [...] on filedocumented in this encounter Care Teams Tank Car Repairer Relationship Specialty Start Date End Date Mi Tyler PA [address] [place] [address] PCP - General Family Medicine 05/05/21 documented as of this encounter
--- OUTSIDE RECORDS SUMMARY | 2024-05-29 00:11 | XMS_ITS | Encounter Summary ---
Author Organization [facility] [place] [address] Care Team Providers Care Android Software Engineer Name Role Phone Ottoniel Jovel DNP Primary Care Provider [phone] [phone] Reason for Visit * Reason Onset Date Comments Other 10/19/2020 Medication updat es from OSH Encounter Details Date Type Department Care Team (Late st Contact Info) Description 10/19/2020 Telephone [place] [phone] Ling Mtz, RN Other (Medication updates from [...] Department of Pulmonary 5C, [facility] / Pager: [phone] documented in this encounter Plan of Treatment Not on file documented as of this encounter Visit Diagnoses Not on filedocumented in this encounter Care Teams Android Software Engineer Relationship Specialty Start Date End Date Ottoniel Jovel DNP [facility] [address] [place] [address] PCP - General Family Medicine 03/25/19 05/04/21 documented as of this encounter
--- OUTSIDE RECORDS SUMMARY | 2024-05-29 00:11 | XMS_ITS | Encounter Summary ---
Author Organization [facility] [place] [address] Care Team Providers Care Power Transformer Repair Supervisor Name Role Phone Ottoniel Jovel DNP Primary Care Provider [phone] Reason for Visit * Reason Onset Date Comments Other 10/18/2020 f/u to Breo Henna police captain senior Encounter Details Date Type Department Care Team (Late st Contact Info) Description 10/18/2020 [place] [phone] Ling Mtz RN Other (f/u to Breo [...] a $0 co-pay. I have instructed Ptto roll picker the inhaler adrianna and also request a pharmacist consultation. Pt verbally agrees to this plan. Ling Mtz RN Department of Pulmonary 5C, [facility] / Pager: [phone] documented in this encounter Plan of Treatment Not on file documented as of this encounter Visit Diagnoses Not on filedocumented in this encounter Care Teams Power Transformer Repair Supervisor Relationship Specialty Start Date End Date Ottoniel Jovel DNP [facility] [address] [facility] [address] [place] [address] PCP - General Family Medicine 03/25/19 05/04/21 documented as of this encounter
--- OUTSIDE RECORDS SUMMARY | 2024-05-29 00:11 | XMS_ITS | Encounter Summary ---
[place] [address] Care Team Providers Care Microsoft Dynamics Consultant Name Role Phone BeckaOttoniel balderas Jamesjolynn CARLEE Primary Care Provider [phone] Reason for Visit * Reason Onset Date Comments Prior Authorization 10/01/2020 fluticasone furoate-vilanteroL (Breo Ellipta) 100-25 mcg/dose Disk with Device Encounter Details Date Type Department Care Team (Late st Contact Info) Description 10/01/2020 [place] [phone] Cuca Gonzales LNA Prior Authorization (fluticasone furoate-vilanteroL [...] Authorization for Primary [place] [address] DENIED: Breo Ellipta Case/Reference #: [id number] Additional Information from Insurance: The patient must have had a treatment failure to any 2 of the following: Advair HFA, Advair diskus, Dulera or Symbicort. * Telephone Encounter - Cuca Gonzales LNA - 10/01/2020 11:02 AM EDT Medication Prior Authorization for [place] [address] Request received via: [employer] Patient: Chika Santos Patient : 1965 Insurance Company: [place] [employer] Sent via: Sponto Phone: Montesinos: [id number] Physician: Gurmeet Tam MD Medication Requested:fluticasone furoate-vilanteroL (Breo Ellipta) 100-25 mcg/dose Disk with Device Frequency/Sig: Inhale 1 puff into the lungs daily. 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 Prior medications trialed in this patient: Medication: QVar Medication: Albuterol Additional Notes: Allergy to Spiriva Respimat (tiotropium [place]) documented in this encounter Plan of Treatment Not on file documented as of this encounter Visit Diagnoses Not on filedocumented in this encounter Care Teams Microsoft Dynamics Consultant Relationship Specialty Start Date End Date Ottoniel Jovel DNP [address] [place] [address] PCP - General Family Medicine 03/25/19 05/04/21 documented as of this encounter
--- OUTSIDE RECORDS SUMMARY | 2024-05-29 00:11 | XMS_ITS | Encounter Summary ---
[place] [address] Care Team Providers Care Veterinary Medicine Doctor Name Role Phone Debbie Webber APRN Primary Care Provider + Reason for Visit * Reason Comments Skin Check Encounter Details Date Type Department Care Team (Late st Contact Info) Description 01/27/2014 10:30 AM EDT Office Visit Dermatology at [place] [address] [facility] [place] [phone] Juan Alberto Nuñez MD [address] [facility] [place] [address] Intertrigo (Primary Dx) Social History Tobacco Use [...] from the original note were not included. [facility] Tinea Versicolor: After Your Visit Your Care Instructions Tinea versicolor is a skin infection caused by a yeast (fungus). It causes many small spots, usually on the chest and back. The spotted skin can be flaky or scaly. The spots do not pepe in the sun, sothey are clinical medical assistant than the skin around them. Some spots [...] Where can you learn more? Visit our [employer] information library at [email or web address] You can also view health information on [employer] your personal patient account. Log in or sign up today. Enter K490 in the search box to learn more about Tinea Versicolor: After Your Visit. ?? [phone] [employer]. Care instructions adapted under license by [facility]. This care instruction is for use with your licensed healthcare professional. If you have questions about a medical condition or this instruction, always ask your healthcare professional. [employer] disclaims any warranty or liability for your use of this information. Content Version: [id number]; Last Revised: April 18, 2011 documented in [...] Chronic intertrigo. a. Will refer patient to [facility] Plastic Surgery in consultation regarding a potential [...] condition documented in this encounter Care Teams Veterinary Medicine Doctor Relationship Specialty Start Date End Date Debbie Webber APRN PCP - General 04/26/10 03/24/19 documented as of this encounter
--- OUTSIDE RECORDS SUMMARY | 2024-05-29 00:11 | XMS_ITS | Encounter Summary ---
Author Organization [facility] Address [facility] [place] [address] Care Team Providers Care Weekend Receptionist Name Role Phone Mi Tyler Primary Care Provider +1- [phone] Encounter Details Date Type Department Care Team (Late st Contact Info) Description 10/18/2022 Telephone Cardiology at [address] [place] [address] Francis Flood MD [facility] [place] [address] Social History Tobacco Use Types Packs/Day Years [...] appointment to apply heart monitor at [facility] 10/17/22 - cited transportation issues. documented in this encounter Plan of Treatment Not on file documented as of this encounter Visit Diagnoses Not on filedocumented in this encounter Care Teams Weekend Receptionist Relationship Specialty Start Date End Date Mi Tyler PA [address] [place] [address] PCP - General Family Medicine 05/05/21 documented as of this encounter
--- OUTSIDE RECORDS SUMMARY | 2024-05-29 00:11 | XMS_ITS | Encounter Summary ---
Author Organization [facility] [place] [address] Care Team Providers Care Machine Shop Supervisor Name Role Phone Ottoniel Jovel DNP Primary Care Provider Encounter Details Date Type Department Care Team (Late st Contact Info) Description 10/04/2020 Orders [place] [address] Gurmeet Tam MD [facility] [address] [place] [address] Social History Tobacco Use Types Packs/Day Years [...] on filedocumented in this encounter Care Teams Machine Shop Supervisor Relationship Specialty Start Date End Date Ottoniel Jovel DNP [address] [place], [place] [id number] PCP - General Family Medicine 03/25/19 05/04/21 documented as of this encounter
--- OUTSIDE RECORDS SUMMARY | 2024-05-29 00:11 | XMS_ITS | Encounter Summary ---
[place] [address] Care Team Providers Care Web Press Operator Apprentice Name Role Phone Ottoniel Jovel CARLEE Primary Care Provider +1 [phone] Reason for Visit * Reason Onset Date Comments Prior Authorization 10/01/2020 umeclidinium (Incruse Ellipta) 62.5 mcg/actuation Disk with Device Encounter Details Date Type Department Care Team (Late st Contact Info) Description 10/01/2020 [place] [phone] Cuca Gonzaels LNA Prior Authorization (umeclidinium (Incruse Ellipta) 62.5 [...] Date: 10/01/20 End Date: 10/01/21 Case/Reference #: [id number] See Approval Letter in scanned documents. Additional Notes: * Telephone Encounter - Cuca Gonzales LNA - 10/01/2020 10:27 AM EDT Medication Prior Authorization for Primary [place] [address] Request received via: inTradingScreen Patient: Chika Santos Patient : 1965 Insurance Company: [place] Medicaid Sent via: Travefy Phone: Montesinos: [id number] Physician: Gurmeet Tam MD Medication Requested: umeclidinium (Incruse Ellipta) 62.5 mcg/actuation Disk with Device Frequency/Sig: Inhale 62.5 mcg into the lungs daily. Disp: 3 each Refills: 3 Currently taking: no Diagnosis for this medication: BRENT and COPD overlap syndrome G47.33; J44.9 Prior medications trialed in this patient: Medication: QVar Medication: Albuterol Additional Notes: Allergy to Spiriva Respimat (tiotropium [place]) Progress Note 09/29/2020 from Gurmeet Tam MD [facility] sent with PA documented in this encounter Plan of Treatment Not on file documented as of this encounter Visit Diagnoses Not on filedocumented in this encounter Care Teams Web Press Operator Apprentice Relationship Specialty Start Date End Date Ottoniel Jovel DNP [address] [place] [address] PCP - General Family Medicine 03/25/19 05/04/21 documented as of this encounter
--- OUTSIDE RECORDS SUMMARY | 2024-05-29 00:11 | XMS_ITS | Encounter Summary ---
Author Organization [facility] Address [facility] [place] [address] Care Team Providers Care Division Manager Name Role Phone Ottoniel Jovel DNP Primary Care Provider [phone] Reason for Visit * Consultation (Routine) - Specialty Diagnoses / Procedures Referred By Wilfrid winston Referred To Contact Pulmonology Diagnoses Panlobular emphysema Ottoniel Jovel DNP [address] [place] [address] [facility] Pulmonology [address] [place] [phone] Referral ID Status Reason Start Date Expiration Date V isits Requested Visits Authorized [id number] Consult, Test & Treat [facility] PCP Updated and/or Approved 07/19/2020 01/16/2021 6 6 Encounter Details Date Type Department Care Team (Latest Contact Info) Description 09/30/2020 11:00 AM EDT TH Visit (TeleHealth) [place] [address] Gurmeet Tam MD [facility] [address] Asthma-COPD overlap syndrome; Pulmonary emphysema, [...] to make an appointment call . Call 1-407-OWHO-NOW ( ) for [place] or [place] residents for free telephone support for quittingtobacco. [...] Nicotine Replacement Therapy , September 03, 2012: https://www.federalregister.gov/articles//2013-14871/modifications-to- qfaammwl-gi-xezxrysn-amhlyrsuziu-nmerydq-lqenlxpk-edi-brqa-nwn-fwavvqo-lbbbp-ykv documented in this encounter Progress Notes * Gurmeet Tam MD - 09/30/2020 11:00 AM EDT Images from the original note were not included. [facility] Section of Pulmonary and Critical Care Medicine Outpatient Consultation - Initial Visit Date of Encounter: 09/29/2020 Referring Provider: Ottoniel Jovel APRN [facility] [address] [address] PCP: Ottoniel Jovel APRN Reason for Evaluation: [...] images available. CT in March 2020 at [facility] comments on moderate centrilobular emphysema, normal airways, no adenopathy, no pleural disease, and no focal airspace consolidations. Negative for PE. Prior CTA from January 2019 at [facility] comments on no PE or dissection, [...] negative Chest Imaging: CT Chest w 03/29/20 ([facility]) - report only -Report comments include: -hepatic steatosis, 22mm L adrenal nodule, 18mm R adrenal nodule unchanged from 01/2019 -No mediastinal adenopathy -No PE -Intact tracheobronchial tree. No consolidation or mass or intrapulmoanry nodules -Moderate centrilobular emphysema -No effusion CTA chest for cough with hemoptysis 01/03/19 ([facility]) - report only -no aortic dissection [...] discussing smoking cessation strategies. Gurmeet Tam MD [facility] Paper Finisherswat team member Pulmonary [place] [address] [email or web address] documented in this encounter Plan of [...] abuse documented in this encounter Care Teams Division Manager Relationship Specialty Start Date End Date Ottoniel Jovel DNP [address] [place] [address] PCP - General Family Medicine 03/25/19 05/04/21 documented as of this encounter
--- OUTSIDE RECORDS SUMMARY | 2024-05-29 00:11 | XMS_ITS | Encounter Summary ---
[place] [address] Care Team Providers Care Sonoscope Operator Name Role Phone Ottoniel Jovel DNP Primary Care Provider [phone]- [phone] Encounter Details Date Type Department Care Team (Late st Contact Info) Description 10/18/2020 Orders [place] [phone] Ling Mtz RN Social History Tobacco Use [...] on filedocumented in this encounter Care Teams Sonoscope Operator Relationship Specialty Start Date End Date Ottoniel Jovel DNP [address] [place] [address] PCP - General Family Medicine 03/25/19 05/04/21 documented as of this encounter
--- OUTSIDE RECORDS SUMMARY | 2024-05-29 00:11 | XMS_ITS | Encounter Summary ---
[facility] [place] [address] Care Team Providers Care Rn Geriatric Name Role Phone Ottoniel Jovel DNP Primary Care Provider [phone] Reason for Visit * Reason Onset Date Comments Other 10/19/2020 LVM regarding Br eo & schedule f/u Encounter Details Date Type Department Care Team (Late st Contact Info) Description 10/19/2020 Telephone [place] [phone] Ling Mtz RN Other (LVM regarding Breo [...] Ling Mtz RN Department of Pulmonary 5C, [facility] / Pager: [phone] documented in this encounter Plan of Treatment Not on file documented as of this encounter Visit Diagnoses Not on filedocumented in this encounter Care Teams Rn Geriatric Relationship Specialty Start Date End Date Ottoniel Jovel DNP [address] [place] [address] PCP - General Family Medicine 03/25/19 05/04/21 documented as of this encounter
--- OUTSIDE RECORDS SUMMARY | 2024-05-29 00:11 | XMS_ITS | Encounter Summary ---
[place] [address] Care Team Providers Care Lock Fitter Name Role Phone Ottoniel Jovel DNP Primary Care Provider [phone] Encounter Details Date Type Department Care Team (Late st Contact Info) Description 10/19/2020 [place] [phone] Mary Jo Pino Social History Tobacco Use [...] on filedocumented in this encounter Care Teams Lock Fitter Relationship Specialty Start Date End Date Ottoniel Jovel DNP [address] [place] [address] PCP - General Family Medicine 03/25/19 05/04/21 documented as of this encounter
--- OUTSIDE RECORDS SUMMARY | 2024-05-29 00:11 | XMS_ITS | Encounter Summary ---
[place] [address] Care Team Providers Care It Software Engineer Name Role Phone Mi Tyler Primary Care Provider +1- [phone] Encounter Details Date Type Department Care Team (Late st Contact Info) Description 06/09/2021 [place] [phone] Mary Jo Pino Social History Tobacco Use [...] on filedocumented in this encounter Care Teams It Software Engineer Relationship Specialty Start Date End Date Mi Tyler PA [address] [place] [address] PCP - General Family Medicine 05/05/21 documented as of this encounter
--- OUTSIDE RECORDS SUMMARY | 2024-05-29 00:11 | XMS_ITS | Encounter Summary ---
[place] [address] Care Team Providers Care Alumina Refinery Operator Name Role Phone Ottoniel Jovel DNP Primary Care Provider [phone] Encounter Details Date Type Department Care Team (Late st Contact Info) Description 11/23/2020 Refill Dermatology at [address] [place] [address] Mayela Bell, SPEECH COMMUNICATION INSTRUCTOR Social History Tobacco Use Types Packs/Day Years [...] on filedocumented in this encounter Care Teams Alumina Refinery Operator Relationship Specialty Start Date End Date Ottoniel Jovel DNP [address] [place], [place] [id number] PCP - General Family Medicine 03/25/19 05/04/21 documented as of this encounter
--- OUTSIDE RECORDS SUMMARY | 2024-05-29 00:11 | XMS_ITS | Encounter Summary ---
[place] [address] Care Team Providers Care Tele Marketing Executive Name Role Phone Ottoniel Jovel DNP Primary Care Provider [phone] Reason for Visit * Reason Onset Date Comments Prior Authorization 10/14/2020 Brevilma Dumont Encounter Details Date Type Department Care Team (Late st Contact Info) Description 10/14/2020 [place] [phone] Enma Howe CMA Prior Authorization (Win Dumont) [...] CMA - 10/18/2020 10:10 AM EDT Per [place]: member already has an approval on file until 10/14/2021. * Telephone Encounter - Enma Howe CMA - 10/14/2020 11:21 AM EDT Medication Prior Authorization for Primary Care ?? [place] [address] Request received via: in[employer] ?? Patient: Chika Santos ?? Patient : 1965 ?? Insurance Company: [place] medicaid ?? Sent via: cmm ?? Montesinos:[id number] ? Physician: Gurmeet Tam MD ?? Medication [...] Additional Notes: Allergy to Spiriva Respimat (tiotropium [place]) ?? documented in this encounter Plan of Treatment Not on file documented as of this encounter Visit Diagnoses Not on filedocumented in this encounter Care Teams Tele Marketing Executive Relationship Specialty Start Date End Date Ottoniel Jovel DNP [address] [place] [address] PCP - General Family Medicine 03/25/19 05/04/21 documented as of this encounter
--- OUTSIDE RECORDS SUMMARY | 2024-05-29 00:11 | XMS_ITS | Encounter Summary ---
Author Organization [facility] Address [facility] [address] Care Team Providers Care Sub Acute Care Nurse Name Role Phone Mi Tyler Primary Care Provider [phone] Reason for Visit * Reason Comments Establish Care Palpitations Encounter Details Date Type Department Care Team (Late st Contact Info) Description 09/14/2022 2:40 PM EDT Office Visit Cardiology at [address] [address] Francis Flood MD [facility] [place] [address] Palpitations Social History Tobacco Use Types Packs/Day [...] Palpitations documented in this encounter Care Teams Sub Acute Care Nurse Relationship Specialty Start Date End Date Mi Tyler PA [address] [place] [address] PCP - General Family Medicine 05/05/21 documented as of this encounter
--- OUTSIDE RECORDS SUMMARY | 2024-05-29 00:11 | XMS_ITS | Encounter Summary ---
Author Organization [facility] [place] [address] Care Team Providers Care Marketing Ambassador Name Role Phone Ottoniel Jovel DNP Primary Care Provider Encounter Details Date Type Department Care Team (Late st Contact Info) Description 08/31/2020 Orders [place] [address] Jerald Restrepo MD [facility] [place] [address] Pulmonary emphysema, unspecified emphysema type (Primary Dx) [...] Primary documented in this encounter Care Teams Marketing Ambassador Relationship Specialty Start Date End Date Ottoniel Jovel DNP [address] [place] [address] PCP - General Family Medicine 03/25/19 05/04/21 documented as of this encounter
--- OUTSIDE RECORDS SUMMARY | 2024-05-29 00:11 | XMS_ITS | Encounter Summary ---
Author Organization [facility] [place] [address] Care Team Providers Care Toll Repairer Central Office Name Role Phone Ottoniel Jovel DNP Primary Care Provider [phone] Reason for Visit * Reason Onset Date Comments Medication Refill 10/01/2020 Nicotine Lozen ge Rx Encounter Details Date Type Department Care Team (Late st Contact Info) Description 10/01/2020 [place] [address] Gurmeet Tam MD [facility] [place] [address] Smoking greater than 40 pack years (Primary [...] syndrome documented in this encounter Care Teams Toll Repairer Central Office Relationship Specialty Start Date End Date Ottoniel Jovel DNP [address] [place], [place] [address] PCP - General Family Medicine 03/25/19 05/04/21 documented as of this encounter
--- OUTSIDE RECORDS SUMMARY | 2024-05-29 00:11 | XMS_ITS | Encounter Summary ---
[place] [address] Care Team Providers Care Hospital Laboratory Technician Name Role Phone Ottoniel Jovel DNP Primary Care Provider [phone] Encounter Details Date Type Department Care Team (Late st Contact Info) Description 10/12/2020 [place] [phone] Stacie Hayes RN Social History Tobacco Use [...] and albuterol. Called Chika back, advised to nut picker the advair. She stated she has used the advair in the past and it caused a rash. Prescribed by her PCP. At [facility]. Called her PCP, documented rash after using advair 04/2019. documented in this encounter Plan of Treatment Not on file documented as of this encounter Visit Diagnoses Not on filedocumented in this encounter Care Teams Hospital Laboratory Technician Relationship Specialty Start Date End Date Ottoniel Jovel DNP [address] [place] [address] PCP - General Family Medicine 03/25/19 05/04/21 documented as of this encounter
--- OUTSIDE RECORDS SUMMARY | 2024-05-29 00:11 | XMS_ITS | Encounter Summary ---
Author Organization [facility] Address [address] [place] [address] Care Team Providers Care Clerical Aide Teacher Name Role Phone Unavailable Primary Care Provider Unavailabl e Encounter Details Date Type Department Care Team (Late st Contact Info) Description 10/18/2001 Results Only [facility] [address] [place] [address] Johnathan Webber, OMID [address] [place] [address] Social History Tobacco Use Types [...] ? PRISCILLA SANTOS ? Accession #: ? [id number] : ? 1965 (Age: 36) ??F ?Collect Date: ? 10/18/2001 Location: ? [facility] ? Receive Date: ? 10/22/2001 Provider: ?JOHNATHAN WEBBER CHAIR CANER Copy to: ? Specimen/Source: ?Conventional Pap Test, [...] ORDERABLES Final R esult SINAI GONZALEZ [address] [place] [address] documented in this encounter Visit Diagnoses Not on filedocumented in this encounter
--- OUTSIDE RECORDS SUMMARY | 2024-05-29 00:11 | XMS_ITS | Encounter Summary ---
[place] [address] Care Team Providers Care Kitchen Operator Name Role Phone Ottoniel Jovel DNP Primary Care Provider [phone] Reason for Visit * Reason Onset Date Comments Prior Authorization 10/04/2020 [place] denied fo r Breo Ellipta Encounter Details Date Type Department Care Team (Late st Contact Info) Description 10/04/2020 [place] [phone] Ling Mtz RN Prior Authorization ([place] denied [...] EDT DENIED: Breo Ellipta ?? Case/Reference #: [id number] ?? Additional Information from Insurance: The patient must have had a treatment failure to any 2 of the following: Advair HFA, Advair diskus, Dulera or Symbicort. Pt has already tried and failed Symbicort, ineffective. MD will need to write new Rx for Dulera or Advair. I will reach out to MD for new Rx. Ling Mtz RN Department of Pulmonary 5C, [facility] [place] [place] / Pager: [phone] documented in this encounter Plan of Treatment Not on file documented as of this encounter Visit Diagnoses Not on filedocumented in this encounter Care Teams Kitchen Operator Relationship Specialty Start Date End Date Ottoniel Jovel DNP [facility] [address] [place] [address] PCP - General Family Medicine 03/25/19 05/04/21 documented as of this encounter
--- OUTSIDE RECORDS SUMMARY | 2024-05-29 00:11 | XMS_ITS | Encounter Summary ---
[place] [address] Care Team Providers Care Crumb Packer Name Role Phone Ottoniel Jovel DNP Primary Care Provider [phone] Encounter Details Date Type Department Care Team (Late st Contact Info) Description 08/31/2020 Tele[place] [phone] Mary Jo Pino Social History Tobacco Use [...] on filedocumented in this encounter Care Teams Crumb Packer Relationship Specialty Start Date End Date Ottoniel Jovel DNP [address] [place] [address] PCP - General Family Medicine 03/25/19 05/04/21 documented as of this encounter
--- OUTSIDE RECORDS SUMMARY | 2024-05-29 00:11 | XMS_ITS | Encounter Summary ---
[place] [address] Care Team Providers Care Waist Cutter Name Role Phone Ottoniel Jovel DNP Primary Care Provider Encounter Details Date Type Department Care Team (Late st Contact Info) Description 09/09/2020 Telephone [place] [phone] Mary Jo Pino Social History Tobacco Use [...] on filedocumented in this encounter Care Teams Waist Cutter Relationship Specialty Start Date End Date Ottoniel Jovel DNP [address] [place] [address] PCP - General Family Medicine 03/25/19 05/04/21 documented as of this encounter
--- OUTSIDE RECORDS SUMMARY | 2024-05-29 00:11 | XMS_ITS | Encounter Summary ---
[place] [address] Care Team Providers Care Resident Engineer Name Role Phone Mi Tyler Primary Care Provider [phone]- [phone] Encounter Details Date Type Department Care Team [...] on filedocumented in this encounter Care Teams Resident Engineer Relationship Specialty Start Date End Date Mi Tyler PA [address] [place] [address] PCP - General Family Medicine 05/05/21 documented as of this encounter
--- OUTSIDE RECORDS SUMMARY | 2024-05-29 00:11 | XMS_ITS | Encounter Summary ---
Author Organization [facility] [place] [address] Care Team Providers Care Excelsior Picker Name Role Phone Debbie Webber APRN Primary Care Provider + Encounter Details Date Type Department Care Team (Late st Contact Info) Description 01/03/2019 Ancillary Procedure Radiology Library at [facility] [place] [address] Gurmeet Tam MD [facility] [address] Social History Tobacco Use Types Packs/Day Years [...] CT Chest (01/03/2019 12:00 AM EDT) Narrative [facility] - 10/19/2020 9:27 PM EDT This exam is auto-finalizing. It's purpose is for storage only. Gurmeet Tam MD IMG FILM LIBRARY O RDERABLES [place], [place] documented in this encounter Visit Diagnoses Not on filedocumented in this encounter Care Teams Excelsior Picker Relationship Specialty Start Date End Date Debbie Webber APRN PCP - General 04/26/10 03/24/19 documented as of this encounter
--- OUTSIDE RECORDS SUMMARY | 2024-05-29 00:11 | XMS_ITS | Encounter Summary ---
[place] [address] Care Team Providers Care Steam Hammer Operator Name Role Phone Ottoniel Jovel DNP Primary Care Provider Encounter Details Date Type Department Care Team (Late st Contact Info) Description 08/26/2020 Telephone [place] [phone] Ling Miranda Social History Tobacco Use Types [...] on filedocumented in this encounter Care Teams Steam Hammer Operator Relationship Specialty Start Date End Date Ottoniel Jovel DNP [address] [place] [address] PCP - General Family Medicine 03/25/19 05/04/21 documented as of this encounter
--- OUTSIDE RECORDS SUMMARY | 2024-05-29 00:11 | XMS_ITS | Encounter Summary ---
Author Organization [facility] [place] [address] Care Team Providers Care Cut Off Man Name Role Phone Mi Tyler Primary Care Provider [phone]- [phone] Reason for Referral * Consultation (Routine) - Closed Specialty Diagnoses / Procedures Referred By Contwm t Referred To Contact Cardiology Diagnoses Palpitations PALPITATIONS. PT REQUESTS . Mi Tyler PA [address] [place] [address] Uriel Panda MD [address] [place] [address] Referral ID Status Reason Start Date Expiration Date V isits Requested Visits Authorized [id number] Closed Consult, Test & Treat 06/12/2022 06/12/2023 1 1 Encounter Details Date Type Department Care Team (Late st Contact Info) Description 06/12/2022 Transcribe Orders eD Incoming Referrals [phone] Mi Tyler PA [address] [place], [place] [address] Palpitations Social History Tobacco Use Types Packs/Day [...] Palpitations documented in this encounter Care Teams Cut Off Man Relationship Specialty Start Date End Date Mi Tyler PA [address] [place] [address] PCP - General Family Medicine 05/05/21 documented as of this encounter
--- OUTSIDE RECORDS SUMMARY | 2024-05-29 00:11 | XMS_ITS | Encounter Summary ---
[place] [address] Care Team Providers Care Prop Attendant Name Role Phone Ottoniel Jovel DNP Primary Care Provider [phone] Reason for Visit * Reason Comments Skin Check * Consultation (Routine) - Closed Specialty Diagnoses / Procedures Referred By Wilfrid winston Referred To Contact Dermatology Diagnoses Unspecified contact dermatitis, unspecified cause Rash and other nonspecific skin eruption Contact Dermatitis, Rash; Est. Patient-Notes Received Procedures Consult Ottoniel Jovel DNP [address] [place] [address] Juan Alberto Nuñez MD [address] [place] [address], [place] [address] Referral ID Status Reason Start Date Expiration Date V isits Requested Visits Authorized [id number] Closed Consult, Test & Treat PCP Updated and/or Approved 09/16/2020 03/18/2021 6 6 Encounter Details Date Type Department Care Team (Late st Contact Info) Description 11/23/2020 11:30 AM EDT Office Visit Dermatology at [address] [phone] Juan Alberto Nuñez MD [address] [place] [address], JOANNE Nelson DERMATOLOGY [place], [place] [phone] Dermatitis Social History Tobacco Use Types Packs/Day [...] able to find an apartment in the [facility] which have just been refurbished, or an apartment will come become free as the prior [facility] apartment tenants moved back in to these [...] cause documented in this encounter Care Teams Prop Attendant Relationship Specialty Start Date End Date Ottoniel Jovel DNP [facility] [address] [place] [address] PCP - General Family Medicine 03/25/19 05/04/21 documented as of this encounter
--- OUTSIDE RECORDS SUMMARY | 2024-05-29 00:11 | XMS_ITS | Encounter Summary ---
Author Organization [facility] [place] [address] Care Team Providers Care Energy Crop Farmer Name Role Phone Ottoniel Jovel DNP Primary Care Provider [phone] Encounter Details Date Type Department Care Team (Late st Contact Info) Description 03/29/2020 Ancillary Procedure Radiology Library at [facility] [place] [address] [facility] [address] Social History Tobacco Use Types Packs/Day Years [...] Tam MD IMG FILM LIBRARY O RDERABLES [place], [place] documented in this encounter Visit Diagnoses Not on filedocumented in this encounter Care Teams Energy Crop Farmer Relationship Specialty Start Date End Date Ottoniel Jovel DNP [address] [place] [address] PCP - General Family Medicine 03/25/19 05/04/21 documented as of this encounter
--- OUTSIDE RECORDS SUMMARY | 2024-05-29 00:11 | XMS_ITS | Encounter Summary ---
[place] [address] Care Team Providers Care Senior Copywriter Name Role Phone Mi Tyler Primary Care Provider +1- [phone] Encounter Details Date Type Department Care Team (Late st Contact Info) Description 08/28/2022 Abstract Cardiology at [address] [place] [address] Yulia Rico, RN Tobacco user [...] disorder documented in this encounter Care Teams Senior Copywriter Relationship Specialty Start Date End Date Mi Tyler PA [address] [place] [address] PCP - General Family Medicine 05/05/21 documented as of this encounter
--- OUTSIDE RECORDS SUMMARY | 2024-05-29 00:11 | XMS_ITS | Encounter Summary ---
Author Organization [facility] Address [facility] [place] [address] Care Team Providers Care Loan Clerk Name Role Phone Debbie Webber APRN Primary Care Provider + Reason for Visit * Reason Comments Abdominal Pain Encounter Details Date Type Department Care Team (Late st Contact Info) Description 12/26/2013 11:04 AM EDT - 12/26/2013 2:40 PM EDT [place] [address] Elise Gudino MD Knapp, Ryan R, MD [facility] [place] [address] Chronic epigastric pain Discharge Disposition: Home Social [...] not included. 1. Please follow-up with a platemaker for your stomach pain. 2. If you pain becomes suddenly worse, if you experience bloody vomiting or stools, or if you become feverish, please seek medical attention. Thank you for entrusting us with your care. [facility] Abdominal Pain: After Your Visit Your [...] more? Visit our health information library at [email or web address] You can also view health information on [employer], your personal patient account. Log in or sign up today. Enter [id number] in the search box to learn more about Abdominal Pain: After Your Visit. ?? [id number] [employer]. Care instructions adapted under license by [facility]. This care instruction is for use with your licensed healthcare professional. If you have questions about a medical condition or this instruction, always ask your healthcare professional. [employer] disclaims any warranty or liability for your use of this information. Content Version: 9.9.080920; Last Revised: 2011 documented in this encounter [...] presents with ??? Abdominal Pain HPI Comments: Priscilla Santos is a 48 yo female who [...] for follow-up. Abdiel English MD Resident 12/26/13 1608 History Social History ??? Marital Status: Single [...] Plan: Followup PCP. Elise Gudino MD 12/26/13 1630 documented in this encounter Miscellaneous Notes * Discharge Summary - Nader Espino - 12/29/2013 8:49 AM EDT * Miscellaneous - Provider, Scanning - 12/26/2013 7:45 PM EDT * ED Triage - Sadie Rosas RN - 12/26/2013 11:24 AM EDT Patient presents to [facility] ED with c/o abdominal pain, nausea and [...] 12/26/2013 1:30 PM EDT STOOL CULTURE SCREEN ([facility]/CGP/APD/NLH) Routine 12/26/2013 1:26 PM EDT CAMPYLOBACTER ANTIGEN Routine 12/26/2013 1:26 PM EDT SHIGA TOXIN ASSAY Routine 12/26/2013 1:2 6 PM EDT URINALYSIS WITH REFLEX CULTURE STAT 12/26/2013 1:26 PM EDT STOOL CULTURE Routine 12/26/2013 1:26 PM EDT documented in this encounter Results * POCT Stool occult blood (12/26/2013 1:40 PM EDT) Pathologist [facility] POC Fecal OB Negative POSITIVE POC Control Internal Controls Acceptable Elise Gudino MD POINT OF CARE TEST O RDERABLES * Blue Tube HOLD (12/26/2013 1:30 PM EDT) Pathologist [facility] Blue Hold Sample in lab. CERNER MILLENNIUM Blood specimen (specimen) 12/26/2013 1:30 PM EDT 12/26/2013 1:47 PM EDT Elise Gudino MD HEMATOLOGY ORDERABLE S CERNER MILLENNIUM * (ABNORMAL) Differential, Automated (12/26/2013 1:30 PM EDT) Pathologist [facility] Neutrophil % 78.3(H) 34.0 - 71.0 % [...] MD HEMATOLOGY ORDERABLE S Performing Organization Address [facility] Phone Number [facility] * Lipase (12/26/2013 1:30 PM EDT) Lipase 36 0 - 60 unit/L CERNER MILLENNIUM Blood specimen (specimen) 12/26/2013 1:30 PM EDT 12/26/2013 1:47 PM EDT Narrative Resulting Agency Comment Spec In Lab Elise Gudino MD CHEMISTRY ORDERABLES Performing Organization Address [facility] Phone Number [facility] MILLENNIUM * Hepatic Function Panel (12/26/2013 1:30 PM [...] Gudino MD CHEMISTRY ORDERABLES Performing Organization Address [facility] de Phone Number [facility] GENEENNIUM * Basic Metabolic Panel (non-fasting) (12/26/2013 1:30 PM EDT) Glucose 112 60 - 199 mg/dL CERNER MILLENNIUM Comment:Diabetes: >=200 mg/d L plus symptoms Blood Urea Nitrogen 13 8 - 18 mg/dL CERNER MILLENNIUM Creatinine 0.84 0.70 - 1.20 mg/dL CERNER MILLENNIUM Comment: Please note that the pediatric reference intervals supplied above were not validated at [facility]. Results from pediatric patients should be interpreted [...] the following links into your internet browser. [email or web address] Blood specimen (specimen) 12/26/2013 1:30 PM EDT 12/26/2013 1:47 PM EDT Narrative Resulting Agency Comment Spec In Lab Elise Gudino MD CHEMISTRY ORDERABLES [facility] HAIIUM * Shiga Toxin Detection (12/26/2013 1:26 PM EDT) Shiga Toxin Assay ? Patient Name: PRISCILLA SANTOS ? Ordered By: ELISE GUDINO ? MR#: [id number] ?LOC: ??ED ? /Sex: ??1965 (48 years), ? Female ? PROCEDURE: Shiga Toxin Assay ?SOURCE: Stool ? COLLECTED: 12/26/2013 13:26 ? STARTED: 12/26/2013 13:56 ? FINAL REPORT ? Final Report ? Verified: 15:09 ? EIA Negative for Shiga Toxin 1 ? EIA Negative for Shiga Toxin 2 ? ___ ? ___ [facility] Stool specimen (specimen) 12/26/2013 1:26 PM EDT 12/26/2013 1:56 PM EDT Narrative Resulting Agency Comment Spec In Lab Elise Gudino MD MICROBIOLOGY - GENER AL ORDERABLES [facility] * Campylobacter Antigen (12/26/2013 1:26 PM EDT) Campylobacter Ag ? Patient Name: PRISCILLA SANTOS ? Ordered By: ELISE GUDINO ? MR#: [id number] ?LOC: ??ED ? /Sex: ??1965 (48 years), ? Female ? PROCEDURE: Campylobacter Antigen ?SOURCE: Stool ? COLLECTED: 12/26/2013 13:26 ? STARTED: 12/26/2013 13:56 ? FINAL REPORT ? Final Report ? Verified: 014 15:10 ? Immunoassay Negative for Campylobacter Antigen ? CERNER MILLENNIUM Stool specimen (specimen) 12/26/2013 1:26 PM EDT 12/26/2013 1:56 PM EDT Narrative Resulting Agency Comment Spec In Lab Elise Gudino MD MICROBIOLOGY - GENER AL ORDERABLES [facility] * Stool culture (12/26/2013 1:26 PM EDT) Stool Culture ? Patient Name: PRISCILLA SANTOS ? Ordered By: ELISE GUDINO ? MR#: [id number] ?LOC: ??ED ? /Sex: ??1965 (48 years), ? Female ? PROCEDURE: Stool Culture ?SOURCE: Stool ? COLLECTED: 12/26/2013 13:26 ? STARTED: 12/26/2013 13:56 ? FINAL REPORT ? Final Report ? Verified:01/10/20 14 12:04 ? Salmonella species, Group B isolated ? Identification performed by [facility], [place], [place]. ? PRELIMINARY REPORT ? Preliminary Report ? Verified:12/29/19 14 14:41 ? possible Salmonella species, Group B isolated ? Confirmation to follow. ? SUSCEPTIBILITY RESULTS ? Salmonella species ? _ ? RADHA Interp ? Ampicillin ?S ? Ciprofloxacin ? S ? Trimethoprim/Sulf a ?S ? S=Susceptible ??I=Intermediate ??R=Resistant ??NA=Not Applicable ? DDS=Dose dependent-suscept ible ??NS=Non-suscepti ble ? Patient: PRISCILLA SANTOS ? MR#: [id number] ? .Stool Culture ?Interpretive Results ? This [...] Urine Dipstick Hazy(A) Clear CERNER MILLENNIUM Specific [place] Urine Automated 1.019 1.002 - 1.030 CERNER [...] In Lab Elise Gudino MD URINE ORDERABLES Performing Organization Address City/State/[place] Phone Number [facility] documented in this encounter Visit Diagnoses Diagnosis Chronic epigastric pain Abdominal pain, epigastric ADHD (attention deficit hyperactivity disorder), combined type Attention deficit disorder with hyperactivity Acanthosis nigricans Acquired acanthosis nigricans Obese Obesity, unspecified Depression Depressive disorder, not elsewhere classified Hypertension Unspecified essential hypertension Bipolar disorder Bipolar disorder, unspecified Fibromyalgia Mylagia and myositis, unspecified documented in this encounter Care Teams Loan Clerk Relationship Specialty Start Date End Date Debbie Webber, CHAIR MENDER PCP - General 04/26/10 03/24/19 documented as of this encounter
--- OUTSIDE RECORDS SUMMARY | 2024-05-29 00:11 | XMS_ITS | Encounter Summary ---
[place] [address] Care Team Providers Care Professor Of Biology Name Role Phone Ottoniel Jovel DNP Primary Care Provider Encounter Details Date Type Department Care Team (Late st Contact Info) Description 09/16/2020 Tele[place] [phone] Mary Jo Pino Social History Tobacco Use [...] on filedocumented in this encounter Care Teams Professor Of Biology Relationship Specialty Start Date End Date Ottoniel Jovel DNP [address] [place] [address] PCP - General Family Medicine 03/25/19 05/04/21 documented as of this encounter
--- OUTSIDE RECORDS SUMMARY | 2024-05-29 00:11 | XMS_ITS | Encounter Summary ---
[place] [address] Care Team Providers Care Build Master Name Role Phone Mi Tyler Primary Care Provider +1- [phone] Encounter Details Date Type Department Care Team (Latest Contact Info) Description 11/21/2023 10:49 AM EDT - 11/21/2023 11:59 PM EDT [place] [phone] Discharge Disposition: Home Social History Tobacco Use [...] Report (11/21/2023 8:19 AM EDT) Final Diagnosis [id number] ? Location: [facility] The signing pathologist has [...] Graciela Verified: ??11/26/2023 14:03 ??Pathologist Performed at: ??-[facility] Dept. of Pathology, [place] [address] Tying In Machine Operator: Kelly Farr MD, FCAP, ??CLIA Certificate: [id number] DISCUSSION D - The increase in lamina [...] H - Rectal polyp, excision Referring Identifier: ??[id number] CARBON COPY: Mi Tyler CLINICAL INFORMATION Chronic [...] labeled H1. ??sns 11/26/2023 2:03 PM EDT [facility] GI Biopsy 11/21/2023 8:19 AM [...] EDT Isidro Marino DO PATHOLOGY/CYT OLOGY ORDERABLES [facility] [place] [address] documented in this encounter Visit Diagnoses Not on filedocumented in this encounter Care Teams Build Master Relationship Specialty Start Date End Date Mi Tyler PA [address] [place] [address] PCP - General Family Medicine 05/05/21 documented as of this encounter
--- OUTSIDE RECORDS SUMMARY | 2024-05-29 00:11 | XMS_ITS | Encounter Summary ---
[place] [address] Care Team Providers Care Heavy Coil Winder Name Role Phone Mi Tyler Primary Care Provider +1- [phone] Reason for Visit * Reason Onset Date Comments Referral 08/28/2022 Encounter Details Date Type Department Care Team (Late st Contact Info) Description 08/28/2022 Telephone Cardiology at [address] [place] [address] Yulia Rico, histology specialist Social History Tobacco Use Types Packs/Day Years [...] She would still like to see a yarn preparation supervisor. She accepts an appointment September 14 at 2:40 pm at the [facility] Cardiology clinic with Dr. Flood. * Telephone Encounter - Yulia Rico, RN - 08/28/2022 10:12 AM EDT Incoming documents by fax from PCP in [place], [place], were added to Chika's record. Chika was referred to cardiology at Dr. Galen Panda in May. There has not been an appointment scheduled. The manufacturing scheduler for sent a letter stating referral was received but they were unsuccessful in setting up an appointment. Chika's outgoing message on her primary phone does not identify her. Message left for call back to [phone] Questions to discuss: 1. Do you still want to see a yarn preparation supervisor? 2. Are you already seeing a yarn preparation supervisor at a non- practice? 3. Do you want to see a yarn preparation supervisor here at the [facility]? documented in this encounter Plan of Treatment Not on file documented as of this encounter Visit Diagnoses Not on filedocumented in this encounter Care Teams Heavy Coil Winder Relationship Specialty Start Date End Date Mi Tyler PA [address] [place] [address] PCP - General Family Medicine 05/05/21 documented as of this encounter
--- OUTSIDE RECORDS SUMMARY | 2024-05-29 00:11 | XMS_ITS | Encounter Summary ---
[place] [address] Care Team Providers Care Field Specialist Name Role Phone Ottoniel Jovel DNP Primary Care Provider Encounter Details Date Type Department Care Team (Late st Contact Info) Description 10/01/2020 Telephone [place] [phone] Mary Jo Pino Social History Tobacco Use [...] filedocumented in this encounter Care Teams Field Specialist Relationship Specialty Start Date End Date Ottoniel Jovel DNP [address] [place] [address] PCP - General Family Medicine 03/25/19 05/04/21 documented as of this encounter
--- OUTSIDE RECORDS SUMMARY | 2024-05-29 00:11 | XMS_ITS | Encounter Summary ---
[place] [address] Care Team Providers Care Divider Operator Name Role Phone Ottoniel Jovel DNP Primary Care Provider Encounter Details Date Type Department Care Team (Late st Contact Info) Description 08/24/2020 Telephone [place] [phone] Ling Miranda Social History Tobacco Use Types [...] on filedocumented in this encounter Care Teams Divider Operator Relationship Specialty Start Date End Date Ottoniel Jovel DNP [address] [place] [address] PCP - General Family Medicine 03/25/19 05/04/21 documented as of this encounter
--- OUTSIDE RECORDS SUMMARY | 2024-05-29 00:11 | XMS_ITS | Encounter Summary ---
[place] [address] Care Team Providers Care Business Leader Name Role Phone Ottoniel Jovel DNP Primary Care Provider +1 [phone] Reason for Visit * Reason Onset Date Comments Prior Authorization 10/01/2020 Pa needed fo r Breo [facility] Incruse Encounter Details Date Type Department Care Team (Late st Contact Info) Description 10/01/2020 Telephone [place] [phone] Ling Mtz RN Prior Authorization (Pa needed [...] 10/01/2020 10:07 AM EDT I have called [place] in regards to MYD-H message received via Pt. [facility] tells me the [facility] Incruse will need a PA from insurance. I will submit the request to our PA department now. [facility] also tells me that the Nicotine Lozenge Rx will need to be re-written with dosing instructions and Qty adjustment per box. I will re-write Rx per [facility] request. Ling Mtz, MARIAM Department of Pulmonary 5C, [facility] / Pager: [phone] documented in this encounter Plan of Treatment Not on file documented as of this encounter Visit Diagnoses Not on filedocumented in this encounter Care Teams Business Leader Relationship Specialty Start Date End Date Ottoniel Jovel DNP [address] [place] [address] PCP - General Family Medicine 03/25/19 05/04/21 documented as of this encounter
--- OUTSIDE RECORDS SUMMARY | 2024-05-29 00:11 | XMS_ITS | Encounter Summary ---
Author Organization [facility] [place] [address] Care Team Providers Care Bagger Meat Name Role Phone Ottoniel Jovel DNP Primary Care Provider +1 [phone] Encounter Details Date Type Department Care Team (Latest Contact Info) Description 10/07/2019 9:34 PM EDT - 10/07/2019 11:59 PM EDT [place] [phone] Discharge Disposition: Home Social History Tobacco Use [...] EDT) SARS-CoV-2 RNA Not Detected Not Detected [facility] Comment: This result should be [...] the instructions for use provided by the [employer] and additional guidance provided by CDC and FDA. Testing is performed in the Clinical [facility] Laboratory within the Department of Pathology and Laboratory Medicine at [facility], certified under the Clinical Laboratory Improvement Amendments [...] fact sheets at the following FDA website: https://www.fda.gov/medical-devices/laugzzorn-nmwuappsgx-xnfcwsv-devices/emergen -us e-authorizations#spwyt17wap SARS-CoV-2 RNA Source [employer] ENGINEER Swab [facility] Nasopharyngeal swab (specimen) Other / Unknown 10/07/2019 10:45 AM EDT 10/08/2019 6:40 AM EDT Narrative Resulting Agency Comment Spec In Lab Dimitris Milton DO MOLECULAR ORDERABLES [facility] [place] [address] documented in this encounter Visit Diagnoses Not on filedocumented in this encounter Care Teams Bagger Meat Relationship Specialty Start Date End Date Ottoniel Jovel DNP [address] [place] [address] PCP - General Family Medicine 03/25/19 05/04/21 documented as of this encounter
== END 2024-05-29 00:27 ==
LOC: DI 00:07
PROVIDERS: PCP Physician Assistant Medical; Visit Provider Physician Assistant Medical
DX: Z12.2 Encounter for screening for malignant neoplasm of respiratory organs (principal); F17.210 Nicotine dependence, cigarettes, uncomplicated
CPT/HCPCS: 71271

== ENCOUNTER 2024-07-14 07:02 | Emergency (ER) | payer MEDICAID, SELFPAY ==
--- NOTE | 2024-07-14 06:45 | RT.EKG_ITS ---
APPROVED REPORT Exam: Resting ECG Reason for Exam: sob Patient Location: E HR:53 bpm ECG Measurements Heart Rate 53 AXIS VT 179 P 42 QRSd 92 QRS 2 QT 486 T 28 QTc 456 Conclusion Sinus bradycardia...rate< 60 No STEMI
--- NOTE | 2024-07-14 07:00 | DI.RAD_ITS ---
Exam(s) XR PORTABLE CHEST AP EXAM: XR PORTABLE CHEST AP CLINICAL HISTORY: Shortness of breath. TECHNIQUE: 2D digital imaging was performed. COMPARISON: CR,XR XR CHEST 2V PA LATERAL from 09/29/2023 FINDINGS: Single AP portable view. Heart size is upper normal. The mediastinum is not widened. Lungs are clear. No infiltrates nor obvious pleural effusions. IMPRESSION: No obvious acute pulmonary findings on this single AP portable view of the chest. DATA REPOSITORY: RADIATION DOSE DELIVERED:
[2024-07-14 07:03] VITALS: BP 172/102; PULSE 63; RESP 14; TEMP 36.6; O2SAT 99
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
[2024-07-14 07:10] VITALS: RESP 15
[2024-07-14 07:15] VITALS: BP 172/102; PULSE 63; RESP 15; TEMP 36.6; O2SAT 99
[2024-07-14 07:52] LABS: BE (Venous) 2 mmol/L (-2-3); HCO3 (Venous) 26 mmol/L (23-28); O2 Sat (Venous) 87 %; TCO2 (Venous) 22 mmol/L (24-29); pCO2 (Venous) 33 mmHg (41-51); pO2 (Venous) 44 mmHg
[2024-07-14 07:53] LABS: HCT 40.9 % (36.0-46.0); MCH 30.4 pg (27.0-33.0); MCHC 34.2 % (32.0-36.0); MCV 89 fL (80-95); MPV 9.4 fL (8.0-11.0); Platelet Count 244 10^3/uL (130-400); RDW-SD 41.7 fL; WBC 7.68 10^3/uL (4.4-10.8)
[2024-07-14 08:05] LABS: Anion Gap 8.7 mmol/L (3-11); BUN 6 mg/dL (7-18); CO2 26.3 mmol/L (21.0-32.0); Calcium 8.9 mg/dL (8.5-10.1); Chloride 106 mmol/L (98-107); Glucose 138 mg/dL (74-106); Potassium 4.1 mmol/L (3.5-5.1); Sodium 141 mmol/L (136-145)
[2024-07-14] MEDS: Doxycycline Hyclate 100 MG CAP PO (08:11)
[2024-07-14] MEDS: Acetaminophen 500 MG TAB 1000 MG PO (08:11)
[2024-07-14 08:21] LABS: Absolute Basophil Count 0.15 10^3/uL (0.0-0.2); Absolute Eosinophil Count 0.54 10^3/uL (0.0-0.7); Absolute Lymphocyte Count 3.23 10^3/uL (1.2-3.4); Absolute Monocyte Count 0.46 10^3/uL (0.1-0.8); Atypical Lymphocytes % 7 %; Diff Comment Manual Differential; RBC Morphology Normal
[2024-07-14 09:11] VITALS: BP 168/92; PULSE 58; O2SAT 97
== END 2024-07-14 09:18 | disposition home or self-care (01) ==
PROVIDERS: Emergency Provider Emergency Medicine; PCP Physician Assistant Medical
DX: J45.901 Unspecified asthma with (acute) exacerbation (principal); J44.9 Chronic obstructive pulmonary disease, unspecified; I10 Essential (primary) hypertension; E78.5 Hyperlipidemia, unspecified; E11.9 Type 2 diabetes mellitus without complications; F17.210 Nicotine dependence, cigarettes, uncomplicated; Z79.85 Long-term (current) use of injectable non-insulin antidiabetic drugs
CPT/HCPCS: 80048; 82805; 93005; 99285; 71045; 84484; 85025; 85610; 93010; 99284

== ENCOUNTER 2024-08-18 14:40 | Outpatient (REF) | payer MEDICAID, SELFPAY ==
[2024-08-18 15:33] LABS: Abs Immature Grans 0.06 10^3/uL (0.0-0.06); Absolute Basophil Count 0.09 10^3/uL (0.0-0.2); Absolute Eosinophil Count 0.12 10^3/uL (0.0-0.7); Absolute Lymphocyte Count 3.15 10^3/uL (1.2-3.4); Absolute Neutrophil Count 6.87 10^3/uL (1.2-6.7); Basophils % 0.8 %; Eosinophils % 1.1 %; HCT 42.6 % (36.0-46.0); HGB 14.5 g/dL (11.2-15.7); Immature Grans % 0.5 %; Lymphocytes % 28.5 %; MCH 31.6 pg (27.0-33.0); MCV 93 fL (80-95); MPV 10.1 fL (8.0-11.0); Neutrophils % 62.1 %; Platelet Count 281 10^3/uL (130-400); RBC 4.59 10^6/uL (3.93-5.22); RDW 13.2 % (11.7-14.6); RDW-SD 44.6 fL; WBC 11.07 10^3/uL (4.4-10.8)
[2024-08-18 15:39] LABS: Absolute Monocyte Count 0.77 10^3/uL (0.1-0.8)
[2024-08-18 16:01] LABS: ALT 23 U/L (14-59); AST 16 U/L (15-37); Albumin 3.3 g/dL (3.4-5.0); Alkaline Phosphatase 69 U/L (46-116); Anion Gap 7.4 mmol/L (3-11); BUN 4 mg/dL (7-18); Bilirubin, Total 0.3 mg/dL (0.2-1.0); CO2 27.6 mmol/L (21.0-32.0); CREATININE 0.9 mg/dL (0.55-1.02); Calcium 9.1 mg/dL (8.5-10.1); Chloride 104 mmol/L (98-107); Estimated GFR 73.64 (mL/min/1.73m2); Glucose 254 mg/dL (74-106); Lipase 66 U/L (<78); Magnesium 1.8 mg/dL (1.8-2.4); Potassium 4.1 mmol/L (3.5-5.1); Sodium 139 mmol/L (136-145); TSH (W/Ref FT4) 2.41 uIU/mL (0.36-3.74); Total Protein 6.9 g/dL (6.4-8.2)
== END 2024-08-18 14:41 | disposition home or self-care (01) ==
LOC: NCHCN 14:40
PROVIDERS: PCP Physician Assistant Medical; Visit Provider Physician Assistant Medical
DX: R00.2 Palpitations (principal); R10.11 Right upper quadrant pain
CPT/HCPCS: 80053; 83690; 83735; 84443; 85025

== ENCOUNTER 2024-08-27 00:56 | Outpatient (CLI) | payer MEDICAID, SELFPAY ==
--- NOTE | 2024-08-27 | DI.RAD_ITS ---
Exam(s) XR ABDOMEN FLAT PLATE EXAM: 2D digital imaging was performed. CLINICAL HISTORY: CONSTIPATION,K59.00,? SMALL BOWEL OBSTRUCTION,? STOOL CONTENT. COMPARISON: CT CT ABDOMEN PELVIS WO from 09/29/2023 TECHNIQUE: Supine views of the abdomen performed. FINDINGS: BOWEL GAS PATTERN: Nondistended. No significant stool is visible. CALCIFICATIONS: No radiopaque calcifications. OSSEOUS STRUCTURES: Unremarkable for age. OTHER FINDINGS: The lung bases are clear. Right upper quadrant surgical clips. Surgical clips in lo w pelvis. Metallic coils related to anterior abdominal wall hernia repair. IMPRESSION: 1. Nonobstructive bowel gas pattern. 2. No significant stool. DATA REPOSITORY: RADIATION DOSE DELIVERED:
== END 2024-08-27 01:16 ==
LOC: DI 00:56
PROVIDERS: PCP Physician Assistant Medical; Visit Provider Physician Assistant Medical
DX: K59.00 Constipation, unspecified (principal)
CPT/HCPCS: 74018

== ENCOUNTER 2024-09-24 16:24 | Outpatient (REF) | payer MEDICAID, SELFPAY ==
[2024-09-26 09:23] LABS: HIV-1/2 Ag & Ab Screen Negative (Negative)
[2024-09-26 09:39] LABS: Hepatitis C Ab w Rflx HCV PCR Negative (Negative)
[2024-09-26 10:58] LABS: Syphilis Serology (RPR) Negative (Negative)
[2024-09-26 12:49] LABS: Bacterial Vaginosis (BV) Positive (Negative); Candida glabrata Negative (Negative); Candida species group Negative (Negative); Chlamydia Result Negative (Negative); GC Result Negative (Negative); Trichomonas vaginalis Negative (Negative)
== END 2024-09-24 16:25 | disposition home or self-care (01) ==
LOC: NCHCN 16:24
PROVIDERS: PCP Physician Assistant Medical; Visit Provider Physician Assistant Medical
DX: Z11.3 Encounter for screening for infections with a predominantly sexual mode of transmission (principal)
CPT/HCPCS: 81513; 86803; 87389; 87481; 87491; 87591; 87661; 86592

== ENCOUNTER 2024-10-13 10:20 | Emergency (ER) | payer MEDICAID, SELFPAY ==
[2024-10-13] VITALS (23 sets, daily range): BP systolic 122–145; BP diastolic 78–91; PULSE 67–76; RESP 11–23; TEMP 36.9; O2SAT 96–99
--- NOTE | 2024-10-13 10:15 | DI.CT_ITS ---
Exam(s) CT BRAIN NECK CTA EXAM: CT BRAIN NECK CTA CLINICAL HISTORY: cva?. TECHNIQUE: Imaging Protocol: Axial CT angiography was performed with multi-slice acquisition and mu lti-planar and/or 3D reconstructions. CONTRAST MATERIAL: Intravenous: Omnipaque 350 contrast volume:70 mL COMPARISON: No exams were available for comparison FINDINGS: CT Head W/O and W: Ventricles and Extra axial spaces: Normal in size and morphology for the patient's age. Hemorrhage: None. Cerebral parenchyma: No evidence of an acute territorial infarct are seen. There is a normal farrar-wh ite matter differentiation. Midline shift: None. Brainstem/Cerebellum: Normal. Calvarium: Normal. Visualized Paranasal sinuses/Mastoids: Clear. Soft Tissues: Unremarkable. Enhancement: Unremarkable. CTA Neck W: Common Carotid: Right: No dissection, occlusion or significant stenosis. Mild atherosclerotic calcification in the c arotid bulb. Left: No dissection, occlusion or significant stenosis. External Carotid: Right: No occlusion or significant stenosis. Left: No occlusion or significant stenosis. Internal Carotid: Right: No dissection, occlusion or significant stenosis. Mild atherosclerotic calcification is prese nt. Left: No dissection, occlusion or significant stenosis. Mild atherosclerotic calcification is presen t. Vertebral Artery: There is a dominant left vertebral artery. The right vertebral artery is attenuate d. Right: No dissection, occlusion or significant stenosis. Left: No dissection, occlusion or significant stenosis. Lung Apices: Normal. Bones: Within normal limits for the patient's age. Soft Tissues: Normal. Thyroid gland: Unremarkable. CTA Brain W: Internal Carotid Arteries: Atherosclerotic calcification is present. No aneurysm, occlusion or signi ficant stenosis is seen. Anterior Cerebral Arteries: Right: No aneurysm, occlusion or significant stenosis. Left: No aneurysm, occlusion or significant stenosis. Middle Cerebral Arteries: Right: No aneurysm, occlusion or significant stenosis. Left: No aneurysm, occlusion or significant stenosis. Posterior Cerebral Arteries: Right: No aneurysm, occlusion or significant stenosis. Left: No aneurysm, occlusion or significant stenosis. Vertebral Arteries: Right: No aneurysm, occlusion or significant stenosis. Left: No aneurysm, occlusion or significant stenosis. Basilar Artery: No aneurysm, occlusion or significant stenosis. IMPRESSION: 1. No large vessel occlusion or significant stenosis on the CT angiography of the head. 2. No acute intracranial process. 3. No occlusion or significant stenosis on the CT angiography of the neck. 4. There is a dominant left vertebral artery. The right vertebral artery is attenuated. RADIATION DOSE DELIVERED: 2,394.99mGy.cm Total DLP DATA REPOSITORY: All CT scans at this facility are submitted to the National Radiology Data Registry (NRDR) Dose Index Registry (DIR) with the [employer] (ACR). RADIATION OPTIMIZATION: All CT scans at this facility use at least one of these dose optimization te chniques: automated exposure control; mA and/or kV adjustment per patient size (includes targeted exa ms where dose is matched to clinical indication); or iterative reconstruction.
--- NOTE | 2024-10-13 10:15 | RT.EKG_ITS ---
APPROVED REPORT Exam: Resting ECG Reason for Exam: cva Patient Location: E HR:69 bpm ECG Measurements Heart Rate 69 AXIS DC 218 P 72 QRSd 84 QRS 57 QT 423 T 22 QTc 455 Conclusion Sinus rhythm 69 normal axis no stemi
[2024-10-13 10:49] LABS: Abs Immature Grans 0.03 10^3/uL (0.0-0.06); Absolute Basophil Count 0.07 10^3/uL (0.0-0.2); Absolute Eosinophil Count 0.21 10^3/uL (0.0-0.7); Absolute Lymphocyte Count 2.93 10^3/uL (1.2-3.4); Absolute Monocyte Count 0.73 10^3/uL (0.1-0.8); Absolute Neutrophil Count 4.93 10^3/uL (1.2-6.7); Basophils % 0.8 %; Eosinophils % 2.4 %; HCT 43.9 % (36.0-46.0); HGB 14.7 g/dL (11.2-15.7); Immature Grans % 0.3 %; Lymphocytes % 32.9 %; MCH 30.8 pg (27.0-33.0); MCHC 33.5 % (32.0-36.0); MCV 92 fL (80-95); MPV 9.5 fL (8.0-11.0); Monocytes % 8.2 %; Neutrophils % 55.4 %; Platelet Count 243 10^3/uL (130-400); RBC 4.77 10^6/uL (3.93-5.22); RDW 12.6 % (11.7-14.6)
[2024-10-13 11:00] LABS: Prothrombin Time 9.6 sec (9.1-11.1)
[2024-10-13 11:07] LABS: ALT 18 U/L (14-59); AST 15 U/L (15-37); Albumin 3.2 g/dL (3.4-5.0); Alkaline Phosphatase 60 U/L (46-116); Anion Gap 4.6 mmol/L (3-11); BUN 6 mg/dL (7-18); Bilirubin, Total 0.3 mg/dL (0.2-1.0); CO2 30.4 mmol/L (21.0-32.0); Chloride 102 mmol/L (98-107); Estimated GFR 64.49 (mL/min/1.73m2); Glucose 138 mg/dL (74-106); Magnesium 1.9 mg/dL (1.8-2.4); Potassium 4.2 mmol/L (3.5-5.1); Sodium 137 mmol/L (136-145); Total Protein 7.1 g/dL (6.4-8.2); Troponin I 4 ng/L (<or=51)
[2024-10-13] MEDS: Omnipaque 350 MG/ML 500 ML BTL-Imaging package 70 ML IJ (11:30)
[2024-10-13] MEDS: Normal Saline - Diluent 50 ML VIAL IJ (11:32)
[2024-10-13 11:49] LABS: Bilirubin Negative (Negative); Blood Negative (Negative); Clarity Clear (Clear); Glucose Negative (Negative); Ketones Negative (Negative); Leukocyte Esterase Negative (Negative); Nitrite Negative (Negative); Specific Gravity <= 1.005 (1.005-1.025); Urobilinogen 0.2 mg/dL (Up to 0.2)
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
--- NOTE | 2024-10-15 06:49 | NUR.NOTE ---
Access chart to reconcile EKG orders with EKG's in [facility]. Duplicate order cancelled. Nursing Note:
== END 2024-10-13 13:08 | disposition left against medical advice (07) ==
PROVIDERS: Emergency Provider Emergency Medicine; PCP Physician Assistant Medical
DX: R20.2 Paresthesia of skin (principal); R47.9 Unspecified speech disturbances; Z53.29 Procedure and treatment not carried out because of patient's decision for other reasons; F17.210 Nicotine dependence, cigarettes, uncomplicated
CPT/HCPCS: 99284; 99285; 36415; 70496; 70498; 80053; 93005; 81003; 83735; 84484; 85025; 85610; 93010

== ENCOUNTER 2024-10-21 09:55 | Outpatient (CLI) | payer MEDICAID, SELFPAY ==
--- NOTE | 2024-10-21 11:03 | DI.RAD_ITS ---
Exam(s) XR CHEST 2V PA LATERAL EXAM: XR CHEST 2V PA LATERAL CLINICAL HISTORY: DYSPNEA R06.00 TECHNIQUE: 2D digital imaging was performed. Two views. COMPARISON: CR XR PORTABLE CHEST AP from 07/14/2024 FINDINGS: HEART: Normal size. Aorta: Not dilated. PULMONARY VASCULATURE: Normal. MEDIASTINUM: Unremarkable. LUNGS: Clear. PLEURAL SPACE: No pleural effusion or pneumothorax. BONE:Unremarkable for age. SOFT TISSUES: Unremarkable. IMPRESSION: No acute abnormality. DATA REPOSITORY: RADIATION DOSE DELIVERED:
== END 2024-10-21 10:15 ==
LOC: DI 09:55
PROVIDERS: PCP Physician Assistant Medical; Visit Provider Family Medicine
DX: R06.00 Dyspnea, unspecified (principal)
CPT/HCPCS: 71046

== ENCOUNTER 2025-01-22 00:27 | Outpatient (CLI) | payer MEDICAID, SELFPAY ==
--- NOTE | 2025-01-22 11:55 | DI.US_ITS ---
Exam(s) US LOWER EXTREMITY VENOUS RT EXAM: US LOWER EXTREMITY VENOUS RT CLINICAL HISTORY: Right leg pain M79.604 Mild swelling, R/O DVT TECHNIQUE: Grayscale, color, and doppler imaging of the deep venous system of the right lower extremity was performed. COMPARISON: US US HERNIA from 04/12/2020 FINDINGS: There is no evidence of intraluminal thrombus and there is normal compression and augmentation demonstrated within the common femoral vein, femoral vein, and popliteal vein. In the ipsilateral calf the interrogated veins also exhibit normal compression/ augmentation properties. The ipsilateral saphenofemoral junction is patent. IMPRESSION: 1. No evidence of DVT in the right lower extremity. DATA REPOSITORY:
== END 2025-01-22 00:47 ==
LOC: DI 00:27
PROVIDERS: PCP Physician Assistant Medical; Visit Provider Family Medicine
DX: M79.604 Pain in right leg (principal)
CPT/HCPCS: 93971

== ENCOUNTER 2025-02-17 14:17 | Emergency (ER) | payer MEDICAID, SELFPAY ==
[2025-02-17 14:23] VITALS: BP 143/97; PULSE 79; RESP 16; TEMP 36.5; O2SAT 98
[2025-02-17 14:28] VITALS: BP 143/97; PULSE 79; RESP 16; TEMP 36.5; O2SAT 98
[2025-02-17] MEDS: Lidocaine 5% Patch 1 PATCH TP (14:53)
[2025-02-17] MEDS: diazePAM 5 MG TAB PO (14:54)
[2025-02-17] MEDS: Acetaminophen 500 MG TAB 1000 MG PO (14:54)
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
[2025-02-17 15:58] VITALS: BP 139/68; PULSE 75; RESP 16; O2SAT 96
== END 2025-02-17 15:55 | disposition home or self-care (01) ==
PROVIDERS: Emergency Provider Emergency Medicine; PCP Physician Assistant Medical
DX: M62.830 Muscle spasm of back
CPT/HCPCS: 99283

== ENCOUNTER 2025-02-20 02:10 | Outpatient (CLI) | payer MEDICAID, SELFPAY ==
--- NOTE | 2025-02-20 14:30 | DI.US_ITS ---
APPROVED REPORT EXAM: Comprehensive 2D, Doppler, and color-flow Echocardiogram Patient Location: Out-Patient Scaffolder: Kareem Cisneros RDCS (AE) Indications: Essential HTN, recent CVA Other Information Study Quality: Fair. Technically limited study due to body habitus. Conclusion Normal left ventricular wall thickness and chamber size. Ejection fraction is 55%. Wall motion is normal Normal right ventricular size and function Both atria are normal in size There is no structural or hemodynamically significant valvular disease Mildly dilated ascending aorta measuring 3.6 cm Wall motion Left Ventricle The left ventricle is normal size. The left ventricular systolic function is normal. The left ventricular ejection fraction is within the normal range. There is normal left ventricular wall thickness. There is normal LV segmental wall motion. There is no ventricular septal defect visualized. LVEF is 55%. Right Ventricle The right ventricle is normal size. Right ventricular systolic function is grossly normal. Atria The left atrium size is normal. The right atrium size is normal. The interatrial septum is intact with no evidence for an atrial septal defect. Aortic Valve The aortic valve is normal in structure. There is no aortic valvular stenosis. No aortic regurgitation is present. Mitral Valve The mitral valve is normal in structure. No evidence of mitral valve stenosis. There is no mitral valve regurgitation noted. Tricuspid Valve The tricuspid valve is normal in structure. There is no tricuspid valve stenosis. Trace tricuspid regurgitation. Pulmonic Valve The pulmonary valve is normal in structure. There is no pulmonic valvular stenosis. There is no pulmonic valvular regurgitation. Great Vessels The ascending aorta is mildly dilated. Aortic arch is normal in caliber. IVC is normal in size and collapses >50% with inspiration. Pericardium There is no pericardial effusion. 2D Dimensions IVSD d PLAX 0.90 cm F: 0.6-1.0 Ao Root d 2.46 cm F: 2.7 - 3.3 LVPW d PLAX 0.92 cm F: 0.6 - 1.0 Ao Asc Diam d 3.60 cm F: 2.3 - 3.1 LVID d PLAX 5.25 cm F: 3.8 - 5.2 LVDs 3.87 cm F: 2.2 - 3.5 LV EF Teichholz 51.1 % FS 26.28 % LV EDV (Teich) 132.2 mL LV ESV (Teich) 64.6 mL Stroke Vol Index (Teich) 34.85 Auto EF LV EDV A4C 76.5 mL LV EDV A2C 57.9 mL LV EDV BP 67.4 mL LV ESV A4C 36.7 mL LV ESV A2C 26.2 mL LV ESV BP 30.9 mL LVEF(%) A4C 52.0 % LVEF(%) A2C 54.7 % LVEF(%) BP 54.1 % LV SV A4C 39.8 ml LV SV A2C 31.7 ml LV SV BP 36.5 ml LV CO A4C 2.7 L/min LV CO A2C 2.3 L/min LV CO BP 2.5 L/min HR A4C 68.44 BPM HR A2C 71.86 BPM LV EDV Index (BP) LA Volume LA Length A4C 5.5 cm LA Length A2C 5.2 cm LA Area A4C s 11.16 cm2 LA Area A2C s 8.89 cm2 LA Vol A4C A-L 19.23 mL LA Vol A2C A-L 12.96 mL LA Vol Biplane A-L 16.3 mL LA Vol/BSA A4C A-L LA Vol/BSA A2C A-L LA Vol/BSA BP A-L 8.4 mL/m2 LA Vol A4C MOD 18.6 mL LA Vol A2C MOD 12.2 mL LA Vol BP MOD 15.3 mL LV Diastology MV E' medial 0.045 (>0.07 m/s) MV E Vmax 0.49 (0.4-1.3 m/s) MV E/E' MED 10.80 (<14) MV A Vmax 0.65 (0.4-1.3 m/s) MV E' lateral 0.051 (>0.1 m/s) E/A Ratio 0.8 MV E/E' LAT 9.48 (<14) MV E' Average 0.048 m/s MV E/E'(average) 10.10 Aortic Valve AoV Vmax 1.21 m/s LVOT Vmax 0.87 m/s AoV Peak Grad 5.9 mmHg LVOT Peak Grad 3.1 mmHg AoV Area (Vmax) 2.20 cm2 LVOT VTI 0.169 m AoV VTI 0.222 m LVOT Mean Grad 1.3 mmHg AoV Mean [place]. 0.78 m/s LVOT SV 51.61 mL AoV Mean Grad 2.9 mmHg LVOT Diam s 1.95 cm AoV Area (VTI) 2.33 cm2 AV Regurg Peak Gr. 5.88 mmHg Velocity Ratio 0.72 Pulmonary Valve PV Vmax 0.81 (0.5-1.5 m/s) RVOT Vmax 0.63 m/s PV Peak Grad 2.6 mmHg RVOT Peak Gr. 1.6 mmHg PV Mean [place] 0.58 m/s RVOT VTI 0.134 m PV Mean Grad 1.5 mmHg RVOT Mean Gr. 0.9 mmHg
== END 2025-02-20 02:30 ==
LOC: DI 02:10
PROVIDERS: PCP Physician Assistant Medical; Visit Provider Family Medicine
DX: I10 Essential (primary) hypertension (principal)
CPT/HCPCS: 93306

== ENCOUNTER 2025-02-24 00:50 | Outpatient (CLI) | payer MEDICAID, SELFPAY ==
--- NOTE | 2025-02-24 13:45 | DI.US_ITS ---
Exam(s) MG MAMMO DIAGNOSTIC BI US BREAST LT LIMITED EXAM: MAMMO DIAGNOSTIC BI CLINICAL HISTORY: MASTODYNIA LEFT N64.4. COMPARISON: 2016 and 2021 TECHNIQUE: Craniocaudal and mediolateral oblique Full Field Digital Mammography views of both breasts with Computer Aided Diagnosis followed by Tomosynthesis and left breast ultrasound. FINDINGS: Mammography/Tomosynthesis: Masses: None seen. Architectural Distortion: None seen. Microcalcifications: No suspicious pleomorphic-type are seen. Skin Thickening/Nipple Retraction: None. Left breast US: Echotexture: Normal appearance of the glandular tissue. Shadowing: No suspicious foci. Cyst: None. Solid lesions: None seen. Ductal dilation: None. IMPRESSION: 1. No evidence of malignancy is noted. 2. Unless there is more urgent need, follow-up screening mammography is recommended, as per [place] [employer] guidelines. BI-RADS Category 1 - Negative Breast Density - Category A - The breast are almost entirely fatty. Breast density Category C or D implies that the patient has dense breast tissue. Dense breast tissue can make it harder to find cancer on a mammogram. Dense breast tissue is also associated with an increased risk of breast cancer. This information about the result of the mammogram report was provided to the patient to raise their awareness. Use this report when you speak with the patient about their risks for breast cancer, which includes their family history. At that time, you may recommend additional screening tests (Ultrasound or MRI) as these tests may add significant information. A negative radiographic report should not delay biopsy if a dominant or clinically suspicious mass is present. Up to ten percent of cancers are not identified on mammography. A negative report may reinforce clinical impression. Adenosis and dense breasts may obscure an underlying neoplasm. False positive reports average 6 to 10%. Patient will receive a letter notifying them of these results.
== END 2025-02-24 01:10 ==
LOC: DI 00:50
PROVIDERS: PCP Physician Assistant Medical; Visit Provider Physician Assistant Medical
DX: Z12.31 Encounter for screening mammogram for malignant neoplasm of breast (principal); N64.4 Mastodynia
CPT/HCPCS: 76642; 77062; 77066; G0279

== ENCOUNTER 2025-03-27 03:17 | Outpatient (CLI) | payer MEDICAID, SELFPAY ==
--- NOTE | 2025-03-27 | DI.RAD_ITS ---
Exam(s) XR THORACIC SPINE COMPLETE EXAM: XR THORACIC SPINE COMPLETE CLINICAL HISTORY: BACK PAIN, DORSALGIA, M54.9. TECHNIQUE: 2D digital imaging was performed. Three views. COMPARISON: No exams were available for comparison FINDINGS: BONES: There is no fracture or destructive lesion. The vertebral bodies and posterior elements are unremarkable. ALIGNMENT: Within normal limits. DISKS: Interverebral disc spaces are maintained. There are small endplate osteophytes in the mid thoracic region. SOFT TISSUE: Visualized lungs are clear. IMPRESSION: Mild degenerative changes. DATA REPOSITORY: RADIATION DOSE DELIVERED:
--- NOTE | 2025-03-27 | DI.RAD_ITS ---
Exam(s) XR CERVICAL SPINE COMP 4-5V EXAM: XR CERVICAL SPINE COMP 4-5V CLINICAL HISTORY: NECK PAIN, CERVICALGIA, M54.2. TECHNIQUE: 2D digital imaging was performed. Five views were performed. COMPARISON: No exams were available for comparison FINDINGS: BONES: No fracture or destructive lesion. Vertebral bodies are unremarkable. No evidence neural foraminal encroachment. DISKS: Intervertebral disc spaces are maintained. Small endplate osteophytes. ALIGNMENT: Cervical spinal alignment is within normal limits. The odontoid and atlantoaxial articulations are normal. SOFT TISSUE: Normal. The lung apices are clear. IMPRESSION: Minimal degenerative changes. DATA REPOSITORY: RADIATION DOSE DELIVERED:
== END 2025-03-27 03:37 ==
LOC: DI 03:18
PROVIDERS: PCP Physician Assistant Medical; Visit Provider Physician Assistant Medical
DX: M54.2 Cervicalgia (principal); M51.34 Other intervertebral disc degeneration, thoracic region
CPT/HCPCS: 72050; 72072

== ENCOUNTER 2025-03-30 09:49 | Outpatient (REF) | payer MEDICAID, SELFPAY ==
[2025-03-30 15:46] LABS: Hemoglobin A1C 5.9 % (<5.7)
[2025-03-30 16:29] LABS: ALT 21 U/L (14-59); AST 15 U/L (15-37); Albumin 3.3 g/dL (3.4-5.0); Alkaline Phosphatase 52 U/L (46-116); Anion Gap 6.5 mmol/L (3-11); BUN 10 mg/dL (7-18); Bilirubin, Total 0.3 mg/dL (0.2-1.0); CO2 28.5 mmol/L (21.0-32.0); Calcium 9.0 mg/dL (8.5-10.1); Calculated LDL 96 mg/dL (<100); Chloride 101 mmol/L (98-107); Cholesterol 186 mg/dL (<200); Estimated GFR 64.49 (mL/min/1.73m2); Glucose 85 mg/dL (74-106); HDL Cholesterol 41 mg/dL (>or=50); Potassium 4.5 mmol/L (3.5-5.1); Sodium 136 mmol/L (136-145); Total Protein 7.3 g/dL (6.4-8.2); Triglyceride 248 mg/dL (<150)
== END 2025-03-30 09:50 | disposition home or self-care (01) ==
LOC: NCHCN 09:49
PROVIDERS: PCP Physician Assistant Medical; Visit Provider Physician Assistant Medical
DX: E11.69 Type 2 diabetes mellitus with other specified complication; I10 Essential (primary) hypertension
CPT/HCPCS: 80053; 80061; 83036

== ENCOUNTER → 2025-04-20 02:00 | Outpatient (CLI) | payer MEDICAID, SELFPAY ==
--- NOTE | 2025-04-20 | DI.RAD_ITS ---
Exam(s) XR KNEE RT 3V AP,LAT,DEE EXAM: XR KNEE RT 3V AP,LAT,DEE CLINICAL HISTORY: PAIN JOINT KNEE RT, M25.561. TECHNIQUE: 2D digital imaging was performed. Three views. COMPARISON: CR XR knee RT 3V AP,lat,dee from 03/20/2018 FINDINGS: BONES: No acute fracture is present. No bony destructive lesion is seen. JOINTS: The knee is normally aligned. No significant degenerative changes. No joint effusion is seen. SOFT TISSUE: Normal. IMPRESSION: Unremarkable radiographs of the right knee. DATA REPOSITORY: RADIATION DOSE DELIVERED:
== END ==
PROVIDERS: PCP Physician Assistant Medical; Visit Provider Physician Assistant Medical
DX: M25.561 Pain in right knee (principal)
CPT/HCPCS: 73562

== ENCOUNTER 2025-05-03 11:03 | Emergency (ER) | payer MEDICAID, SELFPAY ==
[2025-05-03 11:06] VITALS: BP 165/96; PULSE 77; RESP 18; TEMP 36.6; O2SAT 98
--- NOTE | 2025-05-03 11:30 | DI.RAD_ITS ---
Exam(s) XR CHEST 2V PA LATERAL EXAM: XR CHEST 2V PA LATERAL CLINICAL HISTORY: Cough TECHNIQUE: 2D digital imaging was performed of the chest. Two images were obtained. PA and lateral views were obtained. COMPARISON: CR,XR XR CHEST 2V PA LATERAL from 09/29/2023 CR XR CHEST 2V PA LATERAL from 10/21/2024 FINDINGS: MEDIASTINUM: Normal. HEART: Normal. PULMONARY VASCULATURE: Normal. LUNGS: Clear. PLEURAL SPACE: No pleural effusion or pneumothorax. BONE:Within normal limits for the patient's age. OTHER FINDINGS:Normal. IMPRESSION: 1. No acute pulmonary findings. 2. The preliminary [facility] report was reviewed. DATA REPOSITORY: RADIATION DOSE DELIVERED:
--- NOTE | 2025-05-03 11:34 | DI.RAD_ITS ---
Exam(s) XR KNEE LT 3V AP,LAT,DEE EXAM: XR KNEE LT 3V AP,LAT,DEE CLINICAL HISTORY: Left knee pain. TECHNIQUE: 2D digital imaging was performed of the left knee. Three images were obtained. AP, lateral and PA tunnel views were obtained. COMPARISON: CR LEFT KNEE 3 VIEW COMPLETE from 08/16/2010 FINDINGS: BONES: No acute fracture is present. No bony destructive lesion is seen. JOINTS: The knee is normally aligned. No joint effusion is seen. No loose body. SOFT TISSUE: Normal. IMPRESSION: 1. There is no acute fracture or dislocation present. 2. The preliminary [facility] report was reviewed. DATA REPOSITORY: RADIATION DOSE DELIVERED:
--- NOTE | 2025-05-03 12:05 | DI.[facility]_ITS ---
PROCEDURE INFORMATION: Exam: XR Chest Exam date and time: 05/03/2025 11:59 AM Age: 59 years old Clinical indication: Cough TECHNIQUE: Imaging protocol: Radiologic exam of the chest. Views: 2 views. COMPARISON: CR XR CHEST 2V PA LATERAL 10/21/2024 10:48 AM FINDINGS: Lungs: No new airspace consolidation or overt CHF. Pleural spaces: Unremarkable. No pleural effusion. No pneumothorax. Heart/Mediastinum: Unremarkable. No cardiomegaly. Bones/joints: No new or acute findings.. IMPRESSION: No new findings. No new airspace consolidation or CHF. Dictated and Authenticated by: Liliane Maurer MD. Orderin Selam Reeves MD
--- NOTE | 2025-05-03 12:07 | DI.[facility]_ITS ---
PROCEDURE INFORMATION: Exam: XR Left Knee Exam date and time: 05/03/2025 12:02 PM Age: 59 years old Clinical indication: Pain; Knee; Left TECHNIQUE: Imaging protocol: Radiologic exam of the left knee. Views: 3 views. COMPARISON: CR XR FOOT LT COMPLETE 05/03/2023 2:27 PM FINDINGS: Bones/joints: Bony mineralization is within normal limits. There is no acute fracture or dislocation. Soft tissues: Soft tissues are unremarkable by plain film exam. IMPRESSION: No acute findings by plain film exam. Dictated and Authenticated by: Liliane Maurer MD. Orderin Selam Reeves MD
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
== END 2025-05-03 12:47 | disposition home or self-care (01) ==
PROVIDERS: Emergency Provider Emergency Medicine; PCP Physician Assistant Medical
DX: M25.562 Pain in left knee (principal); M54.50 Low back pain, unspecified
CPT/HCPCS: 73562; 99284; 71046; 99283

== ENCOUNTER → 2025-05-26 00:43 | Outpatient (CLI) | payer MEDICAID, SELFPAY ==
--- NOTE | 2025-05-26 | DI.RAD_ITS ---
Exam(s) XR SACRUM COCCYX XR LUMBAR SPINE COMPLETE EXAM: XR LUMBAR SPINE COMPLETE and XR sacrum and coccyx CLINICAL HISTORY: CHRONIC BILAT LBP W R SIDED SCIATICA, LUMBAGO W SCIATICA G89.29 M54.41. TECHNIQUE: 2D digital imaging was performed of the lumbar spine, sacrum and coccyx. Eight images were obtained. AP, lateral, right oblique, left oblique and L5-S1 spot views were obtained. COMPARISON: CR LUMBAR SPINE COMPLETE from 09/29/2014 FINDINGS: BONES: No fracture or destructive lesion. There is small endplate osteophytes in the lumbar spine particularly at L4-L5. No facet hypertrophy identified. The sacroiliac joints are well maintained. There is no ankylosis or erosion present. DISKS: Intervertebral disc spaces are maintained. ALIGNMENT: There is a mild left convex scoliosis of the lumbar spine. No spondylolysis or spondylolisthesis. SOFT TISSUE: There are surgical clips in the left upper quadrant of the abdomen and in the pelvis. Atherosclerotic calcification is present. IMPRESSION: 1. Mild degenerative changes seen in the lower lumbar spine. 2. There is no acute abnormality in the lumbar spine, sacrum or coccyx. DATA REPOSITORY: RADIATION DOSE DELIVERED:
== END ==
LOC: DI 00:43
PROVIDERS: PCP Physician Assistant Medical; Visit Provider Family Medicine
DX: M51.360 Other intervertebral disc degeneration, lumbar region with discogenic back pain only (principal); G89.29 Other chronic pain; M54.41 Lumbago with sciatica, right side
CPT/HCPCS: 72110; 72220